=== PATIENT | female | born 1940 | race Caucasian/White ===

== ENCOUNTER 2020-10-07 14:45 | Outpatient (NON) | payer MEDICARE, SELFPAY ==
[2020-10-07 15:15] LABS: Add Urine Microscopic? NO; Appearance Urine Clear (Clear); Bilirubin Urine Negative (Negative); Blood Urine Negative (Negative); Color Urine Yellow (Yellow); Glucose Urine UA Negative (Negative); Ketones Urine Negative (Negative); Leukocyte Esterase Ur Negative LEU/UL (Negative); Nitrate Urine Negative (Negative); Protein Urine Negative (Negative); Urobilinogen Urine 0.2 mg/dL (0.2-1.0); pH Urine 5.5 (5.0-8.0)
== END 2020-10-07 14:46 ==
PROVIDERS: Visit Provider Nurse Practitioner Family
DX: G89.29 Other chronic pain (principal); M54.9 Dorsalgia, unspecified
CPT/HCPCS: 81003

== ENCOUNTER 2020-10-17 08:42 | Emergency (ER) | payer MEDICARE, SELFPAY ==
--- NOTE | ~2020-10-17 | XR_ITS ---
EXAMINATION: XR thoracic spine 2V DATE: 10/17/2020 09:37 INDICATION: Back pain TECHNIQUE: AP and lateral views of the thoracic spine were obtained. COMPARISON: 05/12/2018 FINDINGS: There is chronic exaggerated kyphosis of the thoracic spine. The bones are osteopenic which limits the sensitivity for fracture however none is seen. The vertebral body heights are maintained. There is moderate loss of intervertebral disc space height throughout the thoracic spine. Surgical c lips in the right upper quadrant are likely from prior cholecystectomy. Moderate spondylosis is noted in the upper lumbar spine. IMPRESSION: 1. Moderate thoracic spondylosis and exaggerated kyphosis without acute osseous abnormality identifie d. Reviewed, dictated and finalized at location A. CAL CERTIFICATION SPECIALIST IMPRESSION: 1. Moderate thoracic spondylosis and exaggerated kyphosis without acute osseous abnormality identified.
[2020-10-17 08:43] VITALS: BP 158/92; PULSE 87; RESP 20; O2SAT 97
--- NOTE | 2020-10-17 09:25 | PC.NURSE ---
PT TO XRAY VIA STRETCHER.
[2020-10-17] MEDS: fentaNYL CITRATE INJ (*CRX) 100 MCG/2 ML VIAL 50 MCG IV PUSH (09:40)
[2020-10-17 10:15] VITALS: BP 160/78; PULSE 68; RESP 14; O2SAT 96
--- NOTE | 2020-10-17 11:12 | PC.NURSE ---
Pt c/o pain, per [facility] EDP Dr Winston rosales to give [place] and Flexeril.
[2020-10-17] MEDS: HYDROcodone/acetaminophen (*CRX) 5-325 MG TABLET 1 TAB PO (11:26)
[2020-10-17] MEDS: CYCLOBENZAPRINE HCL 10 MG TABLET PO (11:26)
--- NOTE | 2020-10-17 11:51 | ED.BACK ---
HPI - Back Pain/Injury General Chief Complaint: Back Pain/Injury Stated Complaint: BACK PAIN Time Seen by Provider: 10/17/20 08:59 Source: patient and family Mode of arrival: ambulatory Limitations: no limitations History of Present Illness HPI Narrative: 80-year-old with a history of hypertension, hyperlipidemia, kyphosis here with complaints of upper left back pain for past few days. Patient states that she has a history of constipation while she was straining to have a bowel movement felt a pull in the upper back. Patient was seen in [place] [facility] was discharged home on muscle relaxers and pain medication however her pain is quite intense this morning. MD elicited complaint: back pain Pertinent past history: prior back pain Onset (ago): day(s) (3) Timing: constant Severity: moderate Similar Symptoms Previously: Yes Quality: aching Location: thoracic spine Radiation: none Exacerbating factors: none Relieving factors: none Related Data Home Medications Medication Instructions Recorded Confirmed mecobalamin (vitamin B12) 1,000 1,000 mcg SUBLINGUAL DAILY 10/28/19 07/30/20 mcg disintegrating tablet,sublingual Allergies Allergy/AdvReac Type Severity Reaction Status Date / Time FRANCO Inhibitors Allergy Unknown unknown Verified 10/17/20 08:49 Review of Systems Review of Systems: All systems reviewed & are unremarkable except as noted in HPI and below Constitutional: Constitutional: Reports no additional constitutional complaints Eyes: Eyes: Reports no additional eye complaints ENT: Reports system reviewed and no additional complaints, except as documented Cardiovascular: Cardiovascular: Reports no additional cardiovascular complaints Respiratory: Respiratory: Reports no additional respiratory complaints Gastrointestinal: Gastrointestinal: Reports no additional gastrointestinal complaints Musculoskeletal: Musculoskeletal: Reports as per HPI [facility] Past Medical History Medical History (Updated 10/17/20 @ 11:59 by Cesar Montero MD) Altered mental status Chronic low back pain Dementia Essential hypertension LEAH (generalized anxiety disorder) GERD without esophagitis Headache Hyperlipidemia Insomnia Obesity, Class I, BMI 30-34.9 Olecranon bursitis of right elbow Surgical History Surgical History History of cholecystectomy History of hysterectomy Family History Family History Father Family history of coronary artery disease Social History Social History Smoking status: Never smoker Smoking end date: 09/25/69 Alcohol intake: never Substance use: never Substance use type: does not use Additional living arrangements comments: [facility] Gender identity (if verbalized by the patient): Female Exam Narrative: Exam Narrative: GENERAL: Well-appearing, well-nourished, and in no acute distress. HEAD: Normocephalic, atraumatic. EYES: PERRLA and EOMI.. NECK: Supple. CHEST: Clear to auscultation. No respiratory distress. HEART: Regular rate and rhythm. No murmur heard. Normal peripheral pulses. Back Pain in the thoracicarea on the left side ABDOMEN: Soft, nontender, nondistended, normal active bowel sounds. EXTREMITIES: Normal range of motion. No edema. SKIN: Warm, dry, no rash. NEURO: No focal deficits. Alert and oriented x3. PSYCH: Normal mood and affect. Course Course Emergency Course: Patient pain is improved with IV pain medication however she periodically gets spasms in the upper back. I discussed x-ray findings with the patient and her daughter. Advised her to continue Zanaflex as prescribed along with [place] meanwhile we will give her a short course of steroids to help further inflammation. Patient does feel comfortable going home Vital Signs Vital signs: Vital Signs Pulse Rate 87 10/17/20 08:43
[2020-10-17 12:12] VITALS: BP 154/76; PULSE 72; RESP 15; O2SAT 97
== END 2020-10-17 12:14 | disposition home or self-care (01) ==
PROVIDERS: Emergency Provider Family Medicine; PCP Nurse Practitioner Family
DX: M54.6 Pain in thoracic spine (principal); I10 Essential (primary) hypertension; E78.5 Hyperlipidemia, unspecified; F03.90 Unspecified dementia, unspecified severity, without behavioral disturbance, psychotic disturbance, mood disturbance, and anxiety; K21.9 Gastro-esophageal reflux disease without esophagitis; E66.9 Obesity, unspecified; Z68.33 Body mass index [BMI] 33.0-33.9, adult; M47.814 Spondylosis without myelopathy or radiculopathy, thoracic region
CPT/HCPCS: 72070; 96374; 99284; A9270; J3010

== ENCOUNTER 2021-10-19 14:00 | Outpatient (NON) | payer MEDICARE, SELFPAY ==
[2021-10-23 14:44] LABS: Vitamin D 25 Hydroxy 66 ng/mL (30-100)
== END 2021-10-19 14:01 | disposition home or self-care (01) ==
LOC: CHSLAB 14:02
PROVIDERS: Visit Provider Nurse Practitioner Family
DX: E55.9 Vitamin D deficiency, unspecified (principal)
CPT/HCPCS: 36415; 82306

== ENCOUNTER 2022-03-04 08:53 | Outpatient (NON) | payer MEDICARE, SELFPAY ==
[2022-03-04 09:08] LABS: Basophils Absolute Auto 0.11 K/mm3 (0.00-0.10); Basophils Percent Auto 1.1 % (0.0-1.0); Eosinophils Absolute Auto 0.25 K/mm3 (0.02-0.50); Eosinophils Percent Auto 2.4 % (1.0-6.0); Hematocrit 41.1 % (35.0-42.0); Hemoglobin 13.3 g/dL (11.7-13.8); Immature Granulocyte Absolute 0.02 K/mm3 (0.00-0.00); Immature Granulocyte Percent A 0.2 % (0.0-0.0); Lymphocytes Absolute Auto 3.64 K/mm3 (1.10-4.50); Lymphocytes Percent Auto 34.8 % (18.0-42.0); Mean Corpuscular HGB Conc 32.4 g/dL (32.0-36.0); Mean Corpuscular Hemoglobin 31.1 pg (27.0-31.0); Mean Corpuscular Volume 96.3 fL (78.0-102.0); Mean Platelet Volume 10.3 fl (9.2-11.8); Monocytes Absolute Auto 0.63 K/mm3 (0.10-0.90); Neutrophils Absolute Auto 5.8 K/mm3 (1.7-7.2); Neutrophils Percent Auto 55.5 % (50.0-70.0); Platelet Count Result 399 K/mm3 (150-420); Red Blood Count 4.27 M/mm3 (4.20-5.40); Red Cell Distribution Width 13.2 % (11.6-14.4); White Blood Count 10.5 K/mm3 (4.8-10.8)
[2022-03-04 09:51] LABS: Alanine Aminotransferase 17 U/L (14-59); Albumin Level 3.6 g/dL (3.4-5.0); Alkaline Phosphatase 141 U/L (46-116); Anion Gap 8 mmol/L (8-16); Aspartate Amino Transferase 13 U/L (15-37); Bilirubin,Total 0.4 mg/dL (0.00-1.00); Blood Urea Nitrogen 20 mg/dL (7-18); Calcium 9.2 mg/dL (8.5-10.1); Carbon Dioxide 28 mmol/L (21-32); Chloride 104 mmol/L (98-108); Cholesterol 186 mg/dL (0-200); Estimated Glomerular Filt Rate 53; Glucose 100 mg/dL (70-99); HDL Direct 39 mg/dL (40-60); LDL Cholesterol Calculated 110 mg/dL (<130); Osmolality Calculated 292 mOsm/kg (285-295); Potassium 4.8 mmol/L (3.5-5.1); Sodium 140 mmol/L (136-145); Total Protein 7.6 g/dL (6.4-8.2); Triglycerides 185 mg/dL (0-150)
== END 2022-03-04 08:54 | disposition home or self-care (01) ==
LOC: CHSLAB 08:55
PROVIDERS: Visit Provider Nurse Practitioner Family
DX: E78.5 Hyperlipidemia, unspecified (principal); I10 Essential (primary) hypertension
CPT/HCPCS: 36415; 80053; 80061; 85025

== ENCOUNTER 2023-01-13 14:05 | Outpatient (CLI) | payer MEDICARE, SELFPAY ==
--- NOTE | ~2023-01-13 | XR_ITS ---
XR chest 2V 01/13/2023 14:26 Indication: Dyspnea Procedure: 2 view chest Comparison: Comparison to multiple prior studies sequentially, with oldest reviewed study dated 01/10. Findings: Heart size normal. No focal air space disease, pulmonary edema, pleural effusion or suspect ed pneumothorax. There is atherosclerosis of the aorta. The lungs are hyperinflated which is consiste nt with, but not diagnostic of chronic obstructive pulmonary disease. There is accentuated thoracic k yphosis. Impression: 1: No acute cardiopulmonary disease. Reviewed, dictated and finalized at location A. Impression: 1: No acute cardiopulmonary disease.
== END 2023-01-13 14:06 | disposition home or self-care (01) ==
LOC: CHSIMG 14:08
PROVIDERS: PCP Nurse Practitioner Family; Visit Provider Nurse Practitioner Family
DX: R09.89 Other specified symptoms and signs involving the circulatory and respiratory systems (principal); R06.09 Other forms of dyspnea
CPT/HCPCS: 71046

== ENCOUNTER 2023-02-23 07:59 | Outpatient (CLI) | payer MEDICARE, SELFPAY ==
[2023-02-23 08:14] LABS: Basophils Percent Auto 1.3 % (0.0-1.0); Eosinophils Absolute Auto 0.13 K/mm3 (0.02-0.50); Eosinophils Percent Auto 1.7 % (1.0-6.0); Hematocrit 39.6 % (35.0-42.0); Hemoglobin 12.7 g/dL (11.7-13.8); Immature Granulocyte Absolute 0.03 K/mm3 (0.00-0.00); Immature Granulocyte Percent A 0.4 % (0.0-0.0); Lymphocytes Percent Auto 29.2 % (18.0-42.0); Mean Corpuscular HGB Conc 32.1 g/dL (32.0-36.0); Mean Corpuscular Hemoglobin 30.5 pg (27.0-31.0); Mean Corpuscular Volume 95.2 fL (78.0-102.0); Mean Platelet Volume 9.6 fl (9.2-11.8); Monocytes Absolute Auto 0.46 K/mm3 (0.10-0.90); Monocytes Percent Auto 5.8 % (2.0-11.0); Neutrophils Absolute Auto 4.9 K/mm3 (1.7-7.2); Neutrophils Percent Auto 61.6 % (50.0-70.0); Platelet Count Result 358 K/mm3 (150-420); Red Blood Count 4.16 M/mm3 (4.20-5.40); Red Cell Distribution Width 13.5 % (11.6-14.4); White Blood Count 7.9 K/mm3 (4.8-10.8)
[2023-02-23 08:49] LABS: Alanine Aminotransferase 30 U/L (14-59); Albumin Level 3.6 g/dL (3.4-5.0); Alkaline Phosphatase 107 U/L (46-116); Anion Gap 9 mmol/L (8-16); Aspartate Amino Transferase 21 U/L (15-37); Bilirubin,Total 0.5 mg/dL (0.00-1.00); Blood Urea Nitrogen 20 mg/dL (7-18); Calcium 9.2 mg/dL (8.5-10.1); Carbon Dioxide 27 mmol/L (21-32); Chloride 104 mmol/L (98-108); Cholesterol 184 mg/dL (0-200); Estimated Glomerular Filt Rate 50; Glucose 108 mg/dL (70-99); HDL Direct 39 mg/dL (40-60); LDL Cholesterol Calculated 113 mg/dL (<130); Osmolality Calculated 293 mOsm/kg (285-295); Potassium 4.3 mmol/L (3.5-5.1); Sodium 140 mmol/L (136-145); Triglycerides 162 mg/dL (0-150)
== END 2023-02-23 08:00 | disposition home or self-care (01) ==
LOC: CHSLAB 08:01
PROVIDERS: PCP Nurse Practitioner Family; Visit Provider Nurse Practitioner Family
DX: E78.5 Hyperlipidemia, unspecified (principal); I10 Essential (primary) hypertension
CPT/HCPCS: 36415; 80053; 80061; 85025

== ENCOUNTER 2023-03-10 15:16 | Emergency (ER) | payer MEDICARE, SELFPAY ==
[2023-03-10] VITALS (20 sets, daily range): BP systolic 126–159; BP diastolic 64–101; PULSE 74–88; RESP 13–23; TEMP 37.1–37.2; O2SAT 92–97
--- NOTE | ~2023-03-10 | XR_ITS ---
EXAMINATION: XR chest 1V portable Exam Date/Time: 03/10/2023 17:02 CDT HISTORY: shortness of breath today Comparison: 01/13/2023. RESULT: Lines, tubes, and devices: None. Lungs and pleura: Senescent changes, otherwise clear. Cardiomediastinal silhouette: Stable. Other: No acute osseous or upper abdominal finding. IMPRESSION: No acute cardiopulmonary process. Reviewed, dictated and finalized at location K.
--- NOTE | 2023-03-10 16:36 | ED.SOB ---
HPI - SOB/Dyspnea General Chief Complaint: Shortness of Breath/Dyspnea Stated Complaint: sob Source: patient Mode of arrival: ambulatory Limitations: no limitations History of Present Illness HPI Narrative: 82-year-old female with a history of dementia, anxiety /depression, chronic neck/back pain, spondylosis, kyphosis,dyslipidemia, GERD, hypertension presents to the ER with -- had an episode of shortness of breath at rest. The shortness of breath resolved spontaneously. At this time the patient is asymptomatic with an oxygen saturation of 95% on room. -- Patient had a panic attack as she was unable to get a deep breath. No fever. No cough or sputum production. No chest pain Patient smoked for a few years and quit when she was 23. MD elicited complaint: shortness of breath Onset (ago): hour(s) ( started 2 hours ago and resolved spontaneously) Context: anxiety Severity: mild Exacerbating factors: nothing Relieving factors: nothing Associated symptoms: denies other symptoms Related Data Home oxygen amount: none Home Medications Medication Instructions Recorded Confirmed mecobalamin (vitamin B12) 1,000 1,000 mcg sublingual DAILY 10/28/19 03/10/23 mcg disintegrating tablet,sublingual polyethylene glycol 3350 17 17 g PO DAILY 09/22/22 03/10/23 gram/dose oral powder (Laxative PEG 3350) Allergies Allergy/AdvReac Type Severity Reaction Status Date / Time FRANCO Inhibitors Allergy Unknown unknown Verified 03/10/23 15:42 Review of Systems Review of Systems: All systems reviewed & are unremarkable except as noted in HPI and below Constitutional: Constitutional: Reports as per HPI and Reports no additional constitutional complaints Eyes: Eyes: Reports as per HPI and Reports no additional eye complaints ENT: Reports system reviewed and no additional complaints, except as documented and Reports as per HPI Cardiovascular: Cardiovascular: Reports as per HPI and Reports no additional cardiovascular complaints Respiratory: Respiratory: Reports as per HPI and Reports dyspnea Gastrointestinal: Gastrointestinal: Reports as per HPI and Reports no additional gastrointestinal complaints Genitourinary: Genitourinary: Reports no additional female genitourinary complaints and Reports as per HPI Musculoskeletal: Musculoskeletal: Reports no additional musculoskeletal complaints and Reports as per HPI Comments: bilateral leg swelling back is kyphotic Integumentary/Breasts: Skin/Breast: Reports system reviewed and no additional complaints, except as docu and Reports as per HPI Neurologic: Reports system reviewed and no additional complaints, except as documented and Reports as per HPI Psychiatric: Psychiatric: Reports no additional psychiatric complaints and Reports as per HPI Endocrine: Endocrine: Reports no additional endocrine complaints and Reports as per HPI Hematologic/Lymphatic: Hematologic/Lymphatic: Reports no additional hematologic/lymphatic complaints and Reports as per HPI Allergic/Immunologic: Allergic/Immunologic: Reports no additional allergic/immunologic complaints and Reports as per HPI [facility] Past Medical History Medical History (Updated 03/10/23 @ 18:52 by Davon Reyes MD) Altered mental status Chronic low back pain Dementia Essential hypertension LEAH (generalized anxiety disorder) GERD without esophagitis Headache Hyperlipidemia Insomnia Obesity, Class I, BMI 30-34.9 Olecranon bursitis of right elbow Surgical History Surgical History History of cholecystectomy History of hysterectomy Family History Family History Father Family history of coronary artery disease Social History Social History Smoking status: Never smoker Smoking end date: 09/25/69 Alcohol intake: never Substance use: never Subst
--- NOTE | 2023-03-10 16:48 | ECG_ITS ---
Measurements Intervals [place] Rate: 74 P: 60 NC: 186 QRS: -34 QRSD: 92 T: 45 QT: 396 QTc: 441 Interpretive Statements SINUS RHYTHM LEFT AXIS DEVIATION [QRS AXIS < -30] ABNORMAL ECG NO PREVIOUS ECG AVAILABLE FOR COMPARISON Electronically Signed On 03-11-2023 9:11:23 CDT by Trace Rogers M.D.
[2023-03-10 17:24] LABS: Basophils Percent Auto 1.1 % (0.0-1.0); Eosinophils Absolute Auto 0.13 K/mm3 (0.02-0.50); Eosinophils Percent Auto 1.4 % (1.0-6.0); Hemoglobin 12.5 g/dL (11.7-13.8); Immature Granulocyte Absolute 0.01 K/mm3 (0.00-0.00); Immature Granulocyte Percent A 0.1 % (0.0-0.0); Lymphocytes Absolute Auto 2.89 K/mm3 (1.10-4.50); Lymphocytes Percent Auto 32.1 % (18.0-42.0); Mean Corpuscular HGB Conc 32.1 g/dL (32.0-36.0); Mean Corpuscular Hemoglobin 30.7 pg (27.0-31.0); Mean Corpuscular Volume 95.8 fL (78.0-102.0); Mean Platelet Volume 9.5 fl (9.2-11.8); Monocytes Absolute Auto 0.59 K/mm3 (0.10-0.90); Monocytes Percent Auto 6.6 % (2.0-11.0); Neutrophils Absolute Auto 5.3 K/mm3 (1.7-7.2); Neutrophils Percent Auto 58.7 % (50.0-70.0); Platelet Count Result 338 K/mm3 (150-420); Red Blood Count 4.07 M/mm3 (4.20-5.40); Red Cell Distribution Width 13.6 % (11.6-14.4)
[2023-03-10 17:41] LABS: Troponin I 7.9 ng/L (0.00-60.4)
[2023-03-10 17:46] LABS: Alanine Aminotransferase 25 U/L (14-59); Albumin Level 3.4 g/dL (3.4-5.0); Alkaline Phosphatase 109 U/L (46-116); Anion Gap 7 mmol/L (8-16); Aspartate Amino Transferase 13 U/L (15-37); Bilirubin,Total 0.2 mg/dL (0.00-1.00); Blood Urea Nitrogen 21 mg/dL (7-18); Calcium 9.5 mg/dL (8.5-10.1); Carbon Dioxide 29 mmol/L (21-32); Chloride 104 mmol/L (98-108); Estimated Glomerular Filt Rate 40; Glucose 93 mg/dL (70-99); NT Pro B Type Natriuretic Pept 139 pg/mL (0-450); Osmolality Calculated 293 mOsm/kg (285-295); Potassium 4.6 mmol/L (3.5-5.1); Sodium 140 mmol/L (136-145); Total Protein 7.4 g/dL (6.4-8.2)
== END 2023-03-10 19:10 | disposition home or self-care (01) ==
PROVIDERS: Emergency Provider Internal Medicine Critical Care Medicine; PCP Nurse Practitioner Family
DX: N18.31 Chronic kidney disease, stage 3a (principal); F41.0 Panic disorder [episodic paroxysmal anxiety]; F03.90 Unspecified dementia, unspecified severity, without behavioral disturbance, psychotic disturbance, mood disturbance, and anxiety; E78.5 Hyperlipidemia, unspecified; I10 Essential (primary) hypertension
CPT/HCPCS: 36415; 71045; 80053; 83880; 84484; 85025; 93005; 99284

== ENCOUNTER 2023-09-23 09:00 | Emergency (ER) | payer OTHER, SELFPAY ==
[2023-09-23 09:00] VITALS: BP 151/92; PULSE 95; RESP 18; TEMP 36.7; O2SAT 93
--- NOTE | 2023-09-23 09:16 | ED.BACK ---
HPI - Back Pain/Injury General Chief Complaint: Back Pain/Injury Stated Complaint: back pain Time Seen by Provider: 09/23/23 09:10 Source: patient Mode of arrival: ambulatory Limitations: no limitations History of Present Illness HPI Narrative: Patient is an 83-year-old female with back pain after moving some furniture. She has chronic thoracic curvature leaning forward. She has seen a specialist and they said nothing they can do at this time. This is chronic. She got steroids in the past that has helped significantly. I also she uses [facility] as needed. She is living at a nursing facility MD elicited complaint: back pain Pertinent past history: prior back pain Onset (ago): day(s) (2) Timing: constant Severity: moderate Pain scale (0-10): 5 Quality: sharp and throbbing Location: thoracic spine Radiation: other ( Local paraspinal muscles of the midthoracic spine; this is similar to prior episodes) Exacerbating factors: movement Relieving factors: immobilization Context: while lifting and turning/twisting Associated symptoms: denies other symptoms Related Data Home Medications Medication Instructions Recorded Confirmed polyethylene glycol 3350 17 17 g PO DAILY 09/22/22 03/10/23 gram/dose oral powder (Laxative PEG 3350) Allergies Allergy/AdvReac Type Severity Reaction Status Date / Time FRANCO Inhibitors Allergy Unknown unknown Verified 07/13/23 07:49 Review of Systems Review of Systems: All systems reviewed & are unremarkable except as noted in HPI and below Constitutional: Constitutional: Reports no additional constitutional complaints Eyes: Eyes: Reports no additional eye complaints ENT: Reports system reviewed and no additional complaints, except as documented Cardiovascular: Cardiovascular: Reports no additional cardiovascular complaints Respiratory: Respiratory: Reports no additional respiratory complaints Gastrointestinal: Gastrointestinal: Reports no additional gastrointestinal complaints Genitourinary: Genitourinary: Reports no additional female genitourinary complaints Musculoskeletal: Musculoskeletal: Reports no additional musculoskeletal complaints Integumentary/Breasts: Skin/Breast: Reports system reviewed and no additional complaints, except as docu Neurologic: Reports system reviewed and no additional complaints, except as documented Psychiatric: Psychiatric: Reports no additional psychiatric complaints Endocrine: Endocrine: Reports no additional endocrine complaints Hematologic/Lymphatic: Hematologic/Lymphatic: Reports no additional hematologic/lymphatic complaints Allergic/Immunologic: Allergic/Immunologic: Reports no additional allergic/immunologic complaints [facility] Past Medical History Medical History (Updated 09/23/23 @ 09:40 by Bobo Crump MD) Altered mental status Chronic low back pain Dementia Essential hypertension LEAH (generalized anxiety disorder) GERD without esophagitis Headache Hyperlipidemia Insomnia Obesity, Class I, BMI 30-34.9 Olecranon bursitis of right elbow Surgical History Surgical History History of cholecystectomy History of hysterectomy Family History Family History Father Family history of coronary artery disease Social History Social History Smoking status: Never smoker Smoking end date: 09/25/69 Alcohol intake: never Substance use: never Substance use type: does not use Lack of Transportation: No Lack of Food: Never True Current Housing: Decline to Answer Concerned About Future Housing: Decline to Answer Difficulty Paying Gas/Electric Bills: Decline to Answer Difficulty Paying for Meds: Decline to Answer Currently Unemployed: Decline to Answer Education: Decline to Answer Difficulty w/ Childcare or Family Care: Decline to Answer Living a
[2023-09-23] MEDS: methylPREDNISolone SOD SUCC 125 MG VIAL IM (09:36)
[2023-09-23] MEDS: HYDROcodone/acetaminophen (*CRX) 5-325 MG TABLET 1 TAB PO (09:36)
[2023-09-23 10:25] VITALS: BP 145/80; PULSE 86; RESP 20; O2SAT 94
== END 2023-09-23 10:28 | disposition home or self-care (01) ==
PROVIDERS: Emergency Provider Emergency Medicine; PCP Nurse Practitioner Family
DX: M54.6 Pain in thoracic spine (principal); F03.90 Unspecified dementia, unspecified severity, without behavioral disturbance, psychotic disturbance, mood disturbance, and anxiety; I10 Essential (primary) hypertension; E78.5 Hyperlipidemia, unspecified
CPT/HCPCS: 96372; 99283; A9270; J2930

== ENCOUNTER 2023-09-26 06:23 | Emergency (ER) | payer OTHER, SELFPAY ==
--- NOTE | 2023-09-26 06:40 | ED.SKABFB ---
HPI - Skin/Abscess/Foreign Bdy General Chief complaint: Skin/Abscess/Foreign Body Stated complaint: lower back pain for 2 weeks Time Seen by Provider: 09/26/23 06:38 Source: patient Mode of arrival: ambulatory Limitations: no limitations Related Data Home Medications Medication Instructions Recorded Confirmed polyethylene glycol 3350 17 17 g PO DAILY 09/22/22 03/10/23 gram/dose oral powder (Laxative PEG 3350) Allergies Allergy/AdvReac Type Severity Reaction Status Date / Time FRANCO Inhibitors Allergy Unknown unknown Verified 07/13/23 07:49 Review of Systems Review of Systems: All systems reviewed & are unremarkable except as noted in HPI and below Constitutional: Constitutional: Reports no additional constitutional complaints Eyes: Eyes: Reports no additional eye complaints ENT: Reports system reviewed and no additional complaints, except as documented Cardiovascular: Cardiovascular: Reports no additional cardiovascular complaints Respiratory: Respiratory: Reports no additional respiratory complaints Gastrointestinal: Gastrointestinal: Reports no additional gastrointestinal complaints Genitourinary: Genitourinary: Reports no additional female genitourinary complaints Musculoskeletal: Musculoskeletal: Reports no additional musculoskeletal complaints Integumentary/Breasts: Skin/Breast: Reports system reviewed and no additional complaints, except as docu Neurologic: Reports system reviewed and no additional complaints, except as documented Psychiatric: Psychiatric: Reports no additional psychiatric complaints Endocrine: Endocrine: Reports no additional endocrine complaints Hematologic/Lymphatic: Hematologic/Lymphatic: Reports no additional hematologic/lymphatic complaints Allergic/Immunologic: Allergic/Immunologic: Reports no additional allergic/immunologic complaints [facility] Past Medical History Medical History (Updated 09/26/23 @ 07:00 by Bobo Crump MD) Altered mental status Chronic low back pain Dementia Essential hypertension LEAH (generalized anxiety disorder) GERD without esophagitis Headache Hyperlipidemia Insomnia Obesity, Class I, BMI 30-34.9 Olecranon bursitis of right elbow Surgical History Surgical History History of cholecystectomy History of hysterectomy Family History Family History Father Family history of coronary artery disease Social History Social History Smoking status: Never smoker Smoking end date: 09/25/69 Alcohol intake: never Substance use: never Substance use type: does not use Lack of Transportation: No Lack of Food: Never True Current Housing: Decline to Answer Concerned About Future Housing: Decline to Answer Difficulty Paying Gas/Electric Bills: Decline to Answer Difficulty Paying for Meds: Decline to Answer Currently Unemployed: Decline to Answer Education: Decline to Answer Difficulty w/ Childcare or Family Care: Decline to Answer Living arrangements: assisted living Additional living arrangements comments: [facility] Occupation/Education: retired Gender identity (if verbalized by the patient): Female Exam Const: General: healthy appearing Nutritional Appearance: well nourished Orientation/consciousness: patient oriented x3 HENMT: Head: normal to inspection Ears: external ears normal Face/Nose/Sinus: Normal external nose present Eyes: Conjunctivae: conjunctivae normal Pupils: Equal, round and reactive pupils present EOM: EOMs intact bilaterally Neck: Neck: normal visual inspection Chest: Chest palpation & inspection: normal inspection of the chest Resp: Effort & Inspection: normal respiratory effort and not labored Auscultation: clear to auscultation bilaterally and no crackles Cardio: Rate: regular rate Rhythm: regular rhythm
[2023-09-26] MEDS: HYDROcodone/acetaminophen (*CRX) 5-325 MG TABLET 1 TAB PO (06:59)
[2023-09-26] MEDS: valACYclovir HCL 500 MG TABLET 1000 MG PO (06:59)
[2023-09-26 07:03] VITALS: BP 153/76; PULSE 88; RESP 20; TEMP 36.9; O2SAT 98
[2023-09-26 08:00] VITALS: BP 138/71; PULSE 83; RESP 17; O2SAT 95
[2023-09-26] MEDS: KETOROLAC (*BKC) 60 MG/2 ML VIAL IM (08:05)
--- NOTE | 2023-09-26 08:17 | PC.NURSE ---
Rn called to give report to the [facility], they state they cannot take the patient back yet until they have isolation orders
[2023-09-26 08:30] VITALS: BP 135/72; PULSE 84; RESP 17; O2SAT 95
[2023-09-26 09:00] VITALS: BP 137/80; PULSE 83; RESP 16; O2SAT 98
[2023-09-26] MEDS: LIDOCAINE 5% PATCH 1 PATCH TRANSDERM (09:10)
--- NOTE | 2023-09-26 09:38 | PC.NURSE ---
The [facility] called back they can accept patient back. RN will discharge patient.
[2023-09-26 09:41] VITALS: BP 140/75; PULSE 99; RESP 17; TEMP 36.8; O2SAT 98
== END 2023-09-26 09:41 | disposition home or self-care (01) ==
PROVIDERS: Emergency Provider Emergency Medicine; PCP Nurse Practitioner Family
DX: B02.9 Zoster without complications (principal); F03.90 Unspecified dementia, unspecified severity, without behavioral disturbance, psychotic disturbance, mood disturbance, and anxiety; I10 Essential (primary) hypertension; E78.5 Hyperlipidemia, unspecified
CPT/HCPCS: 96372; 99283; A9270; J1885

== ENCOUNTER 2023-10-05 14:57 | Emergency (ER) | payer OTHER, SELFPAY ==
--- NOTE | 2023-10-05 15:00 | ED.ANXIETY ---
HPI - Anxiety General Stated Complaint: shortness o f breath Time Seen by Provider: 10/05/23 14:58 Source: patient and EMS Mode of arrival: EMS Limitations: no limitations History of Present Illness HPI narrative: This 83-year-old female with a recent diagnosis of shingles that is from [place] and was called and EMS responded with some what appeared to be shortness of breath and anxiety, the patient after assessment by EMS stated that she felt 100% better and did states that she was anxious after the of a friend approximately 4 to 5 days ago. Currently there is no shortness of breath no fever chills her vitals are stable she is satting at 96% on room air with no chest pain no abdominal pain no dysuria no flank pain no nausea vomiting. complaint: anxiety Onset (ago): hour(s) Severity: mild Quality: improving Place: home History of similar episodes: Yes Provoking factors: emotional stress Exacerbating factors: nothing Related Data Home Medications Medication Instructions Recorded Confirmed polyethylene glycol 3350 17 17 g PO DAILY 09/22/22 03/10/23 gram/dose oral powder (Laxative PEG 3350) Allergies Allergy/AdvReac Type Severity Reaction Status Date / Time FRANCO Inhibitors Allergy Unknown unknown Verified 07/13/23 07:49 Review of Systems Review of Systems: All systems reviewed & are unremarkable except as noted in HPI and below PMFSH Past Medical History Medical History (Updated 10/05/23 @ 15:08 by Christian Fletcher MD) Altered mental status Chronic low back pain Dementia Essential hypertension LEAH (generalized anxiety disorder) GERD without esophagitis Headache Hyperlipidemia Insomnia Obesity, Class I, BMI 30-34.9 Olecranon bursitis of right elbow Surgical History Surgical History History of cholecystectomy History of hysterectomy Family History Family History Father Family history of coronary artery disease Social History Social History Smoking status: Never smoker Smoking end date: 09/25/69 Alcohol intake: never Substance use: never Substance use type: does not use Lack of Transportation: No Lack of Food: Never True Current Housing: Decline to Answer Concerned About Future Housing: Decline to Answer Difficulty Paying Gas/Electric Bills: Decline to Answer Difficulty Paying for Meds: Decline to Answer Currently Unemployed: Decline to Answer Education: Decline to Answer Difficulty w/ Childcare or Family Care: Decline to Answer Living arrangements: assisted living Additional living arrangements comments: [facility] Occupation/Education: retired Gender identity (if verbalized by the patient): Female Exam Const: General: healthy appearing and no acute distress Nutritional Appearance: well nourished Orientation/consciousness: patient oriented x3 Limitations: no limitations HENMT: Head: normal to inspection Chest: Chest palpation & inspection: normal inspection of the chest Resp: Effort & Inspection: normal respiratory effort Auscultation: clear to auscultation bilaterally Cardio: Rate: regular rate Rhythm: regular rhythm GI: GI Palp: Yes Soft to palpation Auscultation: normal bowel sounds Back/Spine/Pelvis: Back: no CVA tenderness Skin: General skin exam: normal color Rashes: no rashes Neuro: General: patient oriented x3 and moves all extremities Cranial nerves: Yes Nystagmus not present Speech: normal speech Extrem: General: normal to inspection Psych: Mental Status: mental status grossly normal Affect: Anxious affect present Course Course Emergency Course: Patient with a history of anxiety with a recent increased anxiety and EMS was called currently states that her symptoms have resolved does feel still bit anxious and O2 sats and vital signs are
[2023-10-05 15:03] VITALS: BP 110/66; PULSE 88; RESP 12; TEMP 37.1; O2SAT 93
[2023-10-05 15:04] VITALS: RESP 20; O2SAT 93
[2023-10-05] MEDS: ALPRAZolam (*CRX) 0.5 MG TABLET PO (15:10)
[2023-10-05 15:48] VITALS: BP 118/80; PULSE 70; RESP 20; TEMP 36.7; O2SAT 93
== END 2023-10-05 15:52 ==
PROVIDERS: Emergency Provider Emergency Medicine; PCP Nurse Practitioner Family
DX: F41.9 Anxiety disorder, unspecified (principal); F03.90 Unspecified dementia, unspecified severity, without behavioral disturbance, psychotic disturbance, mood disturbance, and anxiety; E78.5 Hyperlipidemia, unspecified; I10 Essential (primary) hypertension
CPT/HCPCS: 99283; A9270

== ENCOUNTER 2024-02-22 10:54 | Outpatient (NON) | payer OTHER, SELFPAY ==
[2024-02-22 11:12] LABS: Basophils Absolute Auto 0.08 K/mm3 (0.00-0.10); Basophils Percent Auto 0.8 % (0.0-1.0); Eosinophils Absolute Auto 0.13 K/mm3 (0.02-0.50); Eosinophils Percent Auto 1.3 % (1.0-6.0); Hematocrit 43.5 % (35.0-42.0); Hemoglobin 13.9 g/dL (11.7-13.8); Immature Granulocyte Absolute 0.02 K/mm3 (0.00-0.00); Immature Granulocyte Percent A 0.2 % (0.0-0.0); Lymphocytes Absolute Auto 2.13 K/mm3 (1.10-4.50); Lymphocytes Percent Auto 21.4 % (18.0-42.0); Mean Platelet Volume 10.8 fl (9.2-11.8); Monocytes Absolute Auto 0.67 K/mm3 (0.10-0.90); Monocytes Percent Auto 6.7 % (2.0-11.0); Neutrophils Absolute Auto 6.93 K/mm3 (1.70-7.20); Neutrophils Percent Auto 69.6 % (50.0-70.0); Platelet Count Result 328 K/mm3 (150-420); Red Blood Count 4.63 M/mm3 (4.20-5.40); Red Cell Distribution Width 13.1 % (11.6-14.4)
[2024-02-22 11:35] LABS: Alanine Aminotransferase 17 U/L (14-59); Albumin Level 3.3 g/dL (3.4-5.0); Alkaline Phosphatase 104 U/L (46-116); Anion Gap 7 mmol/L (4-12); Aspartate Amino Transferase 20 U/L (15-37); Bilirubin,Total 0.5 mg/dL (0.00-1.00); Blood Urea Nitrogen 20 mg/dL (7-18); Calcium 9.4 mg/dL (8.5-10.1); Carbon Dioxide 30 mmol/L (21-32); Chloride 104 mmol/L (98-108); Estimated Glomerular Filt Rate 49; Glucose 120 mg/dL (70-99); Osmolality Calculated 295 mOsm/kg (285-295); Potassium 4.9 mmol/L (3.5-5.1); Sodium 141 mmol/L (136-145); Total Protein 7.1 g/dL (6.4-8.2)
[2024-02-22 11:55] LABS: NT Pro B Type Natriuretic Pept 300 pg/mL (0-450)
[2024-02-22 16:17] LABS: Hemoglobin A1C 5.7 % (<5.7)
[2024-02-24 03:04] LABS: Vitamin D 25 Hydroxy 140 ng/mL (30-100)
== END 2024-02-22 10:55 | disposition home or self-care (01) ==
LOC: CHSLAB 10:55
PROVIDERS: Visit Provider Nurse Practitioner Family
DX: R73.9 Hyperglycemia, unspecified (principal); E55.9 Vitamin D deficiency, unspecified; R60.9 Edema, unspecified; R06.09 Other forms of dyspnea
CPT/HCPCS: 80053; 82306; 83036; 83880; 85025

== ENCOUNTER 2024-11-11 13:30 | Outpatient (CLI) | payer OTHER, SELFPAY ==
--- NOTE | ~2024-11-11 | XR_ITS ---
EXAMINATION: XR chest 2V DATE: 11/11/2024 14:19 INDICATION: Cough, shortness of breath and weakness TECHNIQUE: frontal and lateral views of the chest were obtained. COMPARISON: Chest radiograph dated 03/10/23 FINDINGS: Portion of the left apex are obscured by the patient's chin. The lungs are clear with no focal airspa ce opacities, pulmonary edema, pleural effusion or pneumothorax. The cardiomediastinal silhouette is normal. Thoracic kyphosis with moderate spondylosis. IMPRESSION: 1. No acute cardiopulmonary disease. Reviewed, dictated and finalized at location A. NESS DATABASE ANALYST
--- OUTSIDE RECORDS SUMMARY | 2024-11-11 16:02 | XMS_ITS | Clinical Summary ---
Author Organization [facility] Address [address] [place] [id number] Care Team Providers Care Acute Dialysis Nurse Name Role Phone Unavailable Primary Care Provider Unavailabl e Social History Tobacco Use Types Packs/Day Years Used Date Smoking Tobacco: Never Assessed Comments Unknown Sex and Gender Information Value Date Recorded Sex Assigned at Not on file Legal Sex Female 1:42 AM CDT Gender Identity Not on file Sexual Orientation Not on file Plan of Treatment Health Maintenance Due Date Last Done Comments DTaP, Tdap and Td Vaccines ( 1 - Tdap) 1959 Zoster Vaccines (1 of 2) 1990 Annual Medicare Wellness Visit 2005 Dexa Scan (General) 2005 Pneumococcal Vaccine: 65+ Ye ars (1 of 1 - PCV) 2005 RSV Immunization or 60+ Years (1 - 1-dose 75+ series) 2015 COVID-19 Vaccine ( - 2023-2 5 season) 2024 Influenza Adult (#1) 2024 Meningococcal B Vaccine Aged Out No l onger eligible based on patient's age to complete this topic Meningococcal Vaccine Aged Out No donna jayde eligible based on patient's age to complete this topic RSV Immunizations Under 20 Months Aged Out No longer eligible based on patient's age to complete this topic Insurance MEDICARE
== END 2024-11-11 13:31 | disposition home or self-care (01) ==
LOC: CHSIMG 13:32
PROVIDERS: PCP Nurse Practitioner Family; Visit Provider Family Medicine
DX: R09.89 Other specified symptoms and signs involving the circulatory and respiratory systems (principal)
CPT/HCPCS: 71046

== ENCOUNTER 2024-11-12 08:48 | Inpatient (IN) | payer OTHER, SELFPAY ==
[2024-11-12] VITALS (23 sets, daily range): BP systolic 78–117; BP diastolic 46–65; PULSE 107–127; RESP 17–24; TEMP 36.9–37.6; O2SAT 4–97; BMI 29.9
--- NOTE | ~2024-11-12 | CT_ITS ---
EXAMINATION: CT cervical spine wo con DATE: 11/12/2024 10:12 INDICATION: Neck injury. Fall. TECHNIQUE: Computed tomography (CT) of the cervical spine was performed without intravenous contrast. Automated exposure control and iterative reconstruction technique were employed. The dose-length pro duct was 225.35 mGy-cm. COMPARISON: None FINDINGS: Alignment is normal. Vertebral body heights are normal. There is mildly decreased disc heig ht at C3-C4, C5-C6, and C6-C7. The following disc levels are specifically discussed: C2-C3: There is no uncovertebral joint osteoarthritis. There is severe bilateral facet joint osteoart hritis. There is mild left neural foraminal stenosis. There is no central canal stenosis. C3-C4: There is severe right and moderate left uncovertebral joint osteoarthritis. There is moderate right and severe left facet joint osteoarthritis. There is mild bilateral neural foraminal stenosis. There is mild central canal stenosis. C4-C5: There is severe right and moderate left uncovertebral joint osteoarthritis. There is severe bi lateral facet joint osteoarthritis. There is mild bilateral neural foraminal stenosis. There is mild central canal stenosis. C5-C6: There is moderate right and mild left uncovertebral joint osteoarthritis. There is severe righ t and moderate left facet joint osteoarthritis. There is mild right neural foraminal stenosis. There is mild central canal stenosis. C6-C7: There is no uncovertebral joint osteoarthritis. There is mild right and moderate left facet elisabeth int osteoarthritis. There is no neural foraminal stenosis. There is no central canal stenosis. C7-T1: There is no uncovertebral joint osteoarthritis. There is mild right and severe left facet join t osteoarthritis. There is mild left neural foraminal stenosis. There is no central canal stenosis. IMPRESSION: 1. No fracture. 2. Mild cervical spondylosis. Reviewed, dictated and finalized at location A. APEUTIC RECREATION ASSISTANT
--- NOTE | ~2024-11-12 | XR_ITS ---
EXAMINATION: XR chest 1V portable DATE: 11/12/2024 09:04 INDICATION: Cough. TECHNIQUE: A single frontal view of the chest was obtained. COMPARISON: Chest 2 views 11/11/2024, chest CT 02/04/2018 FINDINGS: The patient is rotated to her left. There are patchy airspace opacities in the all left manolo g zones. No pleural effusion or pneumothorax. The heart size is normal. IMPRESSION: 1. Airspace opacities in left lung, consistent with atelectasis versus pneumonia. Reviewed, dictated and finalized at location A. T RELATIONS OFFICER IMPRESSION: 1. Airspace opacities in left lung, consistent with atelectasis versus pneumoni a.
--- NOTE | ~2024-11-12 | CT_ITS ---
EXAMINATION: CT brain wo con DATE: 11/12/2024 10:11 INDICATION: Head injury. TECHNIQUE: Computed tomography (CT) of the head was performed without intravenous contrast. The mA wa s adjusted according to patient size. Iterative reconstruction technique was employed. The dose-lengt h product was 605.33 mGy-cm. 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 There are scattered areas of low attenuati on in the cerebral white matter, which is within normal limits for the patient's age. There is no int racranial hemorrhage, acute infarction, or abnormal intracranial mass lesion. The ventricles are norm al in size. There is mild mucosal thickening in the paranasal sinuses. There are likely changes of oc ular lens replacement surgeries. The mastoid air cells are normal. IMPRESSION: 1. 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 Reviewed, dictated and finalized at location A. SHELLER
--- NOTE | ~2024-11-12 | XR_ITS ---
XR chest 1V portable 11/13/2024 09:37 Indication: Chest pain and shortness of breath Procedure: AP portable chest Comparison: Comparison to multiple prior studies sequentially, with oldest reviewed study dated 01/13. Findings: Borderline heart size. Bibasilar atelectasis. No focal pneumonia, pleural effusion or pneum othorax. No edema. Impression: 1: Bibasilar atelectasis. Reviewed, dictated and finalized at location B. SCHOOL SOCIAL STUDIES TEACHER Impression: 1: Bibasilar atelectasis.
--- NOTE | ~2024-11-12 | XR_ITS ---
EXAMINATION: XR hip LT 2V w AP pelvis DATE: 11/12/2024 10:12 INDICATION: Left hip pain. Injury. TECHNIQUE: An anteroposterior view of the pelvis and 2 views of left hip were obtained. COMPARISON: None. FINDINGS: There is lumbar dextrocurvature and severe spondylosis. No fracture. There is moderate oste oarthritis of the hips. IMPRESSION: 1. Moderate osteoarthritis of the hips. Reviewed, dictated and finalized at location A. INIST GENERAL
--- NOTE | ~2024-11-12 | CT_ITS ---
Clinical Indication: Shortness of breath CT Scan of the Chest with Contrast: Technique: Contiguous sections were acquired throughout the chest after intravenous administration of 100 cc of Omnipaque 350. Dose reduction technique was used on this scan by utilizing automated expos ure control and iterative reconstruction technique. The dose-length product (DLP) was 744.99 mGy-cm. Findings: There is no evidence of any significant mediastinal, hilar or axillary lymphadenopathy. There is no f illing defect in the pulmonary arterial tree to suggest pulmonary embolus. There is no evidence of ao rtic dissection or aneurysm. There is no evidence of pleural or pericardial effusion. Patchy left basilar airspace disease could reflect atelectasis/scarring versus pneumonia. There is mi nimal right basilar atelectasis. There are a few scattered areas of probable focal tree-in-bud opacit ies in the lungs, which could reflect focal areas of small airways infection. There is an 8 mm nodula r opacity in the superior segment right lower lobe, morphology most suggestive of focal scarring or p ostinflammatory change. Images through the upper abdomen reveal no abnormalities. Impression: No evidence of pulmonary embolus, aortic dissection, or aortic aneurysm. Patchy left basilar airspace consolidation could reflect atelectasis/scarring versus pneumonia. Scattered areas of minimal tree-in-bud opacities in the lungs suggests focal areas of small airways i nfection. 8 mm superior segment right lower lobe pulmonary nodule, most suggestive of focal scarring. Reviewed, dictated and finalized at [facility]. OLOGY TECHNICIAN Impression: No evidence of pulmonary embolus, aortic dissection, or aortic aneurysm. Patchy left basilar airspace consolidation could reflect atelectasis/scarring v ersus pneumonia. Scattered areas of minimal tree-in-bud opacities in the lungs suggests focal ar eas of small airways infection. 8 mm superior segment right lower lobe pulmonary nodule, most suggestive of foc al scarring.
--- NOTE | 2024-11-12 08:52 | ED_ITS ---
HPI - General Adult General Chief complaint: Shortness of Breath/Dyspnea Stated complaint: fall Time Seen by Provider: 11/12/24 08:52 Source: patient, family and EMS Mode of arrival: EMS History of Present Illness HPI narrative: 48 years old white female came from assisting living by ambulance complaining of been feeling weak lately, fell in the bathroom today, does not know what causing that fall, report hitting the back of the head on the toilet, complaining of left hip soreness. Denies loss of consciousness, not on anti- platelet or anticoagulant medications. The patient is DNR History of obesity, hypertension, hyperlipidemia, headache, insomnia, GERD, generalized anxiety disorder, chronic lower back pain, dementia. Related Data Home Medications ?Medication ?Instructions ?Recorded ?Confirmed ?Last Taken ?Type polyethylene glycol 3350 17 17 g PO DAILY 09/22/22 11/11/24 Unknown History gram/dose oral powder (Laxative PEG 3350) Allergies Allergy/AdvReac Type Severity Reaction Status Date / Time FRANCO Inhibitors Allergy Unknown unknown Verified 11/12/24 09:09 Review of Systems 2 Review of Systems: All systems reviewed & are unremarkable except as noted in HPI and below PMFSH Past Medical History Medical History (Updated 11/12/24 @ 09:58 by Tahir Hodgson MD) Obesity, Class I, BMI 30-34.9 Olecranon bursitis of right elbow Essential hypertension Insomnia Hyperlipidemia Headache GERD without esophagitis LEAH (generalized anxiety disorder) Dementia Chronic low back pain Altered mental status Surgical History Surgical History History of hysterectomy History of cholecystectomy Family History Family History Father Family history of coronary artery disease Social History Social History Smoking status: Never smoker Smoking end date: 09/25/69 Alcohol intake: never Substance use: never Substance use type: does not use Lack of Transportation: No Lack of Food: Never True Current Housing: Decline to Answer Concerned About Future Housing: Decline to Answer Difficulty Paying Gas/Electric Bills: Decline to Answer Difficulty Paying for Meds: Decline to Answer Currently Unemployed: Decline to Answer Education: Decline to Answer Difficulty w/ Childcare or Family Care: Decline to Answer Living arrangements: assisted living Additional living arrangements comments: [facility] Occupation/Education: retired Gender identity (if verbalized by the patient): Female Exam 2 Narrative: General appearance: Well-developed, well-nourished Skin: Normal color Head: Normocephalic, nontraumatic Eyes: Clear conjunctiva ENT: Oropharynx normal, ears normal, nose normal Neck: Supple, nontender Chest and respiratory: Airway patent, Slight labored breathing, scattered rhonchi and coarse wheezing bilaterally, diminution of air entry bilaterally Heart: tachycardia Abdomen: Soft, nontender, no organomegaly, quiet bowel sounds Vascular: Normal peripheral pulses, normal capillary refill. 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, no gross motor deficit Course Vital Signs Vital signs: Vital Signs Pulse Rate 127 H 11/12/24 08:48 Respiratory Rate 22 H 11/12/24 08:48 Pulse Oximetry 86 L 11/12/24 08:48 Oxygen Delivery Room Air 11/12/24 08:48 Oxygen Flow Rate 2 11/12/24 08:48 Temperature 37.6 C H 11/12/24 08:57 Pulse Rate 113 H 11/12/24 10:32 Respiratory Rate 22 H 11/12/24 10:32 Blood Pressure 117/65 11/12/24 08:57 Pulse Oximetry 96 11/12/24 10:32 Oxygen Delivery Non-Rebreather Mask 11/12/24 08:57 Oxygen Flow Rate 2 11/12/24 10:32 Medical Decision Making [facility] Narrative Medical decision making narrative: patient came to the ED because of a general weakness and ground level falls. Vital sign showing heart rate of 127, regular, respiration 22, temperature 37.6?, saturation on room air 86%. Blood pressure 117/65 Physical examination showing a patient in no pain, slight labored breathing, scattered rhonchi and wheezing bilaterally. Patient placed on oxygen 2 L by nasal cannula Differential diagnosis include: Respiratory viral infection, pneumonia, bronchitis, congestive heart failure, sepsis, electrolyte imbalance, dehydration, urinary tract infection Blood workup today includes CBC, CMP, PT PTT, lactic acid, blood culture, troponin, BNP showed WBC 15.3 lactic acid 3.6 Respiratory panel Positive for influenza A Chest x-ray showed pneumonia versus atelectasis. I believe patient does have pneumonia, Levaquin IV started Urinalysis difficult to obtain. Patient declined straight cath. Patient started on Levaquin any way which high likely cover possible UTI CT head and cervical spine without contrast showed no acute abnormalities X-ray of the left hip and pelvis showed no acute abnormalities Admit to hospitalist Patient is DNR Diagnosis: Acute respiratory failure with hypoxia, pneumonia, influenza a, RAQUEL Differential Diagnosis Differential Diagnosis: as above Vital Signs Vital Signs: Vital Signs Pulse Rate 127 H 11/12/24 08:48 Respiratory Rate 22 H 11/12/24 08:48 Pulse Oximetry 86 L 11/12/24 08:48 Oxygen Delivery Room Air 11/12/24 08:48 Oxygen Flow Rate 2 11/12/24 08:48 Temperature 37.6 C H 11/12/24 08:57 Pulse Rate 113 H 11/12/24 10:32 Respiratory Rate 22 H 11/12/24 10:32 Blood Pressure 117/65 11/12/24 08:57 Pulse Oximetry 96 11/12/24 10:32 Oxygen Delivery Non-Rebreather Mask 11/12/24 08:57 Oxygen Flow Rate 2 11/12/24 10:32 Lab Data 11/12/24 09:22 11/12/24 09:22 Labs: Lab Results 11/12/24 Range/Units 09:22 WBC 15.3 H (4.8-10.8) K/mm3 RBC 4.44 (4.20-5.40) M/mm3 Hgb 13.1 (11.7-13.8) g/dL Hct 41.9 (35.0-42.0) % MCV 94.4 (78.0-102.0) fL MCH 29.5 (27.0-31.0) pg MCHC 31.3 L (32-36) g/dL RDW 14.1 (11.6-14.4) % Plt Count 268 (150-420) K/mm3 MPV 9.9 (9.2-11.8) fl Immature Gran % (Auto) 0.7 H (0.0-0.0) % Neut % (Auto) 81.5 H (50.0-70.0) % Lymph % (Auto) 10.3 L (18.0-42.0) % [place] % (Auto) 7.1 (2.0-11.0) % Eos % (Auto) 0.1 L (1.0-6.0) % Baso % (Auto) 0.3 (0.0-1.0) % Lymph # (Auto) 1.58 (1.10-4.50) K/mm3 [place] # (Auto) 1.08 H (0.10-0.90) K/mm3 Eos # (Auto) 0.02 (0.02-0.50) K/mm3 Baso # (Auto) 0.05 (0.00-0.10) K/mm3 Abs Immat Gran (auto) 0.10 H (0.00-0.00) K/mm3 Absolute Neuts (auto) 12.46 H (1.70-7.20) K/mm3 Absolute Nucleated RBC 0.00 (0.00-0.00) K/mm3 Nucleated RBC % 0.0 (0-0.0) % PT 10.9 (9.50-12.1) Seconds INR 1.0 APTT 33.0 H (23.9-30.70) Sec Sodium 141 (136-145) mmol/L Potassium 3.4 L (3.5-5.1) mmol/L Chloride 102 (98-108) mmol/L Carbon Dioxide 23 (21-32) mmol/L Anion Gap 16 H (4-12) mmol/L BUN 30 H (7-18) mg/dL Creatinine 1.50 H (0.55-1.02) mg/dL Estim Creat Clear Calc Not Reportable Estimated GFR 33 L (59 - ) Glucose 156 H (70-99) mg/dL Calculated Osmolality 301 H (285-295) mOsm/kg Lactic Acid 3.6 H (0.4-2.0) mmol/L Calcium 8.8 (8.5-10.1) mg/dL Total Bilirubin 1.2 H (0.00-1.00) mg/dL AST 75 H (15-37) U/L ALT 25 (14-59) U/L Alkaline Phosphatase 115 (46-116) U/L C-Reactive Protein > 25.0 H (0.0-0.9) mg/dL NT-Pro-B Natriuret Pep < 5 (0-450) pg/mL Total Protein 7.9 (6.4-8.2) g/dL Albumin 3.0 L (3.4-5.0) g/dL Urine Color Pending Urine Appearance Pending Urine pH Pending Ur Specific [place] Pending Urine Protein Pending Urine Glucose (UA) Pending Urine Ketones Pending Ur Blood (Man) Pending Urine Nitrate Pending Urine Bilirubin Pending Urine Urobilinogen Pending Leukocyte Esterase Rfl Pending Influenza A (RT-PCR) Positive A (Negative) Influenza B (RT-PCR) Negative (Negative) RSV (RT-PCR) Negative (Negative) SARS-CoV-2 RNA (RT-PCR) Negative (Negative) ECG Data EKG #1: Attestation: I personally reviewed and interpreted this ECG as follows: ECG completion date: 11/12/24 Interpretation: sinus tachycardia at 121 beats per minute, moderate ST depression, abnormal EKG mild left axis deviation Critical Care Time Critical Care Time Critical Care Time: No Discharge Plan Discharge Clinical Impression: Pneumonia Patient Disposition: Still a Patient Condition: Stable Patient Language: Welsh Prescriptions: No Action polyethylene glycol 3350 [Laxative PEG 3350] 17 gram/dose powder 17 g PO DAILY hydrocodone-acetaminophen 5-325 mg tablet 1 tablet PO Q6H PRN (Reason: pain) Qty: 60 0RF Rx Instructions: please take only as needed. this medicine causes drowsiness/sedation. mecobalamin (vitamin B12) 1,000 mcg tablet,disintegrating See Rx Instructions .ROUTE .COMPLEX Qty: 100 0RF Dose Instruction: PLACE 1 TABLET UNDER TONGUE AND ALLOW TO DISSOLVE FOR 30 SECONDS BEFORE SWALLOWING Rx Instructions: PLACE 1 TABLET UNDER TONGUE AND ALLOW TO DISSOLVE FOR 30 SECONDS BEFORE SWALLOWING acetaminophen 500 mg tablet See Rx Instructions .ROUTE .COMPLEX Qty: 100 5RF Dose Instruction: TAKE 1 TABLET BY MOUTH EVERY 8 HOURS Rx Instructions: TAKE 1 TABLET BY MOUTH EVERY 8 HOURS atorvastatin 40 mg tablet See Rx Instructions .ROUTE .COMPLEX Qty: 30 5RF Dose Instruction: TAKE 1 TABLET AT BEDTIME. Rx Instructions: TAKE 1 TABLET AT BEDTIME. ergocalciferol (vitamin D2) 1,250 mcg (50,000 unit) capsule See Rx Instructions .ROUTE .COMPLEX Qty: 4 5RF Dose Instruction: TAKE 1 CAPSULE WEEKLY ON MONDAY Rx Instructions: TAKE 1 CAPSULE WEEKLY ON MONDAY gabapentin 400 mg capsule See Rx Instructions .ROUTE .COMPLEX Qty: 90 5RF Dose Instruction: TAKE ONE CAPSULE BY MOUTH THREE TIMES A DAY Rx Instructions: TAKE ONE CAPSULE BY MOUTH THREE TIMES A DAY losartan 100 mg tablet See Rx Instructions .ROUTE .COMPLEX Qty: 30 5RF Dose Instruction: TAKE 1 TABLET BY MOUTH DAILY. Rx Instructions: TAKE 1 TABLET BY MOUTH DAILY. mirtazapine 15 mg tablet See Rx Instructions .ROUTE .COMPLEX Qty: 30 5RF Dose Instruction: TAKE ONE TABLET BY MOUTH DAILY Rx Instructions: TAKE ONE TABLET BY MOUTH DAILY spironolactone 50 mg tablet See Rx Instructions .ROUTE .COMPLEX Qty: 30 5RF Dose Instruction: TAKE 1 TABLET BY MOUTH DAILY. Rx Instructions: TAKE 1 TABLET BY MOUTH DAILY.
--- OUTSIDE RECORDS SUMMARY | 2024-11-12 08:52 | XMS_ITS | Clinical Summary ---
Author Organization [facility] Address [address] [place] [id number] Care Team Providers Care Master Ocean [employer] Name Role Phone Unavailable Primary Care Provider [...]
--- NOTE | 2024-11-12 08:53 | ECG_ITS ---
Test Date: 2024-11-12 09:07:06 Measurements Intervals [place] Rate: 121 P: 74 AR: 156 QRS: -45 QRSD: 88 T: 62 QT: 430 QTc: 611 Interpretive Statements SINUS TACHYCARDIA LEFT ANTERIOR FASCICULAR BLOCK BORDERLINE ST-T WAVE ABNORMALITY- INF/HIGH LAT LEADS BASELINE ARTIFACT- I, II, III, AVR, AVL, AVF, V1-V2 ABNORMAL ECG No previous ECG available for comparison Electronically Signed On 11-12-2024 09:57:18 [facility] by Javier Jones D.O.
[2024-11-12 09:29] LABS: Basophils Absolute Auto 0.05 K/mm3 (0.00-0.10); Basophils Percent Auto 0.3 % (0.0-1.0); Eosinophils Absolute Auto 0.02 K/mm3 (0.02-0.50); Eosinophils Percent Auto 0.1 % (1.0-6.0); Hematocrit 41.9 % (35.0-42.0); Hemoglobin 13.1 g/dL (11.7-13.8); Immature Granulocyte Percent A 0.7 % (0.0-0.0); Lymphocytes Absolute Auto 1.58 K/mm3 (1.10-4.50); Lymphocytes Percent Auto 10.3 % (18.0-42.0); Mean Corpuscular HGB Conc 31.3 g/dL (32-36); Mean Corpuscular Hemoglobin 29.5 pg (27.0-31.0); Mean Corpuscular Volume 94.4 fL (78.0-102.0); Mean Platelet Volume 9.9 fl (9.2-11.8); Monocytes Absolute Auto 1.08 K/mm3 (0.10-0.90); Monocytes Percent Auto 7.1 % (2.0-11.0); Neutrophils Absolute Auto 12.46 K/mm3 (1.70-7.20); Neutrophils Percent Auto 81.5 % (50.0-70.0); Platelet Count Result 268 K/mm3 (150-420); Red Blood Count 4.44 M/mm3 (4.20-5.40); Red Cell Distribution Width 14.1 % (11.6-14.4); White Blood Count 15.3 K/mm3 (4.8-10.8)
--- NOTE | 2024-11-12 09:30 | PC.NURSE ---
PT IS SITTING UP ON STRETCHER AT THIS TIME BREATHING EASIER,FINGERNAIL BEDS AND LIPS ARE NO LONGER CYANOTIC, PRODUCTIVE COUGH IS STILL NOTED. PT IS TALKING WITH FAMILY AT THIS TIME. WILL CONTINUE TO MONITOR.
--- OUTSIDE RECORDS SUMMARY | 2024-11-12 09:35 | XMS_ITS | Clinical Summary ---
Author Organization [facility] Address [address] [place] [id number] Care Team Providers Care Electrical Manufacturing Technician Name Role Phone Unavailable Primary Care Provider [...]
[2024-11-12 09:43] LABS: Prothrombin Time 10.9 Seconds (9.50-12.1)
[2024-11-12 09:52] LABS: Lactic Acid Reflex 3.6 mmol/L (0.4-2.0)
[2024-11-12 09:58] LABS: Alanine Aminotransferase 25 U/L (14-59); Alkaline Phosphatase 115 U/L (46-116); Anion Gap 16 mmol/L (4-12); Aspartate Amino Transferase 75 U/L (15-37); Bilirubin,Total 1.2 mg/dL (0.00-1.00); Blood Urea Nitrogen 30 mg/dL (7-18); Calcium 8.8 mg/dL (8.5-10.1); Carbon Dioxide 23 mmol/L (21-32); Chloride 102 mmol/L (98-108); Estimated Glomerular Filt Rate 33; Glucose 156 mg/dL (70-99); Osmolality Calculated 301 mOsm/kg (285-295); Potassium 3.4 mmol/L (3.5-5.1); Sodium 141 mmol/L (136-145); Total Protein 7.9 g/dL (6.4-8.2)
[2024-11-12 10:09] LABS: Influenza A QL RT-PCR Positive (Negative); Influenza B QL RT-PCR Negative (Negative); RSV RNA, RT-PCR Negative (Negative); SARS-CoV-2 RNA PCR Negative (Negative)
[2024-11-12 10:15] LABS: CRP > 25.0 mg/dL (0.0-0.9)
[2024-11-12] MEDS: IPRATROPIUM 0.5 MG/ALBUTEROL SULFATE 2.5 MG AMPUL.NEB 3 ML INHALATION ×3 (10:20→17:00)
--- NOTE | 2024-11-12 10:30 | PC.NURSE ---
NO CHANGE IN PT STATUS, AWAITING RESULTS. PT APPEARS TO BE BREATHING EASIER. WILL CONTINUE TO MONITOR. FAMILY AT BEDSIDE.
[2024-11-12 10:32] LABS: NT Pro B Type Natriuretic Pept < 5 pg/mL (0-450)
[2024-11-12] MEDS: levoFLOXacin 750 MG/D5W 150 ML 750 MG/150 ML BAG 100 MG IVPB (10:38)
--- NOTE | 2024-11-12 11:20 | PC.NURSE ---
PT IS TO BE ADMITTED TO [facility] ROOM 226, PT AND FAMILY ARE UPDATED ON STATUS, BELONGINGS LIST COMPLETED. IV MEDICATION INFUSING ORDERED WITHOUT DIFFICULTY. NAD NOTED AT PRESENT.
[2024-11-12] MEDS: OSELTAMIVIR PHOSPHATE 75 MG CAPSULE PO ×2 (11:24→21:02)
--- NOTE | 2024-11-12 12:00 | ADMGEN ---
This patient, Nydia Walker, was admitted to 2nd Floor Room 226-2. Patient/family oriented to hospital policies and general routines including ID bracelet, bed and alarms, visiting hours, pain management, procedures, bathroom and other care routines, personal items, smoking policy, room service/diet, and visiting hours. Information on how to activate the Rapid Response Team has been discussed. Patient/Family are encouraged to report perceived risks to care and to ask questions if they do not understand what they are told or what they should do.
--- NOTE | 2024-11-12 12:14 | PC.NURSE ---
Spoke with Jackie at [facility] ([phone]) confirmed medications. Unable to tell me last dose she was took.
[2024-11-12 12:27] LABS: Reflex Lactic Acid Yes or No Add Lactic
[2024-11-12] MEDS: SODIUM CHLORIDE 0.9% IV 1,000 ML 100 ML IV CONT (12:45)
--- NOTE | 2024-11-12 13:12 | PC.NURSE ---
Spoke with [facility]NER informing patient has Influenza A and on Steroids. [facility]NER states No Steroids Confirm to discontinue steroids. [facility]NER states yes .
[2024-11-12 13:18] LABS: Lactic Acid 5.5 mmol/L (0.4-2.0)
--- NOTE | 2024-11-12 13:36 | PC.NURSE ---
New order for Sodium chloride 9% 150ml/hr r/t Hypotension.
[2024-11-12] MEDS: VANCOMYCIN 2,000 MG/NS 500 ML 2,000 MG/500 ML BAG 250 MG IVPB (14:13)
[2024-11-12] MEDS: CEFEPIME 1 GM/NS 50 ML 1 GM/50 ML BAG IVPB (15:24)
--- NOTE | 2024-11-12 16:03 | P.HP_ITS ---
H&P: HPI History of Present Illness Date/Time: 11/12/24 16:03 Chief Complaint: Fall Narrative: Patient is an 84-year-old female who presented to the emergency department with complaints of fall at assisted living facility. Patient states for the last few days she has felt weak and unsteady on her feet. Prior to arrival patient was in the bathroom and fell she did report hitting her head but no loss of consciousness did have right hip pain but denies any anticoagulation or anti- platelet use. Patient's CT head with no acute issues x-ray with no acute fractures. After further evaluation emergency department CXR showed infiltrates suggestive of pneumonia patient was also found to be influenza positive. Patient with elevated wbc's, elevated lactic at 3.6, hypotension, tachycardia, tachypnea, hypoxic at 86% on room air. Patient was then admitted to the medical unit for further evaluation and treatment of acute respiratory failure with hypoxia secondary to pneumonia and influenza to was found to also be septic continued with IV resuscitation. patient at time evaluation appeared in no acute distress denied shortness of breath, chest pain, nausea, vomiting but did report loss of appetite denied any fevers or chills. Patient's family does report she has some memory issues has not officially been diagnosed with dementia but does have intermittent confusion at times. Review of Systems Review of Systems: All systems reviewed & are unremarkable except as noted in HPI and below PMFSH Past Medical History Medical History (Updated 11/12/24 @ 16:40 by Tarah Scales APRN) Obesity, Class I, BMI 30-34.9 Olecranon bursitis of right elbow Essential hypertension Insomnia Hyperlipidemia Headache GERD without esophagitis LEAH (generalized anxiety disorder) Dementia Chronic low back pain Altered mental status Surgical History Surgical History History of hysterectomy History of cholecystectomy Family History Family History Father Family history of coronary artery disease Social History Social History Smoking status: Never smoker Smoking end date: 09/25/69 Alcohol intake: never Substance use: never Substance use type: does not use Do You Feel Safe in your Home?: Yes Lack of Transportation: No Lack of Food: Never True Current Housing: I Have Housing Concerned About Future Housing: No Difficulty Paying Gas/Electric Bills: No Difficulty Paying for Meds: No Currently Unemployed: No Education: High School Diploma/GED Difficulty w/ Childcare or Family Care: No Living arrangements: assisted living Additional living arrangements comments: [facility] Occupation/Education: retired Gender identity (if verbalized by the patient): Female Spiritual care concerns: No Meds Home Medications and Allergies Home Medications ?Medication ?Instructions ?Recorded ?Confirmed ?Type mecobalamin (vitamin B12) 1,000 See Rx Instructions .Route 01/25/24 11/12/24 Rx mcg disintegrating .COMPLEX #100 tabs tablet,sublingual hydrocodone 5 mg-acetaminophen 325 1 tablet PO Q6H PRN pain #60 tabs 02/15/24 11/12/24 Rx mg tablet acetaminophen 500 mg tablet See Rx Instructions .Route 10/30/24 11/12/24 Rx .COMPLEX #100 tabs atorvastatin 40 mg tablet See Rx Instructions .Route 10/30/24 11/12/24 Rx .COMPLEX #30 tabs ergocalciferol (vitamin D2) 1,250 See Rx Instructions .Route 10/30/24 11/12/24 Rx mcg (50,000 unit) capsule .COMPLEX #4 caps gabapentin 400 mg capsule See Rx Instructions .Route 10/30/24 11/12/24 Rx .COMPLEX #90 caps losartan 100 mg tablet See Rx Instructions .Route 10/30/24 11/12/24 Rx .COMPLEX #30 tabs mirtazapine 15 mg tablet See Rx Instructions .Route 10/30/24 11/12/24 Rx .COMPLEX #30 tabs spironolactone 50 mg tablet See Rx Instructions .Route 10/30/24 11/12/24 Rx .COMPLEX #30 tabs buspirone 10 mg tablet 10 mg PO TID PRN prn 11/12/24 11/12/24 History Allergies Allergy/AdvReac Type Severity Reaction Status Date / Time FRANCO Inhibitors Allergy Unknown unknown Verified 11/12/24 09:09 Vital Signs Vital Signs - 24 hr 11/12/24 08:48 11/12/24 08:48 11/12/24 08:48 Temperature Pulse Rate 127 H Respiratory Rate 22 H Blood Pressure Pulse Oximetry 86 L 93 Oxygen Delivery Room Air Nasal Cannula Oxygen Flow Rate 2 11/12/24 08:57 11/12/24 09:01 11/12/24 09:04 Temperature 99.7 F H Pulse Rate 121 H Respiratory Rate 24 H Blood Pressure 117/65 111/63 Pulse Oximetry 97 91 Oxygen Delivery Non-Rebreather Mask Oxygen Flow Rate 8 11/12/24 09:15 11/12/24 09:30 11/12/24 09:31 Temperature Pulse Rate 113 H 112 H Respiratory Rate 23 H 18 Blood Pressure 104/60 Pulse Oximetry 86 L 91 90 Oxygen Delivery Room Air Nasal Cannula Oxygen Flow Rate 2 11/12/24 09:46 11/12/24 10:21 11/12/24 10:30 Temperature Pulse Rate 116 H 113 H 112 H Respiratory Rate 22 H 22 H 18 Blood Pressure 97/46 L 98/56 L Pulse Oximetry 85 L 92 97 Oxygen Delivery Oxygen Flow Rate 2 11/12/24 10:32 11/12/24 11:26 11/12/24 11:31 Temperature Pulse Rate 113 H 119 H 115 H Respiratory Rate 22 H 23 H 20 Blood Pressure 93/52 L 90/52 L Pulse Oximetry 96 91 87 L Oxygen Delivery Oxygen Flow Rate 2 11/12/24 11:35 11/12/24 12:12 11/12/24 12:30 Temperature 98.4 F 98.9 F Pulse Rate 114 H 118 H 112 H Respiratory Rate 20 17 Blood Pressure 90/52 L 78/49 L Pulse Oximetry 92 93 93 Oxygen Delivery Nasal Cannula Nasal Cannula Nasal Cannula Oxygen Flow Rate 2 2 2 11/12/24 13:20 11/12/24 13:27 11/12/24 13:36 Temperature Pulse Rate 117 H 110 H 118 H Respiratory Rate 20 20 Blood Pressure 78/49 L Pulse Oximetry 91 4 L Oxygen Delivery Oxygen Flow Rate 2 2 Exam Narrative: * GENERAL: Alert and oriented x 3. Pleasant elderly female looks stated age. No acute distress. * EYES: EOMI. No scleral icterus. PERRLA. * HEENT: dry mucous membranes. * LUNGS: Diminished to auscultation bilaterally. Tachypnea No accessory muscle use. On 2L NC * CARDIOVASCULAR: Sinus tachycardia. No JVD. S1-S2 * ABDOMEN: Soft, non tenderness and non-distended. No palpable masses. * EXTREMITIES: No edema. Non-tender * SKIN: No rashes or lesions. Skin warm, dry. * NEUROLOGIC: No focal neurological deficits. CN II-XII grossly intact does have short term memory issues and intermittent confusion * PSYCHIATRIC: Appropriate mood and affect. H&P: Results Labs Labs: Short CBC 11/12/24 Range/Units 09:22 WBC 15.3 H (4.8-10.8) K/mm3 Hgb 13.1 (11.7-13.8) g/dL Hct 41.9 (35.0-42.0) % Plt Count 268 (150-420) K/mm3 BMP 11/12/24 09:22 Sodium 141 Potassium 3.4 L Chloride 102 Carbon Dioxide 23 BUN 30 H Creatinine 1.50 H Glucose 156 H Calcium 8.8 Liver Function 11/12/24 Range/Units 09:22 Total Bilirubin 1.2 H (0.00-1.00) mg/dL AST 75 H (15-37) U/L ALT 25 (14-59) U/L Alkaline Phosphatase 115 (46-116) U/L Albumin 3.0 L (3.4-5.0) g/dL Imaging CT scan - head: Radiologist's impression: EXAMINATION: CT brain wo con DATE: 11/12/2024 10:11 INDICATION: Head injury. TECHNIQUE: Computed tomography (CT) of the head was performed without intravenous contrast. The mA was adjusted according to patient size. Iterative reconstruction technique was employed. The dose-length product was 605.33 mGy- cm. 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 There are scattered areas of low attenuation in the cerebral white matter, which is within normal limits for the patient's age. There is no intracranial hemorrhage, acute infarction, or abnormal intracranial mass lesion. The ventricles are normal in size. There is mild mucosal thickening in the paranasal sinuses. There are likely changes of ocular lens replacement surgeries. The mastoid air cells are normal. IMPRESSION: 1. 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 Chest x-ray: Radiologist's impression: EXAMINATION: XR chest 1V portable DATE: 11/12/2024 09:04 INDICATION: Cough. TECHNIQUE: A single frontal view of the chest was obtained. COMPARISON: Chest 2 views 11/11/2024, chest CT 02/04/2018 FINDINGS: The patient is rotated to her left. There are patchy airspace opacities in the all left lung zones. No pleural effusion or pneumothorax. The heart size is normal. IMPRESSION: 1. Airspace opacities in left lung, consistent with atelectasis versus pneumonia. Assessment and Plan Assessment and plan (1) Sepsis: Code(s): A41.9 - Sepsis, unspecified organism Status: Acute Assessment and Plan: Patient with sepsis secondary to pneumonia: Tachycardia, tachypnea, hypotension, leukocytosis, lactic acidosis * IV fluid resuscitation. 30mg/kg (150/HR) * Cefepime/vanc IV covering for HAP patient from shelter * Monitor lactic acid levels q6hr. 3.7>5.5 (recent fall could be contributing to elevated lactic) * Repeat CBC, CMP. * Two sets of blood cultures pending * urine cultures. Pending- * C-reactive proteins >25 * neuro status checks * Chest x-ray suggestive of PNA. * Monitor albumin, monitoring of mental status. * Steroid held due to influenza diagnosis. (2) Pneumonia: Code(s): J18.9 - Pneumonia, unspecified organism Status: Acute Assessment and Plan: * Bronchodilators. * Chest x-ray reviewed * incentive spirometry while awake. * sputum culture ordered * influenza positive * Cefepime cover for HAP received Levofloxacin in the ED * Vanc ordered can d/C if MRSA negative * supplemental oxygen therapy to maintain oxygen 92% * Mucolytics * antipyretics (3) Acute respiratory failure with hypoxia: Code(s): J96.01 - Acute respiratory failure with hypoxia Status: Acute Assessment and Plan: Secondary to pneumonia and influenza * SEE ABOVE # 2 * Wean oxygen as tolerated * was 86% POA on 2L NC supplemental oxygen (4) RAQUEL (acute kidney injury): Code(s): N17.9 - Acute kidney failure, unspecified Status: Acute Assessment and Plan: * Cr 1.5 POA * IV fluids likely secondary to dehydration patient with poor oral intake prior to admission * Avoid nephrotoxic drugs. * Monitor antihypertensive drug therapy. * Avoid NSAIDs. * Routine CMP monitoring GFR. * Monitor electrolytes especially potassium. * Pharmacy does medications. (5) Influenza: Code(s): J11.1 - Influenza due to unidentified influenza virus with other respiratory manifestations Status: Acute Assessment and Plan: * Tamiflu x 5 days * Duonebs * antipyretics * antiemetics * isolation (6) Fall: Code(s): W19.XXXA - Unspecified fall, initial encounter Status: Acute Assessment and Plan: * CT cervical and hip xray no acute fractures or findings * CT head no acute findings * PT/OT * Likely secondary to hypotension/dehydration (7) Essential hypertension: Code(s): I10 - Essential (primary) hypertension Status: Acute Assessment and Plan: Patient hypotensive on admission * holding home BP medications can resume with BP tolerates (8) Hyperlipidemia: Code(s): E78.5 - Hyperlipidemia, unspecified Status: Acute Assessment and Plan: * Resume Atorvastatin (9) LEAH (generalized anxiety disorder): Code(s): F41.1 - Generalized anxiety disorder Status: Acute Assessment and Plan: * Resumed Buspar PRN * Can resume Remeron when BP stable Plan Code status: DNR per patient DVT prophylaxis: Lovenox Stress ulcer prophylaxis: Pepcid PT/OT notes: PT/OT when stable for evalution Disposition: patient continues admission for acute respiratory failure secondary to sepsis, pneumonia, influenza continue with IV fluid resuscitation and supplemental oxygen will continue wound care call antibiotic therapy and deescalate when appropriate. PT/ OT evaluation once medically stable. Quality VTE Prophylaxis VTE prophylaxis: pharmacologic ordered -Patient's previous records reviewed on admission -ER notes reviewed in detail on admission -discussed all findings and current treatment plan with patient/Family/POA -Consultations reviewed for recommendations -Patient's disposition for safe discharge discussed with welfare case worker Dictation performed by [employer] direct speech recognition software, therefore pulverizer variants and typographical errors may occur. Hospitalist MIPS Advance Care Plan I have confirmed that the patient's Advanced Care Plan is present, code status is documented, or surrogate decision maker is listed in patient medical record.: Yes Medication Reconciliation I have utilized all available resources to obtain, update and review the patients current medications (includes all prescriptions, OTC, herbals, cannabis, and nutritional supplements).: Yes The patient is not eligible for med reconciliation; the patient is in a emergent medical situation where delaying treatment would jeopardize the patients health.: No
[2024-11-12 16:54] LABS: Magnesium 1.7 mg/dL (1.8-2.4)
[2024-11-12 17:24] LABS: MRSA (PCR) NOT DETECTED (NOT DETECTE)
[2024-11-12] MEDS: POTASSIUM CHLORIDE 20 MEQ PACKET (FOR LIQUID) 40 MEQ PO (17:26)
[2024-11-12 17:32] LABS: Add Urine Microscopic? YES; Appearance Urine Cloudy (Clear); Bilirubin Urine Negative (Negative); Blood Urine Trace-intact (Negative); Color Urine Yellow (Yellow); Glucose Urine UA Negative (Negative); Ketones Urine 1+ (Negative); Leukocyte Esterase Ur Negative LEU/UL (Negative); Nitrate Urine Negative (Negative); Protein Urine 2+ (Negative); Specific Grav Ur >= 1.030 (1.010-1.020); pH Urine 5.5 (5.0-8.0)
[2024-11-12 17:34] LABS: RBC Urine 0-2 /hpf (0-2)
[2024-11-12 17:35] LABS: Bacteria Urine 2+ /hpf; Squamous Epithelial Cell Urine Few /hpf (Few); WBC Urine None seen /hpf (0-3)
[2024-11-12 18:31] LABS: Lactic Acid Reflex 2.7 mmol/L (0.4-2.0)
[2024-11-12] MEDS: guaiFENesin 12 HR 600 MG TABCR 1200 MG PO (21:02)
[2024-11-12] MEDS: SODIUM CHLORIDE 0.9% IV 1,000 ML 150 ML IV CONT (21:02)
[2024-11-12] MEDS: FAMOTIDINE 20 MG TABLET PO (21:02)
[2024-11-13] VITALS (20 sets, daily range): BP systolic 76–116; BP diastolic 47–77; PULSE 86–155; RESP 16–20; TEMP 36.1–36.7; O2SAT 92–98
[2024-11-13] MEDS: IPRATROPIUM 0.5 MG/ALBUTEROL SULFATE 2.5 MG AMPUL.NEB 3 ML INHALATION ×3 (00:28→12:56)
[2024-11-13] MEDS: CEFEPIME 1 GM/NS 50 ML 1 GM/50 ML BAG IVPB (01:35)
[2024-11-13] MEDS: SODIUM CHLORIDE 0.9% IV 1,000 ML 150 ML IV CONT (04:24)
[2024-11-13 05:27] LABS: Basophils Absolute Auto 0.03 K/mm3 (0.00-0.10); Basophils Percent Auto 0.2 % (0.0-1.0); Eosinophils Absolute Auto 0.03 K/mm3 (0.02-0.50); Eosinophils Percent Auto 0.2 % (1.0-6.0); Hematocrit 35.9 % (35.0-42.0); Hemoglobin 11.1 g/dL (11.7-13.8); Immature Granulocyte Absolute 0.17 K/mm3 (0.00-0.00); Immature Granulocyte Percent A 0.9 % (0.0-0.0); Lymphocytes Absolute Auto 0.91 K/mm3 (1.10-4.50); Lymphocytes Percent Auto 4.8 % (18.0-42.0); Mean Corpuscular HGB Conc 30.9 g/dL (32-36); Mean Corpuscular Hemoglobin 29.2 pg (27.0-31.0); Mean Corpuscular Volume 94.5 fL (78.0-102.0); Monocytes Absolute Auto 0.87 K/mm3 (0.10-0.90); Monocytes Percent Auto 4.6 % (2.0-11.0); Neutrophils Absolute Auto 16.85 K/mm3 (1.70-7.20); Neutrophils Percent Auto 89.3 % (50.0-70.0); Platelet Count Result 244 K/mm3 (150-420); Red Cell Distribution Width 14.6 % (11.6-14.4); White Blood Count 18.9 K/mm3 (4.8-10.8)
[2024-11-13 05:46] LABS: Alanine Aminotransferase 29 U/L (14-59); Albumin Level 2.2 g/dL (3.4-5.0); Alkaline Phosphatase 90 U/L (46-116); Anion Gap 14 mmol/L (4-12); Aspartate Amino Transferase 73 U/L (15-37); Bilirubin,Total 0.4 mg/dL (0.00-1.00); Blood Urea Nitrogen 35 mg/dL (7-18); Calcium 8.2 mg/dL (8.5-10.1); Carbon Dioxide 19 mmol/L (21-32); Chloride 108 mmol/L (98-108); Estimated CRCL calculation 28 ml/min; Estimated Glomerular Filt Rate 35; Glucose 153 mg/dL (70-99); Osmolality Calculated 303 mOsm/kg (285-295); Potassium 4.1 mmol/L (3.5-5.1); Sodium 141 mmol/L (136-145); Total Protein 6.6 g/dL (6.4-8.2)
--- NOTE | 2024-11-13 09:05 | ECG_ITS ---
Test Date: 2024-11-13 09:28:19 Measurements Intervals [place] Rate: 179 P: 0 NV: 0 QRS: 12 QRSD: 93 T: -16 QT: 248 QTc: 428 Interpretive Statements ATRIAL FIBRILLATION WITH RAPID VENTRICULAR RESPONSE DELAYED PRECORDIAL R/S TRANSITION POSSIBLE INFERIOR MYOCARDIAL INFARCTION , PROBABLY OLD BASELINE ARTIFACT- I, II, III, AVR ABNORMAL ECG Compared to ECG 11/12/2024 09:07:06 Sinus tachycardia no longer present Electronically Signed On 11-13-2024 09:45:31 PROGRAMMING INTERN by Javier Jones D.O.
--- NOTE | 2024-11-13 09:06 | PC.NURSE ---
0900 called to patients room for CP, across mid chest and upper back. Patient pale, does not complain of dizziness or nausea. VS 92/75,HR 115-130, 95 % with NC. Alerted CHEMICAL HANDLER. Recheck at 09, Pt talking and no SOB. VS 116/72, HR 89, 96% on NC. Alerted CHEMICAL HANDLER.
--- NOTE | 2024-11-13 09:13 | PC.NURSE ---
0905 CP subsiding, color more pink and joking with family.
--- NOTE | 2024-11-13 09:14 | P.PNIM_ITS ---
Progress Note: A&P Assessment and Plan (1) Sepsis: Code(s): A41.9 - Sepsis, unspecified organism Status: Acute Assessment and Plan: Patient with sepsis secondary to pneumonia: Tachycardia, tachypnea, hypotension, leukocytosis, lactic acidosis * IV fluid resuscitation. 30mg/kg (150/HR) * Cefepime/vanc IV covering for HAP patient from assisted * Monitor lactic acid levels q6hr. 3.7>5.5 (recent fall could be contributing to elevated lactic) * Repeat CBC, CMP. * Two sets of blood cultures pending * urine cultures. Pending- * C-reactive proteins >25 * neuro status checks * Chest x-ray suggestive of PNA. * Monitor albumin, monitoring of mental status. * Steroid held due to influenza diagnosis. (2) Pneumonia: Code(s): J18.9 - Pneumonia, unspecified organism Status: Acute Assessment and Plan: * Bronchodilators. * Chest x-ray reviewed * incentive spirometry while awake. * sputum culture ordered * influenza positive * Cefepime cover for HAP received Levofloxacin in the ED * Vanc ordered can d/C if MRSA negative * supplemental oxygen therapy to maintain oxygen 92% * Mucolytics * antipyretics (3) Acute respiratory failure with hypoxia: Code(s): J96.01 - Acute respiratory failure with hypoxia Status: Acute Assessment and Plan: Secondary to pneumonia and influenza * SEE ABOVE # 2 * Wean oxygen as tolerated * was 86% POA on 2L NC supplemental oxygen (4) Influenza: Code(s): J11.1 - Influenza due to unidentified influenza virus with other respiratory manifestations Status: Acute Assessment and Plan: * Tamiflu x 5 days * Duonebs * antipyretics * antiemetics * isolation (5) Chest pain: Code(s): R07.9 - Chest pain, unspecified Status: Acute Assessment and Plan: 11/13 * patient reporting chest pain this morning * obtained troponin series * obtain chest x-ray, EKG, echocardiogram * will also check D-dimer however low suspicion for PE * check magnesium (6) RAQUEL (acute kidney injury): Code(s): N17.9 - Acute kidney failure, unspecified Status: Acute Assessment and Plan: * Cr 1.5 POA * IV fluids likely secondary to dehydration patient with poor oral intake prior to admission * Avoid nephrotoxic drugs. * Monitor antihypertensive drug therapy. * Avoid NSAIDs. * Routine CMP monitoring GFR. * Monitor electrolytes especially potassium. * Pharmacy does medications. (7) Fall: Code(s): W19.XXXA - Unspecified fall, initial encounter Status: Acute Assessment and Plan: * CT cervical and hip xray no acute fractures or findings * CT head no acute findings * PT/OT * Likely secondary to hypotension/dehydration (8) Essential hypertension: Code(s): I10 - Essential (primary) hypertension Status: Acute Assessment and Plan: Patient hypotensive on admission * holding home BP medications can resume with BP tolerates (9) Hyperlipidemia: Code(s): E78.5 - Hyperlipidemia, unspecified Status: Acute Assessment and Plan: * Resume Atorvastatin (10) LEAH (generalized anxiety disorder): Code(s): F41.1 - Generalized anxiety disorder Status: Acute Assessment and Plan: * Resumed Buspar PRN * Can resume Remeron when BP stable Subjective Date/time seen: 11/13/24 09:14 Review of Systems Review of Systems: All systems reviewed & are unremarkable except as noted in HPI and below Exam Narrative: General: In no acute distress, well nourished Head: atraumatic, no encephalopathy Eyes: EOMI, PERRLA, sclera clear ENT: moist mucous membranes, nasal passages clear Neck: supple, no JVD, no adenopathy, trachea midline Cardiac: Normal S1 and S2. No murmur, gallops or friction rubs, peripheral pulses intact. Respiratory: Lungs clear to auscultation, no adventitious lung sounds Gastrointestinal: soft, non-distended, non-tender, normoactive bowel sounds. : voiding without difficulty. Extremities: moves all extremities well, no edema, good ROM, strength 5/5 Skin: clean, dry, intact. No wounds or lesions. Neuro: Alert and oriented x4, cranial nerves intact, no neuro deficits. Psych: normal mood, normal affect, interactive Objective Data Vital Signs Vital Signs: Vital Signs - 24 hr 11/12/24 09:15 11/12/24 09:30 11/12/24 09:31 Temperature Pulse Rate 113 H 112 H Respiratory Rate 23 H 18 Blood Pressure 104/60 Pulse Oximetry 86 L 91 90 Oxygen Delivery Room Air Nasal Cannula Oxygen Flow Rate 2 11/12/24 09:46 11/12/24 10:21 11/12/24 10:30 Temperature Pulse Rate 116 H 113 H 112 H Respiratory Rate 22 H 22 H 18 Blood Pressure 97/46 L 98/56 L Pulse Oximetry 85 L 92 97 Oxygen Delivery Oxygen Flow Rate 2 11/12/24 10:32 11/12/24 11:26 11/12/24 11:31 Temperature Pulse Rate 113 H 119 H 115 H Respiratory Rate 22 H 23 H 20 Blood Pressure 93/52 L 90/52 L Pulse Oximetry 96 91 87 L Oxygen Delivery Oxygen Flow Rate 2 11/12/24 11:35 11/12/24 12:00 11/12/24 12:12 Temperature 98.4 F Pulse Rate 114 H 118 H Respiratory Rate 20 Blood Pressure 90/52 L Pulse Oximetry 92 91 93 Oxygen Delivery Nasal Cannula Nasal Cannula Oxygen Flow Rate 2 2 11/12/24 12:30 11/12/24 13:20 11/12/24 13:27 Temperature 98.9 F Pulse Rate 112 H 117 H 110 H Respiratory Rate 17 20 Blood Pressure 78/49 L 78/49 L Pulse Oximetry 93 91 Oxygen Delivery Nasal Cannula Oxygen Flow Rate 2 2 11/12/24 13:36 11/12/24 16:00 11/12/24 17:00 Temperature 99 F Pulse Rate 118 H 107 H 112 H Respiratory Rate 20 18 20 Blood Pressure 93/52 L Pulse Oximetry 4 L 94 93 Oxygen Delivery Nasal Cannula Oxygen Flow Rate 2 2 11/12/24 17:07 11/13/24 00:00 11/13/24 00:25 Temperature 98.0 F Pulse Rate 110 H 102 H 100 Respiratory Rate 20 20 18 Blood Pressure 107/58 L Pulse Oximetry 97 92 92 Oxygen Delivery Nasal Cannula Oxygen Flow Rate 2 11/13/24 00:40 11/13/24 05:40 11/13/24 05:54 Temperature Pulse Rate 105 H 105 H 100 Respiratory Rate 18 20 20 Blood Pressure Pulse Oximetry 93 93 95 Oxygen Delivery Oxygen Flow Rate 2 2 2 11/13/24 08:00 Temperature 97.7 F Pulse Rate 102 H Respiratory Rate 16 Blood Pressure 97/55 L Pulse Oximetry 94 Oxygen Delivery Room Air Oxygen Flow Rate Intake/Output Intake/Output: Intake & Output 11/10/24 11/11/24 11/12/24 11/13/24 23:59 23:59 23:59 23:59 Intake Total 1308.3 1100 Output Total 30 100 Balance 1278.3 1000 Meds/Results Medications: Active Medications Generic Name Dose Route Start Last Admin Trade Name Freq PRN Reason Stop Dose Admin Acetaminophen 650 mg 11/12/24 11:23 Acetaminophen 325 Mg Tablet PO Q4H PRN Mild Pain (1-3) or Fever Hydrocodone Bitart/Acetaminophen 1 tab 11/12/24 16:10 Hydrocodone/Acetaminophen (*Crx) 5-325 Mg Tablet PO Q6H PRN pain 4-6 Albuterol/Ipratropium 3 ml 11/12/24 18:30 11/13/24 05:38 Ipratropium 0.5 Mg/Albuterol Sulfate 2.5 Mg Ampul.Neb 3 Ml INHALATION 3 ml Q6HRT ELLEN Administration Atorvastatin Calcium 40 mg 11/13/24 09:00 Atorvastatin 40 Mg Tablet PO HS ELLEN Azithromycin 500 mg 11/14/24 09:00 Azithromycin 250 Mg Tablet PO DAILY ELLEN Buspirone HCl 10 mg 11/12/24 16:10 Buspirone Hcl 10 Mg Tablet PO TID PRN prn Enoxaparin Sodium 40 mg 11/13/24 09:00 Enoxaparin 40 Mg/0.4 Ml Syringe SUB-Q DAILY ELLEN Famotidine 20 mg 11/12/24 21:00 11/12/24 21:02 Famotidine 20 Mg Tablet PO 20 mg Q12HR ELLEN Administration Guaifenesin 1,200 mg 11/12/24 21:00 11/12/24 21:02 Guaifenesin 12 Hr 600 Mg Tabcr PO 1,200 mg Q12HR ELLEN Administration Cefepime HCl 1 gm in 50 mls @ 100 mls/hr 11/12/24 14:00 11/13/24 02:05 Maxipime 1 Gm/Ns 50 Ml IVPB Infused Q12H ELLEN Infusion Sodium Chloride 1,000 mls @ 150 mls/hr 11/12/24 13:35 11/13/24 07:37 Normal Saline Iv IV CONT Not Given .Q6H40M ELLEN Ondansetron HCl 4 mg 11/12/24 12:12 Ondansetron Inj 4 Mg/2 Ml Vial IV PUSH Q6H PRN Nausea And Vomiting Oseltamivir Phosphate 75 mg 11/12/24 21:00 11/12/24 21:02 Oseltamivir Phosphate 75 Mg Capsule PO 11/17/24 20:59 75 mg Q12HR ELLEN Administration Perflutren Lipid Microsphere 0 ml 11/13/24 09:05 Perflutren Lipid Microspheres 1.5 Ml Vial Diluted To 10 Ml Total Volume IV PUSH 11/16/24 09:05 ONCE PRN adequate visualization Protocol Radiology Results: ITS Impressions Chest X-Ray 11/12/24 09:09 IMPRESSION: 1. Airspace opacities in left lung, consistent with atelectasis versus pneumonia. Head CT 11/12/24 10:15 IMPRESSION: 1. 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 Cervical Spine CT 11/12/24 10:16 IMPRESSION: 1. No fracture. 2. Mild cervical spondylosis. Hip/Pelvis X-Ray 11/12/24 10:20 IMPRESSION: 1. Moderate osteoarthritis of the hips. Labs Labs: Laboratory Results - last 24 hr 11/12/24 11/12/24 11/12/24 09:20 09:22 12:47 WBC 15.3 H RBC 4.44 Hgb 13.1 Hct 41.9 MCV 94.4 MCH 29.5 MCHC 31.3 L RDW 14.1 Plt Count 268 MPV 9.9 Immature Gran % (Auto) 0.7 H Neut % (Auto) 81.5 H Lymph % (Auto) 10.3 L [place] % (Auto) 7.1 Eos % (Auto) 0.1 L Baso % (Auto) 0.3 Lymph # (Auto) 1.58 [place] # (Auto) 1.08 H Eos # (Auto) 0.02 Baso # (Auto) 0.05 Abs Immat Gran (auto) 0.10 H Absolute Neuts (auto) 12.46 H Absolute Nucleated RBC 0.00 Nucleated RBC % 0.0 PT 10.9 INR 1.0 APTT 33.0 H Sodium 141 Potassium 3.4 L Chloride 102 Carbon Dioxide 23 Anion Gap 16 H BUN 30 H Creatinine 1.50 H Estim Creat Clear Calc Not Reportable Estimated GFR 33 L Glucose 156 H Calculated Osmolality 301 H Lactic Acid 3.6 H 5.5 H Calcium 8.8 Magnesium 1.7 L Total Bilirubin 1.2 H AST 75 H ALT 25 Alkaline Phosphatase 115 C-Reactive Protein > 25.0 H NT-Pro-B Natriuret Pep < 5 Total Protein 7.9 Albumin 3.0 L Urine Color Urine Appearance Urine pH Ur Specific [place] Urine Protein Urine Glucose (UA) Urine Ketones Ur Blood (Man) Urine Nitrate Urine Bilirubin Urine Urobilinogen Leukocyte Esterase Rfl Urine RBC Urine WBC Ur Squamous Epith Cells Urine Bacteria Granular Casts Nasal MRSA (PCR) Influenza A (RT-PCR) Positive A Influenza B (RT-PCR) Negative RSV (RT-PCR) Negative SARS-CoV-2 RNA (RT-PCR) Negative 11/12/24 11/12/24 11/12/24 15:27 17:20 18:02 WBC RBC Hgb Hct MCV MCH MCHC RDW Plt Count MPV Immature Gran % (Auto) Neut % (Auto) Lymph % (Auto) [place] % (Auto) Eos % (Auto) Baso % (Auto) Lymph # (Auto) [place] # (Auto) Eos # (Auto) Baso # (Auto) Abs Immat Gran (auto) Absolute Neuts (auto) Absolute Nucleated RBC Nucleated RBC % PT INR APTT Sodium Potassium Chloride Carbon Dioxide Anion Gap BUN Creatinine Estim Creat Clear Calc Estimated GFR Glucose Calculated Osmolality Lactic Acid 2.7 H Calcium Magnesium Total Bilirubin AST ALT Alkaline Phosphatase C-Reactive Protein NT-Pro-B Natriuret Pep Total Protein Albumin Urine Color Yellow Urine Appearance Cloudy A Urine pH 5.5 Ur Specific [place] >= 1.030 H Urine Protein 2+ H Urine Glucose (UA) Negative Urine Ketones 1+ H Ur Blood (Man) Trace-intact H Urine Nitrate Negative Urine Bilirubin Negative Urine Urobilinogen 1.0 Leukocyte Esterase Rfl Negative Urine RBC 0-2 Urine WBC None seen Ur Squamous Epith Cells Few Urine Bacteria 2+ H Granular Casts 1-2 H Nasal MRSA (PCR) Not detected Influenza A (RT-PCR) Influenza B (RT-PCR) RSV (RT-PCR) SARS-CoV-2 RNA (RT-PCR) 11/13/24 04:59 WBC 18.9 H RBC 3.80 L Hgb 11.1 L Hct 35.9 MCV 94.5 MCH 29.2 MCHC 30.9 L RDW 14.6 H Plt Count 244 MPV 10.0 Immature Gran % (Auto) 0.9 H Neut % (Auto) 89.3 H Lymph % (Auto) 4.8 L [place] % (Auto) 4.6 Eos % (Auto) 0.2 L Baso % (Auto) 0.2 Lymph # (Auto) 0.91 L [place] # (Auto) 0.87 Eos # (Auto) 0.03 Baso # (Auto) 0.03 Abs Immat Gran (auto) 0.17 H Absolute Neuts (auto) 16.85 H Absolute Nucleated RBC 0.00 Nucleated RBC % 0.0 PT INR APTT Sodium 141 Potassium 4.1 Chloride 108 Carbon Dioxide 19 L Anion Gap 14 H BUN 35 H Creatinine 1.44 H Estim Creat Clear Calc 28 Estimated GFR 35 L Glucose 153 H Calculated Osmolality 303 H Lactic Acid Calcium 8.2 L Magnesium Total Bilirubin 0.4 AST 73 H ALT 29 Alkaline Phosphatase 90 C-Reactive Protein NT-Pro-B Natriuret Pep Total Protein 6.6 Albumin 2.2 L Urine Color Urine Appearance Urine pH Ur Specific [place] Urine Protein Urine Glucose (UA) Urine Ketones Ur Blood (Man) Urine Nitrate Urine Bilirubin Urine Urobilinogen Leukocyte Esterase Rfl Urine RBC Urine WBC Ur Squamous Epith Cells Urine Bacteria Granular Casts Nasal MRSA (PCR) Influenza A (RT-PCR) Influenza B (RT-PCR) RSV (RT-PCR) SARS-CoV-2 RNA (RT-PCR) Quality VTE Prophylaxis VTE prophylaxis: pharmacologic ordered
[2024-11-13 10:01] LABS: Magnesium 1.9 mg/dL (1.8-2.4)
[2024-11-13 10:12] LABS: D Dimer 1.21 mg/L (0.19-0.50)
[2024-11-13] MEDS: AMIODARONE 150 MG/D5W 100 ML 150 MG/100 ML BAG 600 MG IV CONT ×2 (10:15→10:26)
--- NOTE | 2024-11-13 10:32 | PC.NURSE ---
RENARD Boyer notified of decreasing blood pressure during amiodarone loading dose. No new orders, continue to monitor blood pressure.
--- NOTE | 2024-11-13 10:32 | PC.NURSE ---
Notified Rosalind GLYNN of decreasing blood pressure with loading dose of amiodarone. No orders, continue to monitor.
[2024-11-13] MEDS: AMIODARONE 360 MG/D5W 200 ML 360 MG/200 ML BAG 33.33 MG IV CONT (10:37)
[2024-11-13 10:38] LABS: Lactic Acid Reflex 2.1 mmol/L (0.4-2.0)
[2024-11-13 10:44] LABS: Troponin I 345.1 ng/L (0.00-60.4)
--- NOTE | 2024-11-13 11:10 | PC.NURSE ---
Blood pressure continues to be low. RENARD Boyer notified. Will be placing order for 500 ml fluid bolus.
--- NOTE | 2024-11-13 11:15 | ECG_ITS ---
Test Date: 2024-11-13 11:30:47 Measurements Intervals [place] Rate: 100 P: 65 CO: 151 QRS: -7 QRSD: 92 T: 33 QT: 361 QTc: 467 Interpretive Statements SINUS TACHYCARDIA WITH OCCASIONAL SUPRAVENTRICULAR PREMATURE COMPLEXES CONSIDER RIGHT VENTRICULAR CONDUCTION DELAY BORDERLINE ECG Compared to ECG 11/13/2024 09:28:19 Atrial fibrillation no longer present Electronically Signed On 11-13-2024 11:27:23 MOLDING SANDER by Javier Jones D.O.
[2024-11-13] MEDS: HYDROcodone/acetaminophen (*CRX) 5-325 MG TABLET 1 TAB PO (11:53)
[2024-11-13] MEDS: SODIUM CHLORIDE 0.9% IV 500 ML IV CONT (11:53)
--- NOTE | 2024-11-13 12:07 | PM.TDS ---
Transfer Discharge Sum: Prov Provider Date of admission: 11/12/24 11:23 Primary care physician: Noah Perry DO Admitting clinician: Carlito Craft MD Attending physician on discharge: Star Craft Discharging clinician: Rosalind Allen Anticipated date of transfer: 11/13/24 Receiving physician/facility: Dr. Lopez [facility] DS: Admitting Diagnosis Discharge Date 11/13/24 Admitting Diagnosis sepsis pneumonia acute respiratory failure with hypoxia acute kidney injury influenza a fall hypertension hyperlipidemia generalized anxiety disorder DS: Discharge Diagnosis Discharge Diagnosis (1) Sepsis: Code(s): A41.9 - Sepsis, unspecified organism Status: Acute (2) Pneumonia: Code(s): J18.9 - Pneumonia, unspecified organism Status: Acute (3) Acute respiratory failure with hypoxia: Code(s): J96.01 - Acute respiratory failure with hypoxia Status: Acute (4) Influenza: Code(s): J11.1 - Influenza due to unidentified influenza virus with other respiratory manifestations Status: Acute (5) Chest pain: Code(s): R07.9 - Chest pain, unspecified Status: Acute (6) RAQUEL (acute kidney injury): Code(s): N17.9 - Acute kidney failure, unspecified Status: Acute (7) Fall: Code(s): W19.XXXA - Unspecified fall, initial encounter Status: Acute (8) Essential hypertension: Code(s): I10 - Essential (primary) hypertension Status: Acute (9) Hyperlipidemia: Code(s): E78.5 - Hyperlipidemia, unspecified Status: Acute (10) LEAH (generalized anxiety disorder): Code(s): F41.1 - Generalized anxiety disorder Status: Acute (11) Atrial fibrillation with RVR: Code(s): I48.91 - Unspecified atrial fibrillation Status: Acute (12) Elevated troponin: Code(s): R79.89 - Other specified abnormal findings of blood chemistry Status: Acute (13) Elevated d-dimer: Code(s): R79.89 - Other specified abnormal findings of blood chemistry Status: Acute Transfer Discharge Sum: Med Medications Active and Home Medications: Home Medications mecobalamin (vitamin B12) 1,000 mcg disintegrating tablet,sublingual See Rx Instructions .Route .COMPLEX #100 tabs 01/25/24 [Rx Confirmed 11/12/24] hydrocodone 5 mg-acetaminophen 325 mg tablet 1 tablet PO Q6H PRN pain #60 tabs 02/15/24 [Rx Confirmed 11/12/24] acetaminophen 500 mg tablet See Rx Instructions .Route .COMPLEX #100 tabs 10/30/24 [Rx Confirmed 11/12/24] atorvastatin 40 mg tablet See Rx Instructions .Route .COMPLEX #30 tabs 10/30/24 [Rx Confirmed 11/12/24] ergocalciferol (vitamin D2) 1,250 mcg (50,000 unit) capsule See Rx Instructions .Route .COMPLEX #4 caps 10/30/24 [Rx Confirmed 11/12/24] gabapentin 400 mg capsule See Rx Instructions .Route .COMPLEX #90 caps 10/30/24 [Rx Confirmed 11/12/24] losartan 100 mg tablet See Rx Instructions .Route .COMPLEX #30 tabs 10/30/24 [Rx Confirmed 11/12/24] mirtazapine 15 mg tablet See Rx Instructions .Route .COMPLEX #30 tabs 10/30/24 [Rx Confirmed 11/12/24] spironolactone 50 mg tablet See Rx Instructions .Route .COMPLEX #30 tabs 10/30/24 [Rx Confirmed 11/12/24] buspirone 10 mg tablet 10 mg PO TID PRN prn 11/12/24 [History Confirmed 11/12/24] Active Medications Acetaminophen (Acetaminophen 325 Mg Tablet) 650 mg PO Q4H PRN PRN Reason: Mild Pain (1-3) or Fever Hydrocodone Bitart/Acetaminophen (Hydrocodone/Acetaminophen (*Crx) 5-325 Mg Tablet) 1 tab PO Q6H PRN PRN Reason: pain 4-6 Last Admin: 11/13/24 11:53 Dose: 1 tab Albuterol/Ipratropium (Ipratropium 0.5 Mg/Albuterol Sulfate 2.5 Mg Ampul.Neb 3 Ml) 3 ml INHALATION Q6HRT ELLEN Last Admin: 11/13/24 05:38 Dose: 3 ml Atorvastatin Calcium (Atorvastatin 40 Mg Tablet) 40 mg PO HS ELLEN Buspirone HCl (Buspirone Hcl 10 Mg Tablet) 10 mg PO TID PRN PRN Reason: prn Doxycycline Hyclate (Doxycycline Hyclate 100 Mg Tablet) 100 mg PO Q12HR ELLEN Enoxaparin Sodium (Enoxaparin 40 Mg/0.4 Ml Syringe) 40 mg SUB-Q DAILY [facility] Famotidine (Famotidine 20 Mg Tablet) 20 mg PO Q12HR [facility] Last Admin: 11/12/24 21:02 Dose: 20 mg Guaifenesin (Guaifenesin 12 Hr 600 Mg Tabcr) 1,200 mg PO Q12HR [facility] Last Admin: 11/12/24 21:02 Dose: 1,200 mg Cefepime HCl (Maxipime 1 Gm/Ns 50 Ml) 1 gm in 50 mls @ 100 mls/hr IVPB Q12H [facility] Last Infusion: 11/13/24 02:05 Dose: Infused Amiodarone HCl/Dextrose (Nexterone 360 Mg/D5w 200 Ml) 360 mg in 200 mls @ 33.333 mls/hr IV CONT .Q6H ONE Stop: 11/13/24 15:30 Last Admin: 11/13/24 10:37 Dose: 1 mg/min, 33.33 mls/hr Ondansetron HCl (Ondansetron Inj 4 Mg/2 Ml Vial) 4 mg IV PUSH Q6H PRN PRN Reason: Nausea And Vomiting Oseltamivir Phosphate (Oseltamivir Phosphate 75 Mg Capsule) 75 mg PO Q12HR [facility] Stop: 11/17/24 20:59 Last Admin: 11/12/24 21:02 Dose: 75 mg Perflutren Lipid Microsphere (Perflutren Lipid Microspheres 1.5 Ml Vial Diluted To 10 Ml Total Volume) 0 ml IV PUSH ONCE PRN; Protocol PRN Reason: adequate visualization Stop: 11/16/24 09:05 Transfer Discharge Sum: Hosp Hospital Course Hospital course: Nydia Walker is a 84 year old female with a significant past medical history of hypertension, hyperlipidemia, GERD, generalized anxiety disorder, dementia, chronic lower back pain who initially presented to [facility] on 11/12/2024 for evaluation after sustaining a ground level fall At her assisted living facility. Patient states that she has felt weak for the last few days and unsteady on her feet. When she fell she did report hitting her head but no loss of consciousness and reported right hip pain initially. Workup in the hospital included a chest x-ray which Showed bibasilar atelectasis. Hip and pelvis x-ray was negative for any acute fracture, showed moderate osteoarthritis of bilateral hips. Cervical spine CT was negative for fracture, showed mild cervical spondylosis. 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 Last echo was reviewed from 02/02/2018 which showed normal LV systolic function with an estimated EF of 60-65%, normal right ventricular function , no significant valve lesions at that time. Initial labs revealed a white blood cell count of 15.3, INR 1.0, potassium 3.4, anion gap 16, creatinine 1.50, EGFR 35, lactic acid 3.6> 5.5> 2.7> 2.1, magnesium 1.7, total bili 1.2, AST 75, C reactive protein greater Than 25. UA was obtained and showed cloudy urine appearance, greater than 1.030 urine specific gravity, 2+ urine protein, 1+ urine ketone, trace blood, 2+ urine bacteria, 1-2 granular casts. MRSA was negative. Respiratory panel was positive for influenza A. On initial assessment in the ED patient was meeting sepsis criteria with elevated heart rate of 127, tachypnea with a respiratory rate of 22, hypoxia with an SpO2 of 86% on room air, chest x-ray showing pneumonia, lactic acid elevated, acute kidney injury. blood and sputum cultures were obtained and pending. She was given Levaquin, IV fluids, vancomycin, potassium while in the ED. Today patient was reporting chest pain and increased shortness a breath. An EKG was obtained which shown AFib with RVR with a rate of [address] elevation in the inferior leads. initial troponin was elevated at 345.1. D-dimer was elevated at 1.21. Patient was started on a heparin infusion and also was given an amiodarone bolus with infusion. Antibiotic was changed to cefepime, doxycycline, and tamiflu. At 10:38 a.m. patient converted back to sinus rhythm / sinus tach with a rate of 102. Blood pressure was still running 85/55 with a map of 65. We went ahead and gave her a 500 mL fluid bolus and her blood pressure improved during the infusion. Her blood pressure currently is 100/62 with a map of 74 and heart rate is 103 on the amiodarone and heparin infusion. Repeat EKG showed sinus tach with a rate of 100, QTC 467. She was sent for a chest CTA which showed patchy left basilar airspace consolidation which could represent atelectasis versus scarring versus pneumonia, scattered area of minimal tree-in-bud opacities in the lungs, suggesting focal area of small airway infection, 8 mm superior segment right lower lobe pulmonary nodule suggestive of focal scarring, no evidence of PE, aortic dissection, or aortic aneurysm. Labs today shown white blood cell count of 18.9, hemoglobin 11.1, bicarb 19, anion gap 14, creatinine 1.44, EGFR 35, AST 73. Considering her chest pain, new onset AFib RVR, elevated troponin / possible NSTEMI we will need to transfer to tertiary hospital with Cardiology Services. Call was placed to [facility] and patient was accepted by Dr. Lopez. She will transfer over to [facility] into ICU bed 1 as a step-down patient. She will need cardiology consult in could benefit from a more recent echo. Her 2nd troponin is pending at this time. condition: serious final diagnosis: hospital-acquired pneumonia, acute hypoxic respiratory failure, sepsis, influenza a, NSTEMI, AFib with RVR- new onset, acute kidney injury, fall Time Spent with Patient Time attestation: Total time spent providing and/or coordinating transfer services: Total time spent: Greater than 30 minutes ( Due to a high probability of clinically significant, life threatening deterioration, the patient required my highest level of preparedness to intervene emergently and I personally spent this critical care time directly and personally managing the patient. I have personally spent 120 minutes time. ) Exam Narrative: General: In no acute distress, well nourished Head: atraumatic, no encephalopathy Eyes: PERRLA, sclera clear ENT: moist mucous membranes, nasal passages clear Neck: supple, no JVD, no adenopathy, trachea midline Cardiac: Normal S1 and S2. Irregular, A fib with RVR rate 179. No murmur, gallops or friction rubs, peripheral pulses intact. hypotensive Respiratory: Rhonchi noted bilaterally with tight raspy cough, no adventitious lung sounds, currently on 2 L nasal cannula, tachypnea and shortness a breath at rest Gastrointestinal: soft, non-distended, non-tender, normoactive bowel sounds. : voiding without difficulty. Extremities: moves all extremities well, no edema Skin: clean, dry, intact. No wounds or lesions. Neuro: Alert and oriented x3, cranial nerves intact, no neuro deficits. Psych: normal mood, normal affect, interactive DS: Data Data Completed and Pending Completed studies during hospitalization: chest x-ray x3 hip/pelvis x-ray cervical spine CT head CT Pending studies at discharge: sputum and blood cultures pending Labs on day of discharge: Labs from last 24 hours 11/13/24 11/13/24 11/12/24 09:18 04:59 18:02 WBC 18.9 H RBC 3.80 L Hgb 11.1 L Hct 35.9 MCV 94.5 MCH 29.2 MCHC 30.9 L RDW 14.6 H Plt Count 244 MPV 10.0 Immature Gran % (Auto) 0.9 H Neut % (Auto) 89.3 H Lymph % (Auto) 4.8 L [place] % (Auto) 4.6 Eos % (Auto) 0.2 L Baso % (Auto) 0.2 Lymph # (Auto) 0.91 L [place] # (Auto) 0.87 Eos # (Auto) 0.03 Baso # (Auto) 0.03 Abs Immat Gran (auto) 0.17 H Absolute Neuts (auto) 16.85 H Absolute Nucleated RBC 0.00 Nucleated RBC % 0.0 D-Dimer 1.21 H* Sodium 141 Potassium 4.1 Chloride 108 Carbon Dioxide 19 L Anion Gap 14 H BUN 35 H Creatinine 1.44 H Estim Creat Clear Calc 28 Estimated GFR 35 L Glucose 153 H Calculated Osmolality 303 H Lactic Acid 2.1 H 2.7 H Calcium 8.2 L Magnesium 1.9 Total Bilirubin 0.4 AST 73 H ALT 29 Alkaline Phosphatase 90 Troponin I 345.1 H* Total Protein 6.6 Albumin 2.2 L Urine Color Urine Appearance Urine pH Ur Specific [place] Urine Protein Urine Glucose (UA) Urine Ketones Ur Blood (Man) Urine Nitrate Urine Bilirubin Urine Urobilinogen Leukocyte Esterase Rfl Urine RBC Urine WBC Ur Squamous Epith Cells Urine Bacteria Granular Casts Nasal MRSA (PCR) 11/12/24 11/12/24 11/12/24 17:20 15:27 12:47 WBC RBC Hgb Hct MCV MCH MCHC RDW Plt Count MPV Immature Gran % (Auto) Neut % (Auto) Lymph % (Auto) [place] % (Auto) Eos % (Auto) Baso % (Auto) Lymph # (Auto) [place] # (Auto) Eos # (Auto) Baso # (Auto) Abs Immat Gran (auto) Absolute Neuts (auto) Absolute Nucleated RBC Nucleated RBC % D-Dimer Sodium Potassium Chloride Carbon Dioxide Anion Gap BUN Creatinine Estim Creat Clear Calc Estimated GFR Glucose Calculated Osmolality Lactic Acid 5.5 H Calcium Magnesium Total Bilirubin AST ALT Alkaline Phosphatase Troponin I Total Protein Albumin Urine Color Yellow Urine Appearance Cloudy A Urine pH 5.5 Ur Specific [place] >= 1.030 H Urine Protein 2+ H Urine Glucose (UA) Negative Urine Ketones 1+ H Ur Blood (Man) Trace-intact H Urine Nitrate Negative Urine Bilirubin Negative Urine Urobilinogen 1.0 Leukocyte Esterase Rfl Negative Urine RBC 0-2 Urine WBC None seen Ur Squamous Epith Cells Few Urine Bacteria 2+ H Granular Casts 1-2 H Nasal MRSA (PCR) Not detected 11/12/24 09:20 WBC RBC Hgb Hct MCV MCH MCHC RDW Plt Count MPV Immature Gran % (Auto) Neut % (Auto) Lymph % (Auto) [place] % (Auto) Eos % (Auto) Baso % (Auto) Lymph # (Auto) [place] # (Auto) Eos # (Auto) Baso # (Auto) Abs Immat Gran (auto) Absolute Neuts (auto) Absolute Nucleated RBC Nucleated RBC % D-Dimer Sodium Potassium Chloride Carbon Dioxide Anion Gap BUN Creatinine Estim Creat Clear Calc Estimated GFR Glucose Calculated Osmolality Lactic Acid Calcium Magnesium 1.7 L Total Bilirubin AST ALT Alkaline Phosphatase Troponin I Total Protein Albumin Urine Color Urine Appearance Urine pH Ur Specific [place] Urine Protein Urine Glucose (UA) Urine Ketones Ur Blood (Man) Urine Nitrate Urine Bilirubin Urine Urobilinogen Leukocyte Esterase Rfl Urine RBC Urine WBC Ur Squamous Epith Cells Urine Bacteria Granular Casts Nasal MRSA (PCR) Procedures/Treatments: none
[2024-11-13] MEDS: ENOXAPARIN 40 MG/0.4 ML SYRINGE SUB-Q (12:45)
[2024-11-13] MEDS: DOXYCYCLINE HYCLATE 100 MG TABLET PO (12:45)
[2024-11-13] MEDS: guaiFENesin 12 HR 600 MG TABCR 1200 MG PO (12:45)
[2024-11-13] MEDS: OSELTAMIVIR PHOSPHATE 75 MG CAPSULE PO (12:46)
[2024-11-13] MEDS: FAMOTIDINE 20 MG TABLET PO (12:46)
[2024-11-13 13:08] LABS: Troponin I 317.9 ng/L (0.00-60.4)
[2024-11-13 13:20] LABS: Reflex Lactic Acid Yes or No Add Lactic
[2024-11-13 13:22] LABS: INR 0.9; Partial Thromboplastin Time 35.4 Sec (23.9-30.70)
[2024-11-13] MEDS: SODIUM BICARBONATE TAB 650 MG TABLET PO (13:30)
--- NOTE | 2024-11-13 13:30 | PC.NURSE ---
Report called to VALERIE Valencia at [facility] ICU.
--- NOTE | 2024-11-13 13:45 | PC.NURSE ---
Report given to SAAS. All questions answered. Pt transferred to [facility] by ambulance staff.
--- NOTE | 2024-11-13 13:54 | PC.NURSE ---
[facility] notified via telephone of pt leaving hospital.
== END 2024-11-13 14:05 | disposition short-term general hospital (02) | DRG 871 ==
LOC: CHSED 11:25 → CHS2ND 11:32
PROVIDERS: Nurse Practitioner Family; Admitting Provider Internal Medicine; Emergency Provider Emergency Medicine; PCP Family Medicine; Visit Provider Nurse Practitioner Acute Care
DX: J10.00 Influenza due to other identified influenza virus with unspecified type of pneumonia (principal); I10 Essential (primary) hypertension; E78.5 Hyperlipidemia, unspecified; K21.9 Gastro-esophageal reflux disease without esophagitis; F41.1 Generalized anxiety disorder; M54.50 Low back pain, unspecified; G89.29 Other chronic pain; F03.90 Unspecified dementia, unspecified severity, without behavioral disturbance, psychotic disturbance, mood disturbance, and anxiety; Z20.822 Contact with and (suspected) exposure to COVID-19; A41.9 Sepsis, unspecified organism; I21.4 Non-ST elevation (NSTEMI) myocardial infarction; J10.08 Influenza due to other identified influenza virus with other specified pneumonia; J96.01 Acute respiratory failure with hypoxia; J18.9 Pneumonia, unspecified organism; N17.9 Acute kidney failure, unspecified; I48.91 Unspecified atrial fibrillation; Y95 Nosocomial condition; W19.XXXA Unspecified fall, initial encounter
CPT/HCPCS: 36415; 70450; 71045; 71275; 72125; 73502; 80053; 81001; 83605; 83735; 83880; 84484; 85025; 85380; 85610; 85730; 86140; 87040; 87070; 87205; 87637; 87641; 93005; 94640; 94667; 96365; 96366; 99285; A9270; J0282; J0692; J1650; J1956; J3370; J7030; J7040; Q9967

== ENCOUNTER 2024-11-13 14:40 | Inpatient (IN) | payer OTHER, SELFPAY ==
[2024-11-13] VITALS (7 sets, daily range): BP systolic 96–119; BP diastolic 55–59; PULSE 84–95; RESP 17–24; TEMP 37.1; O2SAT 95–98; BMI 31.7
--- NOTE | 2024-11-13 | ECHO_ITS ---
Patient Info Name: Nydia Walker Age: 84 years : 1940 Gender: Female Ht: 65 in Wt: 187 lbs BSA: 2.00 m2 HR: 88 bpm BP: 100 / 62 mmHg Technical Quality: Poor Exam Date: 11/13/2024 3:58 PM Exam Location: Echo Lab Patient Status: Inpatient Admit Date: 11/13/2024 Staff Ordering Physician: Rosalind Allen APRN Shared Services Manager: Geneva Orona RDCS Attending Provider: Rosalind Allen APRN Referring Physician: Tiffany BRUCE; Exam Type: CA echo dop color flow w con Study Info Indications - NSTEMI Complete two-dimensional, color flow and Doppler transthoracic echocardiogram is performed with contrast to opacify the left ventricle and to improve the deliniation of the left ventricle endocardial borders. Contrast/Agitated Saline Contrast/Ag. Saline: Definity Amount: 2.00 ml Existing IV Access: Yes Reason for Poor Study: poor echocardiographic windows Summary 1. Normal biventricular size and systolic function. 2. No significant valvular disease. Left Ventricle The left ventricle is normal in size and systolic function. There is moderate concentric left ventricular hypertrophy. The left ventricular ejection fraction is visually estimated to be 50-55%. Right Ventricle The right ventricle is normal in size and systolic function. Left Atria The left atrium is normal size. Right Atria The right atrium is normal size. Atrial Septum The atrial septum visually appears intact. Aortic Valve The aortic valve is trileaflet and opens well. There is no aortic regurgitation. Pulmonic Valve The pulmonic valve is not well visualized. There is trace pulmonic valve regurgitation. Mitral Valve The mitral valve is grossly normal. There is no mitral regurgitation. Tricuspid Valve The tricuspid valve is grossly normal. There is trace tricuspid regurgitation. Pericardium/Pleural Pericardium is normal in appearance with no evidence for significant pericardial effusion. Inferior Vena Cava Normal inferior vena cava with >50% collapse upon inspiration consistent with normal right atrial pressure, 3 mmHg. Aorta The ascending aorta is not well visualized. Left Ventricular Outflow Tract Name Value Normal LVOT 2D LVOT Diameter 1.82 cm LVOT Doppler LVOT Peak Velocity 86.74 cm/s LVOT Peak Gradient 2 mmHg LVOT Mean Gradient 2 mmHg LVOT VTI 20.21 cm LVOT VTI/AV VTI Ratio 0.91 LVOT Stroke Volume 52.38 ml LVOT CO 9.56 l/min LVOT CI 4.78 L/min/m2 Pulmonic Valve Name Value Normal RVOT Doppler RVOT Peak Gradient 2 mmHg PV Doppler PV Peak Velocity 101.76 cm/s PV Peak Gradient 4 mmHg PV Regurgitation Doppler SC Peak End Diastolic Velocity 106.41 cm/s Mitral Valve Name Value Normal MV Doppler MV Decel [place] 404.45 cm/s2 MV PHT 0 s MV Area (PHT) 5.30 cm2 4.00-5.00 MV Diastolic Function MV E Peak Velocity 57.90 cm/s MV A Peak Velocity 67.81 cm/s MV E/A 0.85 MV Decel Time 0 s MV Annular TDI MV Septal e' Velocity 5.75 cm/s >=8.00 MV E/e' (Septal) 10.07 <=8.00 MV Lateral e' Velocity 9.51 cm/s >=10.00 MV E/e' (Lateral) 6.09 <=8.00 MV e' Average 7.63 MV E/e' (Average) 8.08 Tricuspid Valve Name Value Normal TV Regurgitation Doppler TR Peak Velocity 270.16 cm/s TR Peak Gradient 29 mmHg Estimated PAP/RSVP RA Pressure 3 mmHg <=5 PA Systolic Pressure 32 mmHg <36 RV Systolic Pressure 32 mmHg <36 TV Annular TDI TV Lateral Ashlee s' Velocity 12.46 cm/s 9.50-18.70 Aorta Name Value Normal Ascending Aorta Ao Root Diameter (MM) 3.87 cm Ao Root Diam Index (MM) 1.93 cm/m2 Ao Sinotub Junction Diameter 2.33 cm 2.30-2.90 Aortic Valve Name Value Normal AV Doppler AV Peak Velocity 105.32 cm/s AV Peak Gradient 3 mmHg AV Mean Gradient 2 mmHg AV VTI 22.28 cm AV Area (Cont Eq VTI) 2.35 cm2 >=3.00 AV Area (Cont Eq Bert) 2.14 cm2 AV V1/V2 Ratio 0.82 AV Regurgitation 2D LVOT Area 2.59 cm2 Ventricles Name Value Normal LV Dimensions 2D/MM IVS Diastolic Thickness (2D) 1.37 cm 0.60-1.00 LVID Diastole (2D) 4.07 cm 3.80-5.20 LVIW Diastolic Thickness (2D) 1.57 cm 0.60-0.90 LVID Systole (2D) 3.13 cm 2.20-3.50 LVOT Diameter 1.82 cm LV Mass (2D Cubed) 230.86 g 67.00-162.00 LV Mass Index (2D Cubed) 0.01 g/cm2 0.00-0.01 Relative Wall Thickness (2D) 0.77 LV Fractional Shortening/Ejection Fraction 2D/MM LV Fractional Shortening (2D) 29 % 27-45 LV EF (2D Teicholz) 56 % 54-74 LV Diastolic Volume (4C MOD) 34.84 ml LV EF (4C MOD) 36 % LV Diastolic Volume (2C MOD) 36.30 ml LV EF (2C MOD) 22 % LV Diastolic Volume (BP MOD) 36.92 ml 46.00-106.00 LV Diastolic Volume Index (BP MOD) 0.02 l/m2 0.03-0.06 LV Systolic Volume (BP MOD) 25.86 ml 14.00-42.00 LV Systolic Volume Index (BP MOD) 0.01 l/m2 0.01-0.02 LV EF (BP MOD) 30 % 54-74 LV Diastolic Length (4C) 6.91 cm LV Systolic Length (4C) 5.88 cm LV Stroke Volume (4C MOD) 12.49 ml Atria Name Value Normal LA Dimensions LA Dimension (MM) 3.56 cm 2.70-3.80 LA Volume (4C A-L) 53.63 ml LA Volume (BP A-L) 65.28 ml RA Dimensions RA Area (4C) 19.10 cm2 <=18.00 Report Signatures
--- NOTE | ~2024-11-13 | XR_ITS ---
Portable chest x-ray Comparison: 11/14/2024 Clinical History: Shortness of breath Findings: There is central congestive change with left basilar airspace consolidation. Cardiomedias tinal silhouette is stable. Bones and soft tissues are unremarkable. Impression: Left lower lobe atelectasis/edema versus pneumonia. Correlate clinically. Central pulmonary venous congestive change. Reviewed, dictated and finalized at [facility]. LE MANAGER Impression: Left lower lobe atelectasis/edema versus pneumonia. Correlate clinically. Central pulmonary venous congestive change.
--- NOTE | ~2024-11-13 | XR_ITS ---
EXAMINATION: XR chest 1V portable DATE: 11/14/2024 12:28 INDICATION: Hypoxia. Influenza. TECHNIQUE: frontal view of the chest was obtained. COMPARISON: Chest radiograph and CT date FINDINGS: Pulmonary vascular congestion with increased interstitial pattern in the lungs consistent with new mi ld pulmonary edema. Persistent more patchy airspace opacity left lower lung zone which could represen t atelectasis or pneumonia. No pleural effusion or pneumothorax.. Heart size is normal. IMPRESSION: 1. Pulmonary vascular congestion with subtle increased interstitial pattern consistent with possible minimal pulmonary edema. 2. Patchy airspace opacity left lower lung zone which could represent atelectasis or pneumonia. Reviewed, dictated and finalized at location A. RVISOR FUNCTIONAL TESTING IMPRESSION: 1. Pulmonary vascular congestion with subtle increased interstitial pattern con sistent with possible minimal pulmonary edema. 2. Patchy airspace opacity left lower lung zone which could represent atelectas is or pneumonia.
--- NOTE | ~2024-11-13 | CT_ITS ---
EXAMINATION: CT brain wo con DATE: 11/15/2024 11:34 INDICATION: Lethargy. Altered mental status. TECHNIQUE: Computed tomography (CT) of the head was performed without intravenous contrast. Sagittal and coronal reconstructions were performed. The mA was adjusted according to patient size. Iterative reconstruction technique was employed. The dose-length product was 1362.00 mGy-cm. COMPARISON: head CT dated 11/12/2024 FINDINGS: Small amount of motion artifact which only minimally limits evaluation. No acute intracranial hemorrh age, acute infarction or abnormal extra axial fluid collection. A couple small old infarcts at the [facility] cerebellar hemisphere. There is mild scattered white matter hypoattenuation consistent with chron ic small vessel ischemic disease. Symmetric prominence of the sulci consistent with mild age-appropri ate diffuse cerebral volume loss. No mass/mass effect. Changes of bilateral intraocular lens replacem ent. The orbits and mastoid air cells are normal. Mild mucosal thickening the ethmoid sinuses and sma ll amount of fluid layering dependently in the bilateral sphenoid sinuses. IMPRESSION: 1. 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 No acute intracranial pro cess. Reviewed, dictated and finalized at location A. COLLECTOR IMPRESSION: 1. 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 No acute intracranial process.
--- OUTSIDE RECORDS SUMMARY | 2024-11-13 14:55 | XMS_ITS | Clinical Summary ---
Author Organization [facility] Address [address] [place] [id number] Care Team Providers Care Sales And Marketing Engineer Name Role Phone Unavailable Primary Care Provider [...]
--- NOTE | 2024-11-13 15:09 | ECG_ITS ---
Test Date: 2024-11-13 15:13:48 Measurements Intervals [place] Rate: 87 P: 27 AL: 155 QRS: -8 QRSD: 90 T: 30 QT: 388 QTc: 467 Interpretive Statements SINUS RHYTHM NORMAL ECG Compared to ECG 11/13/2024 11:30:47 HEART RATE HAS DECREASED Electronically Signed On 11-13-2024 18:55:32 IT PROJECT LEAD by Javier Jones D.O.
--- NOTE | 2024-11-13 15:11 | PM.IMHP ---
H&P: HPI History of Present Illness Date/Time: 11/13/24 15:11 Chief Complaint: Influenza A Hospital acquired pneumonia Sepsis New onset A fib RVR NSTEMI Narrative: This is a 84 year old female with a significant past medical history of hypertension, hyperlipidemia, GERD, generalized anxiety disorder, dementia, chronic lower back pain who initially presented to [facility] on 11/12/2024 for evaluation after sustaining a ground level fall at her assisted living facility. Patient states that she has felt weak for the last few days and unsteady on her feet. When she fell she did report hitting her head but no loss of consciousness and reported right hip pain initially. Workup in the hospital at [place] included a chest x-ray which Showed bibasilar atelectasis. Hip and pelvis x-ray was negative for any acute fracture, showed moderate osteoarthritis of bilateral hips. Cervical spine CT was negative for fracture, showed mild cervical spondylosis. 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 Last echo was reviewed from 02/02/2018 which showed normal LV systolic function with an estimated EF of 60-65%, normal right ventricular function , no significant valve lesions at that time. Initial labs revealed a white blood cell count of 15.3, INR 1.0, potassium 3.4, anion gap 16, creatinine 1.50, EGFR 35, lactic acid 3.6> 5.5> 2.7> 2.1, magnesium 1.7, total bili 1.2, AST 75, C reactive protein greater than 25. UA was obtained and showed cloudy urine appearance, greater than 1.030 urine specific gravity, 2+ urine protein, 1+ urine ketone, trace blood, 2+ urine bacteria, 1-2 granular casts. MRSA was negative. Respiratory panel was positive for influenza A. On initial assessment in the ED patient was meeting sepsis criteria with elevated heart rate of 127, tachypnea with a respiratory rate of 22, hypoxia with an SpO2 of 86% on room air, chest x-ray showing pneumonia, lactic acid elevated, acute kidney injury. Blood and sputum cultures were obtained and pending. She was given Levaquin, IV fluids, vancomycin, potassium while in the ED. Today patient was reported chest pain and increased shortness a breath while inpatient at [facility]. An EKG was obtained which shown AFib with RVR with a rate of [address] elevation in the inferior leads. Initial troponin was elevated at 345.1, second troponin decreased to317.9. D-dimer was also noted to be elevated at 1.21. Patient was started on a heparin infusion and also was given an amiodarone bolus with infusion. Antibiotics were changed to cefepime, doxycycline, and tamiflu. At 10:38 a.m. patient converted back to sinus rhythm / sinus tach with a rate of 102. Blood pressure was still running 85/55 with a map of 65. Patient was given 500 mL fluid bolus and her blood pressure improved during the infusion. Repeat EKG showed sinus tach with a rate of 100, QTC 467. She was sent for a chest CTA which showed patchy left basilar airspace consolidation which could represent atelectasis versus scarring versus pneumonia, scattered area of minimal tree-in-bud opacities in the lungs, suggesting focal area of small airway infection, 8 mm superior segment right lower lobe pulmonary nodule suggestive of focal scarring, no evidence of PE, aortic dissection, or aortic aneurysm. Labs today shown white blood cell count of 18.9, hemoglobin 11.1, bicarb 19, anion gap 14, creatinine 1.44, EGFR 35, AST 73. Patient is being admitted in this setting for Cardiology consult and STAT echo. Review of Systems Review of Systems: All systems reviewed & are unremarkable except as noted in HPI and below PMFSH Past Medical History Medical History Obesity, Class I, BMI 30-34.9 Olecranon bursitis of right elbow Essential hypertension Insomnia Hyperlipidemia Headache GERD without esophagitis LEAH (generalized anxiety disorder) Dementia Chronic low back pain Altered mental status Surgical History Surgical History History of hysterectomy History of cholecystectomy Family History Family History Father Family history of coronary artery disease Social History Social History Smoking status: Never smoker Smoking end date: 09/25/69 Alcohol intake: never Substance use: never Substance use type: does not use Do You Feel Safe in your Home?: Yes Lack of Transportation: No Lack of Food: Never True Current Housing: I Have Housing Concerned About Future Housing: No Difficulty Paying Gas/Electric Bills: No Difficulty Paying for Meds: No Currently Unemployed: No Education: High School Diploma/GED Difficulty w/ Childcare or Family Care: No Living arrangements: assisted living Additional living arrangements comments: [facility] Occupation/Education: retired Gender identity (if verbalized by the patient): Female Spiritual care concerns: No Meds Home Medications and Allergies Home Medications ?Medication ?Instructions ?Recorded ?Confirmed ?Type mecobalamin (vitamin B12) 1,000 See Rx Instructions .Route 01/25/24 11/13/24 Rx mcg disintegrating .COMPLEX #100 tabs tablet,sublingual hydrocodone 5 mg-acetaminophen 325 1 tablet PO Q6H PRN pain #60 tabs 02/15/24 11/13/24 Rx mg tablet acetaminophen 500 mg tablet See Rx Instructions .Route 10/30/24 11/13/24 Rx .COMPLEX #100 tabs atorvastatin 40 mg tablet See Rx Instructions .Route 10/30/24 11/13/24 Rx .COMPLEX #30 tabs ergocalciferol (vitamin D2) 1,250 See Rx Instructions .Route 10/30/24 11/13/24 Rx mcg (50,000 unit) capsule .COMPLEX #4 caps gabapentin 400 mg capsule See Rx Instructions .Route 10/30/24 11/13/24 Rx .COMPLEX #90 caps losartan 100 mg tablet See Rx Instructions .Route 10/30/24 11/13/24 Rx .COMPLEX #30 tabs mirtazapine 15 mg tablet See Rx Instructions .Route 10/30/24 11/13/24 Rx .COMPLEX #30 tabs spironolactone 50 mg tablet See Rx Instructions .Route 10/30/24 11/13/24 Rx .COMPLEX #30 tabs buspirone 10 mg tablet 10 mg PO TID PRN prn 11/12/24 11/13/24 History cefepime 1 gram solution for 1 g IV Q12H #1 ea 11/13/24 11/13/24 Rx injection doxycycline hyclate 100 mg tablet 100 mg PO Q12HR #1 tablet 11/13/24 11/13/24 Rx oseltamivir 75 mg capsule (Tamiflu) 75 mg PO Q12HR #8 caps 11/13/24 11/13/24 Rx Allergies Allergy/AdvReac Type Severity Reaction Status Date / Time FRANCO Inhibitors Allergy Unknown unknown Verified 11/13/24 16:18 Exam Narrative: General: In no acute distress, well nourished Head: atraumatic, no encephalopathy Eyes: PERRLA, sclera clear ENT: moist mucous membranes, nasal passages clear Neck: supple, no JVD, no adenopathy, trachea midline Cardiac: Normal S1 and S2. Sinus tachycardia, No murmur, gallops or friction rubs, peripheral pulses intact. hypotensive Respiratory: Rhonchi noted bilaterally with tight raspy cough, no adventitious lung sounds, currently on 2 L nasal cannula, tachypnea and shortness a breath at rest Gastrointestinal: soft, non-distended, non-tender, normoactive bowel sounds. : voiding without difficulty. Extremities: moves all extremities well, no edema Skin: clean, dry, intact. No wounds or lesions. Neuro: Alert and oriented x3, cranial nerves intact, no neuro deficits. Psych: normal mood, normal affect, interactive H&P: Results Imaging CTA chest: Radiologist's impression: CT Scan of the Chest with Contrast: Technique: Contiguous sections were acquired throughout the chest after intravenous administration of 100 cc of Omnipaque 350. Dose reduction technique was used on this scan by utilizing automated exposure control and iterative reconstruction technique. The dose-length product (DLP) was 744.99 mGy-cm. Findings: There is no evidence of any significant mediastinal, hilar or axillary lymphadenopathy. There is no filling defect in the pulmonary arterial tree to suggest pulmonary embolus. There is no evidence of aortic dissection or aneurysm. There is no evidence of pleural or pericardial effusion. Patchy left basilar airspace disease could reflect atelectasis/scarring versus pneumonia. There is minimal right basilar atelectasis. There are a few scattered areas of probable focal tree-in-bud opacities in the lungs, which could reflect focal areas of small airways infection. There is an 8 mm nodular opacity in the superior segment right lower lobe, morphology most suggestive of focal scarring or postinflammatory change. Images through the upper abdomen reveal no abnormalities. Impression: No evidence of pulmonary embolus, aortic dissection, or aortic aneurysm. Patchy left basilar airspace consolidation could reflect atelectasis/scarring versus pneumonia. Scattered areas of minimal tree-in-bud opacities in the lungs suggests focal areas of small airways infection. 8 mm superior segment right lower lobe pulmonary nodule, most suggestive of focal scarring. Reviewed, dictated and finalized at location M. METER REPAIR SUPERVISOR Chest x-ray: Radiologist's impression: XR chest 1V portable 11/13/2024 09:37 Indication: Chest pain and shortness of breath Procedure: AP portable chest Comparison: Comparison to multiple prior studies sequentially, with oldest reviewed study dated 01/13/2023. Findings: Borderline heart size. Bibasilar atelectasis. No focal pneumonia, pleural effusion or pneumothorax. No edema. Impression: 1: Bibasilar atelectasis. Reviewed, dictated and finalized at location B. METER REPAIR SUPERVISOR CT scan - head: Radiologist's impression: EXAMINATION: CT brain wo con DATE: 11/12/2024 10:11 INDICATION: Head injury. TECHNIQUE: Computed tomography (CT) of the head was performed without intravenous contrast. The mA was adjusted according to patient size. Iterative reconstruction technique was employed. The dose-length product was 605.33 mGy-cm. 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 There are scattered areas of low attenuation in the cerebral white matter, which is within normal limits for the patient's age. There is no intracranial hemorrhage, acute infarction, or abnormal intracranial mass lesion. The ventricles are normal in size. There is mild mucosal thickening in the paranasal sinuses. There are likely changes of ocular lens replacement surgeries. The mastoid air cells are normal. IMPRESSION: 1. 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 Reviewed, dictated and finalized at location A. METER REPAIR SUPERVISOR cervical spine CT: Radiologist's impression: EXAMINATION: CT cervical spine wo con DATE: 11/12/2024 10:12 INDICATION: Neck injury. Fall. TECHNIQUE: Computed tomography (CT) of the cervical spine was performed without intravenous contrast. Automated exposure control and iterative reconstruction technique were employed. The dose-length product was 225.35 mGy-cm. COMPARISON: None FINDINGS: Alignment is normal. Vertebral body heights are normal. There is mildly decreased disc height at C3-C4, C5-C6, and C6-C7. The following disc levels are specifically discussed: C2-C3: There is no uncovertebral joint osteoarthritis. There is severe bilateral facet joint osteoarthritis. There is mild left neural foraminal stenosis. There is no central canal stenosis. C3-C4: There is severe right and moderate left uncovertebral joint osteoarthritis. There is moderate right and severe left facet joint osteoarthritis. There is mild bilateral neural foraminal stenosis. There is mild central canal stenosis. C4-C5: There is severe right and moderate left uncovertebral joint osteoarthritis. There is severe bilateral facet joint osteoarthritis. There is mild bilateral neural foraminal stenosis. There is mild central canal stenosis. C5-C6: There is moderate right and mild left uncovertebral joint osteoarthritis. There is severe right and moderate left facet joint osteoarthritis. There is mild right neural foraminal stenosis. There is mild central canal stenosis. C6-C7: There is no uncovertebral joint osteoarthritis. There is mild right and moderate left facet joint osteoarthritis. There is no neural foraminal stenosis. There is no central canal stenosis. C7-T1: There is no uncovertebral joint osteoarthritis. There is mild right and severe left facet joint osteoarthritis. There is mild left neural foraminal stenosis. There is no central canal stenosis. IMPRESSION: 1. No fracture. 2. Mild cervical spondylosis. Reviewed, dictated and finalized at location A. METER REPAIR SUPERVISOR hip and pelvis x-ray: Radiologist's impression: EXAMINATION: XR hip LT 2V w AP pelvis DATE: 11/12/2024 10:12 INDICATION: Left hip pain. Injury. TECHNIQUE: An anteroposterior view of the pelvis and 2 views of left hip were obtained. COMPARISON: None. FINDINGS: There is lumbar dextrocurvature and severe spondylosis. No fracture. There is moderate osteoarthritis of the hips. IMPRESSION: 1. Moderate osteoarthritis of the hips. Reviewed, dictated and finalized at location A. METER REPAIR SUPERVISOR Assessment and Plan Assessment and plan (1) Sepsis: Code(s): A41.9 - Sepsis, unspecified organism Status: Acute Assessment and Plan: Patient initially met sepsis criteria at [facility] with elevated heart rate of 117, hypotension, acute respiratory failure, pneumonia, elevated lactic acid, elevated white blood cell count, NSTEMI, AFib RVR Patient was given IV fluids while in the ED and overnight White blood cell count today was 18.9> 21.2 Blood and sputum cultures were obtained and pending Currently on cefepime, doxycycline, Tamiflu--renally dosed (2) Acute respiratory failure with hypoxia: Code(s): J96.01 - Acute respiratory failure with hypoxia Status: Acute Assessment and Plan: Likely secondary to hospital-acquired pneumonia versus influenza a verses new onset AFib RVR versus NSTEMI Currently on 2 L nasal cannula Continue to wean for sat greater than 92% Chest x-ray shown bibasilar atelectasis Chest CTA was negative for PE, aortic dissection, aortic aneurysm, showed patchy left basilar airspace consolidation representing pneumonia, scattered areas of him minimal tree-in-bud opacities in the lungs suggesting focal areas of small airway infection, 8 mm superior segment right lower lobe pulmonary nodule suggestive of focal scarring. Continue DuoNeb q.6 hour Respiratory panel was positive for influenza A-continue Tamiflu Currently being treated for HAP Currently on cefepime and doxycycline however white blood cell count increased to 21.2--if not trending down by the morning we will switch cefepime to meropenem for broader coverage Continue pep therapy and incentive spirometry Continue Mucinex (3) Pneumonia: Code(s): J18.9 - Pneumonia, unspecified organism Status: Acute Assessment and Plan: See above (4) Influenza: Code(s): J11.1 - Influenza due to unidentified influenza virus with other respiratory manifestations Status: Acute Assessment and Plan: Respiratory panel positive for influenza A See above (5) NSTEMI (non-ST elevated myocardial infarction): Code(s): I21.4 - Non-ST elevation (NSTEMI) myocardial infarction Status: Acute Assessment and Plan: Patient reporting chest pain and shortness of breath today Troponin initially 345.1> 317.9> 0.186 Patient was started on heparin infusion with bolus for acute coronary syndrome Cardiology consulted Echocardiogram ordered, results pending Continue cardiac monitoring Continue IMU status (6) Atrial fibrillation with RVR: Code(s): I48.91 - Unspecified atrial fibrillation Status: Acute Assessment and Plan: Initial EKG at [facility] shown AFib with RVR with a rate of 179 She was given a bolus of amiodarone and started on an amiodarone infusion. She was able to convert back to normal sinus rhythm at 10:38 a.m. this morning. Cardiology consulted for new onset Continue amiodarone infusion for now Continuous cardiac monitoring Continue IMU status (7) Elevated d-dimer: Code(s): R79.89 - Other specified abnormal findings of blood chemistry Status: Acute Assessment and Plan: D-dimer elevated at 1.21 CTA of the chest was negative for PE (8) RAQUEL (acute kidney injury): Code(s): N17.9 - Acute kidney failure, unspecified Status: Acute Assessment and Plan: Creatinine 1.44, EGFR 35 Baseline creatinine appears to be 1.05-1.07, EGFR appears to be 49-50 Continue to trend Will hold losartan and Lasix (9) Essential hypertension: Code(s): I10 - Essential (primary) hypertension Status: Acute Assessment and Plan: Blood pressures have been labile due to AFib RVR versus sepsis versus NSTEMI Losartan and Lasix on hold due to RAQUEL and labile blood pressures (10) Hyperlipidemia: Code(s): E78.5 - Hyperlipidemia, unspecified Status: Acute Assessment and Plan: Continue atorvastatin (11) GERD without esophagitis: Code(s): K21.9 - Gastro-esophageal reflux disease without esophagitis Status: Acute Assessment and Plan: Will start Protonix 40 mg daily Quality VTE Prophylaxis VTE prophylaxis: pharmacologic ordered Due to a high probability of clinically significant, life threatening deterioration, the patient required my highest level of preparedness to intervene emergently and I personally spent this critical care time directly and personally managing the patient. I have personally spent 95 minutes of critical care time, exclusive of time spent on evaluation and management of this critically ill patient's condition of NSTEMI, new onset A fib RVR, Sepsis, Pneumonia, Influenza A. Hospitalist MIPS Advance Care Plan I have confirmed that the patient's Advanced Care Plan is present, code status is documented, or surrogate decision maker is listed in patient medical record.: Yes Medication Reconciliation I have utilized all available resources to obtain, update and review the patients current medications (includes all prescriptions, OTC, herbals, cannabis, and nutritional supplements).: Yes
[2024-11-13] MEDS: AMIODARONE 360 MG/D5W 200 ML 360 MG/200 ML BAG 16.67 MG IV CONT (15:54)
[2024-11-13 16:03] LABS: Hematocrit 37.5 % (37.0-47.0); Hemoglobin 11.6 g/dL (12.0-15.0); Mean Corpuscular HGB Conc 30.9 g/dl (32-36); Mean Corpuscular Hemoglobin 29.9 pg (26-34); Mean Corpuscular Volume 96.6 fl (80-100); Mean Platelet Volume 10.4 fl (7.4-10.4); Platelet Count Result 277 k/mm3 (150-375); Red Blood Count 3.88 M/mm3 (4.2-5.4); White Blood Count 21.2 K/mm3 (4.5-10.0)
[2024-11-13 16:09] LABS: Prothrombin Time 13.5 Seconds (11.1-14.7)
[2024-11-13 16:10] LABS: Partial Thromboplastin Time 37.1 Seconds (22.3-36.8)
--- NOTE | 2024-11-13 16:15 | ADMGEN ---
This patient, Nydia Walker, was admitted to Intensive Care Unit-1. Patient/family oriented to hospital policies and general routines including ID bracelet, bed and alarms, visiting hours, pain management, procedures, bathroom and other care routines, personal items, smoking policy, room service/diet, and visiting hours. Information on how to activate the Rapid Response Team has been discussed. Patient/Family are encouraged to report perceived risks to care and to ask questions if they do not understand what they are told or what they should do.
[2024-11-13 16:32] LABS: Band Neutrophils Percent 8 % (0-6); Lymphocytes Absolute Manual 0.63 K/mm3 (1.1-4.5); Monocytes Absolute Manual 0.42 K/mm3 (0.1-0.90); Monocytes Percent Manual 2 % (3-9); Neutrophils Absolute Manual 20.14 K/mm3 (1.7-7.2); Neutrophils Percent Manual 87 % (46-73); Total Cells Counted 100; Troponin I 0.186 ng/mL (0.000-0.034)
[2024-11-13 16:33] LABS: Anisocytosis 1+; Platelet Clumps Present; Platelet Estimate Adequate (Adequate)
[2024-11-13 16:34] LABS: Hypochromasia 1+; Schistocytes None Seen
[2024-11-13] MEDS: HEPARIN SOD/D5W 100 UNITS/ML 25,000 UNITS/250 ML BAG 8 UNITS IV CONT (16:42)
[2024-11-13] MEDS: HEPARIN SODIUM 5,000 UNITS/ML VIAL 4000 UNITS IV PUSH (16:42)
[2024-11-13] MEDS: CEFEPIME 1 GM/NS 50 ML 1 GM/50 ML BAG IVPB ×2 (16:43→23:50)
[2024-11-13] MEDS: PERFLUTREN LIPID MICROSPHERES 1.5 ML VIAL DILUTED TO 10 ML TOTAL VOLUME IV PUSH (16:55)
--- NOTE | 2024-11-13 17:15 | IVDEFINITY ---
Prior to administration of IV Definity the patient was educated on the risks and benefits of the imaging enhancing agent including potential adverse side effects. The patient verbalized understanding. Allergies were verified. No exclusion criteria were identified and at least one of the following inclusion criteria were met: 1) physician request, 2) patient technically difficult to image (per the [place] [employer]chocardi[employer] guidelines of two or more segments not discernable within the apical view), or 3) questionable left ventricular function. ?
[2024-11-13] MEDS: [UNRECOGNIZED DRUG - REMARK] 1 EACH XX (18:11)
[2024-11-13] MEDS: GABAPENTIN 400 MG CAPSULE PO (20:12)
[2024-11-13] MEDS: DOXYCYCLINE HYCLATE 100 MG TABLET PO (20:12)
[2024-11-13] MEDS: MIRTAZAPINE 15 MG TABLET PO (20:13)
[2024-11-13] MEDS: ACETAMINOPHEN 325 MG TABLET 650 MG PO (20:13)
[2024-11-14] VITALS (21 sets, daily range): BP systolic 99–133; BP diastolic 59–103; PULSE 87–125; RESP 18–26; TEMP 36.7–37.8; O2SAT 90–100
[2024-11-14 00:23] LABS: Partial Thromboplastin Time > 200.0 Seconds (22.3-36.8)
[2024-11-14] MEDS: LEVALBUTEROL NEB 1.25 MG/3 ML INHALATION ×2 (02:43→14:03)
[2024-11-14] MEDS: AMIODARONE 360 MG/D5W 200 ML 360 MG/200 ML BAG 16.67 MG IV CONT (03:00)
[2024-11-14] MEDS: guaiFENesin/DEXTROMETHORPHAN 10 ML UDC PO ×2 (03:02→09:49)
[2024-11-14 04:46] LABS: Hematocrit 39.6 % (37.0-47.0); Hemoglobin 12.4 g/dL (12.0-15.0); Mean Corpuscular HGB Conc 31.3 g/dl (32-36); Mean Corpuscular Hemoglobin 29.7 pg (26-34); Mean Platelet Volume 10.1 fl (7.4-10.4); Platelet Count Result 278 k/mm3 (150-375); Red Blood Count 4.17 M/mm3 (4.2-5.4); Red Cell Distribution Width 15.4 % (11.5-14.5); White Blood Count 21.6 K/mm3 (4.5-10.0)
[2024-11-14 04:55] LABS: Sodium 140 mmol/L (137-145)
[2024-11-14 04:57] LABS: Lactic Acid Reflex 1.9 mmol/L (0.7-2.0)
[2024-11-14 04:59] LABS: Alanine Aminotransferase 31 U/L (6-35); Albumin Level 3.2 g/dL (3.5-5.1); Alkaline Phosphatase 87 U/L (38-126); Anion Gap 10 mmol/L (4-12); Aspartate Amino Transferase 91 U/L (14-36); Bilirubin,Total 0.5 mg/dL (0.2-1.3); Blood Urea Nitrogen 34 mg/dL (7-17); Calcium 9.1 mg/dL (8.4-10.2); Carbon Dioxide 22 mmol/L (22-30); Chloride 108 mmol/L (98-107); Estimated CRCL calculation 45 ml/min; Estimated Glomerular Filt Rate 60; Glucose 129 mg/dL (65-110); Potassium 4.4 mmol/L (3.4-5.0)
[2024-11-14 05:06] LABS: Band Neutrophils Percent 8 % (0-6); Lymphocytes Absolute Manual 1.72 K/mm3 (1.1-4.5); Monocytes Absolute Manual 0.64 K/mm3 (0.1-0.90); Monocytes Percent Manual 3 % (3-9); Neutrophils Absolute Manual 19.22 K/mm3 (1.7-7.2); Neutrophils Percent Manual 81 % (46-73); Platelet Estimate Adequate (Adequate); Total Cells Counted 100
[2024-11-14 05:07] LABS: Anisocytosis 1+; Schistocytes None Seen
[2024-11-14] MEDS: GABAPENTIN 400 MG CAPSULE PO ×3 (05:47→21:26)
[2024-11-14 08:53] LABS: Partial Thromboplastin Time 53.4 Seconds (22.3-36.8)
[2024-11-14] MEDS: HEPARIN SODIUM 5,000 UNITS/ML VIAL 4000 UNITS IV PUSH (09:46)
[2024-11-14] MEDS: PANTOPRAZOLE 40 MG TABLET PO (09:46)
[2024-11-14] MEDS: CEFEPIME 2 GM/NS 50 ML 2 GM/50 ML BAG IVPB ×2 (09:46→21:28)
[2024-11-14] MEDS: DOXYCYCLINE HYCLATE 100 MG TABLET PO ×2 (09:46→21:26)
[2024-11-14] MEDS: BENZONATATE 100 MG CAPSULE 200 MG PO (09:48)
--- NOTE | 2024-11-14 09:55 | P.CONCA_ITS ---
Assessment and Plan Assessment and plan (1) Atrial fibrillation with RVR: Code(s): I48.91 - Unspecified atrial fibrillation Status: Acute Assessment and Plan: Atrial fibrillation with rapid ventricular response in the setting of acute illness with influenza and pneumonia infection. She has returned to sinus rhythm on amiodarone drip * Discontinue amiodarone * Start low dose metoprolol succinate 25mg daily * She has a CHADS2 Vasc score of at least 3, anticoagulation is indicated. Discussed with patient and daughter at bedside and they agree with starting anticoagulation. * Start Eliquis 5mg b.i.d. and stop heparin drip * Stop ASA * Echo ordered and pending (2) NSTEMI (non-ST elevated myocardial infarction): Code(s): I21.4 - Non-ST elevation (NSTEMI) myocardial infarction Status: Acute Assessment and Plan: Troponin at [facility] 345.1, 317.9 (high sensitivity), 0.186 here. I do not think this represents ACS as she has no complaints of chest pain. ACS is not consistent with her clinical picture of fall, influenza and pneumonia. Rather, her troponin is likely elevated secondary to sepsis, hypotension, and hypoxia at presentation. Will check another troponin now to ensure it is downtrending. Echo ordered and pending. Cannot rule out underlying CAD, however do not anticipate any further workup in this regard unless she has significant LV dysfunction or RWMA. (3) Essential hypertension: Code(s): I10 - Essential (primary) hypertension Status: Acute Assessment and Plan: At goal. (4) Hyperlipidemia: Code(s): E78.5 - Hyperlipidemia, unspecified Status: Acute Assessment and Plan: Continue statin (5) Pneumonia: Code(s): J18.9 - Pneumonia, unspecified organism Status: Acute Assessment and Plan: On abx per hospitalist (6) Influenza: Code(s): J11.1 - Influenza due to unidentified influenza virus with other respiratory manifestations Status: Acute Assessment and Plan: Supportive care, supplemental O2, oseltamivir. Management per hospitalist. History of Present Illness History of Present Illness Consult date/time: 11/14/24 09:55 Requesting physician: Rosalind Allen APRN Consult reason: atrial fibrillation and Other (NSTEMI) Reason For Visit: New onset AFib RVR Narrative: Nydia Walker is an 84 year old female with hypertension, hyperlipidemia, dementia. This is a patient who was transferred from [facility] after presenting following a ground level fall. She reports that she did not lose consciousness but has been feeling weak and unsteady. She has been found to be positive for influenza and also has pneumonia. During her initial evaluation troponin levels were sampled and were found to be elevated,prompting the transfer from [place] here for possible NSTEMI. She was also found to be in atrial fibrillation with rapid ventricular response. Patient reports feeling palpitations and shortness of breath but denies any chest pain. She has converted to sinus rhythm at this point and continues to deny any chest discomfort. Review of Systems 2 Review of Systems: All systems reviewed & are unremarkable except as noted in HPI and below PMFSH Past Medical History Medical History Obesity, Class I, BMI 30-34.9 Olecranon bursitis of right elbow Essential hypertension Insomnia Hyperlipidemia Headache GERD without esophagitis LEAH (generalized anxiety disorder) Dementia Chronic low back pain Altered mental status Surgical History Surgical History History of hysterectomy History of cholecystectomy Family History Family History Father Family history of coronary artery disease Social History Social History Smoking status: Never smoker Smoking end date: 09/25/69 Alcohol intake: never Substance use: never Substance use type: does not use Do You Feel Safe in your Home?: Yes Lack of Transportation: No Lack of Food: Never True Current Housing: I Have Housing Concerned About Future Housing: No Difficulty Paying Gas/Electric Bills: No Difficulty Paying for Meds: No Currently Unemployed: No Education: High School Diploma/GED Difficulty w/ Childcare or Family Care: No Living arrangements: assisted living Additional living arrangements comments: [facility] Occupation/Education: retired Gender identity (if verbalized by the patient): Female Spiritual care concerns: No Meds Home Medications and Allergies Home Medications ?Medication ?Instructions ?Recorded ?Confirmed ?Type mecobalamin (vitamin B12) 1,000 See Rx Instructions .Route 01/25/24 11/13/24 Rx mcg disintegrating .COMPLEX #100 tabs tablet,sublingual hydrocodone 5 mg-acetaminophen 325 1 tablet PO Q6H PRN pain #60 tabs 02/15/24 11/13/24 Rx mg tablet acetaminophen 500 mg tablet See Rx Instructions .Route 10/30/24 11/13/24 Rx .COMPLEX #100 tabs atorvastatin 40 mg tablet See Rx Instructions .Route 10/30/24 11/13/24 Rx .COMPLEX #30 tabs ergocalciferol (vitamin D2) 1,250 See Rx Instructions .Route 10/30/24 11/13/24 Rx mcg (50,000 unit) capsule .COMPLEX #4 caps gabapentin 400 mg capsule See Rx Instructions .Route 10/30/24 11/13/24 Rx .COMPLEX #90 caps losartan 100 mg tablet See Rx Instructions .Route 10/30/24 11/13/24 Rx .COMPLEX #30 tabs mirtazapine 15 mg tablet See Rx Instructions .Route 10/30/24 11/13/24 Rx .COMPLEX #30 tabs spironolactone 50 mg tablet See Rx Instructions .Route 10/30/24 11/13/24 Rx .COMPLEX #30 tabs buspirone 10 mg tablet 10 mg PO TID PRN prn 11/12/24 11/13/24 History cefepime 1 gram solution for 1 g IV Q12H #1 ea 11/13/24 11/13/24 Rx injection doxycycline hyclate 100 mg tablet 100 mg PO Q12HR #1 tablet 11/13/24 11/13/24 Rx oseltamivir 75 mg capsule (Tamiflu) 75 mg PO Q12HR #8 caps 11/13/24 11/13/24 Rx Allergies Allergy/AdvReac Type Severity Reaction Status Date / Time FRANCO Inhibitors Allergy Unknown unknown Verified 11/13/24 16:18 Vital Signs Vital Signs - 24 hr 11/13/24 15:44 11/13/24 15:54 11/13/24 16:00 Temperature 37.1 C Pulse Rate 87 86 84 Respiratory Rate 17 Blood Pressure 96/59 L 101/56 L 97/55 L Pulse Oximetry 98 Oxygen Delivery Oxygen Flow Rate Fraction of Inspired Oxygen 11/13/24 16:00 11/13/24 16:00 11/13/24 18:00 Temperature Pulse Rate 84 89 Respiratory Rate Blood Pressure Pulse Oximetry 98 Oxygen Delivery Nasal Cannula Oxygen Flow Rate 2 Fraction of Inspired Oxygen 11/13/24 20:00 11/13/24 20:00 11/13/24 20:00 Temperature Pulse Rate 93 95 Respiratory Rate Blood Pressure 119/57 L Pulse Oximetry 95 Oxygen Delivery Nasal Cannula Oxygen Flow Rate 2 Fraction of Inspired Oxygen 11/13/24 20:40 11/13/24 22:00 11/14/24 00:00 Temperature 37.1 C Pulse Rate 95 95 Respiratory Rate 24 H Blood Pressure 119/57 L 119/57 L Pulse Oximetry 95 95 Oxygen Delivery Nasal Cannula Oxygen Flow Rate 2 Fraction of Inspired Oxygen 11/14/24 00:00 11/14/24 00:00 11/14/24 00:00 Temperature 37.0 C Pulse Rate 89 89 87 Respiratory Rate 20 Blood Pressure 133/75 133/75 Pulse Oximetry 95 Oxygen Delivery Oxygen Flow Rate Fraction of Inspired Oxygen 11/14/24 02:00 11/14/24 02:00 11/14/24 02:43 Temperature 37.1 C Pulse Rate 91 91 100 Respiratory Rate 20 Blood Pressure 127/103 H 127/103 H Pulse Oximetry 96 95 Oxygen Delivery Nasal Cannula Oxygen Flow Rate 3 Fraction of Inspired Oxygen 32 11/14/24 02:43 11/14/24 02:57 11/14/24 03:00 Temperature Pulse Rate 100 88 98 Respiratory Rate 20 20 Blood Pressure 127/103 H Pulse Oximetry Oxygen Delivery Oxygen Flow Rate Fraction of Inspired Oxygen 11/14/24 03:00 11/14/24 04:00 11/14/24 04:00 Temperature 37.1 C Pulse Rate 98 90 Respiratory Rate 20 Blood Pressure 127/103 H 127/73 Pulse Oximetry 96 99 Oxygen Delivery Nasal Cannula Oxygen Flow Rate 3 Fraction of Inspired Oxygen 11/14/24 04:00 11/14/24 04:00 11/14/24 05:46 Temperature Pulse Rate 93 93 87 Respiratory Rate 19 Blood Pressure 127/73 127/73 Pulse Oximetry 99 Oxygen Delivery Oxygen Flow Rate Fraction of Inspired Oxygen 11/14/24 06:00 11/14/24 06:00 11/14/24 08:00 Temperature 37.0 C 36.7 C Pulse Rate 87 87 97 Respiratory Rate 22 H 22 H Blood Pressure 128/95 H 128/95 H 121/59 L Pulse Oximetry 100 95 Oxygen Delivery Oxygen Flow Rate Fraction of Inspired Oxygen Exam 2 Const: General: comfortable, no acute distress, alert and awake O rientation/consciousness: patient oriented x3 HENMT: Head: normal to inspection Eyes: General: appearance normal, both eyes and all related structures P upils: Equal, round and reactive pupils present Neck: Neck: normal visual inspection, supple and no JVD Carotids: normal carotid upstroke Resp: Effort & Inspection: normal respiratory effort Auscultation: not clear to auscultation bilaterally and rales Cardio: Rate: regular rate Rhythm: regular rhythm Heart sounds: S1 normal heart sound present, S2 normal heart sound present and no murmurs GI: Auscultation: normal bowel sounds Skin: General skin exam: normal color Neuro: General: patient oriented x3 Cranial nerves: Yes Equal, round and reactive pupils present Extrem: General: normal to inspection Other: no edema Psych: Appearance: grossly normal Mental Status: mental status grossly normal Results Labs and Meds 11/14/24 04:39 11/14/24 04:39 Lab results: Cardiac Enzymes 11/13/24 11/14/24 Range/Units 15:50 04:39 AST 91 H (14-36) U/L Troponin I 0.186 H* (0.000-0.034) ng/mL Coagulation 11/13/24 11/13/24 11/14/24 Range/Units 15:50 23:31 08:20 PT 13.5 (11.1-14.7) Seconds APTT 37.1 H > 200.0 H* 53.4 H (22.3-36.8) Seconds CBC 11/13/24 11/14/24 Range/Units 15:50 04:39 WBC 21.2 H 21.6 H (4.5-10.0) K/mm3 RBC 3.88 L 4.17 L (4.2-5.4) M/mm3 Hgb 11.6 L 12.4 (12.0-15.0) g/dL Hct 37.5 39.6 (37.0-47.0) % Plt Count 277 278 (150-375) k/mm3 Lymph # (Auto) Not Reportable Not Reportable [place] # (Auto) Not Reportable Not Reportable Eos # (Auto) Not Reportable Not Reportable Baso # (Auto) Not Reportable Not Reportable Comprehensive Metabolic Panel 02/20/25 Range/Units 04:39 Sodium 140 (137-145) mmol/L Potassium 4.4 (3.4-5.0) mmol/L Chloride 108 H (98-107) mmol/L Carbon Dioxide 22 (22-30) mmol/L BUN 34 H (7-17) mg/dL Creatinine 0.89 (0.7-1.0) mg/dL Glucose 129 H (65-110) mg/dL Calcium 9.1 (8.4-10.2) mg/dL AST 91 H (14-36) U/L ALT 31 (6-35) U/L Alkaline Phosphatase 87 (38-126) U/L Total Protein 7.0 (6.3-8.2) g/dL Albumin 3.2 L (3.5-5.1) g/dL Intake and Output 11/13/24 11/14/24 11/14/24 23:59 07:59 15:59 Intake Total 418.0 468.9 Output Total 500 Balance 418.0 -31.1 Intake: IV 178.0 218.9 Amiodarone 360 mg/D5w 200 ml 101.6 133.3 360 mg In 200 ml @ 0.5 MG/MIN 16.667 mls/hr IV CONT .Q12H ELLEN Rx#:[id number] Heparin Sod/D5w 100 Units/ml 25 26.4 35.6 ,000 units In 250 ml @ 600 UNITS/HR 6 mls/hr IV CONT .Q24H ELLEN Rx#:[id number] Cefepime 1 gm/Ns 50 ml 1 gm In 50 50 50 ml @ 100 mls/hr IVPB Q12HR ELLEN Rx#:[id number] Oral 240 250 Output: Urine 500 Other: # Unmeasured Voids 1 # Incontinent Voids 1 Patient Weight 11/14/24 23:59 Weight 86.4 kg
--- NOTE | 2024-11-14 12:11 | P.PNIM_ITS ---
Progress Note: A&P Assessment and Plan (1) Sepsis: Code(s): A41.9 - Sepsis, unspecified organism Status: Acute Assessment and Plan: * Patient initially met sepsis criteria at [facility] with mann vated heart rate of 117, hypotension, acute respiratory failure, pneumonia, elevated lactic acid, elevated white blood cell count, NSTEMI, AFib RVR * Patient was given IV fluids while in the ED and overnight * Blood and sputum cultures were obtained and pending * Currently on cefepime, doxycycline, Tamiflu--renally dosed * Isolation (2) Acute respiratory failure with hypoxia: Code(s): J96.01 - Acute respiratory failure with hypoxia Status: Acute Assessment and Plan: Likely secondary to hospital-acquired pneumonia versus influenza a verses new onset AFib RVR versus NSTEMI, ? CHF * Currently on 2 L nasal cannula * Continue to wean for sat greater than 92% * Chest CTA was negative for PE, aortic dissection, aortic aneurysm, showed patchy left basilar airspace consolidation representing pneumonia, scattered areas of him minimal tree-in-bud opacities in the lungs suggesting focal areas of small airway infection, 8 mm superior segment right lower lobe pulmonary nodule suggestive of focal scarring. * Continue bronchodilator * Respiratory panel was positive for influenza A-continue Tamiflu * Currently being treated for HAP * Currently on cefepime and doxycycline however white blood cell count increased to 21.2--if not trending down by the morning we will switch cefepime to meropenem for broader coverage * Continue pep therapy and incentive spirometry * Continue Mucinex * Check BNP and chest x-ray * Lasix IV (3) Pneumonia: Code(s): J18.9 - Pneumonia, unspecified organism Status: Acute Assessment and Plan: * See above (4) Influenza: Code(s): J11.1 - Influenza due to unidentified influenza virus with other respiratory manifestations Status: Acute Assessment and Plan: * Respiratory panel positive for influenza A * See above (5) NSTEMI (non-ST elevated myocardial infarction): Code(s): I21.4 - Non-ST elevation (NSTEMI) myocardial infarction Status: Acute Assessment and Plan: Patient reporting chest pain and shortness of breath on presentation although chest pain appears pleuritic but she did had elevation of troponin * Troponin initially 345.1> 317.9> 0.186 * Patient was started on heparin infusion with bolus for acute coronary syndrome * Cardiology consulted * Echocardiogram ordered, results pending * Continue cardiac telemetry monitoring * Continue IMU status * Add aspirin continue statin (6) Atrial fibrillation with RVR: Code(s): I48.91 - Unspecified atrial fibrillation Status: Acute Assessment and Plan: * Initial EKG at [facility] shown AFib with RVR with a rate of 179. Patient's daughter no mentions the patient had an episode of AFib 7 years ago which resolved. She is currently not on any anticoagulation * She was given a bolus of amiodarone and started on an amiodarone infusion. She was able to convert back to normal sinus rhythm at 10:38 a.m. this morning. * Cardiology consulted * Continue amiodarone infusion for now * Continuous cardiac monitoring * Continue IMU status (7) Elevated d-dimer: Code(s): R79.89 - Other specified abnormal findings of blood chemistry Status: Acute Assessment and Plan: * D-dimer elevated at 1.21 * CTA of the chest was negative for PE (8) RAQUEL (acute kidney injury): Code(s): N17.9 - Acute kidney failure, unspecified Status: Acute Assessment and Plan: * Creatinine 1.44, EGFR 35 * Baseline creatinine appears to be 1.05-1.07, EGFR appears to be 49-50 * Creatinine improved. Continue to trend * Off losartan and Lasix (9) Essential hypertension: Code(s): I10 - Essential (primary) hypertension Status: Acute Assessment and Plan: * Blood pressures have been labile due to AFib RVR versus sepsis versus NSTEMI * Losartan and Lasix on hold due to RAQUEL and labile blood pressures (10) Hyperlipidemia: Code(s): E78.5 - Hyperlipidemia, unspecified Status: Acute Assessment and Plan: * Continue atorvastatin (11) GERD without esophagitis: Code(s): K21.9 - Gastro-esophageal reflux disease without esophagitis Status: Acute Assessment and Plan: * Continue Protonix 40 mg daily Plan DVT prophylaxis -heparin infusion Stress ulcer prophylaxis -PPI Nutrition -diet ordered Code Status -patient wishes to be DNR DNI which I confirmed with both patient and her [id number] at bedside. I answered all their questions. Subjective Date/time seen: 11/14/24 Patient states he feels better as compared to yesterday. She continues to have cough and is trying to cough up sputum. She complains of pain in the chest a deep breathing and coughing. Denies feeling short of breath at this time. She is eating her lunch. Review of system was positive for lower extremity swelling which is intermittent as per patient. All other systems were reviewed and were negative She is currently on amiodarone infusion and heparin infusion. She is in sinus rhythm. She is on 2 L nasal cannula Review of Systems Review of Systems: All systems reviewed & are unremarkable except as noted in HPI and below Exam Narrative: General: Alert awake in no acute distress Head: atraumatic, no encephalopathy Eyes: PERRLA, sclera clear ENT: moist mucous membranes, nasal passages clear Neck: supple, no JVD, no adenopathy, trachea midline Cardiac: Normal S1 and S2. Sinus tachycardia, No murmur, gallops or friction rubs, peripheral pulses intact. hypotensive Respiratory: currently on 2 L nasal cannula, mild tachypnea and shortness a breath with lip pursing, coarse breathing with occasional wheezing and bibasilar crackles Gastrointestinal: soft, non-distended, non-tender, normoactive bowel sounds. : voiding without difficulty. Extremities: moves all extremities well, bilateral mild pitting edema Skin: clean, dry, intact. No wounds or lesions. Neuro: Alert and oriented x3, cranial nerves intact, no neuro deficits. Psych: normal mood, normal affect, interactive Objective Data Vital Signs Vital Signs: Vital Signs - 24 hr 11/13/24 15:44 11/13/24 15:54 11/13/24 16:00 Temperature 37.1 C Pulse Rate 87 86 84 Respiratory Rate 17 Blood Pressure 96/59 L 101/56 L 97/55 L Pulse Oximetry 98 Oxygen Delivery Oxygen Flow Rate Fraction of Inspired Oxygen 11/13/24 16:00 11/13/24 16:00 11/13/24 18:00 Temperature Pulse Rate 84 89 Respiratory Rate Blood Pressure Pulse Oximetry 98 Oxygen Delivery Nasal Cannula Oxygen Flow Rate 2 Fraction of Inspired Oxygen 11/13/24 20:00 11/13/24 20:00 11/13/24 20:00 Temperature Pulse Rate 93 95 Respiratory Rate Blood Pressure 119/57 L Pulse Oximetry 95 Oxygen Delivery Nasal Cannula Oxygen Flow Rate 2 Fraction of Inspired Oxygen 11/13/24 20:40 11/13/24 22:00 11/14/24 00:00 Temperature 37.1 C Pulse Rate 95 95 Respiratory Rate 24 H Blood Pressure 119/57 L 119/57 L Pulse Oximetry 95 95 Oxygen Delivery Nasal Cannula Oxygen Flow Rate 2 Fraction of Inspired Oxygen 11/14/24 00:00 11/14/24 00:00 11/14/24 00:00 Temperature 37.0 C Pulse Rate 89 89 87 Respiratory Rate 20 Blood Pressure 133/75 133/75 Pulse Oximetry 95 Oxygen Delivery Oxygen Flow Rate Fraction of Inspired Oxygen 11/14/24 02:00 11/14/24 02:00 11/14/24 02:43 Temperature 37.1 C Pulse Rate 91 91 100 Respiratory Rate 20 Blood Pressure 127/103 H 127/103 H Pulse Oximetry 96 95 Oxygen Delivery Nasal Cannula Oxygen Flow Rate 3 Fraction of Inspired Oxygen 32 11/14/24 02:43 11/14/24 02:57 11/14/24 03:00 Temperature Pulse Rate 100 88 98 Respiratory Rate 20 20 Blood Pressure 127/103 H Pulse Oximetry Oxygen Delivery Oxygen Flow Rate Fraction of Inspired Oxygen 11/14/24 03:00 11/14/24 04:00 11/14/24 04:00 Temperature 37.1 C Pulse Rate 98 90 Respiratory Rate 20 Blood Pressure 127/103 H 127/73 Pulse Oximetry 96 99 Oxygen Delivery Nasal Cannula Oxygen Flow Rate 3 Fraction of Inspired Oxygen 11/14/24 04:00 11/14/24 04:00 11/14/24 05:46 Temperature Pulse Rate 93 93 87 Respiratory Rate 19 Blood Pressure 127/73 127/73 Pulse Oximetry 99 Oxygen Delivery Oxygen Flow Rate Fraction of Inspired Oxygen 11/14/24 06:00 11/14/24 06:00 11/14/24 08:00 Temperature 37.0 C 36.7 C Pulse Rate 87 87 97 Respiratory Rate 22 H 22 H Blood Pressure 128/95 H 128/95 H 121/59 L Pulse Oximetry 100 95 Oxygen Delivery Oxygen Flow Rate Fraction of Inspired Oxygen 11/14/24 08:00 11/14/24 08:00 11/14/24 08:00 Temperature Pulse Rate 97 93 Respiratory Rate Blood Pressure 121/59 L Pulse Oximetry 95 Oxygen Delivery Nasal Cannula Oxygen Flow Rate 3 Fraction of Inspired Oxygen 11/14/24 10:00 11/14/24 10:00 11/14/24 10:00 Temperature Pulse Rate 94 94 94 Respiratory Rate Blood Pressure 113/89 113/89 Pulse Oximetry Oxygen Delivery Oxygen Flow Rate Fraction of Inspired Oxygen Intake/Output Intake/Output: Intake & Output 11/11/24 11/12/24 11/13/24 11/14/24 23:59 23:59 23:59 23:59 Intake Total 418.0 585.5 Output Total 500 Balance 418.0 85.5 Meds/Results Medications: Active Medications Generic Name Dose Route Start Last Admin Trade Name Freq PRN Reason Stop Dose Admin Acetaminophen 650 mg 11/13/24 15:00 11/13/24 20:13 Acetaminophen 325 Mg Tablet PO 650 mg Q4H PRN Administration Mild Pain (1-3) or Fever Atorvastatin Calcium 40 mg 11/14/24 21:00 Atorvastatin 40 Mg Tablet PO HS ELLEN Benzonatate 200 mg 11/14/24 02:18 11/14/24 09:48 Benzonatate 100 Mg Capsule PO 200 mg TID PRN Administration cough Buspirone HCl 10 mg 11/13/24 19:17 Buspirone Hcl 10 Mg Tablet PO TID PRN prn Doxycycline Hyclate 100 mg 11/13/24 21:00 11/14/24 09:46 Doxycycline Hyclate 100 Mg Tablet PO 100 mg Q12HR ELLEN Administration Gabapentin 400 mg 11/13/24 22:00 11/14/24 05:47 Gabapentin 400 Mg Capsule PO 400 mg Q8HR ELLEN Administration Guaifenesin/Dextromethorphan 10 ml 11/14/24 02:17 11/14/24 09:49 Guaifenesin/Dextromethorphan 10 Ml Udc PO 10 ml Q4H PRN Administration Cough Heparin Sodium (Porcine) 4,000 units 11/13/24 15:04 11/14/24 09:46 Heparin Sodium 5,000 Units/Ml Vial IV PUSH 4,000 units PRN PRN Administration aPTT less than 55 seconds Heparin Sodium (Porcine) 2,500 units 11/13/24 15:04 Heparin Sodium 5,000 Units/Ml Vial IV PUSH PRN PRN aPTT 55 - 70 seconds Amiodarone HCl/Dextrose 360 mg in 200 mls @ 16.667 mls/hr 11/13/24 16:00 11/14/24 10:00 Nexterone 360 Mg/D5w 200 Ml IV CONT 0.5 mg/min .Q12H ELLEN 16.67 mls/hr Infusion 0.5 MG/MIN Heparin Sodium/Dextrose 25,000 units in 250 mls @ 9 mls/hr 11/13/24 15:05 11/14/24 09:50 Heparin Sodium/D5w 100 Units/Ml IV CONT 900 units/hr .Q24H ELLEN 9 mls/hr Titration Protocol 900 UNITS/HR Cefepime HCl 2 gm in 50 mls @ 100 mls/hr 11/14/24 10:00 11/14/24 09:46 Maxipime 2 Gm/Ns 50 Ml IVPB 100 mls/hr Q12HR ELLEN Administration Levalbuterol HCl 1.25 mg 11/14/24 02:15 11/14/24 02:43 Levalbuterol Neb 1.25 Mg/3 Ml INHALATION 1.25 mg Q6HRT PRN Administration Shortness Of Breath Or Wheezing Mirtazapine 15 mg 11/13/24 21:00 11/13/24 20:13 Mirtazapine 15 Mg Tablet PO 15 mg HS ELLEN Administration Ondansetron HCl 4 mg 11/13/24 15:00 Ondansetron Inj 4 Mg/2 Ml Vial IV PUSH Q6H PRN Nausea And Vomiting Oseltamivir Phosphate 30 mg 11/14/24 13:00 Oseltamivir Phosphate 30 Mg Capsule PO 11/16/24 13:01 Q24H [facility] Pantoprazole Sodium 40 mg 11/14/24 09:00 11/14/24 09:46 Pantoprazole 40 Mg Tablet PO 40 mg QAM ELLEN Administration Labs Labs: Laboratory Results - last 24 hr 11/13/24 11/13/24 11/14/24 15:50 23:31 04:39 WBC 21.2 H 21.6 H RBC 3.88 L 4.17 L Hgb 11.6 L 12.4 Hct 37.5 39.6 MCV 96.6 95.0 MCH 29.9 29.7 MCHC 30.9 L 31.3 L RDW 15.0 H 15.4 H Plt Count 277 278 MPV 10.4 10.1 Immature Gran % (Auto) Not Reportable Not Reportable Neut % (Auto) Not Reportable Not Reportable Lymph % (Auto) Not Reportable Not Reportable [place] % (Auto) Not Reportable Not Reportable Eos % (Auto) Not Reportable Not Reportable Baso % (Auto) Not Reportable Not Reportable Lymph # (Auto) Not Reportable Not Reportable [place] # (Auto) Not Reportable Not Reportable Eos # (Auto) Not Reportable Not Reportable Baso # (Auto) Not Reportable Not Reportable Abs Immat Gran (auto) Not Reportable Not Reportable Absolute Neuts (auto) Not Reportable Not Reportable Absolute Nucleated RBC Not Reportable Not Reportable Total Counted 100 100 Neutrophils % (Manual) 87 H 81 H Band Neutrophils % 8 H 8 H Lymphocytes % (Manual) 3.0 L 8.0 L Monocytes % (Manual) 2 L 3 Nucleated RBC % Not Reportable Not Reportable Abs Neuts (Manual) 20.14 H 19.22 H Abs Lymphs (Manual) 0.63 L 1.72 Abs Monocytes (Manual) 0.42 0.64 Platelet Estimate Adequate Adequate Clumped Platelets Present Hypochromasia 1+ Anisocytosis 1+ 1+ Schistocytes None seen None seen PT 13.5 INR 1.0 APTT 37.1 H > 200.0 H* Sodium 140 Potassium 4.4 Chloride 108 H Carbon Dioxide 22 Anion Gap 10 BUN 34 H Creatinine 0.89 Estim Creat Clear Calc 45 Estimated GFR 60 Glucose 129 H Lactic Acid 1.9 Calcium 9.1 Total Bilirubin 0.5 AST 91 H ALT 31 Alkaline Phosphatase 87 Troponin I 0.186 H* Total Protein 7.0 Albumin 3.2 L 11/14/24 08:20 WBC RBC Hgb Hct MCV MCH MCHC RDW Plt Count MPV Immature Gran % (Auto) Neut % (Auto) Lymph % (Auto) [place] % (Auto) Eos % (Auto) Baso % (Auto) Lymph # (Auto) [place] # (Auto) Eos # (Auto) Baso # (Auto) Abs Immat Gran (auto) Absolute Neuts (auto) Absolute Nucleated RBC Total Counted Neutrophils % (Manual) Band Neutrophils % Lymphocytes % (Manual) Monocytes % (Manual) Nucleated RBC % Abs Neuts (Manual) Abs Lymphs (Manual) Abs Monocytes (Manual) Platelet Estimate Clumped Platelets Hypochromasia Anisocytosis Schistocytes PT INR APTT 53.4 H Sodium Potassium Chloride Carbon Dioxide Anion Gap BUN Creatinine Estim Creat Clear Calc Estimated GFR Glucose Lactic Acid Calcium Total Bilirubin AST ALT Alkaline Phosphatase Troponin I Total Protein Albumin Quality VTE Prophylaxis VTE prophylaxis: pharmacologic ordered
[2024-11-14 12:55] LABS: NT Pro B Type Natriuretic Pept 2990 pg/mL (19.9-100)
[2024-11-14 13:25] LABS: Procalcitonin 0.4 ng/mL
[2024-11-14] MEDS: FUROSEMIDE INJ 40 MG/4 ML VIAL IV PUSH (14:07)
[2024-11-14] MEDS: OSELTAMIVIR PHOSPHATE 30 MG CAPSULE PO (14:07)
[2024-11-14 17:48] LABS: Partial Thromboplastin Time 108.1 Seconds (22.3-36.8)
[2024-11-14] MEDS: MIRTAZAPINE 15 MG TABLET PO (21:26)
[2024-11-14] MEDS: APIXABAN 5 MG TABLET PO (21:26)
[2024-11-14] MEDS: ATORVASTATIN 40 MG TABLET PO (21:26)
--- NOTE | 2024-11-14 23:39 | PC.NURSE ---
This patient, Nydia Walker, was transferred to [facility] on 11/14/24 at 2319. Personal belongings sent with patient. Report given to VALERIE Barcenas. Appropriate documentation sent with patient.
[2024-11-15] VITALS (22 sets, daily range): BP systolic 101–141; BP diastolic 47–83; PULSE 69–185; RESP 18–170; TEMP 36.4–37; O2SAT 90–100
[2024-11-15] MEDS: AMIODARONE 150 MG/D5W 100 ML 150 MG/100 ML BAG 600 MG (03:30)
[2024-11-15] MEDS: METOPROLOL TARTRATE INJ 5 MG/5 ML VIAL ×2 (04:03→04:30)
--- NOTE | 2024-11-15 04:37 | PM.EVENT ---
Event Note Event Note Event Note: Around 314 patient had sudden escalation of heart rate into 180s-210s range. Her rhythm has been atrial fibrillation and RN stated patient had previously been on amiodarone drip that was stopped at noon on 11/14/24. This episode happened during computer downtime so limited information present on which to base treatment decisions. It was presumed that the amiodarone drip finished 24 hour infusion. Printed MAR available did not have oral amiodarone ordered. Cardiology/Hospitalist notes not available. Patient reported mild worsening of shortness of breath and generally not feeling the best but denied chest pain, nausea, dizziness at rest, fever/chills or any other significant symptom changes. She had been asleep at time of heart rate escalation. Prior to this she had been in afib with heart rate 100s-120s. Because she previously improved with amiodarone, we gave 150 mg IVPB over 10 minutes. Blood pressure stable before and after infusion. Following this bolus infusion, HR briefly dipped into 140-150 range but soon was back to 160s-180s. Reviewed MAR again and saw patient was on metoprolol XR 25 mg daily. Ordered 5 mg IV push Lopressor. Heart rate again responded by lowering to 140s-150s, briefly dropping to 120s-130s. Patient received a second dose of IV Lopressor with heart rate improvement to 93 and conversion to sinus rhythm per IMU RN.
[2024-11-15 05:44] LABS: Basophils Absolute Auto 0.1 K/mm3 (0.0-0.1); Basophils Percent Auto 0.6 % (0.2-1.2); Hematocrit 37.9 % (37.0-47.0); Immature Granulocyte Absolute 0.36 K/mm3 (0.00-0.031); Lymphocytes Absolute Auto 1.78 K/mm3 (0.9-3.2); Lymphocytes Percent Auto 10.1 % (18.3-44.2); Mean Corpuscular HGB Conc 31.7 g/dl (32-36); Mean Corpuscular Hemoglobin 29.9 pg (26-34); Mean Corpuscular Volume 94.5 fl (80-100); Mean Platelet Volume 10.4 fl (7.4-10.4); Monocytes Absolute Auto 1.2 K/mm3 (0.1-0.6); Monocytes Percent Auto 6.6 % (2.6-8.5); Neutrophils Absolute Auto 14.3 K/mm3 (1.3-6.7); Neutrophils Percent Auto 80.7 % (45.5-73.1); Platelet Count Result 269 k/mm3 (150-375); Red Blood Count 4.01 M/mm3 (4.2-5.4); Red Cell Distribution Width 15.4 % (11.5-14.5); White Blood Count 17.7 K/mm3 (4.5-10.0)
[2024-11-15] MEDS: GABAPENTIN 400 MG CAPSULE PO ×3 (05:47→21:03)
[2024-11-15 05:53] LABS: Magnesium 1.8 mg/dL (1.6-2.3)
[2024-11-15 05:55] LABS: Alanine Aminotransferase 34 U/L (6-35); Albumin Level 3.1 g/dL (3.5-5.1); Alkaline Phosphatase 91 U/L (38-126); Anion Gap 9 mmol/L (4-12); Aspartate Amino Transferase 62 U/L (14-36); Bilirubin,Total 0.7 mg/dL (0.2-1.3); Blood Urea Nitrogen 26 mg/dL (7-17); Calcium 8.9 mg/dL (8.4-10.2); Carbon Dioxide 25 mmol/L (22-30); Chloride 105 mmol/L (98-107); Estimated CRCL calculation 50 ml/min; Estimated Glomerular Filt Rate > 60; Glucose 112 mg/dL (65-110); Potassium 3.7 mmol/L (3.4-5.0); Sodium 139 mmol/L (137-145)
--- NOTE | 2024-11-15 07:23 | ECG_ITS ---
Test Date: 2024-11-15 10:23:49 Measurements Intervals [place] Rate: 157 P: 0 UT: 0 QRS: -14 QRSD: 84 T: 13 QT: 262 QTc: 425 Interpretive Statements ATRIAL FLUTTER/TACHYCARDIA WITH RAPID VENTRICULAR RESPONSE BASELINE ARTIFACT- V6 ABNORMAL ECG Compared to ECG 11/13/2024 15:13:48 SINUS RHYTHM NO LONGER PRESENT Electronically Signed On 11-15-2024 11:18:29 [employer] by Javier Jones D.O.
--- NOTE | 2024-11-15 07:39 | P.PNIM_ITS ---
Progress Note: A&P Assessment and Plan (1) Sepsis: Code(s): A41.9 - Sepsis, unspecified organism Status: Acute Assessment and Plan: * Patient initially met sepsis criteria at [facility] with mann vated heart rate of 117, hypotension, acute respiratory failure, pneumonia, elevated lactic acid, elevated white blood cell count, NSTEMI, AFib RVR * Patient was given IV fluids while in the ED and overnight * Blood and sputum cultures were obtained and pending * Currently on cefepime, doxycycline, Tamiflu--renally dosed * Isolation (2) Acute respiratory failure with hypoxia: Code(s): J96.01 - Acute respiratory failure with hypoxia Status: Acute Assessment and Plan: Likely secondary to hospital-acquired pneumonia versus influenza a verses new onset AFib RVR versus NSTEMI, ? CHF * Currently on 2 L nasal cannula * Continue to wean for sat greater than 92% * Chest CTA was negative for PE, aortic dissection, aortic aneurysm, showed patchy left basilar airspace consolidation representing pneumonia, scattered areas of him minimal tree-in-bud opacities in the lungs suggesting focal areas of small airway infection, 8 mm superior segment right lower lobe pulmonary nodule suggestive of focal scarring. * Continue bronchodilator * Respiratory panel was positive for influenza A-continue Tamiflu * Currently being treated for HAP * Currently on cefepime and doxycycline however white blood cell count increased to 21.2--if not trending down by the morning we will switch cefepime to meropenem for broader coverage * Continue pep therapy and incentive spirometry * Continue Mucinex * Check BNP and chest x-ray * Lasix IV (3) Pneumonia: Code(s): J18.9 - Pneumonia, unspecified organism Status: Acute Assessment and Plan: * See above (4) Influenza: Code(s): J11.1 - Influenza due to unidentified influenza virus with other respiratory manifestations Status: Acute Assessment and Plan: * Respiratory panel positive for influenza A * See above (5) NSTEMI (non-ST elevated myocardial infarction): Code(s): I21.4 - Non-ST elevation (NSTEMI) myocardial infarction Status: Acute Assessment and Plan: Patient reporting chest pain and shortness of breath on presentation although chest pain appears pleuritic but she did had elevation of troponin * Troponin initially 345.1> 317.9> 0.186 * Patient was started on heparin infusion with bolus for acute coronary syndrome * Cardiology consulted * Echocardiogram ordered, results pending * Continue cardiac telemetry monitoring * Continue IMU status * Add aspirin continue statin (6) Atrial fibrillation with RVR: Code(s): I48.91 - Unspecified atrial fibrillation Status: Acute Assessment and Plan: * Initial EKG at [facility] shown AFib with RVR with a rate of 179. Patient's daughter no mentions the patient had an episode of AFib 7 years ago which resolved. She is currently not on any anticoagulation * She was given a bolus of amiodarone and started on an amiodarone infusion. She was able to convert back to normal sinus rhythm at 10:38 a.m. this morning. * Cardiology consulted * Continue amiodarone infusion for now * Continuous cardiac monitoring * Continue IMU status (7) Elevated d-dimer: Code(s): R79.89 - Other specified abnormal findings of blood chemistry Status: Acute Assessment and Plan: * D-dimer elevated at 1.21 * CTA of the chest was negative for PE (8) RAQUEL (acute kidney injury): Code(s): N17.9 - Acute kidney failure, unspecified Status: Acute Assessment and Plan: * Creatinine 1.44, EGFR 35 * Baseline creatinine appears to be 1.05-1.07, EGFR appears to be 49-50 * Creatinine improved. Continue to trend * Off losartan and Lasix (9) Essential hypertension: Code(s): I10 - Essential (primary) hypertension Status: Acute Assessment and Plan: * Blood pressures have been labile due to AFib RVR versus sepsis versus NSTEMI * Losartan and Lasix on hold due to RAQUEL and labile blood pressures (10) Hyperlipidemia: Code(s): E78.5 - Hyperlipidemia, unspecified Status: Acute Assessment and Plan: * Continue atorvastatin (11) GERD without esophagitis: Code(s): K21.9 - Gastro-esophageal reflux disease without esophagitis Status: Acute Assessment and Plan: * Continue Protonix 40 mg daily Plan DVT prophylaxis -heparin infusion Stress ulcer prophylaxis -PPI Nutrition -diet ordered Code Status -patient wishes to be DNR DNI which I confirmed with both patient and her [id number] at bedside. I answered all their questions. Subjective Date/time seen: 11/15/24 07:39 Interval history: Patient initially had a fall. Patient has been transferred from [facility] for elevated troponin, influenza a and PNA. Patient initially was treated with amiodarone drip and was discontinued yesterday. Currently patient is on metoprolol succinate 25 mg p.o. q.d.. Patient still has episodes of AFib with RVR.Nursing reports mentation has significantly declined from admission. Patient was sleeping while evaluation but was awake when I tried o wake her up. She said all I was doing sleeping the whole day. No evident neurologic deficit. CT head is normal. Ordered MRI brain. Review of Systems Review of Systems: All systems reviewed & are unremarkable except as noted in HPI and below Exam Narrative: General: Alert awake in no acute distress Head: atraumatic, no encephalopathy Eyes: PERRLA, sclera clear ENT: moist mucous membranes, nasal passages clear Neck: supple, no JVD, no adenopathy, trachea midline Cardiac: Normal S1 and S2. Sinus tachycardia, No murmur, gallops or friction rubs, peripheral pulses intact. hypotensive Respiratory: currently on 2 L nasal cannula, mild tachypnea and shortness a breath with lip pursing, coarse breathing with occasional wheezing and bibasilar crackles Gastrointestinal: soft, non-distended, non-tender, normoactive bowel sounds. : voiding without difficulty. Extremities: moves all extremities well, bilateral mild pitting edema Skin: clean, dry, intact. No wounds or lesions. Neuro: Alert and oriented x3, cranial nerves intact, no neuro deficits. Psych: normal mood, normal affect, interactive Objective Data Vital Signs Vital Signs: Vital Signs - 24 hr 11/14/24 08:00 11/14/24 08:00 11/14/24 08:00 Temperature 98.0 F Pulse Rate 97 97 Respiratory Rate 22 H Blood Pressure 121/59 L 121/59 L Pulse Oximetry 95 95 Oxygen Delivery Nasal Cannula Oxygen Flow Rate 3 11/14/24 08:00 11/14/24 10:00 11/14/24 10:00 Temperature Pulse Rate 93 94 94 Respiratory Rate Blood Pressure 113/89 113/89 Pulse Oximetry Oxygen Delivery Oxygen Flow Rate 11/14/24 10:00 11/14/24 12:00 11/14/24 12:00 Temperature Pulse Rate 94 99 Respiratory Rate Blood Pressure Pulse Oximetry 95 Oxygen Delivery Nasal Cannula Oxygen Flow Rate 2 11/14/24 12:00 11/14/24 14:00 11/14/24 14:00 Temperature 98.9 F Pulse Rate 93 97 111 H Respiratory Rate 23 H Blood Pressure 128/75 128/66 Pulse Oximetry 96 Oxygen Delivery Oxygen Flow Rate 11/14/24 14:04 11/14/24 14:21 11/14/24 16:00 Temperature Pulse Rate 118 H 106 H Respiratory Rate 20 23 H Blood Pressure Pulse Oximetry 94 Oxygen Delivery Nasal Cannula Oxygen Flow Rate 1 11/14/24 16:00 11/14/24 16:00 11/14/24 18:00 Temperature 98.3 F Pulse Rate 103 H 123 H 107 H Respiratory Rate 24 H Blood Pressure 99/84 L Pulse Oximetry 98 Oxygen Delivery Oxygen Flow Rate 11/14/24 19:04 11/14/24 20:00 11/14/24 20:24 Temperature 98.3 F 100.1 F H Pulse Rate 116 H 125 H 123 H Respiratory Rate 18 26 H Blood Pressure 129/70 123/76 Pulse Oximetry 90 94 Oxygen Delivery Oxygen Flow Rate 11/14/24 21:00 11/14/24 22:00 11/15/24 00:00 Temperature 97.8 F Pulse Rate 123 H 121 H 107 H Respiratory Rate 26 H 18 Blood Pressure 119/47 L Pulse Oximetry 94 91 Oxygen Delivery Nasal Cannula Oxygen Flow Rate 1 11/15/24 00:00 11/15/24 00:00 11/15/24 02:00 Temperature Pulse Rate 109 H 119 H Respiratory Rate Blood Pressure Pulse Oximetry 91 Oxygen Delivery Nasal Cannula Oxygen Flow Rate 2 11/15/24 03:30 11/15/24 04:00 11/15/24 04:00 Temperature 98.6 F Pulse Rate 180 H 93 Respiratory Rate 170 H Blood Pressure 109/60 101/72 Pulse Oximetry 92 92 Oxygen Delivery Nasal Cannula Oxygen Flow Rate 2 11/15/24 04:00 11/15/24 04:03 11/15/24 04:30 Temperature Pulse Rate 178 H 170 H 158 H Respiratory Rate Blood Pressure Pulse Oximetry Oxygen Delivery Oxygen Flow Rate Intake/Output Intake/Output: Intake & Output 11/12/24 11/13/24 11/14/24 11/15/24 23:59 23:59 23:59 23:59 Intake Total 418.0 1127.9 Output Total 1500 250 Balance 418.0 -372.1 -250 Meds/Results Medications: Active Medications Generic Name Dose Route Start Last Admin Trade Name Freq PRN Reason Stop Dose Admin Acetaminophen 650 mg 11/13/24 15:00 11/13/24 20:13 Acetaminophen 325 Mg Tablet PO 650 mg Q4H PRN Administration Mild Pain (1-3) or Fever Apixaban 5 mg 11/14/24 21:00 11/14/24 21:26 Apixaban 5 Mg Tablet PO 5 mg Q12HR ELLEN Administration Atorvastatin Calcium 40 mg 11/14/24 21:00 11/14/24 21:26 Atorvastatin 40 Mg Tablet PO 40 mg HS ELLEN Administration Benzonatate 200 mg 11/14/24 02:18 11/14/24 09:48 Benzonatate 100 Mg Capsule PO 200 mg TID PRN Administration cough Buspirone HCl 10 mg 11/13/24 19:17 Buspirone Hcl 10 Mg Tablet PO TID PRN prn Doxycycline Hyclate 100 mg 11/13/24 21:00 11/14/24 21:26 Doxycycline Hyclate 100 Mg Tablet PO 100 mg Q12HR ELLEN Administration Gabapentin 400 mg 11/13/24 22:00 11/15/24 05:47 Gabapentin 400 Mg Capsule PO 400 mg Q8HR ELLEN Administration Guaifenesin/Dextromethorphan 10 ml 11/14/24 02:17 11/14/24 09:49 Guaifenesin/Dextromethorphan 10 Ml Udc PO 10 ml Q4H PRN Administration Cough Heparin Sodium (Porcine) 4,000 units 11/13/24 15:04 11/14/24 09:46 Heparin Sodium 5,000 Units/Ml Vial IV PUSH 4,000 units PRN PRN Administration aPTT less than 55 seconds Heparin Sodium (Porcine) 2,500 units 11/13/24 15:04 Heparin Sodium 5,000 Units/Ml Vial IV PUSH PRN PRN aPTT 55 - 70 seconds Cefepime HCl 2 gm in 50 mls @ 100 mls/hr 11/14/24 10:00 11/14/24 22:00 Maxipime 2 Gm/Ns 50 Ml IVPB Infused Q12HR ELLEN Infusion Levalbuterol HCl 1.25 mg 11/14/24 02:15 11/14/24 14:03 Levalbuterol Neb 1.25 Mg/3 Ml INHALATION 1.25 mg Q6HRT PRN Administration Shortness Of Breath Or Wheezing Metoprolol Succinate 25 mg 11/15/24 09:00 Metoprolol Succinate Ext Rel 25 Mg Tabcr PO QAM ELLEN Mirtazapine 15 mg 11/13/24 21:00 11/14/24 21:26 Mirtazapine 15 Mg Tablet PO 15 mg HS ELLEN Administration Ondansetron HCl 4 mg 11/13/24 15:00 Ondansetron Inj 4 Mg/2 Ml Vial IV PUSH Q6H PRN Nausea And Vomiting Oseltamivir Phosphate 30 mg 11/14/24 13:00 11/14/24 14:07 Oseltamivir Phosphate 30 Mg Capsule PO 11/16/24 13:01 30 mg Q24H ELLEN Administration Pantoprazole Sodium 40 mg 11/14/24 09:00 11/14/24 09:46 Pantoprazole 40 Mg Tablet PO 40 mg QAM ELLEN Administration Radiology Results: ITS Impressions Chest X-Ray 11/14/24 12:51 IMPRESSION: 1. Pulmonary vascular congestion with subtle increased interstitial pattern consistent with possible minimal pulmonary edema. 2. Patchy airspace opacity left lower lung zone which could represent atelectasis or pneumonia. Labs Labs: Laboratory Results - last 24 hr 11/14/24 11/14/24 11/14/24 08:20 12:21 17:30 WBC RBC Hgb Hct MCV MCH MCHC RDW Plt Count MPV Immature Gran % (Auto) Neut % (Auto) Lymph % (Auto) [place] % (Auto) Eos % (Auto) Baso % (Auto) Lymph # (Auto) [place] # (Auto) Eos # (Auto) Baso # (Auto) Abs Immat Gran (auto) Absolute Neuts (auto) Absolute Nucleated RBC Nucleated RBC % APTT 53.4 H 108.1 H Sodium Potassium Chloride Carbon Dioxide Anion Gap BUN Creatinine Estim Creat Clear Calc Estimated GFR Glucose Calcium Magnesium Total Bilirubin AST ALT Alkaline Phosphatase Troponin I 0.100 H* NT-Pro-B Natriuret Pep 2990 H Total Protein Albumin Procalcitonin 0.4 11/15/24 05:18 WBC 17.7 H RBC 4.01 L Hgb 12.0 Hct 37.9 MCV 94.5 MCH 29.9 MCHC 31.7 L RDW 15.4 H Plt Count 269 MPV 10.4 Immature Gran % (Auto) 2.0 H Neut % (Auto) 80.7 H Lymph % (Auto) 10.1 L [place] % (Auto) 6.6 Eos % (Auto) 0.0 Baso % (Auto) 0.6 Lymph # (Auto) 1.78 [place] # (Auto) 1.2 H Eos # (Auto) 0.0 Baso # (Auto) 0.1 Abs Immat Gran (auto) 0.36 H Absolute Neuts (auto) 14.3 H Absolute Nucleated RBC 0.000 Nucleated RBC % 0.0 APTT Sodium 139 Potassium 3.7 Chloride 105 Carbon Dioxide 25 Anion Gap 9 BUN 26 H Creatinine 0.79 Estim Creat Clear Calc 50 Estimated GFR > 60 Glucose 112 H Calcium 8.9 Magnesium 1.8 Total Bilirubin 0.7 AST 62 H ALT 34 Alkaline Phosphatase 91 Troponin I NT-Pro-B Natriuret Pep Total Protein 7.0 Albumin 3.1 L Procalcitonin Quality VTE Prophylaxis VTE prophylaxis: pharmacologic ordered Hospitalist MIPS Advance Care Plan I have confirmed that the patient's Advanced Care Plan is present, code status is documented, or surrogate decision maker is listed in patient medical record.: Yes Medication Reconciliation I have utilized all available resources to obtain, update and review the patients current medications (includes all prescriptions, OTC, herbals, cannabis, and nutritional supplements).: Yes
[2024-11-15] MEDS: LEVALBUTEROL NEB 1.25 MG/3 ML INHALATION (08:00)
--- NOTE | 2024-11-15 08:45 | PM.PNCARD ---
Progress Note: A&P Assessment and Plan (1) Atrial fibrillation with RVR: Code(s): I48.91 - Unspecified atrial fibrillation Status: Acute Assessment and Plan: Atrial fibrillation with rapid ventricular response in the setting of acute illness with influenza and pneumonia infection. She did return to sinus rhythm but had more AF RVR overnight and is currently back in AF RVR rate in the 160's. Restart amiodarone drip, will give bolus first Continue metoprolol succinate 25mg daily She has a CHADS2 Vasc score of at least 3, anticoagulation is indicated. Discussed with patient and daughter at bedside and they agree with starting anticoagulation. Continue Eliquis 5mg b.i.d. Echo shows normal LV function with no significant valvular pathology. (2) NSTEMI (non-ST elevated myocardial infarction): Code(s): I21.4 - Non-ST elevation (NSTEMI) myocardial infarction Status: Acute Assessment and Plan: Troponin at [facility] 345.1, 317.9 (high sensitivity), 0.186 here. I do not think this represents ACS as she has no complaints of chest pain. ACS is not consistent with her clinical picture of fall, influenza and pneumonia. Rather, her troponin is likely elevated secondary to sepsis, hypotension, and hypoxia at presentation. Repeat troponin yesterday downtrended to 1.0. Echo showed normal LV function. Cannot rule out underlying CAD, however do not anticipate any further workup in this regard unless there is a change in her clinical situation to suggest ACS. (3) Essential hypertension: Code(s): I10 - Essential (primary) hypertension Status: Acute Assessment and Plan: At goal. (4) Hyperlipidemia: Code(s): E78.5 - Hyperlipidemia, unspecified Status: Acute Assessment and Plan: Continue statin (5) Pneumonia: Code(s): J18.9 - Pneumonia, unspecified organism Status: Acute Assessment and Plan: On abx per hospitalist (6) Influenza: Code(s): J11.1 - Influenza due to unidentified influenza virus with other respiratory manifestations Status: Acute Assessment and Plan: Supportive care, supplemental O2, oseltamivir. Management per hospitalist. Subjective Date/time seen: 11/15/24 08:45 Interval history: Cardiology follow up visit She went back into atrial fibrillation with RVR overnight, went back into sinus and currently is back in rapid atrial fibrillation. She feels worse today - states her shortness of breath is about the same but overall feels more fatigued. Denies chest pain. Review of Systems Review of Systems: All systems reviewed & are unremarkable except as noted in HPI and below Exam Const: General: comfortable, no acute distress, alert and awake Orientation/consciousness: patient oriented x3 HENMT: Head: normal to inspection Eyes: General: appearance normal, both eyes and all related structures Pupils: Equal, round and reactive pupils present Neck: Neck: normal visual inspection, supple and no JVD Carotids: normal carotid upstroke Resp: Effort & Inspection: normal respiratory effort Auscultation: not clear to auscultation bilaterally, rales, rhonchi and wheezes Cardio: Rate: tachycardic Rhythm: abnormal rhythm regularly irregular Heart sounds: S1 normal heart sound present, S2 normal heart sound present and no murmurs GI: Auscultation: normal bowel sounds Skin: General skin exam: normal color Neuro: General: patient oriented x3 Cranial nerves: Yes Equal, round and reactive pupils present Extrem: General: normal to inspection Other: no edema Psych: Appearance: grossly normal Mental Status: mental status grossly normal Objective Data Vital Signs Vital Signs: Vital Signs - 24 hr 11/14/24 10:00 11/14/24 10:00 11/14/24 10:00 Temperature Pulse Rate 94 94 94 Respiratory Rate Blood Pressure 113/89 113/89 Pulse Oximetry Oxygen Delivery Oxygen Flow Rate 11/14/24 12:00 11/14/24 12:00 11/14/24 12:00 Temperature 37.2 C Pulse Rate 99 93 Respiratory Rate 23 H Blood Pressure 128/75 Pulse Oximetry 95 96 Oxygen Delivery Nasal Cannula Oxygen Flow Rate 2 11/14/24 14:00 11/14/24 14:00 11/14/24 14:04 Temperature Pulse Rate 97 111 H 118 H Respiratory Rate 20 Blood Pressure 128/66 Pulse Oximetry Oxygen Delivery Oxygen Flow Rate 11/14/24 14:21 11/14/24 16:00 11/14/24 16:00 Temperature Pulse Rate 106 H 103 H Respiratory Rate 23 H Blood Pressure Pulse Oximetry 94 Oxygen Delivery Nasal Cannula Oxygen Flow Rate 1 11/14/24 16:00 11/14/24 18:00 11/14/24 19:04 Temperature 36.8 C 36.8 C Pulse Rate 123 H 107 H 116 H Respiratory Rate 24 H 18 Blood Pressure 99/84 L 129/70 Pulse Oximetry 98 90 Oxygen Delivery Oxygen Flow Rate 11/14/24 20:00 11/14/24 20:24 11/14/24 21:00 Temperature 37.8 C H Pulse Rate 125 H 123 H 123 H Respiratory Rate 26 H 26 H Blood Pressure 123/76 Pulse Oximetry 94 94 Oxygen Delivery Nasal Cannula Oxygen Flow Rate 1 11/14/24 22:00 11/15/24 00:00 11/15/24 00:00 Temperature 36.6 C Pulse Rate 121 H 107 H Respiratory Rate 18 Blood Pressure 119/47 L Pulse Oximetry 91 91 Oxygen Delivery Nasal Cannula Oxygen Flow Rate 2 11/15/24 00:00 11/15/24 02:00 11/15/24 03:30 Temperature Pulse Rate 109 H 119 H 180 H Respiratory Rate Blood Pressure 109/60 Pulse Oximetry Oxygen Delivery Oxygen Flow Rate 11/15/24 04:00 11/15/24 04:00 11/15/24 04:00 Temperature 37.0 C Pulse Rate 93 178 H Respiratory Rate 170 H Blood Pressure 101/72 Pulse Oximetry 92 92 Oxygen Delivery Nasal Cannula Oxygen Flow Rate 2 11/15/24 04:03 11/15/24 04:30 11/15/24 08:00 Temperature 36.6 C Pulse Rate 170 H 158 H 69 Respiratory Rate 22 H Blood Pressure 141/65 H Pulse Oximetry 99 Oxygen Delivery Oxygen Flow Rate 11/15/24 08:01 11/15/24 08:01 Temperature Pulse Rate 79 Respiratory Rate 24 H Blood Pressure Pulse Oximetry 100 Oxygen Delivery Nasal Cannula Oxygen Flow Rate 2 Intake/Output Intake/Output: Intake & Output 11/12/24 11/13/24 11/14/24 11/15/24 23:59 23:59 23:59 23:59 Intake Total 418.0 1127.9 Output Total 1500 250 Balance 418.0 -372.1 -250 Meds/Results Medications: Active Medications Generic Name Dose Route Start Last Admin Trade Name Freq PRN Reason Stop Dose Admin Acetaminophen 650 mg 11/13/24 15:00 11/13/24 20:13 Acetaminophen 325 Mg Tablet PO 650 mg Q4H PRN Administration Mild Pain (1-3) or Fever Apixaban 5 mg 11/14/24 21:00 11/14/24 21:26 Apixaban 5 Mg Tablet PO 5 mg Q12HR ELLEN Administration Atorvastatin Calcium 40 mg 11/14/24 21:00 11/14/24 21:26 Atorvastatin 40 Mg Tablet PO 40 mg HS ELLEN Administration Benzonatate 200 mg 11/14/24 02:18 11/14/24 09:48 Benzonatate 100 Mg Capsule PO 200 mg TID PRN Administration cough Buspirone HCl 10 mg 11/13/24 19:17 Buspirone Hcl 10 Mg Tablet PO TID PRN prn Doxycycline Hyclate 100 mg 11/13/24 21:00 11/14/24 21:26 Doxycycline Hyclate 100 Mg Tablet PO 100 mg Q12HR ELLEN Administration Gabapentin 400 mg 11/13/24 22:00 11/15/24 05:47 Gabapentin 400 Mg Capsule PO 400 mg Q8HR ELLEN Administration Guaifenesin/Dextromethorphan 10 ml 11/14/24 02:17 11/14/24 09:49 Guaifenesin/Dextromethorphan 10 Ml Udc PO 10 ml Q4H PRN Administration Cough Cefepime HCl 2 gm in 50 mls @ 100 mls/hr 11/14/24 10:00 11/14/24 22:00 Maxipime 2 Gm/Ns 50 Ml IVPB Infused Q12HR ELLEN Infusion Magnesium Sulfate 2 gm in 50 mls @ 25 mls/hr 11/15/24 07:52 Magnesium Sulf 2 Gm/Water 50ml IVPB 11/15/24 09:51 ONCE ONE Levalbuterol HCl 1.25 mg 11/14/24 02:15 11/15/24 08:00 Levalbuterol Neb 1.25 Mg/3 Ml INHALATION 1.25 mg Q6HRT PRN Administration Shortness Of Breath Or Wheezing Metoprolol Succinate 25 mg 11/15/24 09:00 Metoprolol Succinate Ext Rel 25 Mg Tabcr PO QAM ELLEN Mirtazapine 15 mg 11/13/24 21:00 11/14/24 21:26 Mirtazapine 15 Mg Tablet PO 15 mg HS ELLEN Administration Ondansetron HCl 4 mg 11/13/24 15:00 Ondansetron Inj 4 Mg/2 Ml Vial IV PUSH Q6H PRN Nausea And Vomiting Oseltamivir Phosphate 30 mg 11/14/24 13:00 11/14/24 14:07 Oseltamivir Phosphate 30 Mg Capsule PO 11/16/24 13:01 30 mg Q24H ELLEN Administration Pantoprazole Sodium 40 mg 11/14/24 09:00 11/14/24 09:46 Pantoprazole 40 Mg Tablet PO 40 mg QAM ELLEN Administration Radiology Results: ITS Impressions Chest X-Ray 11/14/24 12:51 IMPRESSION: 1. Pulmonary vascular congestion with subtle increased interstitial pattern consistent with possible minimal pulmonary edema. 2. Patchy airspace opacity left lower lung zone which could represent atelectasis or pneumonia. Labs Labs: Laboratory Results - last 24 hr 11/14/24 11/14/24 11/14/24 08:20 12:21 17:30 WBC RBC Hgb Hct MCV MCH MCHC RDW Plt Count MPV Immature Gran % (Auto) Neut % (Auto) Lymph % (Auto) [place] % (Auto) Eos % (Auto) Baso % (Auto) Lymph # (Auto) [place] # (Auto) Eos # (Auto) Baso # (Auto) Abs Immat Gran (auto) Absolute Neuts (auto) Absolute Nucleated RBC Nucleated RBC % APTT 53.4 H 108.1 H Sodium Potassium Chloride Carbon Dioxide Anion Gap BUN Creatinine Estim Creat Clear Calc Estimated GFR Glucose Calcium Magnesium Total Bilirubin AST ALT Alkaline Phosphatase Troponin I 0.100 H* NT-Pro-B Natriuret Pep 2990 H Total Protein Albumin Procalcitonin 0.4 11/15/24 05:18 WBC 17.7 H RBC 4.01 L Hgb 12.0 Hct 37.9 MCV 94.5 MCH 29.9 MCHC 31.7 L RDW 15.4 H Plt Count 269 MPV 10.4 Immature Gran % (Auto) 2.0 H Neut % (Auto) 80.7 H Lymph % (Auto) 10.1 L [place] % (Auto) 6.6 Eos % (Auto) 0.0 Baso % (Auto) 0.6 Lymph # (Auto) 1.78 [place] # (Auto) 1.2 H Eos # (Auto) 0.0 Baso # (Auto) 0.1 Abs Immat Gran (auto) 0.36 H Absolute Neuts (auto) 14.3 H Absolute Nucleated RBC 0.000 Nucleated RBC % 0.0 APTT Sodium 139 Potassium 3.7 Chloride 105 Carbon Dioxide 25 Anion Gap 9 BUN 26 H Creatinine 0.79 Estim Creat Clear Calc 50 Estimated GFR > 60 Glucose 112 H Calcium 8.9 Magnesium 1.8 Total Bilirubin 0.7 AST 62 H ALT 34 Alkaline Phosphatase 91 Troponin I NT-Pro-B Natriuret Pep Total Protein 7.0 Albumin 3.1 L Procalcitonin Quality VTE Prophylaxis VTE prophylaxis: pharmacologic ordered
[2024-11-15] MEDS: AMIODARONE 150 MG/D5W 100 ML 150 MG/100 ML BAG 600 MG IV CONT ×2 (09:07→17:45)
[2024-11-15] MEDS: AMIODARONE 360 MG/D5W 200 ML 360 MG/200 ML BAG 33.33 MG IV CONT ×2 (09:15→18:03)
[2024-11-15] MEDS: PANTOPRAZOLE 40 MG TABLET PO (09:32)
[2024-11-15] MEDS: DOXYCYCLINE HYCLATE 100 MG TABLET PO ×2 (09:32→21:03)
[2024-11-15] MEDS: CEFEPIME 2 GM/NS 50 ML 2 GM/50 ML BAG IVPB ×2 (09:32→21:03)
[2024-11-15] MEDS: METOPROLOL SUCCINATE EXT REL 25 MG TABCR PO (09:32)
[2024-11-15] MEDS: APIXABAN 5 MG TABLET PO ×2 (09:32→21:03)
[2024-11-15] MEDS: MAGNESIUM SULF 2 GM/WATER 50ML 2 GM/50 ML BAG IVPB (09:32)
[2024-11-15] MEDS: POTASSIUM CHLORIDE 20 MEQ PACKET (FOR LIQUID) 40 MEQ PO (09:33)
[2024-11-15] MEDS: FUROSEMIDE INJ 40 MG/4 ML VIAL IV PUSH (10:47)
[2024-11-15 12:29] LABS: Toxigenic C. Diff NEGATIVE (NEGATIVE)
--- NOTE | 2024-11-15 14:25 | ECG_ITS ---
Test Date: 2024-11-15 16:12:13 Measurements Intervals [place] Rate: 81 P: -15 MS: 150 QRS: -17 QRSD: 89 T: 31 QT: 384 QTc: 448 Interpretive Statements SINUS RHYTHM CONSIDER RIGHT VENTRICULAR CONDUCTION DELAY DELAYED PRECORDIAL R/S TRANSITION MINIMAL Q WAVES- HIGH LATERAL LEADS BORDERLINE T WAVE ABNORMALITY- ANTERIOR LEADS BORDERLINE ECG Compared to ECG 11/15/2024 10:23:49 Atrial flutter no longer present Electronically Signed On 11-15-2024 16:43:22 GLASS SC[employer]ION by Javier Jones D.O.
[2024-11-15] MEDS: OSELTAMIVIR PHOSPHATE 30 MG CAPSULE PO (14:34)
[2024-11-15] MEDS: AMIODARONE 360 MG/D5W 200 ML 360 MG/200 ML BAG 16.67 MG IV CONT (15:18)
--- NOTE | 2024-11-15 17:19 | PC.NURSE ---
Patient in Afib with HR of 171 at approximally 1620. Cardiology exchange called. Call returned by Dr. Junior with new orders to stop the current amiodorone infusion and to give a bolus of amiodorone then continue amiodorone infusion of 1mg/min until further notice. New order also given for PRN Lopressor 2.5mg q4h for HR over 135 after infusion is started.
[2024-11-15] MEDS: MIRTAZAPINE 15 MG TABLET PO (21:03)
[2024-11-15] MEDS: ATORVASTATIN 40 MG TABLET PO (21:03)
[2024-11-16] VITALS (24 sets, daily range): BP systolic 105–134; BP diastolic 47–97; PULSE 66–150; RESP 14–22; TEMP 36.4–37.7; O2SAT 90–99
[2024-11-16] MEDS: AMIODARONE 360 MG/D5W 200 ML 360 MG/200 ML BAG 33.33 MG IV CONT ×4 (00:48→18:51)
--- NOTE | 2024-11-16 04:23 | ECG_ITS ---
Test Date: 2024-11-16 05:23:18 Measurements Intervals [place] Rate: 78 P: -1 TX: 165 QRS: -6 QRSD: 97 T: 32 QT: 400 QTc: 458 Interpretive Statements SINUS RHYTHM BASELINE ARTIFACT- I, II, III, AVR, AVL, AVF NORMAL ECG Compared to ECG 11/15/2024 16:12:13 No significant changes Electronically Signed On 11-16-2024 06:42:47 [employer]IMARY EDUCATION PROFESSOR by Javier Jones D.O.
[2024-11-16] MEDS: METOPROLOL TARTRATE INJ 5 MG/5 ML VIAL 2.5 MG IV PUSH (05:08)
[2024-11-16 05:38] LABS: Basophils Absolute Auto 0.1 K/mm3 (0.0-0.1); Basophils Percent Auto 0.5 % (0.2-1.2); Hematocrit 37.4 % (37.0-47.0); Hemoglobin 12.1 g/dL (12.0-15.0); Immature Granulocyte Absolute 0.63 K/mm3 (0.00-0.031); Immature Granulocyte Percent A 4.9 % (0-0.5); Lymphocytes Absolute Auto 1.74 K/mm3 (0.9-3.2); Lymphocytes Percent Auto 13.6 % (18.3-44.2); Mean Corpuscular HGB Conc 32.4 g/dl (32-36); Mean Corpuscular Hemoglobin 29.6 pg (26-34); Mean Corpuscular Volume 91.4 fl (80-100); Mean Platelet Volume 10.2 fl (7.4-10.4); Monocytes Percent Auto 7.9 % (2.6-8.5); Neutrophils Absolute Auto 9.4 K/mm3 (1.3-6.7); Neutrophils Percent Auto 73.1 % (45.5-73.1); Platelet Count Result 254 k/mm3 (150-375); Red Blood Count 4.09 M/mm3 (4.2-5.4); Red Cell Distribution Width 15.6 % (11.5-14.5); White Blood Count 12.8 K/mm3 (4.5-10.0)
[2024-11-16 05:57] LABS: Alanine Aminotransferase 30 U/L (6-35); Albumin Level 2.9 g/dL (3.5-5.1); Alkaline Phosphatase 88 U/L (38-126); Anion Gap 6 mmol/L (4-12); Aspartate Amino Transferase 41 U/L (14-36); Bilirubin,Total 0.5 mg/dL (0.2-1.3); Blood Urea Nitrogen 28 mg/dL (7-17); Calcium 8.6 mg/dL (8.4-10.2); Carbon Dioxide 28 mmol/L (22-30); Chloride 102 mmol/L (98-107); Estimated CRCL calculation 53 ml/min; Estimated Glomerular Filt Rate > 60; Glucose 128 mg/dL (65-110); Magnesium 2.1 mg/dL (1.6-2.3); Potassium 3.5 mmol/L (3.4-5.0); Sodium 136 mmol/L (137-145)
--- NOTE | 2024-11-16 08:34 | P.PNIM_ITS ---
Progress Note: A&P Assessment and Plan (1) Sepsis: Code(s): A41.9 - Sepsis, unspecified organism Status: Acute Assessment and Plan: * Patient initially met sepsis criteria at [facility] with mann vated heart rate of 117, hypotension, acute respiratory failure, pneumonia, elevated lactic acid, elevated white blood cell count, NSTEMI, AFib RVR * Patient was given IV fluids while in the ED and overnight * Blood and sputum cultures were obtained and pending * Currently on cefepime, doxycycline, Tamiflu--renally dosed * Isolation (2) Acute respiratory failure with hypoxia: Code(s): J96.01 - Acute respiratory failure with hypoxia Status: Acute Assessment and Plan: Likely secondary to hospital-acquired pneumonia versus influenza a verses new onset AFib RVR versus NSTEMI, ? CHF * Currently on 2 L nasal cannula * Continue to wean for sat greater than 92% * Chest CTA was negative for PE, aortic dissection, aortic aneurysm, showed patchy left basilar airspace consolidation representing pneumonia, scattered areas of him minimal tree-in-bud opacities in the lungs suggesting focal areas of small airway infection, 8 mm superior segment right lower lobe pulmonary nodule suggestive of focal scarring. * Continue bronchodilator * Respiratory panel was positive for influenza A-continue Tamiflu * Currently being treated for HAP * Currently on cefepime and doxycycline however white blood cell count increased to 21.2--if not trending down by the morning we will switch cefepime to meropenem for broader coverage * Continue pep therapy and incentive spirometry * Continue Mucinex * Check BNP and chest x-ray * Lasix IV (3) Pneumonia: Code(s): J18.9 - Pneumonia, unspecified organism Status: Acute Assessment and Plan: * See above (4) Influenza: Code(s): J11.1 - Influenza due to unidentified influenza virus with other respiratory manifestations Status: Acute Assessment and Plan: * Respiratory panel positive for influenza A * See above (5) NSTEMI (non-ST elevated myocardial infarction): Code(s): I21.4 - Non-ST elevation (NSTEMI) myocardial infarction Status: Acute Assessment and Plan: Patient reporting chest pain and shortness of breath on presentation although chest pain appears pleuritic but she did had elevation of troponin * Troponin initially 345.1> 317.9> 0.186 * Patient was started on heparin infusion with bolus for acute coronary syndrome * Cardiology consulted * Echocardiogram ordered, results pending * Continue cardiac telemetry monitoring * Continue IMU status * Add aspirin continue statin (6) Atrial fibrillation with RVR: Code(s): I48.91 - Unspecified atrial fibrillation Status: Acute Assessment and Plan: * Initial EKG at [facility] shown AFib with RVR with a rate of 179. Patient's daughter no mentions the patient had an episode of AFib 7 years ago which resolved. She is currently not on any anticoagulation * She was given a bolus of amiodarone and started on an amiodarone infusion. She was able to convert back to normal sinus rhythm at 10:38 a.m. this morning. * Cardiology consulted * Continue amiodarone infusion for now * Continuous cardiac monitoring * Continue IMU status (7) Elevated d-dimer: Code(s): R79.89 - Other specified abnormal findings of blood chemistry Status: Acute Assessment and Plan: * D-dimer elevated at 1.21 * CTA of the chest was negative for PE (8) RAQUEL (acute kidney injury): Code(s): N17.9 - Acute kidney failure, unspecified Status: Acute Assessment and Plan: * Creatinine 1.44, EGFR 35 * Baseline creatinine appears to be 1.05-1.07, EGFR appears to be 49-50 * Creatinine improved. Continue to trend * Off losartan and Lasix (9) Essential hypertension: Code(s): I10 - Essential (primary) hypertension Status: Acute Assessment and Plan: * Blood pressures have been labile due to AFib RVR versus sepsis versus NSTEMI * Losartan and Lasix on hold due to RAQUEL and labile blood pressures (10) Hyperlipidemia: Code(s): E78.5 - Hyperlipidemia, unspecified Status: Acute Assessment and Plan: * Continue atorvastatin (11) GERD without esophagitis: Code(s): K21.9 - Gastro-esophageal reflux disease without esophagitis Status: Acute Assessment and Plan: * Continue Protonix 40 mg daily Plan DVT prophylaxis -heparin infusion Stress ulcer prophylaxis -PPI Nutrition -diet ordered Code Status -patient wishes to be DNR DNI which I confirmed with both patient and her [id number] at bedside. I answered all their questions. Subjective Date/time seen: 11/16/24 08:34 Interval history: Interval history: Patient is being treated for AFib with RVR, NSTEMI, and pneumonia. Patient is currently on doxycycline, cefepime and Tamiflu. In regards to AFib patient is currently on amiodarone drip, metoprolol succinate 25 mg p.o. q.d. and Eliquis 5 mg p.o. b.i.d.. Of note yesterday patient was feeling weak and a head CT was performed which did not show any abnormalities. MRI brain ordered and pending. 11/16: Still on amiodarone drip. Patient is feeling better today. Discussed with her daughter who was present in the room. As per her patient lives in assisted living for past 7 years. Patient uses walker but no supplement oxygen. Current admission due to fall. Review of Systems Review of Systems: All systems reviewed & are unremarkable except as noted in HPI and below Exam Narrative: General: Alert awake in no acute distress Head: atraumatic, no encephalopathy Eyes: PERRLA, sclera clear ENT: moist mucous membranes, nasal passages clear Neck: supple, no JVD, no adenopathy, trachea midline Cardiac: Normal S1 and S2. Sinus tachycardia, No murmur, gallops or friction rubs, peripheral pulses intact. hypotensive Respiratory: currently on 2 L nasal cannula, mild tachypnea and shortness a breath with lip pursing, coarse breathing with occasional wheezing and bibasilar crackles Gastrointestinal: soft, non-distended, non-tender, normoactive bowel sounds. : voiding without difficulty. Extremities: moves all extremities well, bilateral mild pitting edema Skin: clean, dry, intact. No wounds or lesions. Neuro: Alert and oriented x3, cranial nerves intact, no neuro deficits. Psych: normal mood, normal affect, interactive Objective Data Vital Signs Vital Signs: Vital Signs - 24 hr 11/15/24 09:07 11/15/24 09:15 11/15/24 10:00 Temperature Pulse Rate 174 H 185 H 162 H Respiratory Rate 26 H Blood Pressure 112/63 112/63 119/75 Pulse Oximetry 94 Oxygen Delivery Oxygen Flow Rate 11/15/24 10:00 11/15/24 10:00 11/15/24 12:00 Temperature 97.5 F L Pulse Rate 162 H 155 H 93 Respiratory Rate 22 H Blood Pressure 119/75 126/78 Pulse Oximetry 96 Oxygen Delivery Oxygen Flow Rate 11/15/24 12:00 11/15/24 12:00 11/15/24 12:00 Temperature Pulse Rate 93 89 Respiratory Rate Blood Pressure 126/78 Pulse Oximetry 95 Oxygen Delivery Nasal Cannula Oxygen Flow Rate 2 11/15/24 14:00 11/15/24 14:00 11/15/24 14:00 Temperature Pulse Rate 86 86 84 Respiratory Rate 24 H Blood Pressure 113/54 L 113/54 L Pulse Oximetry 99 Oxygen Delivery Oxygen Flow Rate 11/15/24 15:18 11/15/24 15:50 11/15/24 16:00 Temperature 97.9 F Pulse Rate 85 91 91 Respiratory Rate 18 Blood Pressure 113/54 L 109/49 L 109/49 L Pulse Oximetry 95 Oxygen Delivery Oxygen Flow Rate 11/15/24 16:00 11/15/24 16:00 11/15/24 17:45 Temperature Pulse Rate 97 89 Respiratory Rate Blood Pressure 125/63 Pulse Oximetry 90 Oxygen Delivery Nasal Cannula Oxygen Flow Rate 2 11/15/24 18:00 11/15/24 18:03 11/15/24 20:00 Temperature Pulse Rate 89 91 83 Respiratory Rate Blood Pressure Pulse Oximetry Oxygen Delivery Oxygen Flow Rate 11/15/24 20:00 11/15/24 20:00 11/15/24 20:00 Temperature 98.1 F Pulse Rate 69 83 Respiratory Rate 19 Blood Pressure 117/58 L 117/58 L Pulse Oximetry 94 94 Oxygen Delivery Nasal Cannula Oxygen Flow Rate 2 11/15/24 21:40 11/15/24 22:00 11/15/24 22:00 Temperature Pulse Rate 85 86 83 Respiratory Rate Blood Pressure 111/83 111/83 111/83 Pulse Oximetry 94 Oxygen Delivery Oxygen Flow Rate 11/15/24 22:00 11/16/24 00:00 11/16/24 00:00 Temperature 98.4 F Pulse Rate 86 84 Respiratory Rate 22 H Blood Pressure 127/58 L Pulse Oximetry 95 95 Oxygen Delivery Nasal Cannula Oxygen Flow Rate 2 11/16/24 00:00 11/16/24 00:00 11/16/24 00:48 Temperature Pulse Rate 84 82 82 Respiratory Rate Blood Pressure 127/58 L 127/58 L Pulse Oximetry Oxygen Delivery Oxygen Flow Rate 11/16/24 02:00 11/16/24 02:00 11/16/24 02:00 Temperature Pulse Rate 85 81 85 Respiratory Rate Blood Pressure 110/80 110/80 Pulse Oximetry Oxygen Delivery Oxygen Flow Rate 11/16/24 04:00 11/16/24 04:00 11/16/24 04:00 Temperature 98.0 F Pulse Rate 150 H 132 H Respiratory Rate 18 Blood Pressure 129/97 H Pulse Oximetry 96 96 Oxygen Delivery Nasal Cannula Oxygen Flow Rate 2 11/16/24 04:00 11/16/24 05:08 11/16/24 06:00 Temperature Pulse Rate 150 H 84 74 Respiratory Rate Blood Pressure 129/97 H Pulse Oximetry Oxygen Delivery Oxygen Flow Rate 11/16/24 06:00 11/16/24 06:00 11/16/24 06:50 Temperature Pulse Rate 75 75 78 Respiratory Rate Blood Pressure 112/80 112/80 112/80 Pulse Oximetry Oxygen Delivery Oxygen Flow Rate Intake/Output Intake/Output: Intake & Output 11/13/24 11/14/24 11/15/24 11/16/24 23:59 23:59 23:59 23:59 Intake Total 418.0 1127.9 723.9 390.1 Output Total 1500 1100 500 Balance 418.0 -372.1 -376.1 -109.9 Meds/Results Medications: Active Medications Generic Name Dose Route Start Last Admin Trade Name Freq PRN Reason Stop Dose Admin Acetaminophen 650 mg 11/13/24 15:00 11/13/24 20:13 Acetaminophen 325 Mg Tablet PO 650 mg Q4H PRN Administration Mild Pain (1-3) or Fever Apixaban 5 mg 11/14/24 21:00 11/15/24 21:03 Apixaban 5 Mg Tablet PO 5 mg Q12HR ELELN Administration Atorvastatin Calcium 40 mg 11/14/24 21:00 11/15/24 21:03 Atorvastatin 40 Mg Tablet PO 40 mg HS ELLEN Administration Benzonatate 200 mg 11/14/24 02:18 11/14/24 09:48 Benzonatate 100 Mg Capsule PO 200 mg TID PRN Administration cough Buspirone HCl 10 mg 11/13/24 19:17 Buspirone Hcl 10 Mg Tablet PO TID PRN prn Doxycycline Hyclate 100 mg 11/13/24 21:00 11/15/24 21:03 Doxycycline Hyclate 100 Mg Tablet PO 100 mg Q12HR ELLEN Administration Gabapentin 400 mg 11/13/24 22:00 11/16/24 05:56 Gabapentin 400 Mg Capsule PO Not Given Q8HR ELLEN Guaifenesin/Dextromethorphan 10 ml 11/14/24 02:17 11/14/24 09:49 Guaifenesin/Dextromethorphan 10 Ml Udc PO 10 ml Q4H PRN Administration Cough Cefepime HCl 2 gm in 50 mls @ 100 mls/hr 11/14/24 10:00 11/15/24 21:44 Maxipime 2 Gm/Ns 50 Ml IVPB Infused Q12HR ELLEN Infusion Amiodarone HCl/Dextrose 360 mg in 200 mls @ 33.333 mls/hr 11/16/24 06:47 11/16/24 06:50 Nexterone 360 Mg/D5w 200 Ml IV CONT 11/16/24 12:46 1 mg/min .Q6H ONE 33.33 mls/hr Administration 1 MG/MIN Levalbuterol HCl 1.25 mg 11/14/24 02:15 11/15/24 08:00 Levalbuterol Neb 1.25 Mg/3 Ml INHALATION 1.25 mg Q6HRT PRN Administration Shortness Of Breath Or Wheezing Metoprolol Succinate 25 mg 11/15/24 09:00 11/15/24 09:32 Metoprolol Succinate Ext Rel 25 Mg Tabcr PO 25 mg QAM ELLEN Administration Metoprolol Tartrate 5 mg 11/16/24 04:54 Metoprolol Tartrate Inj 5 Mg/5 Ml Vial IV PUSH Q4H PRN HR greater than 140 sustained. Mirtazapine 15 mg 11/13/24 21:00 11/15/24 21:03 Mirtazapine 15 Mg Tablet PO 15 mg HS ELLEN Administration Ondansetron HCl 4 mg 11/13/24 15:00 Ondansetron Inj 4 Mg/2 Ml Vial IV PUSH Q6H PRN Nausea And Vomiting Oseltamivir Phosphate 30 mg 11/14/24 13:00 11/15/24 14:34 Oseltamivir Phosphate 30 Mg Capsule PO 11/16/24 13:01 30 mg Q24H ELLEN Administration Pantoprazole Sodium 40 mg 11/14/24 09:00 11/15/24 09:32 Pantoprazole 40 Mg Tablet PO 40 mg QAM ELLEN Administration Radiology Results: ITS Impressions Chest X-Ray 11/15/24 09:56 Impression: Left lower lobe atelectasis/edema versus pneumonia. Correlate clinically. Central pulmonary venous congestive change. Head CT 11/15/24 11:38 IMPRESSION: 1. 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 No acute intracranial process. Labs Labs: Laboratory Results - last 24 hr 11/15/24 11/16/24 11:01 05:29 WBC 12.8 H RBC 4.09 L Hgb 12.1 Hct 37.4 MCV 91.4 MCH 29.6 MCHC 32.4 RDW 15.6 H Plt Count 254 MPV 10.2 Immature Gran % (Auto) 4.9 H Neut % (Auto) 73.1 Lymph % (Auto) 13.6 L [place] % (Auto) 7.9 Eos % (Auto) 0.0 Baso % (Auto) 0.5 Lymph # (Auto) 1.74 [place] # (Auto) 1.0 H Eos # (Auto) 0.0 Baso # (Auto) 0.1 Abs Immat Gran (auto) 0.63 H Absolute Neuts (auto) 9.4 H Absolute Nucleated RBC 0.000 Nucleated RBC % 0.0 Sodium 136 L Potassium 3.5 Chloride 102 Carbon Dioxide 28 Anion Gap 6 BUN 28 H Creatinine 0.73 Estim Creat Clear Calc 53 Estimated GFR > 60 Glucose 128 H Calcium 8.6 Magnesium 2.1 Total Bilirubin 0.5 AST 41 H ALT 30 Alkaline Phosphatase 88 Total Protein 6.0 L Albumin 2.9 L C. difficile (PCR) Negative Quality VTE Prophylaxis VTE prophylaxis: pharmacologic ordered Hospitalist MIPS Advance Care Plan I have confirmed that the patient's Advanced Care Plan is present, code status is documented, or surrogate decision maker is listed in patient medical record.: Yes Medication Reconciliation I have utilized all available resources to obtain, update and review the patients current medications (includes all prescriptions, OTC, herbals, cannabis, and nutritional supplements).: Yes
[2024-11-16] MEDS: DOXYCYCLINE HYCLATE 100 MG TABLET PO ×2 (09:19→21:08)
[2024-11-16] MEDS: CEFEPIME 2 GM/NS 50 ML 2 GM/50 ML BAG IVPB ×2 (09:19→21:07)
[2024-11-16] MEDS: PANTOPRAZOLE 40 MG TABLET PO (09:19)
[2024-11-16] MEDS: APIXABAN 5 MG TABLET PO ×2 (09:19→21:08)
[2024-11-16] MEDS: LEVALBUTEROL NEB 1.25 MG/3 ML INHALATION (10:12)
--- NOTE | 2024-11-16 10:30 | P.PNCA_ITS ---
Progress Note: A&P Assessment and Plan (1) Atrial fibrillation with RVR: Code(s): I48.91 - Unspecified atrial fibrillation Status: Acute Assessment and Plan: Atrial fibrillation with rapid ventricular response in the setting of acute illness with influenza and pneumonia infection. Patient has been in and out of AFib with RVR. * Continue IV amiodarone for now along with metoprolol * Anticoagulation with apixaban. * Echo shows relatively preserved ejection fraction. * Continue to monitor on telemetry (2) NSTEMI (non-ST elevated myocardial infarction): Code(s): I21.4 - Non-ST elevation (NSTEMI) myocardial infarction Status: Acute Assessment and Plan: Likely type 2 CO in the setting of arrhythmia, infection. Echo showed normal LV function. Cannot rule out underlying CAD given risk factors, however do not anticipate any further workup in this regard unless there is a change in her clinical situation to suggest ACS. (3) Essential hypertension: Code(s): I10 - Essential (primary) hypertension Status: Acute Assessment and Plan: At goal. (4) Hyperlipidemia: Code(s): E78.5 - Hyperlipidemia, unspecified Status: Acute Assessment and Plan: Continue statin (5) Pneumonia: Code(s): J18.9 - Pneumonia, unspecified organism Status: Acute Assessment and Plan: Management as per primary team (6) Influenza: Code(s): J11.1 - Influenza due to unidentified influenza virus with other respiratory manifestations Status: Acute Assessment and Plan: Supportive care, supplemental O2, oseltamivir. Management per hospitalist. Subjective Date/time seen: 11/16/24 10:30 Interval history: 11/16/2024-patient denies chest pain or shortness of breath. On telemetry, patient has been in an out of atrial fibrillation with RVR. At the time of evaluation today, she was in sinus rhythm. However, overnight, she had episodes of AFib with RVR. Patient has been on IV amiodarone. Exam Narrative: PHYSICAL EXAMINATION: GENERAL: Elderly female, no acute distress MENTAL STATUS: affect appropriate to mood EYES: Extraocular movements intact, no pallor EARS: External ears appear normal, hearing grossly normal NOSE: Normal and patent, no discharge MOUTH: Mucous membranes moist, tongue normal NECK: Supple, no JVD CHEST: Coarse breath sounds HEART: Normal rate, regular rhythm at the time of examination ABDOMEN: Soft, nontender NEUROLOGICAL: Alert, oriented, normal speech, no gross motor deficits MUSCULOSKELETAL: Degenerative changes EXTREMITIES: No amputation SKIN: no rash on the exposed area, no cyanosis PSYCHIATRIC: No agitation Objective Data Vital Signs Vital Signs: Vital Signs - 24 hr 11/15/24 12:00 11/15/24 12:00 11/15/24 12:00 Temperature 36.4 C L Pulse Rate 93 93 89 Respiratory Rate 22 H Blood Pressure 126/78 126/78 Pulse Oximetry 96 Oxygen Delivery Oxygen Flow Rate 11/15/24 12:00 11/15/24 14:00 11/15/24 14:00 Temperature Pulse Rate 86 86 Respiratory Rate 24 H Blood Pressure 113/54 L 113/54 L Pulse Oximetry 95 99 Oxygen Delivery Nasal Cannula Oxygen Flow Rate 2 11/15/24 14:00 11/15/24 15:18 11/15/24 15:50 Temperature 36.6 C Pulse Rate 84 85 91 Respiratory Rate 18 Blood Pressure 113/54 L 109/49 L Pulse Oximetry 95 Oxygen Delivery Oxygen Flow Rate 11/15/24 16:00 11/15/24 16:00 11/15/24 16:00 Temperature Pulse Rate 91 97 Respiratory Rate Blood Pressure 109/49 L Pulse Oximetry 90 Oxygen Delivery Nasal Cannula Oxygen Flow Rate 2 11/15/24 17:45 11/15/24 18:00 11/15/24 18:03 Temperature Pulse Rate 89 89 91 Respiratory Rate Blood Pressure 125/63 Pulse Oximetry Oxygen Delivery Oxygen Flow Rate 11/15/24 20:00 11/15/24 20:00 11/15/24 20:00 Temperature 36.7 C Pulse Rate 83 69 Respiratory Rate 19 Blood Pressure 117/58 L Pulse Oximetry 94 94 Oxygen Delivery Nasal Cannula Oxygen Flow Rate 2 11/15/24 20:00 11/15/24 21:40 11/15/24 22:00 Temperature Pulse Rate 83 85 86 Respiratory Rate Blood Pressure 117/58 L 111/83 111/83 Pulse Oximetry 94 Oxygen Delivery Oxygen Flow Rate 11/15/24 22:00 11/15/24 22:00 11/16/24 00:00 Temperature 36.9 C Pulse Rate 83 86 84 Respiratory Rate 22 H Blood Pressure 111/83 127/58 L Pulse Oximetry 95 Oxygen Delivery Oxygen Flow Rate 11/16/24 00:00 11/16/24 00:00 11/16/24 00:00 Temperature Pulse Rate 84 82 Respiratory Rate Blood Pressure 127/58 L Pulse Oximetry 95 Oxygen Delivery Nasal Cannula Oxygen Flow Rate 2 11/16/24 00:48 11/16/24 02:00 11/16/24 02:00 Temperature Pulse Rate 82 85 81 Respiratory Rate Blood Pressure 127/58 L 110/80 Pulse Oximetry Oxygen Delivery Oxygen Flow Rate 11/16/24 02:00 11/16/24 04:00 11/16/24 04:00 Temperature 36.7 C Pulse Rate 85 150 H Respiratory Rate 18 Blood Pressure 110/80 129/97 H Pulse Oximetry 96 96 Oxygen Delivery Nasal Cannula Oxygen Flow Rate 2 11/16/24 04:00 11/16/24 04:00 11/16/24 05:08 Temperature Pulse Rate 132 H 150 H 84 Respiratory Rate Blood Pressure 129/97 H Pulse Oximetry Oxygen Delivery Oxygen Flow Rate 11/16/24 06:00 11/16/24 06:00 11/16/24 06:00 Temperature Pulse Rate 74 75 75 Respiratory Rate Blood Pressure 112/80 112/80 Pulse Oximetry Oxygen Delivery Oxygen Flow Rate 11/16/24 06:50 11/16/24 08:00 11/16/24 08:00 Temperature 36.6 C Pulse Rate 78 90 Respiratory Rate 20 Blood Pressure 112/80 117/60 Pulse Oximetry 90 96 Oxygen Delivery Nasal Cannula Oxygen Flow Rate 2 11/16/24 08:00 11/16/24 10:14 11/16/24 10:15 Temperature Pulse Rate 85 84 Respiratory Rate 20 Blood Pressure Pulse Oximetry 98 Oxygen Delivery Nasal Cannula Oxygen Flow Rate 2 Intake/Output Intake/Output: Intake & Output 11/13/24 11/14/24 11/15/24 11/16/24 23:59 23:59 23:59 23:59 Intake Total 418.0 1127.9 723.9 630.1 Output Total 1500 1100 500 Balance 418.0 -372.1 -376.1 130.1 Meds/Results Medications: Active Medications Generic Name Dose Route Start Last Admin Trade Name Freq PRN Reason Stop Dose Admin Acetaminophen 650 mg 11/13/24 15:00 11/13/24 20:13 Acetaminophen 325 Mg Tablet PO 650 mg Q4H PRN Administration Mild Pain (1-3) or Fever Apixaban 5 mg 11/14/24 21:00 11/16/24 09:19 Apixaban 5 Mg Tablet PO 5 mg Q12HR ELLEN Administration Atorvastatin Calcium 40 mg 11/14/24 21:00 11/15/24 21:03 Atorvastatin 40 Mg Tablet PO 40 mg HS ELLEN Administration Benzonatate 200 mg 11/14/24 02:18 11/14/24 09:48 Benzonatate 100 Mg Capsule PO 200 mg TID PRN Administration cough Buspirone HCl 10 mg 11/13/24 19:17 Buspirone Hcl 10 Mg Tablet PO TID PRN prn Doxycycline Hyclate 100 mg 11/13/24 21:00 11/16/24 09:19 Doxycycline Hyclate 100 Mg Tablet PO 100 mg Q12HR ELLEN Administration Gabapentin 400 mg 11/13/24 22:00 11/16/24 05:56 Gabapentin 400 Mg Capsule PO Not Given Q8HR ELLEN Guaifenesin/Dextromethorphan 10 ml 11/14/24 02:17 11/14/24 09:49 Guaifenesin/Dextromethorphan 10 Ml Udc PO 10 ml Q4H PRN Administration Cough Cefepime HCl 2 gm in 50 mls @ 100 mls/hr 11/14/24 10:00 11/16/24 09:19 Maxipime 2 Gm/Ns 50 Ml IVPB 100 mls/hr Q12HR ELLEN Administration Amiodarone HCl/Dextrose 360 mg in 200 mls @ 33.333 mls/hr 11/16/24 06:47 11/16/24 06:50 Nexterone 360 Mg/D5w 200 Ml IV CONT 11/16/24 12:46 1 mg/min .Q6H ONE 33.33 mls/hr Administration 1 MG/MIN Levalbuterol HCl 1.25 mg 11/14/24 02:15 11/16/24 10:12 Levalbuterol Neb 1.25 Mg/3 Ml INHALATION 1.25 mg Q6HRT PRN Administration Shortness Of Breath Or Wheezing Metoprolol Succinate 25 mg 11/15/24 09:00 11/15/24 09:32 Metoprolol Succinate Ext Rel 25 Mg Tabcr PO 25 mg QAM ELLEN Administration Metoprolol Tartrate 5 mg 11/16/24 04:54 Metoprolol Tartrate Inj 5 Mg/5 Ml Vial IV PUSH Q4H PRN HR greater than 140 sustained. Mirtazapine 15 mg 11/13/24 21:00 11/15/24 21:03 Mirtazapine 15 Mg Tablet PO 15 mg HS ELLEN Administration Ondansetron HCl 4 mg 11/13/24 15:00 Ondansetron Inj 4 Mg/2 Ml Vial IV PUSH Q6H PRN Nausea And Vomiting Oseltamivir Phosphate 30 mg 11/14/24 13:00 11/15/24 14:34 Oseltamivir Phosphate 30 Mg Capsule PO 11/16/24 13:01 30 mg Q24H ELLEN Administration Pantoprazole Sodium 40 mg 11/14/24 09:00 11/16/24 09:19 Pantoprazole 40 Mg Tablet PO 40 mg QAM ELLEN Administration Radiology Results: ITS Impressions Chest X-Ray 11/15/24 09:56 Impression: Left lower lobe atelectasis/edema versus pneumonia. Correlate clinically. Central pulmonary venous congestive change. Head CT 11/15/24 11:38 IMPRESSION: 1. 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 No acute intracranial process. Labs Labs: Laboratory Results - last 24 hr 11/15/24 11/16/24 11:01 05:29 WBC 12.8 H RBC 4.09 L Hgb 12.1 Hct 37.4 MCV 91.4 MCH 29.6 MCHC 32.4 RDW 15.6 H Plt Count 254 MPV 10.2 Immature Gran % (Auto) 4.9 H Neut % (Auto) 73.1 Lymph % (Auto) 13.6 L [place] % (Auto) 7.9 Eos % (Auto) 0.0 Baso % (Auto) 0.5 Lymph # (Auto) 1.74 [place] # (Auto) 1.0 H Eos # (Auto) 0.0 Baso # (Auto) 0.1 Abs Immat Gran (auto) 0.63 H Absolute Neuts (auto) 9.4 H Absolute Nucleated RBC 0.000 Nucleated RBC % 0.0 Sodium 136 L Potassium 3.5 Chloride 102 Carbon Dioxide 28 Anion Gap 6 BUN 28 H Creatinine 0.73 Estim Creat Clear Calc 53 Estimated GFR > 60 Glucose 128 H Calcium 8.6 Magnesium 2.1 Total Bilirubin 0.5 AST 41 H ALT 30 Alkaline Phosphatase 88 Total Protein 6.0 L Albumin 2.9 L C. difficile (PCR) Negative
--- NOTE | 2024-11-16 10:50 | PCOTNOTE ---
Patient refused occupational therapy evaluation this date due to increased fatigue and not a morning person will attempt again when patient agreeable.
[2024-11-16] MEDS: OSELTAMIVIR PHOSPHATE 30 MG CAPSULE PO (12:54)
[2024-11-16] MEDS: METOPROLOL TARTRATE 25 MG TABLET PO ×2 (13:19→21:08)
[2024-11-16] MEDS: GABAPENTIN 400 MG CAPSULE PO ×2 (13:19→21:08)
[2024-11-16] MEDS: ATORVASTATIN 40 MG TABLET PO (21:08)
[2024-11-16] MEDS: MIRTAZAPINE 15 MG TABLET PO (21:08)
[2024-11-17] VITALS (19 sets, daily range): BP systolic 104–141; BP diastolic 49–66; PULSE 62–78; RESP 14–22; TEMP 36.4–37.5; O2SAT 93–98
[2024-11-17] MEDS: AMIODARONE 360 MG/D5W 200 ML 360 MG/200 ML BAG 33.33 MG IV CONT ×2 (01:00→06:00)
[2024-11-17 05:10] LABS: Basophils Absolute Auto 0.1 K/mm3 (0.0-0.1); Basophils Percent Auto 0.6 % (0.2-1.2); Eosinophils Percent Auto 0.2 % (0-4.4); Hematocrit 37.1 % (37.0-47.0); Hemoglobin 11.9 g/dL (12.0-15.0); Immature Granulocyte Absolute 0.68 K/mm3 (0.00-0.031); Immature Granulocyte Percent A 5.6 % (0-0.5); Lymphocytes Absolute Auto 2.16 K/mm3 (0.9-3.2); Lymphocytes Percent Auto 17.8 % (18.3-44.2); Mean Corpuscular HGB Conc 32.1 g/dl (32-36); Mean Corpuscular Hemoglobin 29.4 pg (26-34); Mean Corpuscular Volume 91.6 fl (80-100); Mean Platelet Volume 10.2 fl (7.4-10.4); Monocytes Percent Auto 8.1 % (2.6-8.5); Neutrophils Absolute Auto 8.2 K/mm3 (1.3-6.7); Neutrophils Percent Auto 67.7 % (45.5-73.1); Platelet Count Result 267 k/mm3 (150-375); Red Blood Count 4.05 M/mm3 (4.2-5.4); Red Cell Distribution Width 15.7 % (11.5-14.5); White Blood Count 12.2 K/mm3 (4.5-10.0)
[2024-11-17 05:33] LABS: Alanine Aminotransferase 31 U/L (6-35); Albumin Level 2.7 g/dL (3.5-5.1); Alkaline Phosphatase 82 U/L (38-126); Anion Gap 7 mmol/L (4-12); Aspartate Amino Transferase 37 U/L (14-36); Bilirubin,Total 0.5 mg/dL (0.2-1.3); Blood Urea Nitrogen 26 mg/dL (7-17); Calcium 8.6 mg/dL (8.4-10.2); Carbon Dioxide 31 mmol/L (22-30); Chloride 100 mmol/L (98-107); Estimated CRCL calculation 50 ml/min; Estimated Glomerular Filt Rate > 60; Glucose 119 mg/dL (65-110); Magnesium 2.1 mg/dL (1.6-2.3); Potassium 3.4 mmol/L (3.4-5.0); Sodium 138 mmol/L (137-145)
[2024-11-17] MEDS: GABAPENTIN 400 MG CAPSULE PO ×3 (06:07→20:21)
[2024-11-17] MEDS: APIXABAN 5 MG TABLET PO ×2 (09:18→20:19)
[2024-11-17] MEDS: PANTOPRAZOLE 40 MG TABLET PO (09:18)
[2024-11-17] MEDS: METOPROLOL TARTRATE 25 MG TABLET PO ×2 (09:18→20:19)
[2024-11-17] MEDS: CEFEPIME 2 GM/NS 50 ML 2 GM/50 ML BAG IVPB ×2 (09:18→20:20)
[2024-11-17] MEDS: DOXYCYCLINE HYCLATE 100 MG TABLET PO ×2 (09:18→20:19)
[2024-11-17] MEDS: ACETAMINOPHEN 325 MG TABLET 650 MG PO (09:18)
--- NOTE | 2024-11-17 09:32 | P.PNCA_ITS ---
Progress Note: A&P Assessment and Plan (1) Atrial fibrillation with RVR: Code(s): I48.91 - Unspecified atrial fibrillation Status: Acute Assessment and Plan: Atrial fibrillation with rapid ventricular response in the setting of acute illness with influenza and pneumonia infection. Patient has been in and out of AFib with RVR, but has remained in sinus rhythm since yesterday. * Decrease IV amiodarone dose to 0.5 milligrams/minute. Continue metoprolol tartrate 25 mg p.o. b.i.d., titrate dose as necessary. * Anticoagulation with apixaban. * Echo shows relatively preserved ejection fraction. * Continue to monitor on telemetry (2) NSTEMI (non-ST elevated myocardial infarction): Code(s): I21.4 - Non-ST elevation (NSTEMI) myocardial infarction Status: Acute Assessment and Plan: Likely type 2 IN in the setting of arrhythmia, infection. Echo showed normal LV function. Cannot rule out underlying CAD given risk factors, however do not anticipate any further workup in this regard unless there is a change in her clinical situation to suggest ACS. (3) Essential hypertension: Code(s): I10 - Essential (primary) hypertension Status: Acute Assessment and Plan: At goal. (4) Hyperlipidemia: Code(s): E78.5 - Hyperlipidemia, unspecified Status: Acute Assessment and Plan: Continue statin (5) Pneumonia: Code(s): J18.9 - Pneumonia, unspecified organism Status: Acute Assessment and Plan: Management as per primary team (6) Influenza: Code(s): J11.1 - Influenza due to unidentified influenza virus with other respiratory manifestations Status: Acute Assessment and Plan: Supportive care, supplemental O2, oseltamivir. Management per hospitalist. Subjective Date/time seen: 11/17/24 09:32 Interval history: 11/16/2024-patient denies chest pain or shortness of breath. On telemetry, patient has been in an out of atrial fibrillation with RVR. At the time of evaluation today, she was in sinus rhythm. However, overnight, she had episodes of AFib with RVR. Patient has been on IV amiodarone. 11/17/2024-no chest pain or shortness of breath at rest. Patient remains in sinus rhythm on telemetry. She has been on IV amiodarone. Exam Narrative: PHYSICAL EXAMINATION: GENERAL: Elderly female, no acute distress MENTAL STATUS: affect appropriate to mood EYES: Extraocular movements intact, no pallor EARS: External ears appear normal, hearing grossly normal NOSE: Normal and patent, no discharge MOUTH: Mucous membranes moist, tongue normal NECK: Supple, no JVD CHEST: Coarse breath sounds HEART: Normal rate, regular rhythm at the time of examination today ABDOMEN: Soft, nontender NEUROLOGICAL: Alert, oriented, normal speech, no gross motor deficits MUSCULOSKELETAL: Degenerative changes EXTREMITIES: No amputation SKIN: no rash on the exposed area, no cyanosis PSYCHIATRIC: No agitation Const: General: comfortable, no acute distress, alert and awake Orientation/consciousness: patient oriented x3 HENMT: Head: normal to inspection Eyes: General: appearance normal, both eyes and all related structures Pupils: Equal, round and reactive pupils present Neck: Neck: normal visual inspection, supple and no JVD Carotids: normal carotid upstroke Resp: Effort & Inspection: normal respiratory effort Auscultation: not clear to auscultation bilaterally, rales, rhonchi and wheezes Cardio: Rate: regular rate and tachycardic Rhythm: regular rhythm and abnormal rhythm regularly irregular Heart sounds: S1 normal heart sound present, S2 normal heart sound present and no murmurs GI: Auscultation: normal bowel sounds Skin: General skin exam: normal color Neuro: General: patient oriented x3 Cranial nerves: Yes Equal, round and reactive pupils present Extrem: General: normal to inspection Other: no edema Psych: Appearance: grossly normal Mental Status: mental status grossly normal Objective Data Vital Signs Vital Signs: Vital Signs - 24 hr 11/16/24 10:00 11/16/24 10:00 11/16/24 10:00 Temperature 37.7 C H Pulse Rate 90 90 87 Respiratory Rate 16 Blood Pressure 134/55 L 134/55 L Pulse Oximetry 94 Oxygen Delivery Oxygen Flow Rate 11/16/24 10:14 11/16/24 10:15 11/16/24 12:00 Temperature Pulse Rate 84 87 Respiratory Rate 20 Blood Pressure 117/60 Pulse Oximetry 98 Oxygen Delivery Nasal Cannula Oxygen Flow Rate 2 11/16/24 12:00 11/16/24 12:00 11/16/24 12:00 Temperature 37.4 C Pulse Rate 87 90 Respiratory Rate 18 Blood Pressure 117/60 Pulse Oximetry 94 96 Oxygen Delivery Nasal Cannula Oxygen Flow Rate 2 11/16/24 12:58 11/16/24 13:18 11/16/24 13:19 Temperature Pulse Rate 86 86 Respiratory Rate Blood Pressure Pulse Oximetry Oxygen Delivery Nasal Cannula Oxygen Flow Rate 2 11/16/24 14:00 11/16/24 14:00 11/16/24 14:00 Temperature 37.4 C Pulse Rate 74 88 74 Respiratory Rate 20 Blood Pressure 125/59 L 125/59 L Pulse Oximetry 97 Oxygen Delivery Oxygen Flow Rate 11/16/24 15:43 11/16/24 16:00 11/16/24 16:00 Temperature 37.2 C Pulse Rate 91 66 Respiratory Rate 14 Blood Pressure 105/62 Pulse Oximetry 99 96 Oxygen Delivery Nasal Cannula Oxygen Flow Rate 2 11/16/24 16:00 11/16/24 17:57 11/16/24 18:00 Temperature Pulse Rate 91 75 75 Respiratory Rate 16 Blood Pressure 105/62 128/59 L 128/59 L Pulse Oximetry 96 Oxygen Delivery Oxygen Flow Rate 11/16/24 18:00 11/16/24 18:51 11/16/24 20:00 Temperature 37.1 C Pulse Rate 78 76 77 Respiratory Rate 16 Blood Pressure 121/47 L Pulse Oximetry 98 Oxygen Delivery Oxygen Flow Rate 11/16/24 20:00 11/16/24 20:00 11/16/24 20:00 Temperature Pulse Rate 79 77 Respiratory Rate Blood Pressure 121/47 L Pulse Oximetry 97 Oxygen Delivery Nasal Cannula Oxygen Flow Rate 2 11/16/24 21:08 11/16/24 22:00 11/16/24 22:00 Temperature 37.4 C Pulse Rate 81 75 73 Respiratory Rate 20 Blood Pressure 116/55 L Pulse Oximetry 97 Oxygen Delivery Oxygen Flow Rate 11/16/24 22:00 11/16/24 23:37 11/17/24 00:00 Temperature 36.4 C L Pulse Rate 75 74 Respiratory Rate 20 Blood Pressure 116/55 L 127/60 Pulse Oximetry 98 98 Oxygen Delivery Nasal Cannula Oxygen Flow Rate 2 11/17/24 00:00 11/17/24 00:00 11/17/24 01:00 Temperature Pulse Rate 70 74 77 Respiratory Rate Blood Pressure 127/60 127/60 Pulse Oximetry Oxygen Delivery Oxygen Flow Rate 11/17/24 01:47 11/17/24 02:00 11/17/24 02:00 Temperature 37.5 C Pulse Rate 76 77 76 Respiratory Rate 16 Blood Pressure 130/60 130/60 Pulse Oximetry 97 Oxygen Delivery Oxygen Flow Rate 11/17/24 03:59 11/17/24 04:00 11/17/24 04:00 Temperature 36.9 C Pulse Rate 72 77 Respiratory Rate 20 Blood Pressure 121/53 L 121/53 L Pulse Oximetry 97 97 Oxygen Delivery Nasal Cannula Oxygen Flow Rate 2 11/17/24 04:00 11/17/24 06:00 11/17/24 06:00 Temperature Pulse Rate 69 64 69 Respiratory Rate Blood Pressure 124/53 L 124/56 L Pulse Oximetry 97 Oxygen Delivery Oxygen Flow Rate 11/17/24 06:00 11/17/24 08:00 Temperature 36.9 C Pulse Rate 64 72 Respiratory Rate 20 Blood Pressure 134/63 Pulse Oximetry 95 Oxygen Delivery Oxygen Flow Rate Intake/Output Intake/Output: Intake & Output 11/14/24 11/15/24 11/16/24 11/17/24 23:59 23:59 23:59 23:59 Intake Total 1127.9 723.9 1463.4 33.3 Output Total 1500 1100 950 175 Balance -372.1 -376.1 513.4 -141.7 Meds/Results Medications: Active Medications Generic Name Dose Route Start Last Admin Trade Name Freq PRN Reason Stop Dose Admin Acetaminophen 650 mg 11/13/24 15:00 11/17/24 09:18 Acetaminophen 325 Mg Tablet PO 650 mg Q4H PRN Administration Mild Pain (1-3) or Fever Apixaban 5 mg 11/14/24 21:00 11/17/24 09:18 Apixaban 5 Mg Tablet PO 5 mg Q12HR ELLEN Administration Atorvastatin Calcium 40 mg 11/14/24 21:00 11/16/24 21:08 Atorvastatin 40 Mg Tablet PO 40 mg HS ELLEN Administration Benzonatate 200 mg 11/14/24 02:18 11/14/24 09:48 Benzonatate 100 Mg Capsule PO 200 mg TID PRN Administration cough Buspirone HCl 10 mg 11/13/24 19:17 Buspirone Hcl 10 Mg Tablet PO TID PRN prn Doxycycline Hyclate 100 mg 11/13/24 21:00 11/17/24 09:18 Doxycycline Hyclate 100 Mg Tablet PO 100 mg Q12HR ELLEN Administration Gabapentin 400 mg 11/13/24 22:00 11/17/24 06:07 Gabapentin 400 Mg Capsule PO 400 mg Q8HR ELLEN Administration Guaifenesin/Dextromethorphan 10 ml 11/14/24 02:17 11/14/24 09:49 Guaifenesin/Dextromethorphan 10 Ml Udc PO 10 ml Q4H PRN Administration Cough Cefepime HCl 2 gm in 50 mls @ 100 mls/hr 11/14/24 10:00 11/17/24 09:18 Maxipime 2 Gm/Ns 50 Ml IVPB 100 mls/hr Q12HR ELLEN Administration Amiodarone HCl/Dextrose 360 mg in 200 mls @ 16.667 mls/hr 11/17/24 06:00 11/17/24 06:00 Nexterone 360 Mg/D5w 200 Ml IV CONT 11/17/24 17:59 1 mg/min .Q12H ONE 33.33 mls/hr Administration 0.5 MG/MIN Levalbuterol HCl 1.25 mg 11/14/24 02:15 11/16/24 10:12 Levalbuterol Neb 1.25 Mg/3 Ml INHALATION 1.25 mg Q6HRT PRN Administration Shortness Of Breath Or Wheezing Metoprolol Tartrate 5 mg 11/16/24 04:54 Metoprolol Tartrate Inj 5 Mg/5 Ml Vial IV PUSH Q4H PRN HR greater than 140 sustained. Metoprolol Tartrate 25 mg 11/16/24 13:00 11/17/24 09:18 Metoprolol Tartrate 25 Mg Tablet PO 25 mg Q12HR ELLEN Administration Mirtazapine 15 mg 11/13/24 21:00 11/16/24 21:08 Mirtazapine 15 Mg Tablet PO 15 mg HS ELLEN Administration Ondansetron HCl 4 mg 11/13/24 15:00 Ondansetron Inj 4 Mg/2 Ml Vial IV PUSH Q6H PRN Nausea And Vomiting Pantoprazole Sodium 40 mg 11/14/24 09:00 11/17/24 09:18 Pantoprazole 40 Mg Tablet PO 40 mg QAM ELLEN Administration Radiology Results: ITS Impressions Chest X-Ray 11/15/24 09:56 Impression: Left lower lobe atelectasis/edema versus pneumonia. Correlate clinically. Central pulmonary venous congestive change. Head CT 11/15/24 11:38 IMPRESSION: 1. 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 No acute intracranial process. Labs Labs: Laboratory Results - last 24 hr 11/17/24 04:53 WBC 12.2 H RBC 4.05 L Hgb 11.9 L Hct 37.1 MCV 91.6 MCH 29.4 MCHC 32.1 RDW 15.7 H Plt Count 267 MPV 10.2 Immature Gran % (Auto) 5.6 H Neut % (Auto) 67.7 Lymph % (Auto) 17.8 L [place] % (Auto) 8.1 Eos % (Auto) 0.2 Baso % (Auto) 0.6 Lymph # (Auto) 2.16 [place] # (Auto) 1.0 H Eos # (Auto) 0.0 Baso # (Auto) 0.1 Abs Immat Gran (auto) 0.68 H Absolute Neuts (auto) 8.2 H Absolute Nucleated RBC 0.000 Nucleated RBC % 0.0 Sodium 138 Potassium 3.4 Chloride 100 Carbon Dioxide 31 H Anion Gap 7 BUN 26 H Creatinine 0.76 Estim Creat Clear Calc 50 Estimated GFR > 60 Glucose 119 H Calcium 8.6 Magnesium 2.1 Total Bilirubin 0.5 AST 37 H ALT 31 Alkaline Phosphatase 82 Total Protein 6.0 L Albumin 2.7 L
--- NOTE | 2024-11-17 11:48 | P.PNIM_ITS ---
Progress Note: A&P Assessment and Plan (1) Sepsis: Code(s): A41.9 - Sepsis, unspecified organism Status: Acute Assessment and Plan: * Patient initially met sepsis criteria at [facility] with mann vated heart rate of 117, hypotension, acute respiratory failure, pneumonia, elevated lactic acid, elevated white blood cell count, NSTEMI, AFib RVR * Patient was given IV fluids while in the ED and overnight * Blood and sputum cultures were obtained and pending * Currently on cefepime, doxycycline, Tamiflu--renally dosed * Isolation (2) Acute respiratory failure with hypoxia: Code(s): J96.01 - Acute respiratory failure with hypoxia Status: Acute Assessment and Plan: Likely secondary to hospital-acquired pneumonia versus influenza a verses new onset AFib RVR versus NSTEMI, ? CHF * Currently on 2 L nasal cannula * Continue to wean for sat greater than 92% * Chest CTA was negative for PE, aortic dissection, aortic aneurysm, showed patchy left basilar airspace consolidation representing pneumonia, scattered areas of him minimal tree-in-bud opacities in the lungs suggesting focal areas of small airway infection, 8 mm superior segment right lower lobe pulmonary nodule suggestive of focal scarring. * Continue bronchodilator * Respiratory panel was positive for influenza A-continue Tamiflu * Currently being treated for HAP * Currently on cefepime and doxycycline however white blood cell count increased to 21.2--if not trending down by the morning we will switch cefepime to meropenem for broader coverage * Continue pep therapy and incentive spirometry * Continue Mucinex * Check BNP and chest x-ray * Lasix IV (3) Pneumonia: Code(s): J18.9 - Pneumonia, unspecified organism Status: Acute Assessment and Plan: * See above (4) Influenza: Code(s): J11.1 - Influenza due to unidentified influenza virus with other respiratory manifestations Status: Acute Assessment and Plan: * Respiratory panel positive for influenza A * See above (5) NSTEMI (non-ST elevated myocardial infarction): Code(s): I21.4 - Non-ST elevation (NSTEMI) myocardial infarction Status: Acute Assessment and Plan: Patient reporting chest pain and shortness of breath on presentation although chest pain appears pleuritic but she did had elevation of troponin * Troponin initially 345.1> 317.9> 0.186 * Patient was started on heparin infusion with bolus for acute coronary syndrome * Cardiology consulted * Echocardiogram ordered, results pending * Continue cardiac telemetry monitoring * Continue IMU status * Add aspirin continue statin (6) Atrial fibrillation with RVR: Code(s): I48.91 - Unspecified atrial fibrillation Status: Acute Assessment and Plan: * Initial EKG at [facility] shown AFib with RVR with a rate of 179. Patient's daughter no mentions the patient had an episode of AFib 7 years ago which resolved. She is currently not on any anticoagulation * She was given a bolus of amiodarone and started on an amiodarone infusion. She was able to convert back to normal sinus rhythm at 10:38 a.m. this morning. * Cardiology consulted * Continue amiodarone infusion for now * Continuous cardiac monitoring * Continue IMU status (7) Elevated d-dimer: Code(s): R79.89 - Other specified abnormal findings of blood chemistry Status: Acute Assessment and Plan: * D-dimer elevated at 1.21 * CTA of the chest was negative for PE (8) RAQUEL (acute kidney injury): Code(s): N17.9 - Acute kidney failure, unspecified Status: Acute Assessment and Plan: * Creatinine 1.44, EGFR 35 * Baseline creatinine appears to be 1.05-1.07, EGFR appears to be 49-50 * Creatinine improved. Continue to trend * Off losartan and Lasix (9) Essential hypertension: Code(s): I10 - Essential (primary) hypertension Status: Acute Assessment and Plan: * Blood pressures have been labile due to AFib RVR versus sepsis versus NSTEMI * Losartan and Lasix on hold due to RAQUEL and labile blood pressures (10) Hyperlipidemia: Code(s): E78.5 - Hyperlipidemia, unspecified Status: Acute Assessment and Plan: * Continue atorvastatin (11) GERD without esophagitis: Code(s): K21.9 - Gastro-esophageal reflux disease without esophagitis Status: Acute Assessment and Plan: * Continue Protonix 40 mg daily Plan DVT prophylaxis -heparin infusion Stress ulcer prophylaxis -PPI Nutrition -diet ordered Code Status -patient wishes to be DNR DNI which I confirmed with both patient and her [id number] at bedside. I answered all their questions. Subjective Date/time seen: 11/17/24 11:48 Interval history: Cont Amiodarone drip as per cardiology. Pending MRI. Review of Systems Review of Systems: All systems reviewed & are unremarkable except as noted in HPI and below Exam Narrative: General: Alert awake in no acute distress Head: atraumatic, no encephalopathy Eyes: PERRLA, sclera clear ENT: moist mucous membranes, nasal passages clear Neck: supple, no JVD, no adenopathy, trachea midline Cardiac: Normal S1 and S2. Sinus tachycardia, No murmur, gallops or friction rubs, peripheral pulses intact. hypotensive Respiratory: currently on 2 L nasal cannula, mild tachypnea and shortness a breath with lip pursing, coarse breathing with occasional wheezing and bibasilar crackles Gastrointestinal: soft, non-distended, non-tender, normoactive bowel sounds. : voiding without difficulty. Extremities: moves all extremities well, bilateral mild pitting edema Skin: clean, dry, intact. No wounds or lesions. Neuro: Alert and oriented x3, cranial nerves intact, no neuro deficits. Psych: normal mood, normal affect, interactive Objective Data Vital Signs Vital Signs: Vital Signs - 24 hr 11/16/24 12:00 11/16/24 12:00 11/16/24 12:00 Temperature 99.3 F Pulse Rate 87 87 90 Respiratory Rate 18 Blood Pressure 117/60 117/60 Pulse Oximetry 94 Oxygen Delivery Oxygen Flow Rate 11/16/24 12:00 11/16/24 12:58 11/16/24 13:18 Temperature Pulse Rate 86 Respiratory Rate Blood Pressure Pulse Oximetry 96 Oxygen Delivery Nasal Cannula Nasal Cannula Oxygen Flow Rate 2 2 11/16/24 13:19 11/16/24 14:00 11/16/24 14:00 Temperature 99.4 F Pulse Rate 86 74 88 Respiratory Rate 20 Blood Pressure 125/59 L Pulse Oximetry 97 Oxygen Delivery Oxygen Flow Rate 11/16/24 14:00 11/16/24 15:43 11/16/24 16:00 Temperature 98.9 F Pulse Rate 74 91 66 Respiratory Rate 14 Blood Pressure 125/59 L 105/62 Pulse Oximetry 99 Oxygen Delivery Oxygen Flow Rate 11/16/24 16:00 11/16/24 16:00 11/16/24 17:57 Temperature Pulse Rate 91 75 Respiratory Rate 16 Blood Pressure 105/62 128/59 L Pulse Oximetry 96 96 Oxygen Delivery Nasal Cannula Oxygen Flow Rate 2 11/16/24 18:00 11/16/24 18:00 11/16/24 18:51 Temperature Pulse Rate 75 78 76 Respiratory Rate Blood Pressure 128/59 L Pulse Oximetry Oxygen Delivery Oxygen Flow Rate 11/16/24 20:00 11/16/24 20:00 11/16/24 20:00 Temperature 98.8 F Pulse Rate 77 79 Respiratory Rate 16 Blood Pressure 121/47 L Pulse Oximetry 98 97 Oxygen Delivery Nasal Cannula Oxygen Flow Rate 2 11/16/24 20:00 11/16/24 21:08 11/16/24 22:00 Temperature 99.4 F Pulse Rate 77 81 75 Respiratory Rate 20 Blood Pressure 121/47 L 116/55 L Pulse Oximetry 97 Oxygen Delivery Oxygen Flow Rate 11/16/24 22:00 11/16/24 22:00 11/16/24 23:37 Temperature 97.5 F L Pulse Rate 73 75 74 Respiratory Rate 20 Blood Pressure 116/55 L 127/60 Pulse Oximetry 98 Oxygen Delivery Oxygen Flow Rate 11/17/24 00:00 11/17/24 00:00 11/17/24 00:00 Temperature Pulse Rate 70 74 Respiratory Rate Blood Pressure 127/60 Pulse Oximetry 98 Oxygen Delivery Nasal Cannula Oxygen Flow Rate 2 11/17/24 01:00 11/17/24 01:47 11/17/24 02:00 Temperature 99.5 F Pulse Rate 77 76 77 Respiratory Rate 16 Blood Pressure 127/60 130/60 Pulse Oximetry 97 Oxygen Delivery Oxygen Flow Rate 11/17/24 02:00 11/17/24 03:59 11/17/24 04:00 Temperature 98.5 F Pulse Rate 76 72 Respiratory Rate 20 Blood Pressure 130/60 121/53 L Pulse Oximetry 97 97 Oxygen Delivery Nasal Cannula Oxygen Flow Rate 2 11/17/24 04:00 11/17/24 04:00 11/17/24 06:00 Temperature Pulse Rate 77 69 64 Respiratory Rate Blood Pressure 121/53 L 124/53 L Pulse Oximetry Oxygen Delivery Oxygen Flow Rate 11/17/24 06:00 11/17/24 06:00 11/17/24 08:00 Temperature 98.5 F Pulse Rate 69 64 72 Respiratory Rate 20 Blood Pressure 124/56 L 134/63 Pulse Oximetry 97 95 Oxygen Delivery Oxygen Flow Rate 11/17/24 08:00 11/17/24 08:00 11/17/24 09:18 Temperature Pulse Rate 70 Respiratory Rate Blood Pressure Pulse Oximetry 95 Oxygen Delivery Nasal Cannula Nasal Cannula Oxygen Flow Rate 2 3 11/17/24 10:00 11/17/24 10:00 Temperature Pulse Rate 73 74 Respiratory Rate 20 Blood Pressure 104/49 L Pulse Oximetry 93 Oxygen Delivery Oxygen Flow Rate Intake/Output Intake/Output: Intake & Output 11/14/24 11/15/24 11/16/24 11/17/24 23:59 23:59 23:59 23:59 Intake Total 1127.9 723.9 1463.4 33.3 Output Total 1500 1100 950 175 Balance -372.1 -376.1 513.4 -141.7 Meds/Results Medications: Active Medications Generic Name Dose Route Start Last Admin Trade Name Freq PRN Reason Stop Dose Admin Acetaminophen 650 mg 11/13/24 15:00 11/17/24 09:18 Acetaminophen 325 Mg Tablet PO 650 mg Q4H PRN Administration Mild Pain (1-3) or Fever Apixaban 5 mg 11/14/24 21:00 11/17/24 09:18 Apixaban 5 Mg Tablet PO 5 mg Q12HR ELLEN Administration Atorvastatin Calcium 40 mg 11/14/24 21:00 11/16/24 21:08 Atorvastatin 40 Mg Tablet PO 40 mg HS ELLEN Administration Benzonatate 200 mg 11/14/24 02:18 11/14/24 09:48 Benzonatate 100 Mg Capsule PO 200 mg TID PRN Administration cough Buspirone HCl 10 mg 11/13/24 19:17 Buspirone Hcl 10 Mg Tablet PO TID PRN prn Doxycycline Hyclate 100 mg 11/13/24 21:00 11/17/24 09:18 Doxycycline Hyclate 100 Mg Tablet PO 100 mg Q12HR ELLEN Administration Gabapentin 400 mg 11/13/24 22:00 11/17/24 06:07 Gabapentin 400 Mg Capsule PO 400 mg Q8HR ELLEN Administration Guaifenesin/Dextromethorphan 10 ml 11/14/24 02:17 11/14/24 09:49 Guaifenesin/Dextromethorphan 10 Ml Udc PO 10 ml Q4H PRN Administration Cough Cefepime HCl 2 gm in 50 mls @ 100 mls/hr 11/14/24 10:00 11/17/24 09:18 Maxipime 2 Gm/Ns 50 Ml IVPB 100 mls/hr Q12HR ELLEN Administration Amiodarone HCl/Dextrose 360 mg in 200 mls @ 16.667 mls/hr 11/17/24 06:00 11/17/24 06:00 Nexterone 360 Mg/D5w 200 Ml IV CONT 11/17/24 17:59 1 mg/min .Q12H ONE 33.33 mls/hr Administration 0.5 MG/MIN Levalbuterol HCl 1.25 mg 11/14/24 02:15 11/16/24 10:12 Levalbuterol Neb 1.25 Mg/3 Ml INHALATION 1.25 mg Q6HRT PRN Administration Shortness Of Breath Or Wheezing Metoprolol Tartrate 5 mg 11/16/24 04:54 Metoprolol Tartrate Inj 5 Mg/5 Ml Vial IV PUSH Q4H PRN HR greater than 140 sustained. Metoprolol Tartrate 25 mg 11/16/24 13:00 11/17/24 09:18 Metoprolol Tartrate 25 Mg Tablet PO 25 mg Q12HR ELLEN Administration Mirtazapine 15 mg 11/13/24 21:00 11/16/24 21:08 Mirtazapine 15 Mg Tablet PO 15 mg HS ELLEN Administration Ondansetron HCl 4 mg 11/13/24 15:00 Ondansetron Inj 4 Mg/2 Ml Vial IV PUSH Q6H PRN Nausea And Vomiting Pantoprazole Sodium 40 mg 11/14/24 09:00 11/17/24 09:18 Pantoprazole 40 Mg Tablet PO 40 mg QAM ELLEN Administration Radiology Results: ITS Impressions Chest X-Ray 11/15/24 09:56 Impression: Left lower lobe atelectasis/edema versus pneumonia. Correlate clinically. Central pulmonary venous congestive change. Head CT 11/15/24 11:38 IMPRESSION: 1. 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 No acute intracranial process. Labs Labs: Laboratory Results - last 24 hr 11/17/24 04:53 WBC 12.2 H RBC 4.05 L Hgb 11.9 L Hct 37.1 MCV 91.6 MCH 29.4 MCHC 32.1 RDW 15.7 H Plt Count 267 MPV 10.2 Immature Gran % (Auto) 5.6 H Neut % (Auto) 67.7 Lymph % (Auto) 17.8 L [place] % (Auto) 8.1 Eos % (Auto) 0.2 Baso % (Auto) 0.6 Lymph # (Auto) 2.16 [place] # (Auto) 1.0 H Eos # (Auto) 0.0 Baso # (Auto) 0.1 Abs Immat Gran (auto) 0.68 H Absolute Neuts (auto) 8.2 H Absolute Nucleated RBC 0.000 Nucleated RBC % 0.0 Sodium 138 Potassium 3.4 Chloride 100 Carbon Dioxide 31 H Anion Gap 7 BUN 26 H Creatinine 0.76 Estim Creat Clear Calc 50 Estimated GFR > 60 Glucose 119 H Calcium 8.6 Magnesium 2.1 Total Bilirubin 0.5 AST 37 H ALT 31 Alkaline Phosphatase 82 Total Protein 6.0 L Albumin 2.7 L Quality VTE Prophylaxis VTE prophylaxis: pharmacologic ordered Hospitalist [facility] Advance Care Plan I have confirmed that the patient's Advanced Care Plan is present, code status is documented, or surrogate decision maker is listed in patient medical record.: Yes Medication Reconciliation I have utilized all available resources to obtain, update and review the patients current medications (includes all prescriptions, OTC, herbals, cannabis, and nutritional supplements).: Yes
[2024-11-17] MEDS: AMIODARONE 360 MG/D5W 200 ML 360 MG/200 ML BAG 16.67 MG IV CONT (14:21)
[2024-11-17] MEDS: guaiFENesin/DEXTROMETHORPHAN 10 ML UDC PO (14:34)
[2024-11-17] MEDS: ATORVASTATIN 40 MG TABLET PO (20:19)
[2024-11-17] MEDS: MIRTAZAPINE 15 MG TABLET PO (20:19)
[2024-11-18] VITALS (24 sets, daily range): BP systolic 119–147; BP diastolic 56–76; PULSE 63–79; RESP 18–22; TEMP 36.6–36.9; O2SAT 92–97
[2024-11-18] MEDS: AMIODARONE 360 MG/D5W 200 ML 360 MG/200 ML BAG 16.67 MG IV CONT ×2 (02:31→14:42)
[2024-11-18 04:54] LABS: Basophils Absolute Auto 0.1 K/mm3 (0.0-0.1); Basophils Percent Auto 0.7 % (0.2-1.2); Eosinophils Absolute Auto 0.1 K/mm3 (0-0.3); Eosinophils Percent Auto 0.7 % (0-4.4); Hematocrit 35.6 % (37.0-47.0); Hemoglobin 11.2 g/dL (12.0-15.0); Immature Granulocyte Absolute 0.59 K/mm3 (0.00-0.031); Immature Granulocyte Percent A 4.3 % (0-0.5); Lymphocytes Absolute Auto 2.24 K/mm3 (0.9-3.2); Lymphocytes Percent Auto 16.4 % (18.3-44.2); Mean Corpuscular HGB Conc 31.5 g/dl (32-36); Mean Corpuscular Hemoglobin 28.8 pg (26-34); Mean Corpuscular Volume 91.5 fl (80-100); Mean Platelet Volume 10.3 fl (7.4-10.4); Monocytes Absolute Auto 1.2 K/mm3 (0.1-0.6); Monocytes Percent Auto 8.6 % (2.6-8.5); Neutrophils Absolute Auto 9.5 K/mm3 (1.3-6.7); Neutrophils Percent Auto 69.3 % (45.5-73.1); Platelet Count Result 286 k/mm3 (150-375); Red Blood Count 3.89 M/mm3 (4.2-5.4); Red Cell Distribution Width 15.7 % (11.5-14.5); White Blood Count 13.7 K/mm3 (4.5-10.0)
[2024-11-18 05:10] LABS: Alanine Aminotransferase 32 U/L (6-35); Albumin Level 2.7 g/dL (3.5-5.1); Alkaline Phosphatase 86 U/L (38-126); Anion Gap 4 mmol/L (4-12); Aspartate Amino Transferase 37 U/L (14-36); Bilirubin,Total 0.6 mg/dL (0.2-1.3); Blood Urea Nitrogen 24 mg/dL (7-17); Calcium 8.6 mg/dL (8.4-10.2); Carbon Dioxide 32 mmol/L (22-30); Chloride 101 mmol/L (98-107); Estimated CRCL calculation 54 ml/min; Estimated Glomerular Filt Rate > 60; Glucose 106 mg/dL (65-110); Magnesium 1.9 mg/dL (1.6-2.3); Potassium 3.4 mmol/L (3.4-5.0); Sodium 137 mmol/L (137-145)
[2024-11-18] MEDS: GABAPENTIN 400 MG CAPSULE PO ×3 (05:31→20:34)
[2024-11-18] MEDS: METOPROLOL TARTRATE 25 MG TABLET PO ×2 (09:33→20:34)
[2024-11-18] MEDS: DOXYCYCLINE HYCLATE 100 MG TABLET PO ×2 (09:33→20:34)
[2024-11-18] MEDS: guaiFENesin/DEXTROMETHORPHAN 10 ML UDC PO (09:34)
[2024-11-18] MEDS: PANTOPRAZOLE 40 MG TABLET PO (09:34)
[2024-11-18] MEDS: APIXABAN 5 MG TABLET PO ×2 (09:34→20:34)
[2024-11-18] MEDS: AMOXICILLIN/CLAVULANATE K 875-125 MG TAB 1 TABLET PO ×2 (09:35→20:34)
--- NOTE | 2024-11-18 10:21 | P.PNCA_ITS ---
Progress Note: A&P Assessment and Plan (1) Atrial fibrillation with RVR: Code(s): I48.91 - Unspecified atrial fibrillation Status: Acute Assessment and Plan: Atrial fibrillation with rapid ventricular response in the setting of acute illness with influenza and pneumonia infection. Patient has been in and out of AFib with RVR, but has remained in sinus rhythm since yesterday. * Shift to p.o. amiodarone this evening and stop amiodarone drip at that time * At time of discharge, amiodarone should be decreased to 200mg daily as maintenance dose * Continue metoprolol tartrate 25 mg p.o. b.i.d., titrate dose as necessary. * Anticoagulation with apixaban. * Echo shows relatively preserved ejection fraction. * Continue to monitor on telemetry (2) NSTEMI (non-ST elevated myocardial infarction): Code(s): I21.4 - Non-ST elevation (NSTEMI) myocardial infarction Status: Acute Assessment and Plan: Likely type 2 [place] in the setting of arrhythmia, infection. Echo showed normal LV function. Cannot rule out underlying CAD given risk factors, however do not anticipate any further workup in this regard unless there is a change in her clinical situation to suggest ACS. (3) Essential hypertension: Code(s): I10 - Essential (primary) hypertension Status: Acute Assessment and Plan: At goal. (4) Hyperlipidemia: Code(s): E78.5 - Hyperlipidemia, unspecified Status: Acute Assessment and Plan: Continue statin (5) Pneumonia: Code(s): J18.9 - Pneumonia, unspecified organism Status: Acute Assessment and Plan: Management as per primary team (6) Influenza: Code(s): J11.1 - Influenza due to unidentified influenza virus with other respiratory manifestations Status: Acute Assessment and Plan: Supportive care, supplemental O2, oseltamivir. Management per hospitalist. Plan Cardiology will follow along on an as needed basis. Please call with questions. Subjective Date/time seen: 11/18/24 10:21 Interval history: 11/16/2024-patient denies chest pain or shortness of breath. On telemetry, patient has been in an out of atrial fibrillation with RVR. At the time of evaluation today, she was in sinus rhythm. However, overnight, she had episodes of AFib with RVR. Patient has been on IV amiodarone. 11/17/2024-no chest pain or shortness of breath at rest. Patient remains in sinus rhythm on telemetry. She has been on IV amiodarone. 11/18/2024: Feels fatigued but otherwise has no complaints. No palpitations, shortness of breath, chest pain. Review of Systems Review of Systems: All systems reviewed & are unremarkable except as noted in HPI and below Exam Const: General: comfortable, no acute distress, alert and awake Orientation/consciousness: patient oriented x3 HENMT: Head: normal to inspection Eyes: General: appearance normal, both eyes and all related structures Pupils: Equal, round and reactive pupils present Neck: Neck: normal visual inspection, supple and no JVD Carotids: normal carotid upstroke Resp: Effort & Inspection: normal respiratory effort Auscultation: not clear to auscultation bilaterally, rales and rhonchi Cardio: Rate: regular rate Rhythm: regular rhythm Heart sounds: S1 normal heart sound present, S2 normal heart sound present and no murmurs GI: Auscultation: normal bowel sounds Skin: General skin exam: normal color Neuro: General: patient oriented x3 Cranial nerves: Yes Equal, round and reactive pupils present Extrem: General: normal to inspection Other: no edema Psych: Appearance: grossly normal Mental Status: mental status grossly normal Objective Data Vital Signs Vital Signs: Vital Signs - 24 hr 11/17/24 11:56 11/17/24 12:00 11/17/24 12:00 Temperature 36.4 C Pulse Rate 62 70 Respiratory Rate 14 Blood Pressure 114/52 L Pulse Oximetry 97 95 Oxygen Delivery Nasal Cannula Oxygen Flow Rate 2 11/17/24 12:00 11/17/24 14:00 11/17/24 14:00 Temperature Pulse Rate 62 65 66 Respiratory Rate Blood Pressure 114/52 L 129/59 L Pulse Oximetry 97 Oxygen Delivery Oxygen Flow Rate 11/17/24 14:21 11/17/24 16:00 11/17/24 16:00 Temperature 36.6 C Pulse Rate 65 68 Respiratory Rate 22 H Blood Pressure 129/59 L 126/62 Pulse Oximetry 95 95 Oxygen Delivery Nasal Cannula Oxygen Flow Rate 2 11/17/24 16:00 11/17/24 18:00 11/17/24 18:00 Temperature Pulse Rate 70 74 75 Respiratory Rate Blood Pressure 141/64 H Pulse Oximetry 95 Oxygen Delivery Oxygen Flow Rate 02/23/25 18:00 11/17/24 20:00 11/17/24 20:00 Temperature Pulse Rate 75 76 Respiratory Rate Blood Pressure 141/64 H Pulse Oximetry 95 Oxygen Delivery Nasal Cannula Oxygen Flow Rate 1 11/17/24 20:00 11/17/24 20:19 11/17/24 22:00 Temperature Pulse Rate 78 70 73 Respiratory Rate Blood Pressure Pulse Oximetry Oxygen Delivery Oxygen Flow Rate 11/17/24 22:31 11/18/24 00:00 11/18/24 00:00 Temperature 36.6 C Pulse Rate 73 75 Respiratory Rate 20 Blood Pressure 138/66 Pulse Oximetry 95 92 Oxygen Delivery Nasal Cannula Oxygen Flow Rate 1 11/18/24 00:00 11/18/24 00:12 11/18/24 01:57 Temperature 36.6 C 36.8 C Pulse Rate 76 75 78 Respiratory Rate 20 20 Blood Pressure 142/60 H 140/64 Pulse Oximetry 95 96 Oxygen Delivery Oxygen Flow Rate 11/18/24 02:00 11/18/24 02:22 11/18/24 02:31 Temperature Pulse Rate 78 68 68 Respiratory Rate Blood Pressure 140/64 Pulse Oximetry Oxygen Delivery Oxygen Flow Rate 11/18/24 03:57 11/18/24 04:00 11/18/24 04:00 Temperature Pulse Rate 69 68 Respiratory Rate Blood Pressure 147/67 H Pulse Oximetry 92 Oxygen Delivery Nasal Cannula Oxygen Flow Rate 1 11/18/24 04:24 11/18/24 05:59 11/18/24 06:00 Temperature 36.6 C 36.9 C Pulse Rate 68 72 72 Respiratory Rate 20 20 Blood Pressure 147/67 H 138/72 Pulse Oximetry 95 96 Oxygen Delivery Oxygen Flow Rate 11/18/24 08:00 11/18/24 09:33 Temperature 36.8 C Pulse Rate 75 79 Respiratory Rate 22 H Blood Pressure 140/58 L Pulse Oximetry 95 Oxygen Delivery Oxygen Flow Rate Intake/Output Intake/Output: Intake & Output 11/15/24 11/16/24 11/17/24 11/18/24 23:59 23:59 23:59 23:59 Intake Total 723.9 1463.4 1250.7 130.6 Output Total 1100 950 375 200 Balance -376.1 513.4 875.7 -69.4 Meds/Results Medications: Active Medications Generic Name Dose Route Start Last Admin Trade Name Freq PRN Reason Stop Dose Admin Acetaminophen 650 mg 11/13/24 15:00 11/17/24 09:18 Acetaminophen 325 Mg Tablet PO 650 mg Q4H PRN Administration Mild Pain (1-3) or Fever Amoxicillin/Clavulanate Potassium 1 tablet 11/18/24 09:25 11/18/24 09:35 Amoxicillin/Clavulanate K 875-125 Mg Tab PO 11/19/24 21:01 1 tablet Q12HR ELLEN Administration Apixaban 5 mg 11/14/24 21:00 11/18/24 09:34 Apixaban 5 Mg Tablet PO 5 mg Q12HR ELLEN Administration Atorvastatin Calcium 40 mg 11/14/24 21:00 11/17/24 20:19 Atorvastatin 40 Mg Tablet PO 40 mg HS ELLEN Administration Benzonatate 200 mg 11/14/24 02:18 11/14/24 09:48 Benzonatate 100 Mg Capsule PO 200 mg TID PRN Administration cough Buspirone HCl 10 mg 11/13/24 19:17 Buspirone Hcl 10 Mg Tablet PO TID PRN prn Doxycycline Hyclate 100 mg 11/13/24 21:00 11/18/24 09:33 Doxycycline Hyclate 100 Mg Tablet PO 11/19/24 23:59 100 mg Q12HR ELLEN Administration Gabapentin 400 mg 11/13/24 22:00 11/18/24 05:31 Gabapentin 400 Mg Capsule PO 400 mg Q8HR ELLEN Administration Guaifenesin/Dextromethorphan 10 ml 11/14/24 02:17 11/18/24 09:34 Guaifenesin/Dextromethorphan 10 Ml Udc PO 10 ml Q4H PRN Administration Cough Amiodarone HCl/Dextrose 360 mg in 200 mls @ 16.667 mls/hr 11/17/24 14:25 11/18/24 06:00 Nexterone 360 Mg/D5w 200 Ml IV CONT 0.5 mg/min .Q12H ELLEN 16.67 mls/hr Infusion 0.5 MG/MIN Levalbuterol HCl 1.25 mg 11/14/24 02:15 11/16/24 10:12 Levalbuterol Neb 1.25 Mg/3 Ml INHALATION 1.25 mg Q6HRT PRN Administration Shortness Of Breath Or Wheezing Metoprolol Tartrate 5 mg 11/16/24 04:54 Metoprolol Tartrate Inj 5 Mg/5 Ml Vial IV PUSH Q4H PRN HR greater than 140 sustained. Metoprolol Tartrate 25 mg 11/16/24 13:00 11/18/24 09:33 Metoprolol Tartrate 25 Mg Tablet PO 25 mg Q12HR ELLEN Administration Mirtazapine 15 mg 11/13/24 21:00 11/17/24 20:19 Mirtazapine 15 Mg Tablet PO 15 mg HS ELLEN Administration Ondansetron HCl 4 mg 11/13/24 15:00 Ondansetron Inj 4 Mg/2 Ml Vial IV PUSH Q6H PRN Nausea And Vomiting Pantoprazole Sodium 40 mg 11/14/24 09:00 11/18/24 09:34 Pantoprazole 40 Mg Tablet PO 40 mg QAM ELLEN Administration Radiology Results: ITS Impressions Chest X-Ray 11/15/24 09:56 Impression: Left lower lobe atelectasis/edema versus pneumonia. Correlate clinically. Central pulmonary venous congestive change. Head CT 11/15/24 11:38 IMPRESSION: 1. 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 No acute intracranial process. Labs Labs: Laboratory Results - last 24 hr 11/18/24 04:41 WBC 13.7 H RBC 3.89 L Hgb 11.2 L Hct 35.6 L MCV 91.5 MCH 28.8 MCHC 31.5 L RDW 15.7 H Plt Count 286 MPV 10.3 Immature Gran % (Auto) 4.3 H Neut % (Auto) 69.3 Lymph % (Auto) 16.4 L [place] % (Auto) 8.6 H Eos % (Auto) 0.7 Baso % (Auto) 0.7 Lymph # (Auto) 2.24 [place] # (Auto) 1.2 H Eos # (Auto) 0.1 Baso # (Auto) 0.1 Abs Immat Gran (auto) 0.59 H Absolute Neuts (auto) 9.5 H Absolute Nucleated RBC 0.000 Nucleated RBC % 0.0 Sodium 137 Potassium 3.4 Chloride 101 Carbon Dioxide 32 H Anion Gap 4 BUN 24 H Creatinine 0.69 L Estim Creat Clear Calc 54 Estimated GFR > 60 Glucose 106 Calcium 8.6 Magnesium 1.9 Total Bilirubin 0.6 AST 37 H ALT 32 Alkaline Phosphatase 86 Total Protein 6.0 L Albumin 2.7 L Quality VTE Prophylaxis VTE prophylaxis: pharmacologic ordered
[2024-11-18] MEDS: ACETAMINOPHEN 325 MG TABLET 650 MG PO (10:25)
--- NOTE | 2024-11-18 14:31 | P.PNIM_ITS ---
Progress Note: A&P Assessment and Plan (1) Sepsis: Code(s): A41.9 - Sepsis, unspecified organism Status: Acute Assessment and Plan: * Patient initially met sepsis criteria at [facility] with mann vated heart rate of 117, hypotension, acute respiratory failure, pneumonia, elevated lactic acid, elevated white blood cell count, NSTEMI, AFib RVR * Patient was given IV fluids while in the ED and overnight * Blood and sputum cultures were obtained and pending * Currently on cefepime, doxycycline, Tamiflu--renally dosed * Isolation (2) Acute respiratory failure with hypoxia: Code(s): J96.01 - Acute respiratory failure with hypoxia Status: Acute Assessment and Plan: Likely secondary to hospital-acquired pneumonia versus influenza a verses new onset AFib RVR versus NSTEMI, ? CHF * Currently on 2 L nasal cannula * Continue to wean for sat greater than 92% * Chest CTA was negative for PE, aortic dissection, aortic aneurysm, showed patchy left basilar airspace consolidation representing pneumonia, scattered areas of him minimal tree-in-bud opacities in the lungs suggesting focal areas of small airway infection, 8 mm superior segment right lower lobe pulmonary nodule suggestive of focal scarring. * Continue bronchodilator * Respiratory panel was positive for influenza A-continue Tamiflu * Currently being treated for HAP * Currently on cefepime and doxycycline however white blood cell count increased to 21.2--if not trending down by the morning we will switch cefepime to meropenem for broader coverage * Continue pep therapy and incentive spirometry * Continue Mucinex * Check BNP and chest x-ray * Lasix IV (3) Pneumonia: Code(s): J18.9 - Pneumonia, unspecified organism Status: Acute Assessment and Plan: * See above (4) Influenza: Code(s): J11.1 - Influenza due to unidentified influenza virus with other respiratory manifestations Status: Acute Assessment and Plan: * Respiratory panel positive for influenza A * See above (5) NSTEMI (non-ST elevated myocardial infarction): Code(s): I21.4 - Non-ST elevation (NSTEMI) myocardial infarction Status: Acute Assessment and Plan: Patient reporting chest pain and shortness of breath on presentation although chest pain appears pleuritic but she did had elevation of troponin * Troponin initially 345.1> 317.9> 0.186 * Patient was started on heparin infusion with bolus for acute coronary syndrome * Cardiology consulted * Echocardiogram ordered, results pending * Continue cardiac telemetry monitoring * Continue IMU status * Add aspirin continue statin (6) Atrial fibrillation with RVR: Code(s): I48.91 - Unspecified atrial fibrillation Status: Acute Assessment and Plan: * Initial EKG at [facility] shown AFib with RVR with a rate of 179. Patient's daughter no mentions the patient had an episode of AFib 7 years ago which resolved. She is currently not on any anticoagulation * She was given a bolus of amiodarone and started on an amiodarone infusion. She was able to convert back to normal sinus rhythm at 10:38 a.m. this morning. * Cardiology consulted * Continue amiodarone infusion for now * Continuous cardiac monitoring * Continue IMU status (7) Elevated d-dimer: Code(s): R79.89 - Other specified abnormal findings of blood chemistry Status: Acute Assessment and Plan: * D-dimer elevated at 1.21 * CTA of the chest was negative for PE (8) RAQUEL (acute kidney injury): Code(s): N17.9 - Acute kidney failure, unspecified Status: Acute Assessment and Plan: * Creatinine 1.44, EGFR 35 * Baseline creatinine appears to be 1.05-1.07, EGFR appears to be 49-50 * Creatinine improved. Continue to trend * Off losartan and Lasix (9) Essential hypertension: Code(s): I10 - Essential (primary) hypertension Status: Acute Assessment and Plan: * Blood pressures have been labile due to AFib RVR versus sepsis versus NSTEMI * Losartan and Lasix on hold due to RAQUEL and labile blood pressures (10) Hyperlipidemia: Code(s): E78.5 - Hyperlipidemia, unspecified Status: Acute Assessment and Plan: * Continue atorvastatin (11) GERD without esophagitis: Code(s): K21.9 - Gastro-esophageal reflux disease without esophagitis Status: Acute Assessment and Plan: * Continue Protonix 40 mg daily Plan DVT prophylaxis -heparin infusion Stress ulcer prophylaxis -PPI Nutrition -diet ordered Code Status -patient wishes to be DNR DNI which I confirmed with both patient and her [id number] at bedside. I answered all their questions. Subjective Date/time seen: 11/18/24 14:31 Interval history: No acute events. Still on Amiodarone drip. MRI pending. Review of Systems Review of Systems: All systems reviewed & are unremarkable except as noted in HPI and below Exam Narrative: General: Alert awake in no acute distress Head: atraumatic, no encephalopathy Eyes: PERRLA, sclera clear ENT: moist mucous membranes, nasal passages clear Neck: supple, no JVD, no adenopathy, trachea midline Cardiac: Normal S1 and S2. Sinus tachycardia, No murmur, gallops or friction rubs, peripheral pulses intact. hypotensive Respiratory: currently on 2 L nasal cannula, mild tachypnea and shortness a breath with lip pursing, coarse breathing with occasional wheezing and bibasilar crackles Gastrointestinal: soft, non-distended, non-tender, normoactive bowel sounds. : voiding without difficulty. Extremities: moves all extremities well, bilateral mild pitting edema Skin: clean, dry, intact. No wounds or lesions. Neuro: Alert and oriented x3, cranial nerves intact, no neuro deficits. Psych: normal mood, normal affect, interactive Objective Data Vital Signs Vital Signs: Vital Signs - 24 hr 11/17/24 16:00 11/17/24 16:00 11/17/24 16:00 Temperature 97.9 F Pulse Rate 68 70 Respiratory Rate 22 H Blood Pressure 126/62 Pulse Oximetry 95 95 Oxygen Delivery Nasal Cannula Oxygen Flow Rate 2 11/17/24 18:00 11/17/24 18:00 11/17/24 18:00 Temperature Pulse Rate 74 75 75 Respiratory Rate Blood Pressure 141/64 H 141/64 H Pulse Oximetry 95 Oxygen Delivery Oxygen Flow Rate 11/17/24 20:00 11/17/24 20:00 11/17/24 20:00 Temperature Pulse Rate 76 78 Respiratory Rate Blood Pressure Pulse Oximetry 95 Oxygen Delivery Nasal Cannula Oxygen Flow Rate 1 11/17/24 20:19 11/17/24 22:00 11/17/24 22:31 Temperature 98 F Pulse Rate 70 73 73 Respiratory Rate 20 Blood Pressure 138/66 Pulse Oximetry 95 Oxygen Delivery Oxygen Flow Rate 11/18/24 00:00 11/18/24 00:00 11/18/24 00:00 Temperature Pulse Rate 75 76 Respiratory Rate Blood Pressure Pulse Oximetry 92 Oxygen Delivery Nasal Cannula Oxygen Flow Rate 1 11/18/24 00:12 11/18/24 01:57 11/18/24 02:00 Temperature 98 F 98.3 F Pulse Rate 75 78 78 Respiratory Rate 20 20 Blood Pressure 142/60 H 140/64 140/64 Pulse Oximetry 95 96 Oxygen Delivery Oxygen Flow Rate 11/18/24 02:22 11/18/24 02:31 11/18/24 03:57 Temperature Pulse Rate 68 68 Respiratory Rate Blood Pressure Pulse Oximetry 92 Oxygen Delivery Nasal Cannula Oxygen Flow Rate 1 11/18/24 04:00 11/18/24 04:00 11/18/24 04:24 Temperature 98 F Pulse Rate 69 68 68 Respiratory Rate 20 Blood Pressure 147/67 H 147/67 H Pulse Oximetry 95 Oxygen Delivery Oxygen Flow Rate 11/18/24 05:59 11/18/24 06:00 11/18/24 08:00 Temperature 98.4 F 98.3 F Pulse Rate 72 72 75 Respiratory Rate 20 22 H Blood Pressure 138/72 140/58 L Pulse Oximetry 96 95 Oxygen Delivery Oxygen Flow Rate 11/18/24 08:00 11/18/24 09:33 11/18/24 10:00 Temperature Pulse Rate 75 79 76 Respiratory Rate Blood Pressure 140/58 L 119/76 Pulse Oximetry Oxygen Delivery Oxygen Flow Rate 11/18/24 10:00 11/18/24 12:00 11/18/24 12:00 Temperature 98.3 F Pulse Rate 76 68 68 Respiratory Rate 20 Blood Pressure 119/76 140/59 L 140/59 L Pulse Oximetry 95 Oxygen Delivery Oxygen Flow Rate Intake/Output Intake/Output: Intake & Output 11/15/24 11/16/24 11/17/24 11/18/24 23:59 23:59 23:59 23:59 Intake Total 723.9 1463.4 1250.7 305.5 Output Total 1100 950 375 200 Balance -376.1 513.4 875.7 105.5 Meds/Results Medications: Active Medications Generic Name Dose Route Start Last Admin Trade Name Freq PRN Reason Stop Dose Admin Acetaminophen 650 mg 11/13/24 15:00 11/18/24 10:25 Acetaminophen 325 Mg Tablet PO 650 mg Q4H PRN Administration Mild Pain (1-3) or Fever Amiodarone HCl 400 mg 11/18/24 17:00 Amiodarone Hcl 200 Mg Tablet PO BID ELLEN Amoxicillin/Clavulanate Potassium 1 tablet 11/18/24 09:25 11/18/24 09:35 Amoxicillin/Clavulanate K 875-125 Mg Tab PO 11/19/24 21:01 1 tablet Q12HR ELLEN Administration Apixaban 5 mg 11/14/24 21:00 11/18/24 09:34 Apixaban 5 Mg Tablet PO 5 mg Q12HR ELLEN Administration Atorvastatin Calcium 40 mg 11/14/24 21:00 11/17/24 20:19 Atorvastatin 40 Mg Tablet PO 40 mg HS ELLEN Administration Benzonatate 200 mg 11/14/24 02:18 11/14/24 09:48 Benzonatate 100 Mg Capsule PO 200 mg TID PRN Administration cough Buspirone HCl 10 mg 11/13/24 19:17 Buspirone Hcl 10 Mg Tablet PO TID PRN prn Doxycycline Hyclate 100 mg 11/13/24 21:00 11/18/24 09:33 Doxycycline Hyclate 100 Mg Tablet PO 11/19/24 23:59 100 mg Q12HR ELLEN Administration Gabapentin 400 mg 11/13/24 22:00 11/18/24 14:04 Gabapentin 400 Mg Capsule PO 400 mg Q8HR ELLEN Administration Guaifenesin/Dextromethorphan 10 ml 11/14/24 02:17 11/18/24 09:34 Guaifenesin/Dextromethorphan 10 Ml Udc PO 10 ml Q4H PRN Administration Cough Amiodarone HCl/Dextrose 360 mg in 200 mls @ 16.667 mls/hr 11/17/24 14:25 11/18/24 12:00 Nexterone 360 Mg/D5w 200 Ml IV CONT 11/18/24 17:00 0.5 mg/min .Q12H ELLEN 16.67 mls/hr Infusion 0.5 MG/MIN Levalbuterol HCl 1.25 mg 11/14/24 02:15 11/16/24 10:12 Levalbuterol Neb 1.25 Mg/3 Ml INHALATION 1.25 mg Q6HRT PRN Administration Shortness Of Breath Or Wheezing Metoprolol Tartrate 5 mg 11/16/24 04:54 Metoprolol Tartrate Inj 5 Mg/5 Ml Vial IV PUSH Q4H PRN HR greater than 140 sustained. Metoprolol Tartrate 25 mg 11/16/24 13:00 11/18/24 09:33 Metoprolol Tartrate 25 Mg Tablet PO 25 mg Q12HR ELLEN Administration Mirtazapine 15 mg 11/13/24 21:00 11/17/24 20:19 Mirtazapine 15 Mg Tablet PO 15 mg HS ELLEN Administration Ondansetron HCl 4 mg 11/13/24 15:00 Ondansetron Inj 4 Mg/2 Ml Vial IV PUSH Q6H PRN Nausea And Vomiting Pantoprazole Sodium 40 mg 11/14/24 09:00 11/18/24 09:34 Pantoprazole 40 Mg Tablet PO 40 mg QAM ELLEN Administration Radiology Results: ITS Impressions Chest X-Ray 11/15/24 09:56 Impression: Left lower lobe atelectasis/edema versus pneumonia. Correlate clinically. Central pulmonary venous congestive change. Head CT 11/15/24 11:38 IMPRESSION: 1. 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 No acute intracranial process. Labs Labs: Laboratory Results - last 24 hr 11/18/24 04:41 WBC 13.7 H RBC 3.89 L Hgb 11.2 L Hct 35.6 L MCV 91.5 MCH 28.8 MCHC 31.5 L RDW 15.7 H Plt Count 286 MPV 10.3 Immature Gran % (Auto) 4.3 H Neut % (Auto) 69.3 Lymph % (Auto) 16.4 L [place] % (Auto) 8.6 H Eos % (Auto) 0.7 Baso % (Auto) 0.7 Lymph # (Auto) 2.24 [place] # (Auto) 1.2 H Eos # (Auto) 0.1 Baso # (Auto) 0.1 Abs Immat Gran (auto) 0.59 H Absolute Neuts (auto) 9.5 H Absolute Nucleated RBC 0.000 Nucleated RBC % 0.0 Sodium 137 Potassium 3.4 Chloride 101 Carbon Dioxide 32 H Anion Gap 4 BUN 24 H Creatinine 0.69 L Estim Creat Clear Calc 54 Estimated GFR > 60 Glucose 106 Calcium 8.6 Magnesium 1.9 Total Bilirubin 0.6 AST 37 H ALT 32 Alkaline Phosphatase 86 Total Protein 6.0 L Albumin 2.7 L Quality VTE Prophylaxis VTE prophylaxis: pharmacologic ordered Hospitalist MIPS Advance Care Plan I have confirmed that the patient's Advanced Care Plan is present, code status is documented, or surrogate decision maker is listed in patient medical record.: Yes Medication Reconciliation I have utilized all available resources to obtain, update and review the patients current medications (includes all prescriptions, OTC, herbals, cannabis, and nutritional supplements).: Yes
[2024-11-18] MEDS: AMIODARONE HCL 200 MG TABLET 400 MG PO (17:05)
[2024-11-18] MEDS: ATORVASTATIN 40 MG TABLET PO (20:34)
[2024-11-18] MEDS: MIRTAZAPINE 15 MG TABLET PO (20:34)
[2024-11-19] VITALS (14 sets, daily range): BP systolic 126–155; BP diastolic 54–84; PULSE 76–87; RESP 18–22; TEMP 36.2–37.1; O2SAT 90–96
[2024-11-19 05:07] LABS: Basophils Absolute Auto 0.1 K/mm3 (0.0-0.1); Basophils Percent Auto 0.4 % (0.2-1.2); Eosinophils Absolute Auto 0.1 K/mm3 (0-0.3); Eosinophils Percent Auto 0.6 % (0-4.4); Hematocrit 36.8 % (37.0-47.0); Hemoglobin 12.1 g/dL (12.0-15.0); Immature Granulocyte Absolute 0.36 K/mm3 (0.00-0.031); Immature Granulocyte Percent A 2.3 % (0-0.5); Lymphocytes Absolute Auto 2.34 K/mm3 (0.9-3.2); Lymphocytes Percent Auto 14.8 % (18.3-44.2); Mean Corpuscular HGB Conc 32.9 g/dl (32-36); Mean Corpuscular Hemoglobin 29.7 pg (26-34); Mean Corpuscular Volume 90.2 fl (80-100); Mean Platelet Volume 10.1 fl (7.4-10.4); Monocytes Absolute Auto 0.9 K/mm3 (0.1-0.6); Monocytes Percent Auto 5.4 % (2.6-8.5); Neutrophils Absolute Auto 12.1 K/mm3 (1.3-6.7); Neutrophils Percent Auto 76.5 % (45.5-73.1); Platelet Count Result 320 k/mm3 (150-375); Red Blood Count 4.08 M/mm3 (4.2-5.4); Red Cell Distribution Width 15.4 % (11.5-14.5); White Blood Count 15.8 K/mm3 (4.5-10.0)
[2024-11-19 05:20] LABS: Alanine Aminotransferase 33 U/L (6-35); Albumin Level 2.9 g/dL (3.5-5.1); Alkaline Phosphatase 98 U/L (38-126); Anion Gap 6 mmol/L (4-12); Aspartate Amino Transferase 32 U/L (14-36); Blood Urea Nitrogen 22 mg/dL (7-17); Calcium 8.9 mg/dL (8.4-10.2); Carbon Dioxide 32 mmol/L (22-30); Chloride 101 mmol/L (98-107); Estimated CRCL calculation 53 ml/min; Estimated Glomerular Filt Rate > 60; Glucose 102 mg/dL (65-110); Magnesium 1.8 mg/dL (1.6-2.3); Potassium 3.2 mmol/L (3.4-5.0); Sodium 139 mmol/L (137-145)
[2024-11-19] MEDS: GABAPENTIN 400 MG CAPSULE PO ×3 (05:45→20:36)
--- NOTE | 2024-11-19 08:46 | P.PNIM_ITS ---
Progress Note: A&P Assessment and Plan (1) Sepsis: Code(s): A41.9 - Sepsis, unspecified organism Status: Acute Assessment and Plan: * Patient initially met sepsis criteria at [facility] with mann vated heart rate of 117, hypotension, acute respiratory failure, pneumonia, elevated lactic acid, elevated white blood cell count, NSTEMI, AFib RVR * Patient was given IV fluids while in the ED and overnight * Blood and sputum cultures were obtained and pending * DC cefepime * Started on amoxicillin/clavulanate, and continue doxycycline, Tamiflu--renally dosed * Isolation (2) Acute respiratory failure with hypoxia: Code(s): J96.01 - Acute respiratory failure with hypoxia Status: Acute Assessment and Plan: Likely secondary to hospital-acquired pneumonia versus influenza a verses new onset AFib RVR versus NSTEMI, ? CHF * Currently on 2 L nasal cannula * Continue to wean for sat greater than 92% * Chest CTA was negative for PE, aortic dissection, aortic aneurysm, showed patchy left basilar airspace consolidation representing pneumonia, scattered areas of him minimal tree-in-bud opacities in the lungs suggesting focal areas of small airway infection, 8 mm superior segment right lower lobe pulmonary nodule suggestive of focal scarring. * Continue bronchodilator * Respiratory panel was positive for influenza A-continue Tamiflu * Currently being treated for HAP * Currently on cefepime and doxycycline however white blood cell count increased to 21.2--if not trending down by the morning we will switch cefepime to meropenem for broader coverage * Continue pep therapy and incentive spirometry * Continue Mucinex * Check BNP and chest x-ray * Lasix IV (3) Pneumonia: Code(s): J18.9 - Pneumonia, unspecified organism Status: Acute Assessment and Plan: * See above (4) Influenza: Code(s): J11.1 - Influenza due to unidentified influenza virus with other respiratory manifestations Status: Acute Assessment and Plan: * Respiratory panel positive for influenza A * See above (5) NSTEMI (non-ST elevated myocardial infarction): Code(s): I21.4 - Non-ST elevation (NSTEMI) myocardial infarction Status: Acute Assessment and Plan: Patient reporting chest pain and shortness of breath on presentation although chest pain appears pleuritic but she did had elevation of troponin * Troponin initially 345.1> 317.9> 0.186 * Patient was started on heparin infusion with bolus for acute coronary syndrome * Cardiology consulted * Echocardiogram ordered, results pending * Continue cardiac telemetry monitoring * Continue IMU status * Add aspirin continue statin (6) Atrial fibrillation with RVR: Code(s): I48.91 - Unspecified atrial fibrillation Status: Acute Assessment and Plan: * Initial EKG at [facility] shown AFib with RVR with a rate of 179. Patient's daughter no mentions the patient had an episode of AFib 7 years ago which resolved. She is currently not on any anticoagulation * She was given a bolus of amiodarone and started on an amiodarone infusion. She was able to convert back to normal sinus rhythm at 10:38 a.m. this morning. * Cardiology consulted * Continue amiodarone infusion for now * Continuous cardiac monitoring * Continue IMU status (7) Elevated d-dimer: Code(s): R79.89 - Other specified abnormal findings of blood chemistry Status: Acute Assessment and Plan: * D-dimer elevated at 1.21 * CTA of the chest was negative for PE (8) RAQUEL (acute kidney injury): Code(s): N17.9 - Acute kidney failure, unspecified Status: Acute Assessment and Plan: * Creatinine 1.44, EGFR 35 * Baseline creatinine appears to be 1.05-1.07, EGFR appears to be 49-50 * Creatinine improved. Continue to trend * Off losartan and Lasix (9) Essential hypertension: Code(s): I10 - Essential (primary) hypertension Status: Acute Assessment and Plan: * Blood pressures have been labile due to AFib RVR versus sepsis versus NSTEMI * Losartan and Lasix on hold due to RAQUEL and labile blood pressures (10) Hyperlipidemia: Code(s): E78.5 - Hyperlipidemia, unspecified Status: Acute Assessment and Plan: * Continue atorvastatin (11) GERD without esophagitis: Code(s): K21.9 - Gastro-esophageal reflux disease without esophagitis Status: Acute Assessment and Plan: * Continue Protonix 40 mg daily Plan DVT prophylaxis -heparin infusion Stress ulcer prophylaxis -PPI Nutrition -diet ordered Code Status -patient wishes to be DNR DNI which I confirmed with both patient and her [id number] at bedside. I answered all their questions. Subjective Date/time seen: 02/25/25 08:46 Interval history: Patient is off amiodarone drip. Refused MRI today.Possible discharge tomorrow Review of Systems Review of Systems: All systems reviewed & are unremarkable except as noted in HPI and below Exam Narrative: General: Alert awake in no acute distress Head: atraumatic, no encephalopathy Eyes: PERRLA, sclera clear ENT: moist mucous membranes, nasal passages clear Neck: supple, no JVD, no adenopathy, trachea midline Cardiac: Normal S1 and S2. Sinus tachycardia, No murmur, gallops or friction rubs, peripheral pulses intact. hypotensive Respiratory: currently on 2 L nasal cannula, mild tachypnea and shortness a breath with lip pursing, coarse breathing with occasional wheezing and bibasilar crackles Gastrointestinal: soft, non-distended, non-tender, normoactive bowel sounds. : voiding without difficulty. Extremities: moves all extremities well, bilateral mild pitting edema Skin: clean, dry, intact. No wounds or lesions. Neuro: Alert and oriented x3, cranial nerves intact, no neuro deficits. Psych: normal mood, normal affect, interactive Objective Data Vital Signs Vital Signs: Vital Signs - 24 hr 11/18/24 09:33 11/18/24 10:00 11/18/24 10:00 Temperature Pulse Rate 79 76 76 Respiratory Rate Blood Pressure 119/76 119/76 Pulse Oximetry Oxygen Delivery Oxygen Flow Rate 11/18/24 10:00 11/18/24 12:00 11/18/24 12:00 Temperature 98.3 F Pulse Rate 76 68 68 Respiratory Rate 20 Blood Pressure 140/59 L 140/59 L Pulse Oximetry 95 Oxygen Delivery Oxygen Flow Rate 11/18/24 12:00 11/18/24 12:00 11/18/24 14:00 Temperature Pulse Rate 69 70 Respiratory Rate Blood Pressure 129/71 Pulse Oximetry 95 Oxygen Delivery Nasal Cannula Oxygen Flow Rate 1 11/18/24 14:00 11/18/24 14:00 11/18/24 14:32 Temperature Pulse Rate 72 72 Respiratory Rate Blood Pressure 129/71 129/71 Pulse Oximetry Oxygen Delivery Oxygen Flow Rate 11/18/24 14:42 11/18/24 16:00 11/18/24 16:00 Temperature 97.9 F Pulse Rate 72 69 Respiratory Rate 22 H Blood Pressure 129/71 130/56 L Pulse Oximetry 97 95 Oxygen Delivery Nasal Cannula Oxygen Flow Rate 1 11/18/24 16:00 11/18/24 16:00 11/18/24 17:05 Temperature Pulse Rate 69 63 71 Respiratory Rate Blood Pressure 130/56 L Pulse Oximetry Oxygen Delivery Oxygen Flow Rate 11/18/24 17:39 11/18/24 18:00 11/18/24 20:00 Temperature 98.5 F Pulse Rate 69 72 74 Respiratory Rate 18 Blood Pressure 146/64 H Pulse Oximetry 96 Oxygen Delivery Oxygen Flow Rate 11/18/24 20:00 11/18/24 20:00 11/18/24 20:34 Temperature Pulse Rate 69 75 Respiratory Rate Blood Pressure Pulse Oximetry 92 Oxygen Delivery Nasal Cannula Oxygen Flow Rate 1 11/19/24 00:00 11/19/24 00:00 11/19/24 00:00 Temperature 97.2 F L Pulse Rate 76 79 Respiratory Rate 18 Blood Pressure 126/84 Pulse Oximetry 94 92 Oxygen Delivery Nasal Cannula Oxygen Flow Rate 1 11/19/24 04:00 11/19/24 04:00 11/19/24 04:00 Temperature 98.1 F Pulse Rate 80 82 Respiratory Rate 18 Blood Pressure 132/54 L Pulse Oximetry 90 92 Oxygen Delivery Nasal Cannula Oxygen Flow Rate 1 11/19/24 08:00 Temperature 97.6 F Pulse Rate 80 Respiratory Rate 20 Blood Pressure 143/64 H Pulse Oximetry 92 Oxygen Delivery Oxygen Flow Rate Intake/Output Intake/Output: Intake & Output 11/16/24 11/17/24 11/18/24 11/19/24 23:59 23:59 23:59 23:59 Intake Total 1463.4 1250.7 966.8 Output Total 704 680 9854 300 Balance 513.4 875.7 -433.2 -300 Meds/Results Medications: Active Medications Generic Name Dose Route Start Last Admin Trade Name Freq PRN Reason Stop Dose Admin Acetaminophen 650 mg 11/13/24 15:00 11/18/24 10:25 Acetaminophen 325 Mg Tablet PO 650 mg Q4H PRN Administration Mild Pain (1-3) or Fever Amiodarone HCl 400 mg 11/18/24 17:00 11/18/24 17:05 Amiodarone Hcl 200 Mg Tablet PO 400 mg BID ELLEN Administration Amoxicillin/Clavulanate Potassium 1 tablet 11/18/24 09:25 11/18/24 20:34 Amoxicillin/Clavulanate K 875-125 Mg Tab PO 11/19/24 21:01 1 tablet Q12HR ELLEN Administration Apixaban 5 mg 11/14/24 21:00 11/18/24 20:34 Apixaban 5 Mg Tablet PO 5 mg Q12HR ELLEN Administration Atorvastatin Calcium 40 mg 11/14/24 21:00 11/18/24 20:34 Atorvastatin 40 Mg Tablet PO 40 mg HS ELLEN Administration Benzonatate 200 mg 11/14/24 02:18 11/14/24 09:48 Benzonatate 100 Mg Capsule PO 200 mg TID PRN Administration cough Buspirone HCl 10 mg 11/13/24 19:17 Buspirone Hcl 10 Mg Tablet PO TID PRN prn Doxycycline Hyclate 100 mg 11/13/24 21:00 11/18/24 20:34 Doxycycline Hyclate 100 Mg Tablet PO 11/19/24 23:59 100 mg Q12HR ELLEN Administration Gabapentin 400 mg 11/13/24 22:00 11/19/24 05:45 Gabapentin 400 Mg Capsule PO 400 mg Q8HR ELLEN Administration Guaifenesin/Dextromethorphan 10 ml 11/14/24 02:17 11/18/24 09:34 Guaifenesin/Dextromethorphan 10 Ml Udc PO 10 ml Q4H PRN Administration Cough Levalbuterol HCl 1.25 mg 11/14/24 02:15 11/16/24 10:12 Levalbuterol Neb 1.25 Mg/3 Ml INHALATION 1.25 mg Q6HRT PRN Administration Shortness Of Breath Or Wheezing Metoprolol Tartrate 5 mg 11/16/24 04:54 Metoprolol Tartrate Inj 5 Mg/5 Ml Vial IV PUSH Q4H PRN HR greater than 140 sustained. Metoprolol Tartrate 25 mg 11/16/24 13:00 11/18/24 20:34 Metoprolol Tartrate 25 Mg Tablet PO 25 mg Q12HR ELLEN Administration Mirtazapine 15 mg 11/13/24 21:00 11/18/24 20:34 Mirtazapine 15 Mg Tablet PO 15 mg HS ELLEN Administration Ondansetron HCl 4 mg 11/13/24 15:00 Ondansetron Inj 4 Mg/2 Ml Vial IV PUSH Q6H PRN Nausea And Vomiting Pantoprazole Sodium 40 mg 11/14/24 09:00 11/18/24 09:34 Pantoprazole 40 Mg Tablet PO 40 mg QAM ELLEN Administration Potassium Chloride 60 meq 11/19/24 08:36 Potassium Chloride 20 Meq Er Tablet PO 11/19/24 08:37 ONCE ONE Radiology Results: ITS Impressions Chest X-Ray 11/15/24 09:56 Impression: Left lower lobe atelectasis/edema versus pneumonia. Correlate clinically. Central pulmonary venous congestive change. Head CT 11/15/24 11:38 IMPRESSION: 1. 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 No acute intracranial process. Labs Labs: Laboratory Results - last 24 hr 11/19/24 04:34 WBC 15.8 H RBC 4.08 L Hgb 12.1 Hct 36.8 L MCV 90.2 MCH 29.7 MCHC 32.9 RDW 15.4 H Plt Count 320 MPV 10.1 Immature Gran % (Auto) 2.3 H Neut % (Auto) 76.5 H Lymph % (Auto) 14.8 L [place] % (Auto) 5.4 Eos % (Auto) 0.6 Baso % (Auto) 0.4 Lymph # (Auto) 2.34 [place] # (Auto) 0.9 H Eos # (Auto) 0.1 Baso # (Auto) 0.1 Abs Immat Gran (auto) 0.36 H Absolute Neuts (auto) 12.1 H Absolute Nucleated RBC 0.000 Nucleated RBC % 0.0 Sodium 139 Potassium 3.2 L Chloride 101 Carbon Dioxide 32 H Anion Gap 6 BUN 22 H Creatinine 0.72 Estim Creat Clear Calc 53 Estimated GFR > 60 Glucose 102 Calcium 8.9 Magnesium 1.8 Total Bilirubin 1.0 AST 32 ALT 33 Alkaline Phosphatase 98 Total Protein 7.0 Albumin 2.9 L Quality VTE Prophylaxis VTE prophylaxis: pharmacologic ordered Hospitalist MIPS Advance Care Plan I have confirmed that the patient's Advanced Care Plan is present, code status is documented, or surrogate decision maker is listed in patient medical record.: Yes Medication Reconciliation I have utilized all available resources to obtain, update and review the patients current medications (includes all prescriptions, OTC, herbals, cannabis, and nutritional supplements).: Yes
[2024-11-19] MEDS: AMIODARONE HCL 200 MG TABLET 400 MG PO ×2 (08:54→17:09)
[2024-11-19] MEDS: AMOXICILLIN/CLAVULANATE K 875-125 MG TAB 1 TABLET PO ×2 (08:55→20:35)
[2024-11-19] MEDS: PANTOPRAZOLE 40 MG TABLET PO (08:55)
[2024-11-19] MEDS: METOPROLOL TARTRATE 25 MG TABLET PO ×2 (08:55→20:36)
[2024-11-19] MEDS: POTASSIUM CHLORIDE 20 MEQ ER TABLET 60 MEQ PO (08:55)
[2024-11-19] MEDS: APIXABAN 5 MG TABLET PO ×2 (08:55→20:35)
[2024-11-19] MEDS: DOXYCYCLINE HYCLATE 100 MG TABLET PO ×2 (08:55→20:35)
--- NOTE | 2024-11-19 09:00 | PC.NURSE ---
RN in room doing morning assessment and administering morning medication, RN asked pt if she's having any pain. Pt states yes, my back hurts. RN obtains PRN Tylenol, upon administering Tylenol pt states what are all these pills for. RN re-educates pt on medication. I don't have any pain. I don't need those. RN waste Tylenol in sharps container.
--- NOTE | 2024-11-19 12:45 | PC.NURSE ---
This patient, Nydia Walker, was transferred to [[id number] ] on 11/19/24 at 1245. Personal belongings sent with patient. Report given to [VALERIE Gonzalez @ [phone] ]. Appropriate documentation sent with patient. Daughter, Juanita, at bedside and aware of transfer.
--- NOTE | 2024-11-19 13:07 | PC.NURSE ---
This patient, Nydia Walker, was received from IMU on 11/19/24 at 1300. Patient/family oriented to unit policies and routines
--- NOTE | 2024-11-19 14:00 | PCPTNOTE ---
Attempted to see patient for PT, however patient was working with OT.
--- NOTE | 2024-11-19 15:12 | PCPTNOTE ---
Patient refused treatment this session. Patient reported she has her programs on TV that she watches and did not want to do therapy at this time. Encouraged patient to participate with PT and educated patient on the importance of PT, patient continued to refuse.
[2024-11-19] MEDS: MIRTAZAPINE 15 MG TABLET PO (20:35)
[2024-11-19] MEDS: ATORVASTATIN 40 MG TABLET PO (20:35)
[2024-11-20] VITALS (7 sets, daily range): BP systolic 126–150; BP diastolic 59–69; PULSE 72–77; RESP 18–20; TEMP 36.1–36.4; O2SAT 92–96
--- NOTE | 2024-11-20 04:23 | PC.NURSE ---
Pt. felt like she needed to void. Pt. assisted to commode but was unable to void. Pt. has not voided since alexander was removed on 11/19/2024 at 1100. Bladder scan done showing 280 ml urine in bladder.
[2024-11-20] MEDS: GABAPENTIN 400 MG CAPSULE PO ×2 (05:31→14:50)
--- NOTE | 2024-11-20 06:11 | PC.NURSE ---
Bladder scan done showing 256 ml urine.
[2024-11-20 07:21] LABS: Basophils Percent Auto 0.3 % (0.2-1.2); Eosinophils Absolute Auto 0.1 K/mm3 (0-0.3); Eosinophils Percent Auto 0.8 % (0-4.4); Hematocrit 36.1 % (37.0-47.0); Hemoglobin 11.5 g/dL (12.0-15.0); Immature Granulocyte Absolute 0.17 K/mm3 (0.00-0.031); Immature Granulocyte Percent A 1.2 % (0-0.5); Lymphocytes Absolute Auto 1.91 K/mm3 (0.9-3.2); Lymphocytes Percent Auto 13.3 % (18.3-44.2); Mean Corpuscular HGB Conc 31.9 g/dl (32-36); Mean Corpuscular Hemoglobin 29.6 pg (26-34); Mean Corpuscular Volume 92.8 fl (80-100); Mean Platelet Volume 9.9 fl (7.4-10.4); Monocytes Absolute Auto 0.9 K/mm3 (0.1-0.6); Monocytes Percent Auto 5.9 % (2.6-8.5); Neutrophils Absolute Auto 11.3 K/mm3 (1.3-6.7); Neutrophils Percent Auto 78.5 % (45.5-73.1); Platelet Count Result 329 k/mm3 (150-375); Red Blood Count 3.89 M/mm3 (4.2-5.4); Red Cell Distribution Width 15.3 % (11.5-14.5); White Blood Count 14.4 K/mm3 (4.5-10.0)
[2024-11-20 07:44] LABS: Alanine Aminotransferase 28 U/L (6-35); Alkaline Phosphatase 96 U/L (38-126); Anion Gap 6 mmol/L (4-12); Aspartate Amino Transferase 29 U/L (14-36); Blood Urea Nitrogen 22 mg/dL (7-17); Calcium 9.1 mg/dL (8.4-10.2); Carbon Dioxide 33 mmol/L (22-30); Chloride 102 mmol/L (98-107); Estimated CRCL calculation 50 ml/min; Estimated Glomerular Filt Rate > 60; Glucose 109 mg/dL (65-110); Magnesium 1.9 mg/dL (1.6-2.3); Potassium 3.8 mmol/L (3.4-5.0); Sodium 141 mmol/L (137-145)
[2024-11-20] MEDS: APIXABAN 5 MG TABLET PO (09:07)
[2024-11-20] MEDS: METOPROLOL TARTRATE 25 MG TABLET PO (09:07)
[2024-11-20] MEDS: PANTOPRAZOLE 40 MG TABLET PO (09:07)
[2024-11-20] MEDS: AMIODARONE HCL 200 MG TABLET 400 MG PO (09:07)
--- NOTE | 2024-11-20 10:50 | PCNWS ---
Weekly nutritional screen. Spoke with nursing today, patient is tolerating current diet. No weight loss reported. No nutritional needs at this time.
--- NOTE | 2024-11-20 14:26 | P.DS_ITS ---
DS: Admitting Diagnosis Discharge Date 11/20/2024 Admitting Diagnosis Fall DS: Discharge Diagnosis Discharge Diagnosis (1) Sepsis: Code(s): A41.9 - Sepsis, unspecified organism Status: Acute Assessment and Plan: * Resolved * Patient initially met sepsis criteria at [facility] with elevated heart rate of 117, hypotension, acute respiratory failure, pneumonia, elevated lactic acid, elevated white blood cell count, NSTEMI, AFib RVR * Patient was given IV fluids while in the ED and overnight * Blood and sputum cultures were obtained and pending * DC cefepime * Continue amoxicillin/clavulanate, and continue doxycycline. * Completed Tamiflu--renally dosed (2) Acute respiratory failure with hypoxia: Code(s): J96.01 - Acute respiratory failure with hypoxia Status: Acute Assessment and Plan: Resolved Likely secondary to hospital-acquired pneumonia versus influenza a verses new onset AFib RVR versus NSTEMI, ? CHF * Currently on 2 L nasal cannula * Continue to wean for sat greater than 92% * Chest CTA was negative for PE, aortic dissection, aortic aneurysm, showed patchy left basilar airspace consolidation representing pneumonia, scattered areas of him minimal tree-in-bud opacities in the lungs suggesting focal areas of small airway infection, 8 mm superior segment right lower lobe pulmonary nodule suggestive of focal scarring. * Continue bronchodilator * Respiratory panel was positive for influenza A-continue Tamiflu * Currently being treated for HAP * Currently on cefepime and doxycycline however white blood cell count increased to 21.2--if not trending down by the morning we will switch cefepime to meropenem for broader coverage * Continue pep therapy and incentive spirometry * Continue Mucinex * Check BNP and chest x-ray * Lasix IV (3) Pneumonia: Code(s): J18.9 - Pneumonia, unspecified organism Status: Acute Assessment and Plan: * See above (4) Influenza: Code(s): J11.1 - Influenza due to unidentified influenza virus with other respiratory manifestations Status: Acute Assessment and Plan: * Respiratory panel positive for influenza A * See above (5) NSTEMI (non-ST elevated myocardial infarction): Code(s): I21.4 - Non-ST elevation (NSTEMI) myocardial infarction Status: Acute Assessment and Plan: No further management from cardiac standpoint Patient reporting chest pain and shortness of breath on presentation although chest pain appears pleuritic but she did had elevation of troponin * Troponin initially 345.1> 317.9> 0.186 * Patient was started on heparin infusion with bolus for acute coronary syndrome * Cardiology consulted * Echocardiogram ordered, results pending * Continue cardiac telemetry monitoring * Continue IMU status * Add aspirin continue statin (6) Atrial fibrillation with RVR: Code(s): I48.91 - Unspecified atrial fibrillation Status: Acute Assessment and Plan: * Initial EKG at [facility] shown AFib with RVR with a rate of 179. Patient's daughter no mentions the patient had an episode of AFib 7 years ago which resolved. She is currently not on any anticoagulation * She was given a bolus of amiodarone and started on an amiodarone infusion. She was able to convert back to normal sinus rhythm at 10:38 a.m. this morning. * Cardiology consulted * Continue amiodarone infusion for now * Continuous cardiac monitoring * The CT with the amiodarone 200 mg p.o. q.d. and metoprolol 25 mg p.o. b.i.d. (7) Elevated d-dimer: Code(s): R79.89 - Other specified abnormal findings of blood chemistry Status: Acute Assessment and Plan: * D-dimer elevated at 1.21 * CTA of the chest was negative for PE (8) RAQUEL (acute kidney injury): Code(s): N17.9 - Acute kidney failure, unspecified Status: Acute Assessment and Plan: * Creatinine 1.44, EGFR 35 * Baseline creatinine appears to be 1.05-1.07, EGFR appears to be 49-50 * Creatinine improved. Continue to trend * Off losartan and Lasix (9) Essential hypertension: Code(s): I10 - Essential (primary) hypertension Status: Acute Assessment and Plan: * Blood pressures have been labile due to AFib RVR versus sepsis versus NSTEMI * Losartan and Lasix on hold due to RAQUEL and labile blood pressures * Restarted losartan on discharge but advised to titrate/ADC according to PCP (10) Hyperlipidemia: Code(s): E78.5 - Hyperlipidemia, unspecified Status: Acute Assessment and Plan: * Continue atorvastatin (11) GERD without esophagitis: Code(s): K21.9 - Gastro-esophageal reflux disease without esophagitis Status: Acute Assessment and Plan: * Continue Protonix 40 mg daily DS: Summary Hospital Course Hospital Course: 84 year old female with a significant past medical history of hypertension, hyperlipidemia, GERD, generalized anxiety disorder, dementia, chronic lower back pain who initially presented to [facility] on 11/12/2024 for evaluation after sustaining a ground level fall at her assisted living facility. Patient states that she has felt weak for the last few days and unsteady on her feet. When she fell she did report hitting her head but no loss of consci ousness and reported right hip pain initially. Workup in the hospital at [place] included a chest x-ray which Showed bibasilar atelectasis. Hip and pelvis x-ray was negative for any acute fracture, showed moderate osteoarthritis of bilateral hips. Cervical spine CT was negative for fracture, showed mild cervical spondylosis. 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 Last echo was reviewed from 02/02/2018 which showed normal LV systolic function with an estimated EF of 60- 65%, normal right ventricular function , no significant valve lesions at that time. Initial labs revealed a white blood cell count of 15.3, INR 1.0, potassium 3.4, anion gap 16, creatinine 1.50, EGFR 35, lactic acid 3.6> 5.5> 2.7> 2.1, magnesium 1.7, total bili 1.2, AST 75, C reactive protein greater than 25. UA was obtained and showed cloudy urine appearance, greater than 1.030 urine specific gravity, 2+ urine protein, 1+ urine ketone, trace blood, 2+ urine bacteria, 1-2 granular casts. MRSA was negative. Respiratory panel was positive for influenza A. On initial assessment in the ED patient was meeting sepsis criteria with elevated heart rate of 127, tachypnea with a respiratory rate of 22, hypoxia with an SpO2 of 86% on room air, chest x-ray showing pneumonia, lactic acid elevated, acute kidney injury. Blood and sputum cultures were obtained and pending. She was given Levaquin, IV fluids, vancomycin, potassium while in the ED. Today patient was reported chest pain and increased shortness a breath while inpatient at [facility]. An EKG was obtained which shown AFib with RVR with a rate of [address] elevation in the inferior leads. Initial troponin was elevated at 345.1, second troponin decreased to317.9. D-dimer was also noted to be elevated at 1.21. Patient was started on a heparin infusion and also was given an amiodarone bolus with infusion. Antibiotics were changed to cefepime, doxycycline, and tamiflu. At 10:38 a.m. patient converted back to sinus rhythm / sinus tach with a rate of 102. Blood pressure was still running 85/55 with a map of 65. Patient was given 500 mL fluid bolus and her blood pressure improved during the infusion. Repeat EKG showed sinus tach with a rate of 100, QTC 467. She was sent for a chest CTA which showed patchy left basilar airspace consolidation which could represent atelectasis versus scarring versus pneumonia, scattered area of minimal tree-in-bud opacities in the lungs, suggesting focal area of small airway infection, 8 mm superior segment right lower lobe pulmonary nodule suggestive of focal scarring, no evidence of PE, aortic dissection, or aortic aneurysm. Labs today shown white blood cell count of 18.9, hemoglobin 11.1, bicarb 19, anion gap 14, creatinine 1.44, EGFR 35, AST 73. Patient is being admitted in this setting for Cardiology consult and STAT echo. I assumed care on 11/15: During hospitalization patient was treated for sepsis, acute respiratory failure with hypoxia, P pneumonia, recurrent AFib with the RVR, Non ST elevation CA, RAQUEL. As per Cardiology ACS is not consistent with her clinical picture of fall, influenza pneumonia. Patient was discharged with amiodarone 200 mg p.o. q.d. and metoprolol 25 mg p.o. b.i.d.. Patient is discharged with the following instructions: Please complete Amox/Clav and Doxycycline BID for 5 days. Take Amiodarone 200mg PO QD Continue metoprolol tartrate 25 mg p.o. b.i.d., titrate dose as necessary. Holding Spironolactone and discuss with your PCP if you want to continue. Restarted home med Losartan 100 mg PO QD since her kidney functions are normal and please titrate/dc according to PCP. Status at Discharge Cognitive/behavioral status at discharge: Stable Time Spent with Patient Time attestation: Total time spent providing and/or coordinating discharge services: 45 minute Exam Narrative: General: Alert awake in no acute distress Head: atraumatic, no encephalopathy Eyes: PERRLA, sclera clear ENT: moist mucous membranes, nasal passages clear Neck: supple, no JVD, no adenopathy, trachea midline Cardiac: Normal S1 and S2. Sinus tachycardia, No murmur, gallops or friction rubs, peripheral pulses intact. hypotensive Respiratory: currently on 2 L nasal cannula, mild tachypnea and shortness a breath with lip pursing, coarse breathing with occasional wheezing and bibasilar crackles Gastrointestinal: soft, non-distended, non-tender, normoactive bowel sounds. : voiding without difficulty. Extremities: moves all extremities well, bilateral mild pitting edema Skin: clean, dry, intact. No wounds or lesions. Neuro: Alert and oriented x3, cranial nerves intact, no neuro deficits. Psych: normal mood, normal affect, interactive DS: Data Data Completed and Pending Labs on day of discharge: Labs from last 24 hours 11/20/24 07:12 WBC 14.4 H RBC 3.89 L Hgb 11.5 L Hct 36.1 L MCV 92.8 MCH 29.6 MCHC 31.9 L RDW 15.3 H Plt Count 329 MPV 9.9 Immature Gran % (Auto) 1.2 H Neut % (Auto) 78.5 H Lymph % (Auto) 13.3 L Eaton % (Auto) 5.9 Eos % (Auto) 0.8 Baso % (Auto) 0.3 Lymph # (Auto) 1.91 Eaton # (Auto) 0.9 H Eos # (Auto) 0.1 Baso # (Auto) 0.0 Abs Immat Gran (auto) 0.17 H Absolute Neuts (auto) 11.3 H Absolute Nucleated RBC 0.000 Nucleated RBC % 0.0 Sodium 141 Potassium 3.8 Chloride 102 Carbon Dioxide 33 H Anion Gap 6 BUN 22 H Creatinine 0.76 Estim Creat Clear Calc 50 Estimated GFR > 60 Glucose 109 Calcium 9.1 Magnesium 1.9 Total Bilirubin 1.0 AST 29 ALT 28 Alkaline Phosphatase 96 Total Protein 7.0 Albumin 3.0 L Discharge Plan Discharge Attending physician on discharge: Mikel Pollock Consulting providers: Mary Mcdonald Discharging Clinician: Mikel Pollock Anticipated Discharge Date/Time: 11/20/24 14:11 Patient Disposition: Hospital Swing Bed Activity: as tolerated Diet: heart healthy Discharge Instructions: Please complete Amox/Clav and Doxycycline BID for 5 days. Take Amiodarone 200mg PO QD Continue metoprolol tartrate 25 mg p.o. b.i.d., titrate dose as necessary. Holding Spironolactone and discuss with your PCP if you want to continue. Restarted home med Losartan 100 mg PO QD since her kidney functions are normal and please titrate/dc according to PCP. Check blood pressure 1 to 2 times a day. Record and bring into your doctor for review. Call your doctor if your blood pressure is greater than 180/110 or less than 90/45. Walk with cane or other assist device. Take precautions to avoid falls. Rise slowly from a lying or sitting position. Pause before standing or walking. Contact your doctor or call 911 and come to the Emergency Room if you have any type of trauma, lightheadedness with standing or other worrisome symptoms. Avoid NSAIDs (ibuprofen, naproxen, Aleve). Tylenol is safe to take. Follow-up with your primary care provider in 1-2 weeks. Please call for appointment. Follow-up with Cardiology in 2-4 weeks. Please call for an appointment. Thank you for using [facility] for your health care needs. Patient Instructions: Antibiotic Form, Apixaban (By mouth), Heart Failure (DC) Patient Language: Azeri Stand Alone Forms: General Discharge Information Discharge Medications: New benzonatate 100 mg Capsule 200 mg PO TID PRN (Reason: cough) Qty: 30 0RF Eliquis 5 mg Tablet 5 mg PO Q12HR Qty: 30 0RF dextromethorphan-guaifenesin 10-100 mg/5 mL Syrup 10 ml PO Q4H PRN (Reason: Cough) Qty: 30 0RF metoprolol tartrate 25 mg Tablet 25 mg PO Q12HR Qty: 30 0RF amiodarone 200 mg tablet 200 mg PO DAILY Qty: 30 0RF amoxicillin-pot clavulanate 875-125 mg tablet 1 tablet PO Q12H Qty: 10 0RF doxycycline hyclate 100 mg tablet 100 mg PO BID Qty: 10 0RF Continued buspirone 10 mg tablet 10 mg PO TID PRN (Reason: prn) hydrocodone-acetaminophen 5-325 mg tablet 1 tablet PO Q6H PRN (Reason: pain) Qty: 60 0RF Rx Instructions: please take only as needed. this medicine causes drowsiness/sedation. mecobalamin (vitamin B12) 1,000 mcg tablet,disintegrating See Rx Instructions .ROUTE .COMPLEX Qty: 100 0RF Dose Instruction: PLACE 1 TABLET UNDER TONGUE AND ALLOW TO DISSOLVE FOR 30 SECONDS BEFORE SWALLOWING Rx Instructions: PLACE 1 TABLET UNDER TONGUE AND ALLOW TO DISSOLVE FOR 30 SECONDS BEFORE SWALLOWING acetaminophen 500 mg tablet See Rx Instructions .ROUTE .COMPLEX Qty: 100 5RF Dose Instruction: TAKE 1 TABLET BY MOUTH EVERY 8 HOURS Rx Instructions: TAKE 1 TABLET BY MOUTH EVERY 8 HOURS atorvastatin 40 mg tablet See Rx Instructions .ROUTE .COMPLEX Qty: 30 5RF Dose Instruction: TAKE 1 TABLET AT BEDTIME. Rx Instructions: TAKE 1 TABLET AT BEDTIME. ergocalciferol (vitamin D2) 1,250 mcg (50,000 unit) capsule See Rx Instructions .ROUTE .COMPLEX Qty: 4 5RF Dose Instruction: TAKE 1 CAPSULE WEEKLY ON MONDAY Rx Instructions: TAKE 1 CAPSULE WEEKLY ON MONDAY gabapentin 400 mg capsule See Rx Instructions .ROUTE .COMPLEX Qty: 90 5RF Dose Instruction: TAKE ONE CAPSULE BY MOUTH THREE TIMES A DAY Rx Instructions: TAKE ONE CAPSULE BY MOUTH THREE TIMES A DAY losartan 100 mg tablet See Rx Instructions .ROUTE .COMPLEX Qty: 30 5RF Dose Instruction: TAKE 1 TABLET BY MOUTH DAILY. Rx Instructions: TAKE 1 TABLET BY MOUTH DAILY. mirtazapine 15 mg tablet See Rx Instructions .ROUTE .COMPLEX Qty: 30 5RF Dose Instruction: TAKE ONE TABLET BY MOUTH DAILY Rx Instructions: TAKE ONE TABLET BY MOUTH DAILY Held spironolactone 50 mg tablet See Rx Instructions .ROUTE .COMPLEX Qty: 30 5RF Hold Instructions: Resume on 12/18/24. Please discuss with your PCP if you want to continue. Dose Instruction: TAKE 1 TABLET BY MOUTH DAILY. Rx Instructions: TAKE 1 TABLET BY MOUTH DAILY. Discontinued cefepime 1 gram Recon Soln 1 g IV Q12H Qty: 1 0RF oseltamivir [Tamiflu] 75 mg Capsule 75 mg PO Q12HR Qty: 8 0RF doxycycline hyclate 100 mg Tablet 100 mg PO Q12HR Qty: 1 0RF Date of admission: 11/13/24 14:40 Primary Care Provider: Noah Perry Admitting Provider: Abhilash Lopez Attending physician on admission: Rosalind Allen Condition: Stable
== END 2024-11-20 17:40 | disposition swing bed (61) | DRG 871 ==
LOC: ANHICU 20:06 → ANHIMU 11-15 13:43 → ANH3MEDSUR 11-20 13:50 → ANHICU 11-22 12:43 → ANHIMU 11-22 12:43
PROVIDERS: Internal Medicine; Nurse Practitioner; Nurse Practitioner Acute Care; Admitting Provider Hospitalist; PCP Family Medicine; Visit Provider General Practice
DX: A41.9 Sepsis, unspecified organism (principal); I21.A1 Myocardial infarction type 2; J18.9 Pneumonia, unspecified organism; J96.01 Acute respiratory failure with hypoxia; N17.9 Acute kidney failure, unspecified; J11.1 Influenza due to unidentified influenza virus with other respiratory manifestations; Y95 Nosocomial condition; I48.91 Unspecified atrial fibrillation; I10 Essential (primary) hypertension; E78.5 Hyperlipidemia, unspecified; E66.9 Obesity, unspecified; F03.90 Unspecified dementia, unspecified severity, without behavioral disturbance, psychotic disturbance, mood disturbance, and anxiety; G89.29 Other chronic pain; F41.1 Generalized anxiety disorder; K21.9 Gastro-esophageal reflux disease without esophagitis; M16.0 Bilateral primary osteoarthritis of hip; M47.812 Spondylosis without myelopathy or radiculopathy, cervical region; M54.9 Dorsalgia, unspecified; R91.1 Solitary pulmonary nodule; W18.30XA Fall on same level, unspecified, initial encounter; Z66 Do not resuscitate; Z86.73 Personal history of transient ischemic attack (TIA), and cerebral infarction without residual deficits; Z68.30 Body mass index [BMI] 30.0-30.9, adult; Z90.49 Acquired absence of other specified parts of digestive tract; Z20.822 Contact with and (suspected) exposure to COVID-19
CPT/HCPCS: 36415; 70450; 71045; 80053; 83605; 83735; 83880; 84145; 84484; 85025; 85610; 85730; 87493; 93005; 94640; 97110; 97161; 97165; 97530; 97535; A9270; C8929; J0282; J0692; J1644; J1940; J3475; Q9957

== ENCOUNTER 2024-11-20 17:11 | Inpatient (IN) | payer OTHER, SELFPAY ==
--- OUTSIDE RECORDS SUMMARY | 2024-11-20 18:37 | XMS_ITS | Clinical Summary ---
Author Organization [facility] Address [address] [place] [id number] Care Team Providers Care Endoscopy Nurse Name Role Phone Unavailable Primary Care [...]
[2024-11-20 19:30] VITALS: O2SAT 97
[2024-11-20 19:33] VITALS: PULSE 84; RESP 16; O2SAT 97
[2024-11-20 19:54] VITALS: BMI 29.5
[2024-11-20] MEDS: AMOXICILLIN/CLAVULANATE K 875-125 MG TAB 1 TABLET PO (20:55)
[2024-11-20] MEDS: DOXYCYCLINE HYCLATE 100 MG TABLET PO (20:55)
[2024-11-20] MEDS: METOPROLOL TARTRATE 25 MG TABLET PO (20:55)
[2024-11-20] MEDS: APIXABAN 2.5 MG TABLET 5 MG PO (20:55)
--- NOTE | 2024-11-20 22:16 | PC.NURSE ---
84 year old female admitted to Room 226 for rehab. Patient arrived by ambulance. Patient is alert and oriented with some confusion. Bruising observed to hands. Patient noted to have moist nonproductive cough. Lung sounds clear. O2 @1 LPM/NC. SPO2 at 97%. No signs of SOB. Bowel sounds X4 quads. No edema observed. Patient using call light frequently for multiple needs. Patient up to commode x2 but as soon as she sits on commode she will say she doesn't need to go and wants to go back to bed. Call light and belongings within reach. Patient instructed on hospital routine and use of call light.
[2024-11-20] MEDS: GABAPENTIN 100 MG CAPSULE 400 MG PO (23:44)
[2024-11-21] VITALS: BP 142/64; PULSE 74; RESP 20; TEMP 36.3; O2SAT 92
--- NOTE | 2024-11-21 00:05 | PC.NURSE ---
Pt sitting up in bed and resting quietly. SAO2 is 92% with oxygen on at 3 liters per nasal cannula and no signs of shortness of breath noted.
--- NOTE | 2024-11-21 02:05 | PC.NURSE ---
Pt resting quietly in bed and no signs of respiratory distress noted.
--- NOTE | 2024-11-21 04:25 | PC.NURSE ---
Pt asleep and no signs of respiratory distress noted.
[2024-11-21 05:30] VITALS: O2SAT 92
[2024-11-21 08:00] VITALS: BP 136/65; PULSE 80; RESP 20; TEMP 36.2; O2SAT 91
[2024-11-21 08:57] VITALS: PULSE 80
[2024-11-21] MEDS: DOXYCYCLINE HYCLATE 100 MG TABLET PO ×2 (08:57→17:17)
[2024-11-21] MEDS: GABAPENTIN 100 MG CAPSULE 400 MG PO ×3 (08:57→17:17)
[2024-11-21] MEDS: METOPROLOL TARTRATE 25 MG TABLET PO ×2 (08:57→21:59)
[2024-11-21] MEDS: LOSARTAN POTASSIUM 50 MG TABLET 100 MG PO (08:57)
[2024-11-21 08:58] VITALS: PULSE 80
[2024-11-21] MEDS: AMOXICILLIN/CLAVULANATE K 875-125 MG TAB 1 TABLET PO ×2 (08:58→21:59)
[2024-11-21] MEDS: ATORVASTATIN 40 MG TABLET PO (08:58)
[2024-11-21] MEDS: AMIODARONE HCL 200 MG TABLET PO (08:58)
[2024-11-21] MEDS: APIXABAN 2.5 MG TABLET 5 MG PO ×2 (08:58→21:59)
[2024-11-21] MEDS: ACETAMINOPHEN 325 MG TABLET 650 MG PO (10:13)
--- NOTE | 2024-11-21 11:18 | P.HP_ITS ---
H&P: HPI History of Present Illness Date/Time: 11/21/24 11:18 Chief Complaint: Generalized weakness/ physical deconditioned Narrative: Patient is an 84 female who was admitted to [facility] for strength training and rehabilitation for physical deconditioned after a extended hospitalization. patient was recently treated at [facility] after she was transferred there due to sepsis secondary to pneumonia, Afib RVR, and NSTEMI. patient was evaluated and treated for pneumonia, sepsis which resolved with antibiotic therapy IV fluid resuscitation. Consult was placed to Cardiology and patient was initially placed on amiodarone GTT and transitioned to oral amiodarone time of discharge she was rate controlled. 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 patient had responded well to treatment but did have increased generalized weakness and physical deconditioning while hospitalized at which time physical and occupational therapy recommended continued inpatient therapy and patient was transferred back to [facility] for further strengthening with continued physical and occupational therapy prior to patient returning back to assisted living. Review of Systems Review of Systems: All systems reviewed & are unremarkable except as noted in HPI and below PMFSH Past Medical History Medical History (Updated 11/21/24 @ 11:37 by Tarah Scales APRN) Obesity, Class I, BMI 30-34.9 Olecranon bursitis of right elbow Essential hypertension Insomnia Hyperlipidemia Headache GERD without esophagitis LEAH (generalized anxiety disorder) Dementia Chronic low back pain Altered mental status Surgical History Surgical History History of hysterectomy History of cholecystectomy Family History Family History Father Family history of coronary artery disease Social History Social History Smoking status: Former smoker Smoking end date: 09/25/69 Alcohol intake: never Substance use: never Substance use type: does not use Do You Feel Safe in your Home?: Yes Lack of Transportation: No Lack of Food: Never True Current Housing: I Have Housing Concerned About Future Housing: No Difficulty Paying Gas/Electric Bills: No Difficulty Paying for Meds: No Currently Unemployed: No Education: Grade School Difficulty w/ Childcare or Family Care: No Living arrangements: assisted living Additional living arrangements comments: [place] Occupation/Education: retired Gender identity (if verbalized by the patient): Female Spiritual care concerns: No Meds Home Medications and Allergies Home Medications ?Medication ?Instructions ?Recorded ?Confirmed ?Type mecobalamin (vitamin B12) 1,000 See Rx Instructions .Route 01/25/24 11/20/24 Rx mcg disintegrating .COMPLEX #100 tabs tablet,sublingual hydrocodone 5 mg-acetaminophen 325 1 tablet PO Q6H PRN pain #60 tabs 02/15/24 11/20/24 Rx mg tablet acetaminophen 500 mg tablet See Rx Instructions .Route 10/30/24 11/20/24 Rx .COMPLEX #100 tabs atorvastatin 40 mg tablet See Rx Instructions .Route 10/30/24 11/20/24 Rx .COMPLEX #30 tabs ergocalciferol (vitamin D2) 1,250 See Rx Instructions .Route 10/30/24 11/20/24 Rx mcg (50,000 unit) capsule .COMPLEX #4 caps gabapentin 400 mg capsule See Rx Instructions .Route 10/30/24 11/20/24 Rx .COMPLEX #90 caps losartan 100 mg tablet See Rx Instructions .Route 10/30/24 11/20/24 Rx .COMPLEX #30 tabs mirtazapine 15 mg tablet See Rx Instructions .Route 10/30/24 11/20/24 Rx .COMPLEX #30 tabs spironolactone 50 mg tablet See Rx Instructions .Route 10/30/24 11/20/24 Rx .COMPLEX #30 tabs buspirone 10 mg tablet 10 mg PO TID PRN prn 11/12/24 11/20/24 History amiodarone 200 mg tablet 200 mg PO DAILY #30 tabs 11/20/24 11/20/24 Rx amoxicillin 875 mg-potassium 1 tablet PO Q12H #10 tabs 11/20/24 11/20/24 Rx clavulanate 125 mg tablet apixaban 5 mg tablet (Eliquis) 5 mg PO Q12HR #30 tabs 11/20/24 11/20/24 Rx benzonatate 100 mg capsule 200 mg (2 x 100 mg) PO TID PRN 11/20/24 11/20/24 Rx cough #30 caps dextromethorphan-guaifenesin 10 10 ml PO Q4H PRN Cough #30 mL 11/20/24 11/20/24 Rx mg-100 mg/5 mL oral syrup doxycycline hyclate 100 mg tablet 100 mg PO BID #10 tabs 11/20/24 11/20/24 Rx metoprolol tartrate 25 mg tablet 25 mg PO Q12HR #30 tabs 11/20/24 11/20/24 Rx Allergies Allergy/AdvReac Type Severity Reaction Status Date / Time FRANCO Inhibitors Allergy Unknown unknown Verified 11/13/24 16:18 Vital Signs Vital Signs - 24 hr 11/20/24 19:30 11/20/24 19:33 11/21/24 00:00 Temperature 97.4 F L Pulse Rate 84 74 Respiratory Rate 16 20 Blood Pressure 142/64 H Pulse Oximetry 97 97 92 Oxygen Delivery Nasal Cannula Nasal Cannula Oxygen Flow Rate 1 1 3 11/21/24 08:00 11/21/24 08:57 11/21/24 08:58 Temperature 97.2 F L Pulse Rate 80 80 80 Respiratory Rate 20 Blood Pressure 136/65 Pulse Oximetry 91 Oxygen Delivery Nasal Cannula Oxygen Flow Rate 1 Exam Narrative: General: In no acute distress, well nourished Head: atraumatic, no encephalopathy Eyes: PERRLA, sclera clear ENT: moist mucous membranes, nasal passages clear Neck: supple, no JVD, no adenopathy, trachea midline Cardiac: Normal S1 and S2. Respiratory: bilateral lower lobes diminished otherwise clear lung flores, no use of accessory muscles Gastrointestinal: soft, non-distended, non-tender, normoactive bowel sounds. Extremities: moves all extremities well, BLE scant edema Skin: clean, dry, intact. No wounds or lesions. Neuro: Alert and oriented x3, cranial nerves intact, no neuro deficits. Psych: normal mood, normal affect, interactive intermittent forgetfulness patient has history of dementia H&P: Results Imaging CTA chest: Radiologist's impression: CT Scan of the Chest with Contrast: Technique: Contiguous sections were acquired throughout the chest after intravenous administration of 100 cc of Omnipaque 350. Dose reduction technique was used on this scan by utilizing automated exposure control and iterative reconstruction technique. The dose-length product (DLP) was 744.99 mGy-cm. Findings: There is no evidence of any significant mediastinal, hilar or axillary lymphadenopathy. There is no filling defect in the pulmonary arterial tree to suggest pulmonary embolus. There is no evidence of aortic dissection or a neurysm. There is no evidence of pleural or pericardial effusion. Patchy left basilar airspace disease could reflect atelectasis/scarring versus pneumonia. There is minimal right basilar atelectasis. There are a few scattered areas of probable focal tree-in-bud opacities in the lungs, which could reflect focal areas of small airways infection. There is an 8 mm nodular opacity in the superior segment right lower lobe, morphology most suggestive of focal scarring or postinflammatory change. Images through the upper abdomen reveal no abnormalities. Impression: No evidence of pulmonary embolus, aortic dissection, or aortic aneurysm. Patchy left basilar airspace consolidation could reflect atelectasis/scarring versus pneumonia. Scattered areas of minimal tree-in-bud opacities in the lungs suggests focal areas of small airways infection. 8 mm superior segment right lower lobe pulmonary nodule, most suggestive of focal scarring. Reviewed, dictated and finalized at location M. HOLOGICAL AIDE Chest x-ray: Radiologist's impression: XR chest 1V portable 11/13/2024 09:37 Indication: Chest pain and shortness of breath Procedure: AP portable chest Comparison: Comparison to multiple prior studies sequentially, with oldest reviewed study dated 01/13/2023. Findings: Borderline heart size. Bibasilar atelectasis. No focal pneumonia, pleural effusion or pneumothorax. No edema. Impression: 1: Bibasilar atelectasis. Reviewed, dictated and finalized at location B. HOLOGICAL AIDE CT scan - head: Radiologist's impression: EXAMINATION: CT brain wo con DATE: 11/12/2024 10:11 INDICATION: Head injury. TECHNIQUE: Computed tomography (CT) of the head was performed without intravenous contrast. The mA was adjusted according to patient size. Iterative reconstruction technique was employed. The dose-length product was 605.33 mGy- cm. 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 There are scattered areas of low attenuation in the cerebral white matter, which is within normal limits for the patient's age. There is no intracranial hemorrhage, acute infarction, or abnormal intracranial mass lesion. The ventricles are normal in size. There is mild mucosal thickening in the paranasal sinuses. There are likely changes of ocular lens replacement surgeries. The mastoid air cells are normal. IMPRESSION: 1. 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 Reviewed, dictated and finalized at location A. HOLOGICAL AIDE cervical spine CT: Radiologist's impression: EXAMINATION: CT cervical spine wo con DATE: 11/12/2024 10:12 INDICATION: Neck injury. Fall. TECHNIQUE: Computed tomography (CT) of the cervical spine was performed without intravenous contrast. Automated exposure control and iterative reconstruction technique were employed. The dose-length product was 225.35 mGy-cm. COMPARISON: None FINDINGS: Alignment is normal. Vertebral body heights are normal. There is mildly decreased disc height at C3-C4, C5-C6, and C6-C7. The following disc levels are specifically discussed: C2-C3: There is no uncovertebral joint osteoarthritis. There is severe bilateral facet joint osteoarthritis. There is mild left neural foraminal stenosis. There is no central canal stenosis. C3-C4: There is severe right and moderate left uncovertebral joint osteoarthritis. There is moderate right and severe left facet joint osteoarthritis. There is mild bilateral neural foraminal stenosis. There is mild central canal stenosis. C4-C5: There is severe right and moderate left uncovertebral joint osteoarthritis. There is severe bilateral facet joint osteoarthritis. There is mild bilateral neural foraminal stenosis. There is mild central canal stenosis. C5-C6: There is moderate right and mild left uncovertebral joint osteoarthritis. There is severe right and moderate left facet joint osteoarthritis. There is mild right neural foraminal stenosis. There is mild central canal stenosis. C6-C7: There is no uncovertebral joint osteoarthritis. There is mild right and moderate left facet joint osteoarthritis. There is no neural foraminal stenosis. There is no central canal stenosis. C7-T1: There is no uncovertebral joint osteoarthritis. There is mild right and severe left facet joint osteoarthritis. There is mild left neural foraminal stenosis. There is no central canal stenosis. IMPRESSION: 1. No fracture. 2. Mild cervical spondylosis. Reviewed, dictated and finalized at location A. HOLOGICAL AIDE hip and pelvis x-ray: Radiologist's impression: EXAMINATION: XR hip LT 2V w AP pelvis DATE: 11/12/2024 10:12 INDICATION: Left hip pain. Injury. TECHNIQUE: An anteroposterior view of the pelvis and 2 views of left hip were obtained. COMPARISON: None. FINDINGS: There is lumbar dextrocurvature and severe spondylosis. No fracture. There is moderate osteoarthritis of the hips. IMPRESSION: 1. Moderate osteoarthritis of the hips. Reviewed, dictated and finalized at location A. HOLOGICAL AIDE Assessment and Plan Assessment and plan (1) Generalized weakness: Code(s): R53.1 - Weakness Status: Acute Assessment and Plan: * recent extended hospitalization secondary to pneumonia, AFib RVR * PT/ OT with swing bed (2) Pneumonia: Code(s): J18.9 - Pneumonia, unspecified organism Status: Acute Assessment and Plan: * continue Augmentin and doxycycline 5 day course * supplemental oxygen p.r.n. * nebulizers as needed * incentive spirometer (3) Essential hypertension: Code(s): I10 - Essential (primary) hypertension Status: Acute Assessment and Plan: * resume metoprolol and losartan * BP per unit protocol * BP reviewed and stable (4) Atrial fibrillation: Code(s): I48.91 - Unspecified atrial fibrillation Status: Acute Assessment and Plan: * resumed metoprolol, amiodarone, Eliquis (5) Hyperlipidemia: Code(s): E78.5 - Hyperlipidemia, unspecified Status: Acute Assessment and Plan: * Continue atorvastatin (6) GERD without esophagitis: Code(s): K21.9 - Gastro-esophageal reflux disease without esophagitis Status: Acute Assessment and Plan: * Will start Pepcid Plan Code status: DNR DVT prophylaxis: Eliquis Stress ulcer prophylaxis: Pepcid PT/OT notes: Swing bed Disposition: Patient admitted to [facility] for continued strength training and rehabilitation due to physically deconditioned state following an extended hospitalization at [facility] patient will continue with physical and occupational therapy to assist in progression back to patient's baseline and returned back to assisted living facility. Quality VTE Prophylaxis VTE prophylaxis: pharmacologic ordered -Patient's previous records reviewed on admission -ER notes reviewed in detail on admission -discussed all findings and current treatment plan with patient/Family/POA -Consultations reviewed for recommendations -Patient's disposition for safe discharge discussed with disease case manager rn Dictation performed by [employer] direct speech recognition software, therefore machinist mate variants and typographical errors may occur. Hospitalist MIPS Advance Care Plan I have confirmed that the patient's Advanced Care Plan is present, code status is documented, or surrogate decision maker is listed in patient medical record.: Yes Medication Reconciliation I have utilized all available resources to obtain, update and review the patients current medications (includes all prescriptions, OTC, herbals, cannabis, and nutritional supplements).: Yes The patient is not eligible for med reconciliation; the patient is in a emergent medical situation where delaying treatment would jeopardize the patients health.: No
[2024-11-21 16:00] VITALS: BP 117/55; PULSE 70; RESP 17; TEMP 36.4; O2SAT 90
[2024-11-21] MEDS: MIRTAZAPINE 15 MG TABLET PO (21:59)
[2024-11-21] MEDS: FAMOTIDINE 20 MG TABLET PO (21:59)
[2024-11-22] VITALS: BP 113/47; PULSE 73; RESP 15; TEMP 36.8; O2SAT 94
[2024-11-22] MEDS: HYDROcodone/acetaminophen (*CRX) 5-325 MG TABLET 1 TAB PO ×2 (04:06→20:58)
[2024-11-22 05:30] VITALS: O2SAT 94
[2024-11-22 08:00] VITALS: BP 120/55; PULSE 72; RESP 16; TEMP 36.3; O2SAT 94
[2024-11-22 08:46] VITALS: PULSE 72
[2024-11-22] MEDS: APIXABAN 2.5 MG TABLET 5 MG PO ×2 (08:46→20:59)
[2024-11-22] MEDS: AMIODARONE HCL 200 MG TABLET PO (08:46)
[2024-11-22] MEDS: METOPROLOL TARTRATE 25 MG TABLET PO ×2 (08:46→20:58)
[2024-11-22] MEDS: LOSARTAN POTASSIUM 50 MG TABLET 100 MG PO (08:46)
[2024-11-22] MEDS: AMOXICILLIN/CLAVULANATE K 875-125 MG TAB 1 TABLET PO ×2 (08:46→20:57)
[2024-11-22] MEDS: DOXYCYCLINE HYCLATE 100 MG TABLET PO ×2 (08:46→17:49)
[2024-11-22] MEDS: GABAPENTIN 100 MG CAPSULE 400 MG PO ×3 (08:46→17:49)
[2024-11-22] MEDS: ATORVASTATIN 40 MG TABLET PO (08:46)
[2024-11-22] MEDS: FAMOTIDINE 20 MG TABLET PO ×2 (08:46→20:58)
--- NOTE | 2024-11-22 11:23 | PC.NURSE ---
PV DESIGN ENGINEER made aware of Registered Dietitian recommendation.
[2024-11-22 16:00] VITALS: BP 138/70; PULSE 82; RESP 18; TEMP 36.7; O2SAT 93
[2024-11-22] MEDS: busPIRone HCL 10 MG TABLET PO (20:58)
[2024-11-22] MEDS: MIRTAZAPINE 15 MG TABLET PO (20:58)
[2024-11-23] VITALS (8 sets, daily range): BP systolic 102–124; BP diastolic 51–61; PULSE 74–78; RESP 18–20; TEMP 36.6–36.7; O2SAT 93–94
[2024-11-23] MEDS: HYDROcodone/acetaminophen (*CRX) 5-325 MG TABLET 1 TAB PO ×2 (08:52→17:00)
[2024-11-23] MEDS: FAMOTIDINE 20 MG TABLET PO ×2 (08:52→20:12)
[2024-11-23] MEDS: GABAPENTIN 100 MG CAPSULE 400 MG PO ×3 (08:52→17:00)
[2024-11-23] MEDS: AMIODARONE HCL 200 MG TABLET PO (08:52)
[2024-11-23] MEDS: APIXABAN 2.5 MG TABLET 5 MG PO ×2 (08:52→20:12)
[2024-11-23] MEDS: METOPROLOL TARTRATE 25 MG TABLET PO ×2 (08:53→20:12)
[2024-11-23] MEDS: ATORVASTATIN 40 MG TABLET PO (08:53)
[2024-11-23] MEDS: busPIRone HCL 10 MG TABLET PO ×3 (08:53→20:12)
[2024-11-23] MEDS: DOXYCYCLINE HYCLATE 100 MG TABLET PO ×2 (08:53→17:00)
[2024-11-23] MEDS: AMOXICILLIN/CLAVULANATE K 875-125 MG TAB 1 TABLET PO ×2 (08:53→20:11)
[2024-11-23] MEDS: LOSARTAN POTASSIUM 50 MG TABLET 100 MG PO (08:53)
[2024-11-23 16:24] LABS: Toxigenic C. Diff NEGATIVE (NEGATIVE)
[2024-11-23] MEDS: ONDANSETRON HCL ODT 4 MG TABLET PO (20:11)
[2024-11-23] MEDS: MIRTAZAPINE 15 MG TABLET PO (20:12)
[2024-11-23 20:16] LABS: Glucose Point of Care 137 mg/dl (65-105)
[2024-11-24] VITALS (8 sets, daily range): BP systolic 103–119; BP diastolic 47–72; PULSE 69–84; RESP 18–20; TEMP 36.5–36.6; O2SAT 88–97
[2024-11-24] MEDS: HYDROcodone/acetaminophen (*CRX) 5-325 MG TABLET 1 TAB PO ×2 (03:54→14:51)
[2024-11-24] MEDS: busPIRone HCL 10 MG TABLET PO ×3 (08:49→21:54)
[2024-11-24] MEDS: ATORVASTATIN 40 MG TABLET PO (08:49)
[2024-11-24] MEDS: AMIODARONE HCL 200 MG TABLET PO (08:49)
[2024-11-24] MEDS: GABAPENTIN 100 MG CAPSULE 400 MG PO ×3 (08:49→17:07)
[2024-11-24] MEDS: FAMOTIDINE 20 MG TABLET PO ×2 (08:49→21:54)
[2024-11-24] MEDS: LOSARTAN POTASSIUM 50 MG TABLET 100 MG PO (08:49)
[2024-11-24] MEDS: AMOXICILLIN/CLAVULANATE K 875-125 MG TAB 1 TABLET PO ×2 (08:50→21:45)
[2024-11-24] MEDS: APIXABAN 2.5 MG TABLET 5 MG PO ×2 (08:50→21:54)
[2024-11-24] MEDS: METOPROLOL TARTRATE 25 MG TABLET PO ×2 (08:50→21:46)
[2024-11-24] MEDS: DOXYCYCLINE HYCLATE 100 MG TABLET PO ×2 (08:50→17:07)
--- NOTE | 2024-11-24 14:04 | PC.NURSE ---
Nurse walking patient back from bathroom and patient's color went pale. Patient c/o chest pain. Vital signs taken and patient assisted to lying position and encouraged to take a few deep breaths. Patient stated that she thought it may be getting better, but wasn's sure. SOCIAL WORK LECTURER notified of c/o and given VS.
--- NOTE | 2024-11-24 14:05 | PC.NURSE ---
This Rn in w/ pt and ASSURANCE SENIOR Mahi pt reevaluated and stated she was trying to have BM. Noted no c/o pain at this time while at rest, BP 83/44 in Lt arm and 101/38 in Rt arm, orders received for IV, fluids and labs and EKG received.
--- NOTE | 2024-11-24 14:08 | ECG_ITS ---
Test Date: 2024-11-24 14:16:55 Measurements Intervals [place] Rate: 68 P: 28 GA: 175 QRS: -17 QRSD: 92 T: 33 QT: 448 QTc: 478 Interpretive Statements SINUS RHYTHM Compared to ECG 11/16/2024 05:23:18 No significant changes Electronically Signed On 11-26-2024 15:27:22 AUTO INSPECTOR by Mary Mcdonald M.D.
[2024-11-24] MEDS: SODIUM CHLORIDE 0.9% IV 500 ML IV CONT (14:28)
[2024-11-24 14:33] LABS: Hematocrit 36.4 % (35.0-42.0); Hemoglobin 11.2 g/dL (11.7-13.8); Mean Corpuscular HGB Conc 30.8 g/dL (32-36); Mean Corpuscular Hemoglobin 29.5 pg (27.0-31.0); Mean Corpuscular Volume 95.8 fL (78.0-102.0); Mean Platelet Volume 9.6 fl (9.2-11.8); Platelet Count Result 439 K/mm3 (150-420); Red Cell Distribution Width 14.7 % (11.6-14.4); White Blood Count 11.6 K/mm3 (4.8-10.8)
[2024-11-24 14:52] LABS: Alanine Aminotransferase 20 U/L (14-59); Albumin Level 2.3 g/dL (3.4-5.0); Alkaline Phosphatase 116 U/L (46-116); Anion Gap 6 mmol/L (4-12); Aspartate Amino Transferase 17 U/L (15-37); Bilirubin,Total 0.5 mg/dL (0.00-1.00); Blood Urea Nitrogen 22 mg/dL (7-18); Calcium 9.2 mg/dL (8.5-10.1); Carbon Dioxide 33 mmol/L (21-32); Chloride 105 mmol/L (98-108); Estimated CRCL calculation 32 ml/min; Estimated Glomerular Filt Rate 42; Glucose 108 mg/dL (70-99); Magnesium 1.8 mg/dL (1.8-2.4); Osmolality Calculated 302 mOsm/kg (285-295); Potassium 3.9 mmol/L (3.5-5.1); Sodium 144 mmol/L (136-145); Total Protein 7.4 g/dL (6.4-8.2); Troponin I 7.5 ng/L (0.00-60.4)
--- NOTE | 2024-11-24 14:54 | PC.NURSE ---
c/o of pain in r upper back. repositioned several times. warm pack to r side. prn pain med given. hob up. encouraged deep breathes and cough.
--- NOTE | 2024-11-24 15:15 | PC.NURSE ---
Pt becoming more confused and restless in bed and c/o severe back pain and unable to get comfortable. Pt was given her Buspar and a pain medication per [place] chargeback specialist. Pt repositioned in bed and trying multiple attempts to reorient to surroundings and attempting to reposition for comfort. Pt given reassurance and continuing to monitor, explained to pt why she is here and reasoning for need of O2 and Iv fluids that were given. Pt encouraged to rest and let medications given work. Call de la vega at pt side, alarms on.
--- NOTE | 2024-11-24 15:50 | PC.NURSE ---
Pt on her call de la vega numerous times wanting the IV taken out of her arm stating it is hurting. IV dc'd per pt request, explained to pt that another would need put back in if she needed anymore fluids or meds. Pt stated she still wants IV out. Pt still confused as to why she is here, reoriented again to POC and dx.
[2024-11-24] MEDS: BENZONATATE 100 MG CAPSULE 200 MG PO (21:45)
[2024-11-24] MEDS: guaiFENesin 12 HR 600 MG TABCR 1200 MG PO (21:46)
[2024-11-24] MEDS: MIRTAZAPINE 15 MG TABLET PO (21:55)
[2024-11-25] VITALS: BP 114/52; PULSE 71; RESP 16; TEMP 36.7; O2SAT 95
[2024-11-25 05:30] VITALS: O2SAT 95
[2024-11-25 08:00] VITALS: BP 109/43; PULSE 72; RESP 16; TEMP 36; O2SAT 94
[2024-11-25] MEDS: GABAPENTIN 100 MG CAPSULE 400 MG PO ×3 (08:51→17:10)
[2024-11-25 08:52] VITALS: PULSE 74
[2024-11-25] MEDS: busPIRone HCL 10 MG TABLET PO ×4 (08:52→21:39)
[2024-11-25] MEDS: DOXYCYCLINE HYCLATE 100 MG TABLET PO (08:52)
[2024-11-25] MEDS: AMOXICILLIN/CLAVULANATE K 875-125 MG TAB 1 TABLET PO ×2 (08:52→21:35)
[2024-11-25] MEDS: FAMOTIDINE 20 MG TABLET PO ×2 (08:52→21:39)
[2024-11-25] MEDS: METOPROLOL TARTRATE 25 MG TABLET PO ×2 (08:52→21:36)
[2024-11-25] MEDS: APIXABAN 2.5 MG TABLET 5 MG PO ×2 (08:52→21:36)
[2024-11-25] MEDS: HYDROcodone/acetaminophen (*CRX) 5-325 MG TABLET 1 TAB PO ×2 (08:52→17:10)
[2024-11-25] MEDS: guaiFENesin 12 HR 600 MG TABCR 1200 MG PO ×2 (08:52→21:39)
[2024-11-25] MEDS: LOSARTAN POTASSIUM 50 MG TABLET 100 MG PO (08:52)
[2024-11-25] MEDS: ATORVASTATIN 40 MG TABLET PO (08:52)
[2024-11-25] MEDS: AMIODARONE HCL 200 MG TABLET PO (08:52)
[2024-11-25 16:00] VITALS: BP 117/56; PULSE 76; RESP 18; TEMP 36.4; O2SAT 94
[2024-11-25 21:36] VITALS: PULSE 62
[2024-11-25] MEDS: MIRTAZAPINE 15 MG TABLET PO (21:39)
[2024-11-25] MEDS: BENZONATATE 100 MG CAPSULE 200 MG PO (21:39)
[2024-11-26] VITALS (9 sets, daily range): BP systolic 118–134; BP diastolic 50–60; PULSE 62–80; RESP 16–17; TEMP 36–36.3; O2SAT 89–96
[2024-11-26] MEDS: APIXABAN 2.5 MG TABLET 5 MG PO ×2 (08:45→21:13)
[2024-11-26] MEDS: ATORVASTATIN 40 MG TABLET PO (08:45)
[2024-11-26] MEDS: AMIODARONE HCL 200 MG TABLET PO (08:45)
[2024-11-26] MEDS: AMOXICILLIN/CLAVULANATE K 875-125 MG TAB 1 TABLET PO (08:45)
[2024-11-26] MEDS: GABAPENTIN 100 MG CAPSULE 400 MG PO ×3 (08:45→17:08)
[2024-11-26] MEDS: FAMOTIDINE 20 MG TABLET PO ×2 (08:46→21:07)
[2024-11-26] MEDS: LOSARTAN POTASSIUM 50 MG TABLET 100 MG PO (08:46)
[2024-11-26] MEDS: METOPROLOL TARTRATE 25 MG TABLET PO ×2 (08:46→21:07)
[2024-11-26] MEDS: guaiFENesin 12 HR 600 MG TABCR 1200 MG PO ×2 (08:46→21:13)
[2024-11-26] MEDS: busPIRone HCL 10 MG TABLET PO (21:07)
[2024-11-26] MEDS: BENZONATATE 100 MG CAPSULE 200 MG PO (21:07)
[2024-11-26] MEDS: MIRTAZAPINE 15 MG TABLET PO (21:13)
[2024-11-27] VITALS: BP 146/61; PULSE 80; RESP 18; TEMP 36.2; O2SAT 90
[2024-11-27] MEDS: HYDROcodone/acetaminophen (*CRX) 5-325 MG TABLET 1 TAB PO ×2 (01:20→20:35)
[2024-11-27 08:00] VITALS: BP 130/71; PULSE 80; RESP 16; TEMP 36.9; O2SAT 91
[2024-11-27] MEDS: GABAPENTIN 100 MG CAPSULE 400 MG PO ×3 (09:19→17:15)
[2024-11-27] MEDS: LOSARTAN POTASSIUM 50 MG TABLET 100 MG PO (09:19)
[2024-11-27] MEDS: ACETAMINOPHEN 325 MG TABLET 650 MG PO (09:19)
[2024-11-27] MEDS: guaiFENesin 12 HR 600 MG TABCR 1200 MG PO ×2 (09:19→20:34)
[2024-11-27 09:20] VITALS: PULSE 80; PULSE 84
[2024-11-27] MEDS: ATORVASTATIN 40 MG TABLET PO (09:20)
[2024-11-27] MEDS: METOPROLOL TARTRATE 25 MG TABLET PO ×2 (09:20→20:34)
[2024-11-27] MEDS: APIXABAN 2.5 MG TABLET 5 MG PO ×2 (09:20→20:37)
[2024-11-27] MEDS: AMIODARONE HCL 200 MG TABLET PO (09:20)
[2024-11-27] MEDS: FAMOTIDINE 20 MG TABLET PO ×2 (09:20→20:35)
[2024-11-27 16:00] VITALS: BP 129/55; PULSE 77; RESP 17; TEMP 36.3; O2SAT 91
[2024-11-27 20:34] VITALS: PULSE 80
[2024-11-27] MEDS: BENZONATATE 100 MG CAPSULE 200 MG PO (20:34)
[2024-11-27] MEDS: MIRTAZAPINE 15 MG TABLET PO (20:34)
[2024-11-27] MEDS: busPIRone HCL 10 MG TABLET PO (20:36)
[2024-11-28] VITALS: BP 139/58; PULSE 80; RESP 18; TEMP 36.7; O2SAT 92
[2024-11-28 08:00] VITALS: BP 121/61; PULSE 79; RESP 20; TEMP 36.6; O2SAT 92
[2024-11-28 08:37] VITALS: PULSE 75
[2024-11-28] MEDS: ATORVASTATIN 40 MG TABLET PO (08:37)
[2024-11-28] MEDS: AMIODARONE HCL 200 MG TABLET PO (08:37)
[2024-11-28] MEDS: APIXABAN 2.5 MG TABLET 5 MG PO ×2 (08:37→21:27)
[2024-11-28] MEDS: GABAPENTIN 100 MG CAPSULE 400 MG PO ×3 (08:37→17:05)
[2024-11-28 08:38] VITALS: PULSE 75
[2024-11-28] MEDS: busPIRone HCL 10 MG TABLET PO ×4 (08:38→21:28)
[2024-11-28] MEDS: ACETAMINOPHEN 325 MG TABLET 650 MG PO ×2 (08:38→17:06)
[2024-11-28] MEDS: guaiFENesin 12 HR 600 MG TABCR 1200 MG PO ×2 (08:38→21:27)
[2024-11-28] MEDS: METOPROLOL TARTRATE 25 MG TABLET PO ×2 (08:38→21:28)
[2024-11-28] MEDS: LOSARTAN POTASSIUM 50 MG TABLET 100 MG PO (08:38)
[2024-11-28] MEDS: FAMOTIDINE 20 MG TABLET PO ×2 (08:38→21:27)
[2024-11-28] MEDS: HYDROcodone/acetaminophen (*CRX) 5-325 MG TABLET 1 TAB PO ×2 (13:56→21:27)
[2024-11-28 16:00] VITALS: BP 105/72; PULSE 70; RESP 20; TEMP 36.2; O2SAT 94
[2024-11-28 21:28] VITALS: PULSE 67
[2024-11-28] MEDS: MIRTAZAPINE 15 MG TABLET PO (21:28)
[2024-11-29] VITALS: BP 105/90; PULSE 67; RESP 16; TEMP 36.9; O2SAT 94
[2024-11-29 05:40] LABS: Basophils Absolute Auto 0.12 K/mm3 (0.00-0.10); Basophils Percent Auto 1.7 % (0.0-1.0); Eosinophils Absolute Auto 0.16 K/mm3 (0.02-0.50); Eosinophils Percent Auto 2.2 % (1.0-6.0); Hematocrit 36.2 % (35.0-42.0); Hemoglobin 10.9 g/dL (11.7-13.8); Immature Granulocyte Absolute 0.03 K/mm3 (0.00-0.00); Immature Granulocyte Percent A 0.4 % (0.0-0.0); Lymphocytes Absolute Auto 2.65 K/mm3 (1.10-4.50); Lymphocytes Percent Auto 37.1 % (18.0-42.0); Mean Corpuscular HGB Conc 30.1 g/dL (32-36); Mean Corpuscular Hemoglobin 28.8 pg (27.0-31.0); Mean Corpuscular Volume 95.8 fL (78.0-102.0); Mean Platelet Volume 10.4 fl (9.2-11.8); Monocytes Absolute Auto 0.52 K/mm3 (0.10-0.90); Monocytes Percent Auto 7.3 % (2.0-11.0); Neutrophils Absolute Auto 3.67 K/mm3 (1.70-7.20); Neutrophils Percent Auto 51.3 % (50.0-70.0); Platelet Count Result 466 K/mm3 (150-420); Red Blood Count 3.78 M/mm3 (4.20-5.40); Red Cell Distribution Width 14.8 % (11.6-14.4); White Blood Count 7.2 K/mm3 (4.8-10.8)
[2024-11-29 05:51] LABS: Alanine Aminotransferase 12 U/L (14-59); Albumin Level 2.4 g/dL (3.4-5.0); Alkaline Phosphatase 131 U/L (46-116); Anion Gap 3 mmol/L (4-12); Aspartate Amino Transferase < 10 U/L (15-37); Bilirubin,Total 0.4 mg/dL (0.00-1.00); Blood Urea Nitrogen 17 mg/dL (7-18); Calcium 9.1 mg/dL (8.5-10.1); Carbon Dioxide 32 mmol/L (21-32); Chloride 109 mmol/L (98-108); Estimated CRCL calculation 37 ml/min; Estimated Glomerular Filt Rate 50; Glucose 96 mg/dL (70-99); Osmolality Calculated 299 mOsm/kg (285-295); Potassium 4.1 mmol/L (3.5-5.1); Sodium 144 mmol/L (136-145); Total Protein 7.1 g/dL (6.4-8.2)
[2024-11-29 07:30] VITALS: BP 125/58; PULSE 66; RESP 18; TEMP 36; O2SAT 91
[2024-11-29] MEDS: ATORVASTATIN 40 MG TABLET PO (08:58)
[2024-11-29] MEDS: FAMOTIDINE 20 MG TABLET PO (08:58)
[2024-11-29] MEDS: LOSARTAN POTASSIUM 50 MG TABLET 100 MG PO (08:58)
[2024-11-29 08:59] VITALS: PULSE 75
[2024-11-29] MEDS: AMIODARONE HCL 200 MG TABLET PO (08:59)
[2024-11-29 09:00] VITALS: PULSE 78
[2024-11-29] MEDS: METOPROLOL TARTRATE 25 MG TABLET PO (09:00)
[2024-11-29] MEDS: GABAPENTIN 100 MG CAPSULE 400 MG PO (09:03)
[2024-11-29] MEDS: APIXABAN 2.5 MG TABLET 5 MG PO (09:04)
[2024-11-29] MEDS: guaiFENesin 12 HR 600 MG TABCR 1200 MG PO (09:04)
[2024-11-29] MEDS: HYDROcodone/acetaminophen (*CRX) 5-325 MG TABLET 1 TAB PO (09:17)
--- NOTE | 2024-11-29 09:30 | PM.DS ---
DS: Admitting Diagnosis Discharge Date 11/29/24 Admitting Diagnosis Generalized weakness pneumonia hypertension atrial fibrillation hyperlipidemia GERD DS: Discharge Diagnosis Discharge Diagnosis (1) Generalized weakness: Code(s): R53.1 - Weakness Status: Acute (2) Pneumonia: Code(s): J18.9 - Pneumonia, unspecified organism Status: Acute (3) Essential hypertension: Code(s): I10 - Essential (primary) hypertension Status: Acute (4) Atrial fibrillation: Code(s): I48.91 - Unspecified atrial fibrillation Status: Acute (5) Hyperlipidemia: Code(s): E78.5 - Hyperlipidemia, unspecified Status: Acute (6) GERD without esophagitis: Code(s): K21.9 - Gastro-esophageal reflux disease without esophagitis Status: Acute DS: Summary Hospital Course Reason for hospitalization: Generalized weakness pneumonia hypertension atrial fibrillation hyperlipidemia GERD Hospital Course: This is an 84-year-old female who presented to [facility] for additional rehab. She has a significant past medical history AFib, hypertension, insomnia, hyperlipidemia, GERD, generalized anxiety disorder, dementia, chronic lower back pain. She was recently at [facility] and was treated for pneumonia, AFib RVR, and NSTEMI. During her stay At [facility], she was on an amiodarone drip and then transitioned over to oral amiodarone for rate control and started on Eliquis. she came back to [facility] for continued strengthening with PT and OT. She progressed well with therapy while here and is now stable for discharge back to her assisted living facility. Her lungs are course in BLL. She does have a productive cough. We will get her a Corent valve for Pep therapy to help bring up mucous. Labs today showed a normal white blood cell count of 7.2, hemoglobin 10.9, creatinine 1.05, EGFR 50. She is stable for discharge at this time. She will need to follow up with her primary care doctor in 1 week. Final Diagnosis: Physical deconditioning, Pneumonia Status at Discharge Cognitive/behavioral status at discharge: Alert and oriented x3 Functional status at discharge: uses cane/walker Overall status at discharge: patient is progressing back to baseline Time Spent with Patient Time attestation: Total time spent providing and/or coordinating discharge services: Time spent: Greater than 30 minutes Exam Narrative: General: In no acute distress, well nourished Head: atraumatic, no encephalopathy Eyes: PERRLA, sclera clear ENT: moist mucous membranes, nasal passages clear Neck: supple, no JVD, no adenopathy, trachea midline Cardiac: Normal S1 and S2. No murmur, gallops or friction rubs, peripheral pulses intact. Respiratory: severe kyphosis,Bilateral lower lobes coarse with productive cough, currently on room air, no adventitious lung sounds Gastrointestinal: soft, non-distended, non-tender, normoactive bowel sounds. : voiding without difficulty. Extremities: moves all extremities well, no edema Skin: clean, dry, intact. No wounds or lesions. Neuro: Alert and oriented x4, cranial nerves intact, no neuro deficits. Psych: normal mood, normal affect, interactive DS: Data Data Completed and Pending Completed studies during hospitalization: None Pending studies at discharge: None Labs on day of discharge: Labs from last 24 hours 11/29/24 05:21 WBC 7.2 RBC 3.78 L Hgb 10.9 L Hct 36.2 MCV 95.8 MCH 28.8 MCHC 30.1 L RDW 14.8 H Plt Count 466 H MPV 10.4 Immature Gran % (Auto) 0.4 H Neut % (Auto) 51.3 Lymph % (Auto) 37.1 [place] % (Auto) 7.3 Eos % (Auto) 2.2 Baso % (Auto) 1.7 H Lymph # (Auto) 2.65 [place] # (Auto) 0.52 Eos # (Auto) 0.16 Baso # (Auto) 0.12 H Abs Immat Gran (auto) 0.03 H Absolute Neuts (auto) 3.67 Absolute Nucleated RBC 0.00 Nucleated RBC % 0.0 Sodium 144 Potassium 4.1 Chloride 109 H Carbon Dioxide 32 Anion Gap 3 L BUN 17 Creatinine 1.05 H Estim Creat Clear Calc 37 Estimated GFR 50 L Glucose 96 Calculated Osmolality 299 H Calcium 9.1 Total Bilirubin 0.4 AST < 10 L ALT 12 L Alkaline Phosphatase 131 H Total Protein 7.1 Albumin 2.4 L Procedures/Treatments: None Discharge Plan Discharge Attending physician on discharge: [facility] Consulting providers: Tarah Scales Discharging Clinician: Rosalind Allen Anticipated Discharge Date/Time: 11/29/24 09:25 Patient Disposition: Home, Self-Care Activity: as tolerated Diet: as tolerated and heart healthy Discharge Instructions: Follow up with primary care doctor in 1 week Patient Instructions: Hydrocodone/Acetaminophen (By mouth), Fall Prevention for Older Adults (DC), Weakness (DC) Patient Language: Qatari Stand Alone Forms: General Discharge Information Follow-up/Referrals: Noah Perry DO [Primary Care Provider] - 1 week Discharge Medications: Continued buspirone 10 mg tablet 10 mg PO TID PRN (Reason: prn) hydrocodone-acetaminophen 5-325 mg tablet 1 tablet PO Q6H PRN (Reason: pain) Qty: 10 0RF Rx Instructions: please take only as needed. this medicine causes drowsiness/sedation. benzonatate 100 mg Capsule 200 mg PO TID PRN (Reason: cough) Qty: 30 0RF Eliquis 5 mg Tablet 5 mg PO Q12HR Qty: 30 0RF dextromethorphan-guaifenesin 10-100 mg/5 mL Syrup 10 ml PO Q4H PRN (Reason: Cough) Qty: 30 0RF metoprolol tartrate 25 mg Tablet 25 mg PO Q12HR Qty: 30 0RF amiodarone 200 mg tablet 200 mg PO DAILY Qty: 30 0RF mecobalamin (vitamin B12) 1,000 mcg tablet,disintegrating See Rx Instructions .ROUTE .COMPLEX Qty: 100 0RF Dose Instruction: PLACE 1 TABLET UNDER TONGUE AND ALLOW TO DISSOLVE FOR 30 SECONDS BEFORE SWALLOWING Rx Instructions: PLACE 1 TABLET UNDER TONGUE AND ALLOW TO DISSOLVE FOR 30 SECONDS BEFORE SWALLOWING acetaminophen 500 mg tablet See Rx Instructions .ROUTE .COMPLEX Qty: 100 5RF Dose Instruction: TAKE 1 TABLET BY MOUTH EVERY 8 HOURS Rx Instructions: TAKE 1 TABLET BY MOUTH EVERY 8 HOURS atorvastatin 40 mg tablet See Rx Instructions .ROUTE .COMPLEX Qty: 30 5RF Dose Instruction: TAKE 1 TABLET AT BEDTIME. Rx Instructions: TAKE 1 TABLET AT BEDTIME. ergocalciferol (vitamin D2) 1,250 mcg (50,000 unit) capsule See Rx Instructions .ROUTE .COMPLEX Qty: 4 5RF Dose Instruction: TAKE 1 CAPSULE WEEKLY ON MONDAY Rx Instructions: TAKE 1 CAPSULE WEEKLY ON MONDAY gabapentin 400 mg capsule See Rx Instructions .ROUTE .COMPLEX Qty: 90 5RF Dose Instruction: TAKE ONE CAPSULE BY MOUTH THREE TIMES A DAY Rx Instructions: TAKE ONE CAPSULE BY MOUTH THREE TIMES A DAY losartan 100 mg tablet See Rx Instructions .ROUTE .COMPLEX Qty: 30 5RF Dose Instruction: TAKE 1 TABLET BY MOUTH DAILY. Rx Instructions: TAKE 1 TABLET BY MOUTH DAILY. mirtazapine 15 mg tablet See Rx Instructions .ROUTE .COMPLEX Qty: 30 5RF Dose Instruction: TAKE ONE TABLET BY MOUTH DAILY Rx Instructions: TAKE ONE TABLET BY MOUTH DAILY spironolactone 50 mg tablet See Rx Instructions .ROUTE .COMPLEX Qty: 30 5RF Dose Instruction: TAKE 1 TABLET BY MOUTH DAILY. Rx Instructions: TAKE 1 TABLET BY MOUTH DAILY. Discontinued amoxicillin-pot clavulanate 875-125 mg tablet 1 tablet PO Q12H Qty: 10 0RF Patient Comments: For 5 days. Last dose after morning dose on 11/26/25 doxycycline hyclate 100 mg tablet 100 mg PO BID Qty: 10 0RF Date of admission: 11/20/24 17:11 Primary Care Provider: Noah Perry Admitting Provider: [facility] Attending physician on admission: Rosalind Allen Condition: Improved Quality VTE Prophylaxis VTE prophylaxis: pharmacologic ordered Hospitalist MIPS Heart Failure (Exclusion) Patient has history of Heart Transplant or Left Ventricular Assistive Device?: No IF YES, STOP HERE Heart Failure (Qualifier) Patient has current or prior documentation of LVEF less than or equal to 40%, or mod/servere depressed LVSF?: No IF NO, STOP HERE
--- NOTE | 2024-11-29 12:17 | PC.NURSE ---
Patients exits building via WC to family vehicle in route to [facility]. She was escorted by family. All discharge instructions, education and RX discussed with verbal understanding per 2 family members and patient. Pt left facility at 1055 today.
--- NOTE | 2024-12-02 09:25 | PC.NURSE ---
Discharge call back complete, states is feeling lousy, thinks her pneumonia is back, has a call in to her doctor to be seen, no questions re dc instructions
== END 2024-11-29 10:55 | disposition home or self-care (01) | DRG 947 ==
PROVIDERS: Nurse Practitioner Family; Admitting Provider Internal Medicine; PCP Family Medicine; Visit Provider Nurse Practitioner Acute Care
DX: R53.1 Weakness (principal); I21.A1 Myocardial infarction type 2; J18.9 Pneumonia, unspecified organism; I48.20 Chronic atrial fibrillation, unspecified; I10 Essential (primary) hypertension; E78.5 Hyperlipidemia, unspecified; K21.9 Gastro-esophageal reflux disease without esophagitis; F41.1 Generalized anxiety disorder; F03.90 Unspecified dementia, unspecified severity, without behavioral disturbance, psychotic disturbance, mood disturbance, and anxiety; M54.50 Low back pain, unspecified; G89.29 Other chronic pain; Z87.891 Personal history of nicotine dependence; Z79.01 Long term (current) use of anticoagulants
CPT/HCPCS: 36415; 80053; 82948; 83735; 84484; 85025; 85027; 87493; 93005; 97110; 97161; 97165; 97530; 97535; A9270; J7040

== ENCOUNTER 2024-12-06 09:11 | Outpatient (CLI) | payer OTHER, SELFPAY ==
--- OUTSIDE RECORDS SUMMARY | 2024-12-06 09:40 | XMS_ITS | Clinical Summary ---
Author Organization [facility] Address [address] [place] [id number] Care Team Providers Care Procedures Tech Name Role Phone Unavailable Primary Care Provider [...]
[2024-12-06 09:44] LABS: Hematocrit 38.1 % (35.0-42.0); Hemoglobin 11.5 g/dL (11.7-13.8); Mean Corpuscular HGB Conc 30.2 g/dL (32-36); Mean Corpuscular Volume 96.2 fL (78.0-102.0); Mean Platelet Volume 9.8 fl (9.2-11.8); Platelet Count Result 385 K/mm3 (150-420); Red Blood Count 3.96 M/mm3 (4.20-5.40); Red Cell Distribution Width 15.9 % (11.6-14.4); White Blood Count 11.4 K/mm3 (4.8-10.8)
[2024-12-06 10:02] LABS: Band Neutrophils Percent 0 % (0-6); Basophils Percent Manual 0 % (0-1); Eosinophils Percent Manual 0 % (1-6); Lymphocytes Absolute Manual 2.16 K/mm3 (1.1-4.5); Lymphocytes Percent Manual 19 % (18-44); Monocytes Absolute Manual 0.34 K/mm3 (0.1-0.90); Monocytes Percent Manual 3 % (3-9); Neutrophils Absolute Manual 8.89 K/mm3 (1.7-7.2); Neutrophils Percent Manual 78 % (46-73); Platelet Estimate Adequate (Adequate); Total Cells Counted 100
[2024-12-06 10:16] LABS: Alanine Aminotransferase 17 U/L (14-59); Alkaline Phosphatase 139 U/L (46-116); Anion Gap 8 mmol/L (4-12); Aspartate Amino Transferase 12 U/L (15-37); Bilirubin,Total 0.4 mg/dL (0.00-1.00); Blood Urea Nitrogen 21 mg/dL (7-18); Calcium 9.8 mg/dL (8.5-10.1); Carbon Dioxide 29 mmol/L (21-32); Chloride 107 mmol/L (98-108); Estimated Glomerular Filt Rate 39; Glucose 116 mg/dL (70-99); NT Pro B Type Natriuretic Pept 773 pg/mL (0-450); Osmolality Calculated 302 mOsm/kg (285-295); Potassium 5.1 mmol/L (3.5-5.1); Sodium 144 mmol/L (136-145); Total Protein 7.2 g/dL (6.4-8.2)
== END 2024-12-06 09:12 | disposition home or self-care (01) ==
PROVIDERS: PCP Nurse Practitioner Family; Visit Provider Nurse Practitioner Family
DX: I10 Essential (primary) hypertension (principal); N17.9 Acute kidney failure, unspecified; I50.9 Heart failure, unspecified
CPT/HCPCS: 36415; 80053; 83880; 85025

== ENCOUNTER 2024-12-12 16:33 | Outpatient (CLI) | payer OTHER, SELFPAY ==
--- OUTSIDE RECORDS SUMMARY | 2024-12-12 16:36 | XMS_ITS | Clinical Summary ---
Author Organization [facility] Address [address] [place] [address] Care Team Providers Care School Leader Name Role Phone Unavailable Primary Care Provider [...]
[2024-12-12 16:42] LABS: Add Urine Microscopic? NO; Appearance Urine Clear (Clear); Bilirubin Urine Negative (Negative); Blood Urine Negative (Negative); Color Urine Light Yellow (Yellow); Glucose Urine UA Negative (Negative); Ketones Urine Negative (Negative); Leukocyte Esterase Ur Negative LEU/UL (Negative); Nitrate Urine Negative (Negative); Protein Urine Negative (Negative); Urobilinogen Urine 0.2 mg/dL (0.2-1.0)
== END 2024-12-12 16:34 | disposition home or self-care (01) ==
PROVIDERS: PCP Nurse Practitioner Family; Visit Provider Nurse Practitioner Family
DX: Z87.898 Personal history of other specified conditions (principal)
CPT/HCPCS: 81003

== ENCOUNTER 2025-01-17 07:22 | Outpatient (CLI) | payer OTHER, SELFPAY ==
--- NOTE | ~2025-01-17 | US_ITS ---
Renal-Bladder ultrasound Clinical History: Abnormal blood chemistry findings Technique: Real-time sonographic imaging of the kidneys and urinary bladder was performed. Findings: The right kidney measures 10.2 cm in length and the left kidney measures 11.2 cm. There is no hydronephrosis or renal calculus identified. Renal cortical echogenicity is within normal limits. Small right renal cyst present. The urinary bladder is moderately distended at the time of this exam. No intraluminal echoes are iden tified. No abnormal wall thickening is seen. Impression: Unremarkable ultrasound of the kidneys and urinary bladder. Reviewed, dictated and finalized at location M. Impression: Unremarkable ultrasound of the kidneys and urinary bladder.
--- OUTSIDE RECORDS SUMMARY | 2025-01-17 07:28 | XMS_ITS | Clinical Summary ---
Author Organization [facility] Address [address] [place] [id number] Care Team Providers Care Electric Tool Repairer Name Role Phone Unavailable Primary Care Provider [...] Td Vaccines ( 1 - Tdap) 1959 Pneumococcal Vaccine: 50+ Ye ars (1 of 1 - PCV) 1990 Zoster Vaccines (1 of 2) 1990 Annual Medicare Wellness Visit 2005 Dexa Scan (General) 2005 RSV Immunization or 60+ Years (1 - 1-dose 75+ series) 2015 COVID-19 Vaccine ( - 2023-2 5 season) 2024 Meningococcal B Vaccine Aged Out No l onger eligible based on patient's age to complete this topic Meningococcal Vaccine Aged Out No donna jayde eligible based on patient's age to complete this topic RSV Immunizations Under 20 Months Aged Out No longer eligible based on patient's age to complete this topic Insurance MEDICARE
[2025-01-17 08:24] LABS: Albumin Level 3.2 g/dL (3.4-5.0); Anion Gap 6 mmol/L (4-12); Blood Urea Nitrogen 24 mg/dL (7-18); Calcium 8.9 mg/dL (8.5-10.1); Carbon Dioxide 30 mmol/L (21-32); Chloride 102 mmol/L (98-108); Estimated Glomerular Filt Rate 36; Glucose 99 mg/dL (70-99); Osmolality Calculated 290 mOsm/kg (285-295); Phosphorus 3.2 mg/dL (2.6-4.7); Potassium 4.8 mmol/L (3.5-5.1); Sodium 138 mmol/L (136-145)
[2025-01-17 09:48] LABS: Add Urine Microscopic? NO; Appearance Urine Clear (Clear); Bilirubin Urine Negative (Negative); Blood Urine Negative (Negative); Color Urine Light Yellow (Yellow); Glucose Urine UA Negative (Negative); Ketones Urine Negative (Negative); Leukocyte Esterase Ur Negative (Negative); Nitrate Urine Negative (Negative); Protein Urine Negative (Negative); Urobilinogen Urine 0.2 mg/dL (0.2-1.0)
[2025-01-17 10:04] LABS: Creatinine Urine 85.93 mg/dL (40-278); Ur Ttl Prot Creatinine Ratio 0.13 mg/mg (0-0.20)
[2025-01-18 09:08] LABS: Creatinine, Random Urine 89 mg/dL (20-275); Total Prot/Creat ratio mg/mg 0.067 (0.024-0.184); Total Protein/Creatinine Ratio 67 mg/g creat (24-184)
[2025-01-19 03:03] LABS: Protein, Total 6.6 g/dL (6.1-8.1)
[2025-01-20 12:59] LABS: Complement C3 185 mg/dL
== END 2025-01-17 07:23 | disposition home or self-care (01) ==
LOC: CHSIMG 07:25
PROVIDERS: PCP Nurse Practitioner Family; Visit Provider Internal Medicine Nephrology
DX: R79.89 Other specified abnormal findings of blood chemistry (principal); I10 Essential (primary) hypertension; R60.0 Localized edema
CPT/HCPCS: 36415; 76775; 80069; 81003; 82570; 83520; 84155; 84156; 84165; 84166; 86036; 86038; 86160; 86225

== ENCOUNTER 2025-05-01 12:19 | Emergency (ER) | payer OTHER, SELFPAY ==
[2025-05-01] VITALS (11 sets, daily range): BP systolic 120–144; BP diastolic 53–61; PULSE 58; RESP 16; TEMP 35.8; O2SAT 94–100
--- NOTE | ~2025-05-01 | CT_ITS ---
EXAMINATION: CT thoracic spine wo con DATE: 05/01/2025 13:19 INDICATION: Status post fall. Back pain. TECHNIQUE: Computed tomography (CT) of the thoracic spine was performed without intravenous contrast. The dose-length product was 1291.13 mGy-cm. Automated exposure control and iterative reconstruction technique were employed. COMPARISON: None FINDINGS: There is accentuated thoracic kyphosis. There is moderate spondylosis. There is dextroscoli osis. Lung bases unremarkable. No paraspinal soft tissue abnormality. There is atherosclerosis of the aorta and coronary arteries. IMPRESSION: 1. No acute abnormality of the thoracic spine. 2: Moderate thoracic spondylosis with accentuated kyphosis and dextroscoliosis. Reviewed, dictated and finalized at location A. IMPRESSION: 1. No acute abnormality of the thoracic spine. 2: Moderate thoracic spondylosis with accentuated kyphosis and dextroscoliosis .
--- OUTSIDE RECORDS SUMMARY | 2025-05-01 12:21 | XMS_ITS | Clinical Summary ---
Author Organization [facility] Address [address] [place] [id number] Care Team Providers Care Blockers Skiver Name Role Phone Unavailable Primary Care Provider [...]
--- NOTE | 2025-05-01 12:37 | ED.GENADULT ---
HPI - General Adult General Chief complaint: Urogenital-Female Stated complaint: Fall/UTI Time Seen by Provider: 05/01/25 12:37 Source: patient and family Limitations: no limitations History of Present Illness HPI narrative: 84 years old white female came from assisting [employer] in with her daughter carmen telling me that she had a fall 10 days ago. Patient got up in the middle of the night to go to the bathroom, lost her balance and fell backward, complaining of mid thoracic back pain since. She denied head injury, neck pain, loss of consciousness, headache, nausea, vomiting, diarrhea, constipation or urinary symptoms. Her daughter requested blood test to make sure that the patient is not dehydrated. She is telling me that patient sit in a warm environment and does not like to drink. . Patient is asymptomatic except mid thoracic pain after the fall. Related Data Allergies Allergy/AdvReac Type Severity Reaction Status Date / Time FRANCO Inhibitors Allergy Unknown unknown Verified 05/01/25 12:41 Review of Systems Review of Systems: All systems reviewed & are unremarkable except as noted in HPI and below PMFSH Past Medical History Medical History (Updated 05/01/25 @ 14:07 by Tahir Hodgson MD) Obesity, Class I, BMI 30-34.9 Olecranon bursitis of right elbow Essential hypertension Insomnia Hyperlipidemia Headache GERD without esophagitis LEAH (generalized anxiety disorder) Dementia Chronic low back pain Altered mental status Surgical History Surgical History History of hysterectomy History of cholecystectomy Family History Family History Father Family history of coronary artery disease Social History Social History Smoking status: Former smoker Smoking end date: 09/25/69 Alcohol intake: never Substance use: never Substance use type: does not use Do You Feel Safe in your Home?: Yes Lack of Transportation: No Lack of Food: Never True Current Housing: I Have Housing Concerned About Future Housing: No Difficulty Paying Gas/Electric Bills: No Difficulty Paying for Meds: No Currently Unemployed: No Education: Grade School Difficulty w/ Childcare or Family Care: No Living arrangements: assisted living Additional living arrangements comments: [facility] Occupation/Education: retired Gender identity (if verbalized by the patient): Female Spiritual care concerns: No Exam Narrative: General appearance: Well-developed, well-nourished Skin: Normal color Head: Normocephalic, nontraumatic Eyes: Clear conjunctiva ENT: Oropharynx normal, ears normal, nose normal Neck: Supple, nontender Chest and respiratory: Airway patent, no respiratory distress, no accessory muscle use Heart: Regular rate/rhythm Abdomen: Soft, nontender, no organomegaly, quiet bowel sounds Vascular: Normal peripheral pulses, normal capillary refill. Musculoskeletal: Midthoracic spine bruises with different stages of healing and colors, severe kyphosis Neurologic: Alert and oriented ?3, TEST DESK TROUBLE LOCATOR is normal as tested, no gross motor deficit Course Vital Signs Vital signs: Vital Signs Temperature 35.8 C L 05/01/25 12:23 Pulse Rate 58 L 05/01/25 12:23 Respiratory Rate 16 05/01/25 12:23 Blood Pressure 142/61 H 05/01/25 12:23 Pulse Oximetry 95 05/01/25 12:23 Oxygen Delivery Room Air 05/01/25 12:23 Temperature 35.8 C L 05/01/25 12:23 Pulse Rate 58 L 05/01/25 12:23 Respiratory Rate 16 05/01/25 12:23 Blood Pressure 132/54 L 05/01/25 13:31 Pulse Oximetry 97 05/01/25 13:31 Oxygen Delivery Room Air 05/01/25 12:23 Medical Decision Making MDM Narrative Medical decision making narrative: differential diagnosis include thoracic contusion versus fracture. CT thoracic spine showed no acute osseous abnormality Urinalysis showed no significant evidence of infection Differential Diagnosis Differential Diagnosis: Thoracic contusion versus fracture Vital Signs Vital Signs: Vital Signs Temperature 35.8 C L 05/01/25 12:23 Pulse Rate 58 L 05/01/25 12:23 Respiratory Rate 16 05/01/25 12:23 Blood Pressure 142/61 H 05/01/25 12:23 Pulse Oximetry 95 05/01/25 12:23 Oxygen Delivery Room Air 05/01/25 12:23 Temperature 35.8 C L 05/01/25 12:23 Pulse Rate 58 L 05/01/25 12:23 Respiratory Rate 16 05/01/25 12:23 Blood Pressure 132/54 L 05/01/25 13:31 Pulse Oximetry 97 05/01/25 13:31 Oxygen Delivery Room Air 05/01/25 12:23 Lab Data 05/01/25 12:53 Labs: Lab Results 05/01/25 05/01/25 Range/Units 12:37 12:53 Sodium 135 L (137-145) mmol/L Potassium 4.8 (3.4-5.0) mmol/L Chloride 99 (98-107) mmol/L Carbon Dioxide 29 (22-30) mmol/L Anion Gap 7 (4-12) mmol/L BUN 15 D (7-17) mg/dL Creatinine 1.27 H (0.7-1.0) mg/dL Estim Creat Clear Calc 28 ml/min Estimated GFR 40 L (59 - ) Glucose 107 (65-110) mg/dL Calculated Osmolality 280 L (285-295) mOsm/kg Calcium 10.1 (8.4-10.2) mg/dL Urine Color Light yellow (Yellow) Urine Appearance Clear (Clear) Urine pH 6.0 (5.0-8.0) Ur Specific [place] <= 1.005 L (1.010-1.020) Urine Protein Negative (Negative) Urine Glucose (UA) Negative (Negative) Urine Ketones Negative (Negative) Ur Blood (Man) Negative (Negative) Urine Nitrate Negative (Negative) Urine Bilirubin Negative (Negative) Urine Urobilinogen 0.2 (0.2-1.0) mg/dL Leukocyte Esterase Rfl Negative (Negative) CLARI/UL Imaging Data Radiologist's impression: Impressions Thoracic Spine CT 05/01/25 13:50 IMPRESSION: 1. No acute abnormality of the thoracic spine. 2: Moderate thoracic spondylosis with accentuated kyphosis and dextroscoliosis. Critical Care Time Critical Care Time Critical Care Time: No Discharge Plan Discharge Clinical Impression: Back pain Patient Disposition: NH [facility]/Asst Living Condition: Stable Instructions: Back Pain (ED) Additional Instructions: Return if symptoms are worsening , call your family physician for appointment, take Tylenol as as needed for aches and pain, continue home medications. Patient Language: Citizen Of [place] Prescriptions: No Action mecobalamin (vitamin B12) 1,000 mcg tablet,disintegrating See Rx Instructions .ROUTE .COMPLEX Qty: 100 0RF Dose Instruction: PLACE 1 TABLET UNDER TONGUE AND ALLOW TO DISSOLVE FOR 30 SECONDS BEFORE SWALLOWING Rx Instructions: PLACE 1 TABLET UNDER TONGUE AND ALLOW TO DISSOLVE FOR 30 SECONDS BEFORE SWALLOWING acetaminophen 500 mg tablet See Rx Instructions .ROUTE .COMPLEX Qty: 100 5RF Dose Instruction: TAKE 1 TABLET BY MOUTH EVERY 8 HOURS Rx Instructions: TAKE 1 TABLET BY MOUTH EVERY 8 HOURS furosemide 20 mg tablet See Rx Instructions .ROUTE .COMPLEX Qty: 90 2RF Dose Instruction: TAKE ONE TABLET BY MOUTH EVERY MORNING NEEDED FOR EDEMA Rx Instructions: TAKE ONE TABLET BY MOUTH EVERY MORNING NEEDED FOR EDEMA atorvastatin 40 mg tablet See Rx Instructions .ROUTE .COMPLEX Qty: 30 5RF Dose Instruction: TAKE 1 TABLET AT BEDTIME. Rx Instructions: TAKE 1 TABLET AT BEDTIME. mirtazapine 15 mg tablet See Rx Instructions .ROUTE .COMPLEX Qty: 30 5RF Dose Instruction: TAKE ONE TABLET BY MOUTH DAILY Rx Instructions: TAKE ONE TABLET BY MOUTH DAILY losartan 100 mg tablet See Rx Instructions .ROUTE .COMPLEX Qty: 30 5RF Dose Instruction: TAKE 1 TABLET BY MOUTH DAILY. Rx Instructions: TAKE 1 TABLET BY MOUTH DAILY. hydrocodone-acetaminophen 5-325 mg tablet 1 tablet PO Q6H PRN (Reason: pain) Qty: 30 0RF Rx Instructions: please take only as needed. this medicine causes drowsiness/sedation. gabapentin 400 mg capsule See Rx Instructions .ROUTE .COMPLEX Qty: 270 2RF Dose Instruction: 1 CAP BY MOUTH 3 TIMES A DAY Rx Instructions: 1 CAP BY MOUTH 3 TIMES A DAY spironolactone 50 mg tablet See Rx Instructions .ROUTE .COMPLEX Qty: 90 2RF Dose Instruction: 1 TAB BY MOUTH DAILY Rx Instructions: 1 TAB BY MOUTH DAILY ergocalciferol (vitamin D2) 1,250 mcg (50,000 unit) capsule See Rx Instructions .ROUTE .COMPLEX Qty: 12 1RF Dose Instruction: 1 CAP BY MOUTH WEEKLY ON MONDAY Rx Instructions: 1 CAP BY MOUTH WEEKLY ON MONDAY Follow-up/Referrals: Shanna Lawton NP [Primary Care Provider] -
[2025-05-01 12:45] LABS: Add Urine Microscopic? NO; Appearance Urine Clear (Clear); Glucose Urine UA Negative (Negative); Leukocyte Esterase Ur Negative LEU/UL (Negative); Nitrate Urine Negative (Negative); Specific Grav Ur <= 1.005 (1.010-1.020)
--- OUTSIDE RECORDS SUMMARY | 2025-05-01 12:51 | XMS_ITS | Clinical Summary ---
Author Organization [facility] Address [address] [place] [address] Care Team Providers Care Environmental Engineer Scientist Name Role Phone Unavailable Primary Care Provider [...]
[2025-05-01 13:08] LABS: Anion Gap 7 mmol/L (4-12); Blood Urea Nitrogen 15 mg/dL (7-17); Calcium 10.1 mg/dL (8.4-10.2); Carbon Dioxide 29 mmol/L (22-30); Chloride 99 mmol/L (98-107); Estimated CRCL calculation 28 ml/min; Estimated Glomerular Filt Rate 40; Glucose 107 mg/dL (65-110); Osmolality Calculated 280 mOsm/kg (285-295); Potassium 4.8 mmol/L (3.4-5.0); Sodium 135 mmol/L (137-145)
== END 2025-05-01 14:22 ==
PROVIDERS: Emergency Provider Emergency Medicine; PCP Nurse Practitioner Family
DX: M54.6 Pain in thoracic spine (principal); I10 Essential (primary) hypertension; E78.5 Hyperlipidemia, unspecified; Z87.891 Personal history of nicotine dependence
CPT/HCPCS: 36415; 72128; 80048; 81003; 99284

== ENCOUNTER 2025-05-22 14:50 | Outpatient (NON) | payer OTHER, SELFPAY ==
--- OUTSIDE RECORDS SUMMARY | 2025-05-22 14:56 | XMS_ITS | Clinical Summary ---
Author Organization [facility] Address [address] [place] [address] Care Team Providers Care Industrial Controller Name Role Phone Unavailable Primary Care Provider [...]
[2025-05-22 15:32] LABS: Add Urine Microscopic? NO; Appearance Urine Clear (Clear); Glucose Urine UA Negative (Negative); Leukocyte Esterase Ur Negative LEU/UL (Negative); Nitrate Urine Negative (Negative); Specific Grav Ur 1.010 (1.010-1.020)
== END 2025-05-22 14:51 | disposition home or self-care (01) ==
LOC: CHSLAB 14:52
PROVIDERS: Visit Provider Nurse Practitioner Family
DX: Z87.898 Personal history of other specified conditions (principal)
CPT/HCPCS: 81003

== ENCOUNTER 2025-05-22 22:47 | Inpatient (IN) | payer OTHER, SELFPAY ==
--- NOTE | ~2025-05-22 | CT_ITS ---
EXAMINATION: CT diagnostic chest wo con DATE: 05/22/2025 23:20 INDICATION: Chest congestion. Right rib pain. TECHNIQUE: Computed tomography (CT) of the chest was performed without intravenous contrast. The dose-length product was 660.51 mGy-cm. Automated exposure control and iterative reconstruction technique were employed. COMPARISON: CT dated 11/13/2024 FINDINGS: Heart size is normal. No significant pleural or pericardial effusion. There is atherosclerosis of the aorta. Status post cholecystectomy. No evidence for aortic aneurysm. There are left upper lobe consistent and, right middle and right lower lobe infiltrates/consolidation with areas of nodularity, most likely infectious/inflammatory. There are a few areas of tree-in-bud configuration, most likely infectious. No endobronchial lesions. No pneumothorax. 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 Accentuated thoracic kyphosis. IMPRESSION: 1. Patchy bilateral mixed interstitial and airspace disease with some areas of nodularity, most likely infectious/inflammatory. Recommend follow-up CT in 1-2 months to assess for resolution to exclude underlying mass. Reviewed, dictated and finalized at location O.
--- NOTE | ~2025-05-22 | CT_ITS ---
EXAMINATION: CT cervical spine wo con DATE: 05/22/2025 23:21 INDICATION: Head and neck injury TECHNIQUE: Computed tomography (CT) of the cervical spine was performed without intravenous contrast. The dose-length product was 523 mGy-cm. Automated exposure control and iterative reconstruction technique were employed. COMPARISON: None FINDINGS: Accentuated cervical lordosis. Odontoid process is normal. Craniovertebral junction is normal. Mild cervical spondylosis characterized by mild disc narrowing at C6-7 with multilevel uncinate and facet hypertrophy. Lung apices are unremarkable. No evidence for perched facet. Craniovertebral junction is normal. 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 IMPRESSION: 1. No acute abnormality of the cervical spine. Reviewed, dictated and finalized at location O.
--- NOTE | ~2025-05-22 | CT_ITS ---
EXAMINATION: CT brain wo con DATE: 05/22/2025 23:21 INDICATION: Head injury. Neck pain. TECHNIQUE: Computed tomography (CT) of the head was performed without intravenous contrast. The dose-length product was 832.33 mGy-cm. Automated exposure control and iterative reconstruction technique were employed. COMPARISON: CT dated 11/15/2024 FINDINGS: Chronic right cerebellar infarction. Generalized atrophy. There are scattered mild periventricular and subcortical white matter changes, most likely related to small vessel ischemic disease (microangiopathy). No ventriculomegaly or midline shift. Basilar cisterns are patent. There is intracranial atherosclerosis. Paranasal sinuses and mastoids are pneumatized. No depressed skull fractures. Midline sagittal images are unremarkable. IMPRESSION: 1. No acute intracranial abnormality. 2: Chronic right cerebellar infarction. Reviewed, dictated and finalized at location O.
--- NOTE | ~2025-05-22 | XR_ITS ---
EXAMINATION: XR elbow RT min 3V DATE: 05/26/2025 10:24 INDICATION: Right elbow swelling and bruising post multiple recent falls TECHNIQUE: Anteroposterior, oblique and lateral views of the right elbow were obtained. COMPARISON: None. FINDINGS: Alignment is normal. No fracture or joint effusion. Joint spaces are normal. Tiny olecranon spur. Mild soft tissue swelling posterior to the proximal ulna. IMPRESSION: 1. No right elbow joint effusion or acute osseous abnormality. Reviewed, dictated and finalized at location A.
[2025-05-22 22:47] VITALS: BP 121/86; PULSE 87; RESP 18; TEMP 37.3; O2SAT 96
--- NOTE | 2025-05-22 23:00 | PC.NURSE ---
PATIENT TRANSPORTED TO CT VIA STRETCHER
--- NOTE | 2025-05-22 23:10 | ECG_ITS ---
Test Date: 2025-05-22 23:28:29 Measurements Intervals [place] Rate: 84 P: 53 NM: 197 QRS: 21 QRSD: 97 T: 56 QT: 393 QTc: 467 Interpretive Statements SINUS RHYTHM INCOMPLETE RIGHT BUNDLE BRANCH BLOCK BASELINE ARTIFACT- AVL, V2 BORDERLINE ECG Compared to ECG 11/24/2024 14:16:55 No significant changes Electronically Signed On 05-23-2025 06:45:29 CDT by Javier Jones D.O.
[2025-05-22] MEDS: SODIUM CHLORIDE 0.9% IV 1,000 ML 999 ML IV CONT (23:17)
[2025-05-22] MEDS: MORPHINE SULFATE (*CRX) 2 MG/ML INJ IV PUSH (23:17)
[2025-05-22 23:27] LABS: Hematocrit 35.3 % (35.0-42.0); Hemoglobin 11.1 g/dL (11.7-13.8); Immature Granulocyte Percent A 1.0 % (0.0-0.0); Lymphocytes Absolute Auto 1.34 K/mm3 (1.10-4.50); Mean Corpuscular HGB Conc 31.4 g/dL (32-36); Mean Corpuscular Hemoglobin 30.7 pg (27.0-31.0); Mean Corpuscular Volume 97.8 fL (78.0-102.0); Nucleated Red Blood Cells Absolute Auto 0.00 K/mm3 (0.00-0.00); Nucleated Red Blood Cells Perc 0.0 % (0-0.0); Platelet Count Result 298 K/mm3 (150-420); Red Blood Count 3.61 M/mm3 (4.20-5.40); White Blood Count 18.7 K/mm3 (4.8-10.8)
--- NOTE | 2025-05-22 23:32 | PC.NURSE ---
EKG IN PROGRESS. FAMILY MEMBERS AT THE BEDSIDE. UPDATED FAMILY ON PLAN OF CARE. PLACED BACK ON PMO ANALYST. CALL LIGHT IN REACH. PATIENT WANTS C COLLAR OFF. INFORMED PATIENT THAT CT RESULTS NEED TO POST BEFORE REMOVING COLLAR. PATIENT VERBALIZED UNDERSTANDING
[2025-05-22 23:39] LABS: Alanine Aminotransferase 27 U/L (6-35); Albumin Level 4.0 g/dL (3.5-5.1); Alkaline Phosphatase 114 U/L (38-126); Anion Gap 7 mmol/L (4-12); Aspartate Amino Transferase 30 U/L (14-36); Bilirubin,Total 1.0 mg/dL (0.2-1.3); Blood Urea Nitrogen 28 mg/dL (7-17); Calcium 9.8 mg/dL (8.4-10.2); Carbon Dioxide 30 mmol/L (22-30); Chloride 100 mmol/L (98-107); Estimated CRCL calculation 24 ml/min; Estimated Glomerular Filt Rate 31; Glucose 135 mg/dL (65-110); Osmolality Calculated 291 mOsm/kg (285-295); Potassium 4.9 mmol/L (3.4-5.0); Sodium 137 mmol/L (137-145); Total Protein 7.4 g/dL (6.3-8.2)
[2025-05-22 23:41] LABS: INR 1.0; Partial Thromboplastin Time 40.3 Sec (23.9-30.70); Prothrombin Time 11.4 Seconds (9.50-12.1)
[2025-05-22 23:42] VITALS: BP 135/72; PULSE 86; RESP 18; O2SAT 91
--- NOTE | 2025-05-22 23:42 | PC.NURSE ---
PATIENT IS RESTING ON STRETCHER. TRUCK SALES REPRESENTATIVE IN PLACE. REQUESTING COLLAR BE TAKEN OFF. FAMILY REMINDED PATIENT WHY COLLAR IS ON. PATIENT VERBALIZED UNDERSTANDING. CALL LIGHT IN REACH. PATIENT IS AWARE THAT A URINE SAMPLE IS NEEDED.
[2025-05-22 23:46] VITALS: BP 131/74; PULSE 87; RESP 20; O2SAT 91
[2025-05-22 23:50] LABS: Troponin I < 0.012 ng/mL (0.000-0.034)
[2025-05-23] VITALS (18 sets, daily range): BP systolic 98–122; BP diastolic 41–59; PULSE 63–89; RESP 16–20; TEMP 36.3–37.8; O2SAT 91–100; BMI 31.8
[2025-05-23 00:03] LABS: Influenza A QL RT-PCR Negative (Negative); Influenza B QL RT-PCR Negative (Negative); RSV RNA, RT-PCR Negative (Negative); SARS-CoV-2 RNA PCR Negative (Negative)
--- NOTE | 2025-05-23 00:04 | PC.NURSE ---
DR WILLAMS WAS NOTIFIED OF CT HEAD AND CT C SPINE RESULTS. OK TO REMOVED C COLLAR AT THIS TIME. DONE.
--- NOTE | 2025-05-23 00:19 | PC.NURSE ---
ASSISTED PATIENT UP TO BEDSIDE COMMODE FOR URINE SAMPLE
--- NOTE | 2025-05-23 00:36 | PC.NURSE ---
PATIENT CONTINUES TO SIT ON BEDSIDE COMMODE. PATIENT HAS SEVERAL BRUISES TO HER LOWER EXTREMITIES. STATES THAT HAPPENED THE LAST TIME SHE FELL DOWN. FAMILY IS AT HER SIDE.
--- NOTE | 2025-05-23 00:46 | PC.NURSE ---
CHECKED ON PATIENT. STATES SHE STILL HAS NOT GONE. INFORMED PATIENT THAT A STRAIGHT CATH COULD BE DONE TO COLLECT URINE SAMPLE. PATIENT WANTS TO CONTINUE TO TRY AND USE BEDSIDE COMMODE
--- NOTE | 2025-05-23 01:29 | ED_ITS ---
HPI - Fall General Chief Complaint: Fall Stated Complaint: Fall Time Seen by Provider: 05/22/25 22:54 Source: patient, family and EMS Mode of arrival: EMS Limitations: physical limitation History of Present Illness HPI Narrative: this is an 84-year-old retirement patient presents via EMS from [facility] with frequent falls over the last 2 to 3 days has been having cough and congestion and weakness and had a fall earlier this afternoon uncertain if she hit her head but was brought in by EMS with a cervical collar. The patient with no fever chills has a history of dementia, hyperlipidemia and hypertension. There is no nausea or vomiting no abdominal pain no chest pain no dysuria or hematuria. complaint: fall Onset (ago): day(s) Fall from: standing Fall witnessed: yes, by living facility staff Place fall occurred: other Loss of consciousness: none Prolonged down time: no Related Data Allergies Allergy/AdvReac Type Severity Reaction Status Date / Time FRANCO Inhibitors Allergy Unknown unknown Verified 05/22/25 23:05 Review of Systems 2 Review of Systems: All systems reviewed & are unremarkable except as noted in HPI and below PMFSH Past Medical History Medical History (Updated 05/23/25 @ 01:34 by Christian Fletcher MD) Obesity, Class I, BMI 30-34.9 Olecranon bursitis of right elbow Essential hypertension Insomnia Hyperlipidemia Headache GERD without esophagitis LEAH (generalized anxiety disorder) Dementia Chronic low back pain Altered mental status Surgical History Surgical History History of hysterectomy History of cholecystectomy Family History Family History Father Family history of coronary artery disease Social History Social History Smoking status: Former smoker Smoking end date: 09/25/69 Alcohol intake: never Substance use: never Substance use type: does not use Do You Feel Safe in your Home?: Yes Lack of Transportation: No Lack of Food: Never True Current Housing: I Have Housing Concerned About Future Housing: No Difficulty Paying Gas/Electric Bills: No Difficulty Paying for Meds: No Currently Unemployed: No Education: Grade School Difficulty w/ Childcare or Family Care: No Living arrangements: assisted living Additional living arrangements comments: [place] Occupation/Education: retired Gender identity (if verbalized by the patient): Female Spiritual care concerns: No Exam 2 Const: General: healthy appearing and no acute distress Nutritional Appearance: well nourished Orientation/consciousness: patient oriented x3 Limitations: no limitations Eyes: Conjunctivae: conjunctivae normal Pupils: Equal, round and reactive pupils present Neck: Neck: normal visual inspection Chest: Chest palpation & inspection: normal inspection of the chest Resp: Effort & Inspection: normal respiratory effort Auscultation: rhonchi and diminished lung sounds Cardio: Rate: regular rate Rhythm: regular rhythm GI: GI Palp: Yes Soft to palpation Auscultation: normal bowel sounds : General: Yes bladder normal to palpation Urinary Catheter: Urinary Catheter: patent and draining Back/Spine/Pelvis: Back: no CVA tenderness Skin: General skin exam: normal color Rashes: no rashes Wounds: no wounds Neuro: General: patient oriented x3 and moves all extremities Extrem: General: normal to inspection Course Course Emergency Course: Patient had a urinalysis performed earlier this afternoon which shows no acute urinary tract infections. The patient does have a coarse breath [place] [id number] scan of the head and cervical spine without any acute abnormalities chest CT showed no acute fractures does suggest that there is no pneumonia but given the patient's symptomatology will admit for pneumonia and will start ceftriaxone and azithromycin. White count is 18.7 negative COVID lactic acid was within normal range. Vital Signs Vital signs: Vital Signs Temperature 37.3 C 05/22/25 22:47 Pulse Rate 87 05/22/25 22:47 Respiratory Rate 18 05/22/25 22:47 Blood Pressure 121/86 05/22/25 22:47 Pulse Oximetry 96 05/22/25 22:47 Oxygen Delivery Room Air 05/22/25 22:47 Temperature 37.3 C 05/22/25 22:47 Pulse Rate 85 05/23/25 00:16 Respiratory Rate 19 05/23/25 00:16 Blood Pressure 107/50 L 05/23/25 00:16 Pulse Oximetry 91 05/23/25 00:16 Oxygen Delivery Room Air 05/23/25 00:16 MDM - Fall Lab Data 05/22/25 23:24 05/22/25 23:24 Labs: Lab Results 05/22/25 Range/Units 23:24 WBC 18.7 H (4.8-10.8) K/mm3 RBC 3.61 L (4.20-5.40) M/mm3 Hgb 11.1 L (11.7-13.8) g/dL Hct 35.3 (35.0-42.0) % MCV 97.8 (78.0-102.0) fL MCH 30.7 (27.0-31.0) pg MCHC 31.4 L (32-36) g/dL RDW 14.8 H (11.6-14.4) % Plt Count 298 (150-420) K/mm3 MPV 9.8 (9.2-11.8) fl Immature Gran % (Auto) 1.0 H (0.0-0.0) % Neut % (Auto) 82.5 H (50.0-70.0) % Lymph % (Auto) 7.2 L (18.0-42.0) % [place] % (Auto) 8.6 (2.0-11.0) % Eos % (Auto) 0.2 L (1.0-6.0) % Baso % (Auto) 0.5 (0.0-1.0) % Lymph # (Auto) 1.34 (1.10-4.50) K/mm3 [place] # (Auto) 1.60 H (0.10-0.90) K/mm3 Eos # (Auto) 0.03 (0.02-0.50) K/mm3 Baso # (Auto) 0.09 (0.00-0.10) K/mm3 Abs Immat Gran (auto) 0.18 H (0.00-0.00) K/mm3 Absolute Neuts (auto) 15.47 H (1.70-7.20) K/mm3 Absolute Nucleated RBC 0.00 (0.00-0.00) K/mm3 Nucleated RBC % 0.0 (0-0.0) % PT 11.4 (9.50-12.1) Seconds INR 1.0 APTT 40.3 H (23.9-30.70) Sec Sodium 137 (137-145) mmol/L Potassium 4.9 (3.4-5.0) mmol/L Chloride 100 (98-107) mmol/L Carbon Dioxide 30 (22-30) mmol/L Anion Gap 7 (4-12) mmol/L BUN 28 H D (7-17) mg/dL Creatinine 1.57 H (0.7-1.0) mg/dL Estim Creat Clear Calc 24 ml/min Estimated GFR 31 L (59 - ) Glucose 135 H (65-110) mg/dL Calculated Osmolality 291 (285-295) mOsm/kg Lactic Acid 0.9 (0.4-2.0) mmol/L Calcium 9.8 (8.4-10.2) mg/dL Total Bilirubin 1.0 (0.2-1.3) mg/dL AST 30 (14-36) U/L ALT 27 (6-35) U/L Alkaline Phosphatase 114 (38-126) U/L Troponin I < 0.012 (0.000-0.034) ng/mL Total Protein 7.4 (6.3-8.2) g/dL Albumin 4.0 (3.5-5.1) g/dL Influenza A (RT-PCR) Negative (Negative) Influenza B (RT-PCR) Negative (Negative) RSV (RT-PCR) Negative (Negative) SARS-CoV-2 RNA (RT-PCR) Negative (Negative) Critical Care Time Critical Care Time Critical Care Time: No Discharge Plan Discharge Clinical Impression: Falls frequently Pneumonia Qualifiers: Pneumonia type: due to unspecified organism Laterality: right Lung location: l ower lobe of lung Qualified Code(s): J18.9 - Pneumonia, unspecified organism Patient Disposition: Acute Care Hospital Condition: Guarded Prognosis Patient Language: Malay Prescriptions: No Action mecobalamin (vitamin B12) 1,000 mcg tablet,disintegrating See Rx Instructions .ROUTE .COMPLEX Qty: 100 0RF Dose Instruction: PLACE 1 TABLET UNDER TONGUE AND ALLOW TO DISSOLVE FOR 30 SECONDS BEFORE SWALLOWING Rx Instructions: PLACE 1 TABLET UNDER TONGUE AND ALLOW TO DISSOLVE FOR 30 SECONDS BEFORE SWALLOWING acetaminophen 500 mg tablet See Rx Instructions .ROUTE .COMPLEX Qty: 100 5RF Dose Instruction: TAKE 1 TABLET BY MOUTH EVERY 8 HOURS Rx Instructions: TAKE 1 TABLET BY MOUTH EVERY 8 HOURS furosemide 20 mg tablet See Rx Instructions .ROUTE .COMPLEX Qty: 90 2RF Dose Instruction: TAKE ONE TABLET BY MOUTH EVERY MORNING NEEDED FOR EDEMA Rx Instructions: TAKE ONE TABLET BY MOUTH EVERY MORNING NEEDED FOR EDEMA atorvastatin 40 mg tablet See Rx Instructions .ROUTE .COMPLEX Qty: 30 5RF Dose Instruction: TAKE 1 TABLET AT BEDTIME. Rx Instructions: TAKE 1 TABLET AT BEDTIME. mirtazapine 15 mg tablet See Rx Instructions .ROUTE .COMPLEX Qty: 30 5RF Dose Instruction: TAKE ONE TABLET BY MOUTH DAILY Rx Instructions: TAKE ONE TABLET BY MOUTH DAILY losartan 100 mg tablet See Rx Instructions .ROUTE .COMPLEX Qty: 30 5RF Dose Instruction: TAKE 1 TABLET BY MOUTH DAILY. Rx Instructions: TAKE 1 TABLET BY MOUTH DAILY. gabapentin 400 mg capsule See Rx Instructions .ROUTE .COMPLEX Qty: 270 2RF Dose Instruction: 1 CAP BY MOUTH 3 TIMES A DAY Rx Instructions: 1 CAP BY MOUTH 3 TIMES A DAY spironolactone 50 mg tablet See Rx Instructions .ROUTE .COMPLEX Qty: 90 2RF Dose Instruction: 1 TAB BY MOUTH DAILY Rx Instructions: 1 TAB BY MOUTH DAILY ergocalciferol (vitamin D2) 1,250 mcg (50,000 unit) capsule See Rx Instructions .ROUTE .COMPLEX Qty: 12 1RF Dose Instruction: 1 CAP BY MOUTH WEEKLY ON MONDAY Rx Instructions: 1 CAP BY MOUTH WEEKLY ON MONDAY hydrocodone-acetaminophen 5-325 mg tablet 1 tablet PO Q6H PRN (Reason: pain) Qty: 30 0RF Rx Instructions: please take only as needed. this medicine causes drowsiness/sedation. prednisone 20 mg tablet 40 mg PO DAILY Qty: 10 0RF Rx Instructions: Take in AM Follow-up/Referrals: Shanna Lawton NP [Primary Care Provider, Family Practice] Time of Disposition: 01:34
[2025-05-23] MEDS: cefTRIAXone 1 GM in SODIUM CHLORIDE 0.9% IV 50 ML 100 ML IVPB ×2 (01:38→10:46)
[2025-05-23] MEDS: ACETAMINOPHEN 325 MG TABLET 650 MG PO (02:15)
--- NOTE | 2025-05-23 02:35 | PC.NURSE ---
Pt admitted as a 23 observation for pneumonia and frequent falls. Pt is alert and oriented x3 and comes from the [facility]. Oriented to room, call [place] and the bed. Side rails up x2 and call [place] within reach.
[2025-05-23] MEDS: AZITHROMYCIN IV 500 MG in SODIUM CHLORIDE 0.9% IV 250 ML IVPB (02:49)
[2025-05-23] MEDS: SODIUM CHLORIDE 0.9% IV 1,000 ML 100 ML IV CONT ×2 (03:00→15:30)
--- NOTE | 2025-05-23 04:05 | PC.NURSE ---
Pt asleep and no signs of discomfort noted.
--- NOTE | 2025-05-23 05:30 | PC.NURSE ---
Pt up to the commode with the gait belt, walker and assist of two. Pt was unable to void and was returned back to bed with the gait belt, walker and assist of two.
[2025-05-23 05:34] LABS: Hematocrit 33.4 % (35.0-42.0); Hemoglobin 10.5 g/dL (11.7-13.8); Immature Granulocyte Percent A 0.9 % (0.0-0.0); Lymphocytes Absolute Auto 2.52 K/mm3 (1.10-4.50); Mean Corpuscular HGB Conc 31.4 g/dL (32-36); Mean Corpuscular Hemoglobin 30.9 pg (27.0-31.0); Mean Corpuscular Volume 98.2 fL (78.0-102.0); Nucleated Red Blood Cells Absolute Auto 0.00 K/mm3 (0.00-0.00); Nucleated Red Blood Cells Perc 0.0 % (0-0.0); Platelet Count Result 298 K/mm3 (150-420); Red Blood Count 3.40 M/mm3 (4.20-5.40); White Blood Count 18.9 K/mm3 (4.8-10.8)
[2025-05-23 05:47] LABS: Alanine Aminotransferase 25 U/L (6-35); Albumin Level 3.7 g/dL (3.5-5.1); Alkaline Phosphatase 107 U/L (38-126); Anion Gap 8 mmol/L (4-12); Aspartate Amino Transferase 25 U/L (14-36); Bilirubin,Total 1.0 mg/dL (0.2-1.3); Blood Urea Nitrogen 24 mg/dL (7-17); Calcium 9.3 mg/dL (8.4-10.2); Carbon Dioxide 27 mmol/L (22-30); Chloride 104 mmol/L (98-107); Estimated CRCL calculation 29 ml/min; Estimated Glomerular Filt Rate 38; Glucose 121 mg/dL (65-110); Osmolality Calculated 293 mOsm/kg (285-295); Potassium 4.5 mmol/L (3.4-5.0); Sodium 139 mmol/L (137-145); Total Protein 7.0 g/dL (6.3-8.2)
[2025-05-23 05:55] LABS: NT Pro B Type Natriuretic Pept 1090 pg/mL (19.9-100)
[2025-05-23 09:23] LABS: Procalcitonin 0.2 ng/mL
--- NOTE | 2025-05-23 10:10 | PC.NURSE ---
Post void bladder scan is 389ml. G[employer] notified.
--- NOTE | 2025-05-23 10:35 | P.HP_ITS ---
H&P: HPI History of Present Illness Date/Time: 05/23/25 10:35 Chief Complaint: Generalized weakness/productive cough/SOB Narrative: Patient is an 84 female Presented to the emergency department from her [facility] living facility after multiple falls at home. Patient reports she has fallen at least 4-5 times in the last 5 days this last time she had fallen was unable to get up did not lose consciousness and denied any dizziness but did strike her head and is currently on Eliquis. patient presented to the emergency department for evaluation also reported she has had a productive cough for the last 4-5 days and some increased shortness a breath. Patient denied any chest pain, nausea, vomiting, sinus pressure, , fever chills but overall stated she just was not feeling well with increasing weakness. patient states the last time she fell she was attempting to ambulate with her walker to the restroom at which time she felt her legs just buckle and give out on her. In the ED: patient was found to have leukocytosis of 18.7, CR at 1.58 and elevated BNP of 1090. trauma workup was negative for any acute findings CT chest showed patchy bilateral mixed interstitial airspace disease with some areas of nodularity was likely infectious versus inflammatory. in the emergency department patient was given dose of IV Rocephin azithromycin and admitted to the medical unit for further evaluation and treatment of possible underlying pneumonia. UA was negative. I followed up with patient the following morning still with mildly productive cough shortness breaths diagnostic studies reviewed white count still around 18.9 however patient was receiving steroids outpatient 40 mg daily I did order a procalcitonin which was within normal limits likely upper respiratory infection but will continue to treat for possible underlying pneumonia. Patient has remained on room air with oxygen saturations greater than 92%. Patient did have a soft BP this a.m. also over orthostatics BP for contributing factors to her frequent falls. Review of Systems Review of Systems: All systems reviewed & are unremarkable except as noted in HPI and below PMFSH Past Medical History Medical History (Updated 05/23/25 @ 11:07 by Tarah Scales, SAUL) Obesity, Class I, BMI 30-34.9 Olecranon bursitis of right elbow Essential hypertension Insomnia Hyperlipidemia Headache GERD without esophagitis LEAH (generalized anxiety disorder) Dementia Chronic low back pain Altered mental status Surgical History Surgical History History of hysterectomy History of cholecystectomy Family History Family History Father Family history of coronary artery disease Social History Social History Smoking status: Never smoker Smoking end date: 09/25/69 Alcohol intake: never Substance use: never Substance use type: does not use Do You Feel Safe in your Home?: Yes Lack of Transportation: No Lack of Food: Never True Current Housing: I Have Housing Concerned About Future Housing: No Difficulty Paying Gas/Electric Bills: No Difficulty Paying for Meds: No Currently Unemployed: No Education: Grade School Difficulty w/ Childcare or Family Care: No Living arrangements: assisted living Additional living arrangements comments: [facility] Occupation/Education: retired Gender identity (if verbalized by the patient): Female Spiritual care concerns: No Meds Home Medications and Allergies Home Medications ?Medication ?Instructions ?Recorded ?Confirmed ?Type mecobalamin (vitamin B12) 1,000 See Rx Instructions .R oute 01/25/24 05/23/25 Rx mcg disintegrating .COMPLEX #100 tabs tablet,sublingual acetaminophen 500 mg tablet See Rx Instructions .Route 10/30/24 05/23/25 Rx .COMPLEX #100 tabs furosemide 20 mg tablet See Rx Instructions .Route 0 01/13/25 05/23/25 Rx .COMPLEX #90 tabs atorvastatin 40 mg tablet See Rx Instructions .Route 0 01/24/25 05/23/25 Rx .COMPLEX #30 tabs losartan 100 mg tablet See Rx Instructions .Route 0 01/24/25 05/23/25 Rx .COMPLEX #30 tabs mirtazapine 15 mg tablet See Rx Instructions .Route 0 01/24/25 05/23/25 Rx .COMPLEX #30 tabs ergocalciferol (vitamin D2) 1,250 See Rx Instructions .Route 04/15/25 05/23/25 Rx mcg (50,000 unit) capsule .COMPLEX #12 caps gabapentin 400 mg capsule See Rx Instructions .Route 0 04/15/25 05/23/25 Rx .COMPLEX #270 caps spironolactone 50 mg tablet See Rx Instructions .Route 04/15/25 05/23/25 Rx .COMPLEX #90 tabs hydrocodone 5 mg-acetaminophen 325 1 tablet PO Q6H PRN pain #30 tabs 05/05/25 05/23/25 Rx mg tablet prednisone 20 mg tablet 40 mg (2 x 20 mg) PO DAILY # 10 tabs 05/05/25 05/23/25 Rx amiodarone 200 mg tablet 200 mg PO Q24H 05/23/2504/26 History apixaban 5 mg tablet (Eliquis) 5 mg PO Q12H 05/23/25 0 05/23/25 History metoprolol tartrate 25 mg tablet 25 mg PO Q12H 5 05/23/25 History Allergies Allergy/AdvReac Type Severity Reaction Status Date / Time FRANCO Inhibitors Allergy Unknown unknown Verified 05/23/25 09:39 Vital Signs Vital Signs - 24 hr 05/22/25 22:47 05/22/25 23:42 05/22/25 23:46 Temperature 99.2 F Pulse Rate 87 86 87 Respiratory Rate 18 18 20 Blood Pressure 121/86 135/72 131/74 Pulse Oximetry 96 91 91 Oxygen Delivery Room Air Room Air Room Air Oxygen Flow Rate 05/23/25 00:01 05/23/25 00:16 05/23/25 02:15 Temperature 100.1 F H Pulse Rate 87 85 Respiratory Rate 19 19 Blood Pressure 122/59 L 107/50 L Pulse Oximetry 91 91 Oxygen Delivery Room Air Room Air Oxygen Flow Rate 05/23/25 02:22 05/23/25 03:00 05/23/25 04:15 Temperature 100.1 F H 98.5 F Pulse Rate 82 Respiratory Rate 18 Blood Pressure 118/42 L Pulse Oximetry 91 91 Oxygen Delivery Room Air Room Air Oxygen Flow Rate 05/23/25 06:00 Temperature 98.1 F Pulse Rate 80 Respiratory Rate 20 Blood Pressure 98/41 L Pulse Oximetry 92 Oxygen Delivery Nasal Cannula Oxygen Flow Rate 3 Exam Narrative: General: In no acute distress, well nourished appears stated age Head: atraumatic, no encephalopathy Eyes: PERRLA, sclera clear ENT: moist mucous membranes, nasal passages clear Neck: supple, no JVD, no adenopathy, trachea midline Cardiac: Normal S1 and S2. Respiratory: scant wheezing and rhonchi throughout with productive cough Gastrointestinal: soft, non-distended, non-tender, normoactive bowel sounds. Extremities: moves all extremities well, BLE 1+ pitting edema Skin: clean, dry, intact. No wounds or lesions. Neuro: Alert and oriented x3, with intermittent confusion/forgetfulness patient with history of dementia cranial nerves intact, no neuro deficits. Psych: normal mood, normal affect, interactive H&P: Results Labs Labs: Short CBC 05/22/25 05/23/25 Range/Units 23:24 05:29 WBC 18.7 H 18.9 H (4.8-10.8) K/mm3 Hgb 11.1 L 10.5 L (11.7-13.8) g/dL Hct 35.3 33.4 L (35.0-42.0) % Plt Count 298 298 (150-420) K/mm3 BMP 05/22/25 05/23/25 23:24 05:29 Sodium 137 139 Potassium 4.9 4.5 Chloride 100 104 Carbon Dioxide 30 27 BUN 28 H D 24 H Creatinine 1.57 H 1.33 H Glucose 135 H 121 H Calcium 9.8 9.3 Cardiac Enzymes 05/22/25 Range/Units 23:24 Troponin I < 0.012 (0.000-0.034) ng/mL Liver Function 05/22/25 05/23/25 Range/Units 23:24 05:29 Total Bilirubin 1.0 1.0 (0.2-1.3) mg/dL AST 30 25 (14-36) U/L ALT 27 25 (6-35) U/L Alkaline Phosphatase 114 107 (38-126) U/L Albumin 4.0 3.7 (3.5-5.1) g/dL Imaging CT scan - chest: Radiologist's impression: EXAMINATION: CT diagnostic chest wo con DATE: 05/22/2025 23:20 INDICATION: Chest congestion. Right rib pain. TECHNIQUE: Computed tomography (CT) of the chest was performed without intravenous contrast. The dose-length product was 660.51 mGy-cm. Automated exposure control and iterative reconstruction technique were employed. COMPARISON: CT dated 11/13/2024 FINDINGS: Heart size is normal. No significant pleural or pericardial effusion. There is atherosclerosis of the aorta. Status post cholecystectomy. No evidence for aortic aneurysm. There are left upper lobe consistent and, right middle and right lower lobe infiltrates/consolidation with areas of nodularity, most likely infectious/inflammatory. There are a few areas of tree-in-bud configuration, most likely infectious. No endobronchial lesions. No pneumothorax. 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 Accentuated thoracic kyphosis. IMPRESSION: 1. Patchy bilateral mixed interstitial and airspace disease with some areas of nodularity, most likely infectious/inflammatory. Recommend follow-up CT in 1-2 months to assess for resolution to exclude underlying mass. EXAMINATION: CT brain wo con DATE: 05/22/2025 23:21 INDICATION: Head injury. Neck pain. TECHNIQUE: Computed tomography (CT) of the head was performed without intravenous contrast. The dose-length product was 832.33 mGy-cm. Automated exposure control and iterative reconstruction technique were employed. COMPARISON: CT dated 11/15/2024 FINDINGS: Chronic right cerebellar infarction. Generalized atrophy. There are scattered mild periventricular and subcortical white matter changes, most likely related to small vessel ischemic disease (microangiopathy). No ventriculomegaly or midline shift. Basilar cisterns are patent. There is intracranial atherosclerosis. Paranasal sinuses and mastoids are pneumatized. No depressed skull fractures. Midline sagittal images are unremarkable. IMPRESSION: 1. No acute intracranial abnormality. 2: Chronic right cerebellar infarction. EXAMINATION: CT cervical spine wo con DATE: 05/22/2025 23:21 INDICATION: Head and neck injury TECHNIQUE: Computed tomography (CT) of the cervical spine was performed without intravenous contrast. The dose-length product was 523 mGy-cm. Automated exposure control and iterative reconstruction technique were employed. COMPARISON: None FINDINGS: Accentuated cervical lordosis. Odontoid process is normal. Craniovertebral junction is normal. Mild cervical spondylosis characterized by mild disc narrowing at C6-7 with multilevel uncinate and facet hypertrophy. Lung apices are unremarkable. No evidence for perched facet. Craniovertebral junction is normal. There is diffuse idiopathic skeletal hyperostosis (DISH) of the th oracic spine. IMPRESSION: 1. No acute abnormality of the cervical spine. Assessment and Plan Assessment and plan (1) Pneumonia: Code(s): J18.9 - Pneumonia, unspecified organism Status: Acute Assessment and Plan: patient admitted with shortness of breath some suspicion for possible pneumonia versus upper respiratory infection white count was elevated at 18 however patient has been on daily 40 mg of prednisone she did however have a fever overnight peaked at 100.1. procalcitonin was ordered and was in and normal limits leading me to more suspicion viral infection but will treat for underlying bacterial. patient received IV Rocephin and azithromycin in the emergency department. COVID/influenza/ RSV negative. CT Chest showing Patchy bilateral mixed interstitial and airspace disease with some areas of nodularity, most likely infectious/inflammatory. Recommend follow-up CT in 1-2 months to assess for resolution to exclude underlying mass * continued IV Rocephin however switch to oral doxycycline due to patient's QTC will avoid prolonging agents * supplemental oxygen p.r.n. * duo nebulizer * guaifenesin * incentive spirometer * blood cultures pending NGTD Q 24 hours (2) URI (upper respiratory infection): Code(s): J06.9 - Acute upper respiratory infection, unspecified Status: Acute Assessment and Plan: See Above #1 (3) Generalized weakness: Code(s): R53.1 - Weakness Status: Acute Assessment and Plan: patient has had frequent falls at her assisted living in the last week likely will need rehab prior to returning back to assisted living could be secondary to infection * PT/ OT plan for swing bed (4) Essential hypertension: Code(s): I10 - Essential (primary) hypertension Status: Acute Assessment and Plan: BP was soft this today 98/41 * will hold her Lasix and spironolactone resume as BP tolerates * Orthostatic BP ordered * compression stockings * resume metoprolol and losartan * BP per unit protocol * BP reviewed and stable (5) Atrial fibrillation: Code(s): I48.91 - Unspecified atrial fibrillation Status: Acute Assessment and Plan: * resumed metoprolol, amiodarone, Eliquis (6) Hyperlipidemia: Code(s): E78.5 - Hyperlipidemia, unspecified Status: Acute Assessment and Plan: * Continue atorvastatin (7) GERD without esophagitis: Code(s): K21.9 - Gastro-esophageal reflux disease without esophagitis Status: Acute Assessment and Plan: * Will start Pepcid (8) Stage 3b chronic kidney disease: Code(s): N18.32 - Chronic kidney disease, stage 3b Status: Acute Assessment and Plan: patient with acute on chronic kidney disease patient stage III patient's creatinine usually ranges between 1.2-1.4/ 1.57 POA. patient follows with Dr. Dunbar outpatient * gentle IV fluids monitor for overload renal function improving * Avoid nephrotoxic drugs. * Avoid NSAIDs. * Routine CMP monitoring GFR. * Monitor electrolytes especially potassium. * Routine follow-up with Nephrology as an outpatient (9) Urinary frequency: Code(s): R35.0 - Frequency of micturition Status: Acute Assessment and Plan: patient with urinary frequency but with poor urinary output likely overactive bladder, with straight catheterization in the emergency department and postvoid bladder scan 340 * UA negative * started patient on oxybutynin 5 mg t.i.d. * will continue to post void bladder scan if patient continues to retain over 350 [address] Wallace catheter Plan Code status: DNR DVT prophylaxis: Fatuma Stress ulcer prophylaxis: MARIELOS PT/OT notes: PT/OT plan for swing bed placement Disposition: patient was admitted to the medical unit for further evaluation of generalized weakness, frequent falls with shortness a breath with possible pneumonia versus URI. PT OT evaluation pending plan is to transition patient to swing bed for continued rehab prior to returning back to her assisted living facility. Quality VTE Prophylaxis VTE prophylaxis: pharmacologic ordered -Patient's previous records reviewed on admission -ER notes reviewed in detail on admission -discussed all findings and current treatment plan with patient/Family/POA -Consultations reviewed for recommendations -Patient's disposition for safe discharge discussed with director case management Dictation performed by [employer] direct speech recognition software, therefore search specialist variants and typographical errors may occur. Hospitalist MIPS Advance Care Plan I have confirmed that the patient's Advanced Care Plan is present, code status is documented, or surrogate decision maker is listed in patient medical record.: Yes Medication Reconciliation I have utilized all available resources to obtain, update and review the patients current medications (includes all prescriptions, OTC, herbals, cannabis, and nutritional supplements).: Yes The patient is not eligible for med reconciliation; the patient is in a emergent medical situation where delaying treatment would jeopardize the patients health.: No
[2025-05-23 10:40] LABS: MRSA (PCR) NOT DETECTED (NOT DETECTE)
[2025-05-23] MEDS: LOSARTAN POTASSIUM 50 MG TABLET 100 MG PO (10:44)
[2025-05-23] MEDS: APIXABAN 2.5 MG TABLET 5 MG BY MOUTH ×2 (10:44→21:46)
[2025-05-23] MEDS: MIRTAZAPINE 15 MG TABLET BY MOUTH (10:45)
[2025-05-23] MEDS: METOPROLOL TARTRATE 25 MG TABLET PO ×2 (10:45→21:46)
[2025-05-23] MEDS: AMIODARONE HCL 200 MG TABLET PO (10:45)
[2025-05-23] MEDS: DOXYCYCLINE HYCLATE 100 MG TABLET PO ×2 (10:45→21:46)
[2025-05-23 10:51] LABS: CRP > 9.0 mg/dL (<1.0)
[2025-05-23] MEDS: IPRATROPIUM 0.5 MG/ALBUTEROL SULFATE 2.5 MG AMPUL.NEB 3 ML INHALATION ×3 (11:06→22:46)
--- NOTE | 2025-05-23 11:50 | PC.NURSE ---
Repeat bladder scan is 451 ml. Received order form Gely [facility] to [facility].
[2025-05-23] MEDS: guaiFENesin 12 HR 600 MG TABCR 1200 MG PO (21:46)
[2025-05-23] MEDS: ATORVASTATIN 40 MG TABLET BY MOUTH (21:46)
[2025-05-24] VITALS (8 sets, daily range): BP systolic 100–121; BP diastolic 50–56; PULSE 76–93; RESP 16–18; TEMP 36.5–37.3; O2SAT 93–97
[2025-05-24] MEDS: BENZOCAINE/MENTHOL (*BKC) LOZENGE 1 LOZENGE PO ×3 (00:52→22:14)
[2025-05-24 05:53] LABS: Hematocrit 28.1 % (35.0-42.0); Hemoglobin 8.7 g/dL (11.7-13.8); Immature Granulocyte Percent A 0.6 % (0.0-0.0); Lymphocytes Absolute Auto 1.53 K/mm3 (1.10-4.50); Mean Corpuscular HGB Conc 31.0 g/dL (32-36); Mean Corpuscular Hemoglobin 30.2 pg (27.0-31.0); Mean Corpuscular Volume 97.6 fL (78.0-102.0); Nucleated Red Blood Cells Absolute Auto 0.00 K/mm3 (0.00-0.00); Nucleated Red Blood Cells Perc 0.0 % (0-0.0); Platelet Count Result 254 K/mm3 (150-420); Red Blood Count 2.88 M/mm3 (4.20-5.40); White Blood Count 12.7 K/mm3 (4.8-10.8)
[2025-05-24] MEDS: IPRATROPIUM 0.5 MG/ALBUTEROL SULFATE 2.5 MG AMPUL.NEB 3 ML INHALATION ×3 (05:53→17:40)
[2025-05-24 06:01] LABS: Alanine Aminotransferase 21 U/L (6-35); Albumin Level 3.1 g/dL (3.5-5.1); Alkaline Phosphatase 93 U/L (38-126); Anion Gap 7 mmol/L (4-12); Aspartate Amino Transferase 26 U/L (14-36); Bilirubin,Total 0.7 mg/dL (0.2-1.3); Blood Urea Nitrogen 14 mg/dL (7-17); Calcium 9.0 mg/dL (8.4-10.2); Carbon Dioxide 24 mmol/L (22-30); Chloride 108 mmol/L (98-107); Estimated CRCL calculation 37 ml/min; Estimated Glomerular Filt Rate 52; Glucose 127 mg/dL (65-110); Magnesium 2.1 mg/dL (1.6-2.3); Osmolality Calculated 290 mOsm/kg (285-295); Potassium 4.3 mmol/L (3.4-5.0); Sodium 139 mmol/L (137-145); Total Protein 6.0 g/dL (6.3-8.2)
[2025-05-24] MEDS: SODIUM CHLORIDE 0.9% IV 1,000 ML 100 ML IV CONT (06:07)
[2025-05-24] MEDS: ACETAMINOPHEN 325 MG TABLET 650 MG PO ×2 (06:34→21:36)
[2025-05-24] MEDS: cefTRIAXone 1 GM in SODIUM CHLORIDE 0.9% IV 50 ML 100 ML IVPB (09:57)
[2025-05-24] MEDS: guaiFENesin 12 HR 600 MG TABCR 1200 MG PO ×2 (09:57→21:02)
[2025-05-24] MEDS: LOSARTAN POTASSIUM 50 MG TABLET 100 MG PO (09:58)
[2025-05-24] MEDS: DOXYCYCLINE HYCLATE 100 MG TABLET PO ×2 (09:58→21:03)
[2025-05-24] MEDS: FUROSEMIDE 20 MG TABLET BY MOUTH (09:58)
[2025-05-24] MEDS: APIXABAN 2.5 MG TABLET 5 MG BY MOUTH ×2 (09:58→21:01)
[2025-05-24] MEDS: AMIODARONE HCL 200 MG TABLET PO (09:59)
[2025-05-24] MEDS: MIRTAZAPINE 15 MG TABLET BY MOUTH (09:59)
[2025-05-24] MEDS: METOPROLOL TARTRATE 25 MG TABLET PO ×2 (09:59→21:02)
[2025-05-24] MEDS: HYDROcodone/acetaminophen (*CRX) 5-325 MG TABLET 1 TAB PO ×2 (09:59→17:39)
--- NOTE | 2025-05-24 09:59 | P.PNIM_ITS ---
Progress Note: A&P Assessment and Plan (1) Pneumonia: Code(s): J18.9 - Pneumonia, unspecified organism Status: Acute Assessment and Plan: patient admitted with shortness of breath some suspicion for possible pneumonia versus upper respiratory infection white count was elevated at 18 however patient has been on daily 40 mg of prednisone she did however have a fever overnight peaked at 100.1. procalcitonin was ordered and was in and normal limits leading me to more suspicion viral infection but will treat for underlying bacterial. patient received IV Rocephin and azithromycin in the emergency department. COVID/influenza/ RSV negative. CT Chest showing Patchy bilateral mixed interstitial and airspace disease with some areas of nodularity, most likely infectious/inflammatory. Recommend follow-up CT in 1-2 months to assess for resolution to exclude underlying mass * continued IV Rocephin however switch to oral doxycycline due to patient's QTC will avoid prolonging agents * supplemental oxygen p.r.n. * duo nebulizer * guaifenesin * incentive spirometer * blood cultures pending NGTD Q 48 hours (2) URI (upper respiratory infection): Code(s): J06.9 - Acute upper respiratory infection, unspecified Status: Acute Assessment and Plan: See Above #1 (3) Generalized weakness: Code(s): R53.1 - Weakness Status: Acute Assessment and Plan: patient has had frequent falls at her assisted living in the last week likely will need rehab prior to returning back to assisted living could be secondary to infection * PT/ OT plan for swing bed (4) Essential hypertension: Code(s): I10 - Essential (primary) hypertension Status: Acute Assessment and Plan: BP was soft POA stable today * resumed Lasix and spironolactone * Orthostatic BP ordered * compression stockings * resume metoprolol and losartan * BP per unit protocol * BP reviewed and stable (5) Atrial fibrillation: Code(s): I48.91 - Unspecified atrial fibrillation Status: Acute Assessment and Plan: * resumed metoprolol, amiodarone, Eliquis (6) Hyperlipidemia: Code(s): E78.5 - Hyperlipidemia, unspecified Status: Acute Assessment and Plan: * Continue atorvastatin (7) GERD without esophagitis: Code(s): K21.9 - Gastro-esophageal reflux disease without esophagitis Status: Acute Assessment and Plan: * Will start Pepcid (8) Stage 3b chronic kidney disease: Code(s): N18.32 - Chronic kidney disease, stage 3b Status: Acute Assessment and Plan: patient with acute on chronic kidney disease patient stage III patient's creatinine usually ranges between 1.2-1.4/ 1.57 POA. patient follows with Dr. Dunbar outpatient * Cr at baseline D/C fluids * encourage oral hydration * Avoid nephrotoxic drugs. * Avoid NSAIDs. * Routine CMP monitoring GFR. * Monitor electrolytes especially potassium. * Routine follow-up with Nephrology as an outpatient (9) Urinary frequency: Code(s): R35.0 - Frequency of micturition Status: Acute Assessment and Plan: patient with urinary frequency but with poor urinary output likely overactive bladder, with straight catheterization in the emergency department and postvoid bladder scan 340 * UA negative * started patient on oxybutynin 5 mg t.i.d. * Wallace catheter placed plan a voiding trial in a few days Plan Code status: DNR DVT prophylaxis: Fatuma Stress ulcer prophylaxis: MARIELOS PT/OT notes: PT/OT plan for swing bed placement Disposition: patient was admitted to the medical unit for further evaluation of generalized weakness, frequent falls with shortness a breath with possible pneumonia versus URI. PT OT evaluation pending plan is to transition patient to swing bed for continued rehab prior to returning back to her assisted living facility. Time Spent With Patient Time with patient: 15 - 25 minutes Subjective Date/time seen: 05/24/25 09:59 Interval history: Patient is an 84-year-old female admitted for further evaluation and treatment of frequent falls trauma workup was negative currently being treated for pneumonia and urinary retention plan to discharge to swing bed. 05/24/2025 No acute events overnight. During evaluation this morning patient is in no acute distress. Patient denies chest pain, shortness of breath, and abdominal pain. Patient tolerating oral intake. Patient got up to the chair with the assistance of physical therapy this morning. Patient states that she is willing to continue with physical therapy so that she is able to get strong enough to return to assisted living. Patient complaints of low back pain and feeling the need to void but had urinary retention yesterday with Wallace catheter placed and oxybutynin initiated. Review of Systems Review of Systems: All systems reviewed & are unremarkable except as noted in HPI and below Exam Narrative: General: In no acute distress, well nourished appears stated age Head: atraumatic, no encephalopathy Eyes: PERRLA, sclera clear ENT: moist mucous membranes, nasal passages clear Neck: supple, no JVD, no adenopathy, trachea midline Cardiac: Normal S1 and S2. Respiratory: scant wheezing and rhonchi throughout with productive cough Gastrointestinal: soft, non-distended, non-tender, normoactive bowel sounds. Extremities: moves all extremities well, BLE 1+ pitting edema Skin: clean, dry, intact. No wounds or lesions. Neuro: Alert and oriented x3, with intermittent confusion/forgetfulness patient with history of dementia cranial nerves intact, no neuro deficits. Psych: normal mood, normal affect, interactive Objective Data Vital Signs Vital Signs: Vital Signs - 24 hr 05/23/25 10:45 05/23/25 10:45 05/23/25 11:06 Temperature Pulse Rate 89 89 63 Respiratory Rate 20 Blood Pressure Pulse Oximetry 93 Oxygen Delivery Oxygen Flow Rate 0 05/23/25 11:31 05/23/25 13:30 05/23/25 16:00 Temperature 97.4 F L 98 F Pulse Rate 63 75 78 Respiratory Rate 20 19 16 Blood Pressure 102/51 L 110/55 L Pulse Oximetry 100 93 96 Oxygen Delivery Room Air Room Air Oxygen Flow Rate 0 05/23/25 17:08 05/23/25 17:10 05/23/25 21:46 Temperature Pulse Rate 83 74 84 Respiratory Rate 16 16 Blood Pressure Pulse Oximetry 91 95 Oxygen Delivery Oxygen Flow Rate 0 0 05/23/25 22:49 05/23/25 23:21 05/24/25 00:00 Temperature 97.7 F Pulse Rate 84 82 82 Respiratory Rate 16 16 16 Blood Pressure 114/56 L Pulse Oximetry 92 97 97 Oxygen Delivery Room Air Oxygen Flow Rate 0 0 05/24/25 05:50 05/24/25 06:12 Temperature Pulse Rate 82 82 Respiratory Rate 16 16 Blood Pressure Pulse Oximetry 95 97 Oxygen Delivery Oxygen Flow Rate 0 0 Intake/Output Intake/Output: Intake & Output 05/21/25 05/22/25 05/23/25 05/24/25 23:59 23:59 23:59 23:59 Intake Total 2950 1200 Output Total 1025 350 Balance 1925 850 Meds/Results Medications: Active Medications Generic Name Dose Route Start Last Admin Trade Name Freq PRN Reason Stop Dose Admin Acetaminophen 650 mg 05/23/25 01:34 05/24/25 06:34 Acetaminophen 325 Mg Tablet PO 650 mg Q4H PRN Administration Mild Pain (1-3) or Fever Hydrocodone Bitart/Acetaminophen 1 tab 05/24/25 09:08 Hydrocodone/Acetaminophen (*Crx) 5-325 Mg Tablet PO Q6H PRN Pain 4-10 Albuterol/Ipratropium 3 ml 05/23/25 12:30 05/24/25 05:53 Ipratropium 0.5 Mg/Albuterol Sulfate 2.5 Mg Ampul.Neb 3 Ml INHALATION 3 ml Q6HRT ELLEN Administration Amiodarone HCl 200 mg 05/23/25 09:00 05/23/25 10:45 Amiodarone Hcl 200 Mg Tablet PO 200 mg Q24H ELLEN Administration Apixaban 5 mg 05/23/25 09:00 05/23/25 21:46 Apixaban 2.5 Mg Tablet BY MOUTH 5 mg Q12HR ELLEN Administration Atorvastatin Calcium 40 mg 05/23/25 21:00 05/23/25 21:46 Atorvastatin 40 Mg Tablet BY MOUTH 40 mg QHS ELLEN Administration Benzocaine 1 lozenge 05/23/25 10:35 05/24/25 06:34 Benzocaine/Menthol (*Bkc) Lozenge PO 1 lozenge PRN PRN Administration Sore Throat Bisacodyl 5 mg 05/23/25 01:34 Bisacodyl 5 Mg Tablet Ec PO DAILY PRN Constipation Doxycycline Hyclate 100 mg 05/23/25 09:00 05/23/25 21:46 Doxycycline Hyclate 100 Mg Tablet PO 100 mg Q12HR [facility] Administration Ergocalciferol 1,250 mcg 05/27/25 09:00 Ergocalciferol (Vitamin D2) 1,250 Mcg (50,000 Units) Capsule BY MOUTH WEEKLY [facility] Furosemide 20 mg 05/24/25 09:00 Furosemide 20 Mg [facility] [place] Guaifenesin 1,200 mg 05/23/25 21:00 05/23/25 21:46 Guaifenesin 12 Hr 600 Mg Tabcr PO 1,200 mg Q12HR [facility] Administration Ceftriaxone Sodium 1 gm/ 50 mls @ 100 mls/hr 05/23/25 09:00 05/23/25 11:16 Sodium Chloride IVPB Infused Q24H [facility] Infusion Lidocaine 1 patch 05/25/25 09:00 Lidocaine 5% Patch TRANSDERM DAILY [facility] Losartan Potassium 100 mg 05/23/25 09:00 05/23/25 10:44 Losartan Potassium 50 Mg Tablet PO [facility] [place] Administration Metoprolol Tartrate 25 mg 05/23/25 09:00 05/23/25 21:46 Metoprolol Tartrate 25 Mg Tablet PO 25 mg Q12HR [facility] Administration Mirtazapine 15 mg 05/23/25 09:00 05/23/25 10:45 Mirtazapine 15 Mg Tablet BY MOUTH 15 mg DAILY [facility] Administration Oxybutynin Chloride 5 mg 05/23/25 11:05 05/23/25 17:19 Oxybutynin Chloride 5 Mg Tablet PO 5 mg TID [facility] Administration Spironolactone 50 mg 05/23/25 09:00 05/23/25 12:28 Spironolactone 25 Mg Tablet PO Not Given On Hold: 05/23/25 09:17 [facility] [place] Radiology Results: ITS Impressions Chest CT 05/23/25 05:41 IMPRESSION: 1. Patchy bilateral mixed interstitial and airspace disease with some areas of nodularity, most likely infectious/inflammatory. Recommend follow-up CT in 1-2 months to assess for resolution to exclude underlying mass. Cervical Spine CT 05/23/25 05:49 IMPRESSION: 1. No acute abnormality of the cervical spine. Head CT 05/23/25 06:00 IMPRESSION: 1. No acute intracranial abnormality. 2: Chronic right cerebellar infarction. Labs Labs: Laboratory Results - last 24 hr 05/23/25 05/23/25 05/24/25 09:15 09:22 05:33 WBC 12.7 H RBC 2.88 L Hgb 8.7 L Hct 28.1 L MCV 97.6 MCH 30.2 MCHC 31.0 L RDW 15.1 H Plt Count 254 MPV 9.8 Immature Gran % (Auto) 0.6 H Neut % (Auto) 77.3 H Lymph % (Auto) 12.0 L [place] % (Auto) 9.0 Eos % (Auto) 0.6 L Baso % (Auto) 0.5 Lymph # (Auto) 1.53 [place] # (Auto) 1.15 H Eos # (Auto) 0.07 Baso # (Auto) 0.06 Abs Immat Gran (auto) 0.07 H Absolute Neuts (auto) 9.84 H Absolute Nucleated RBC 0.00 Nucleated RBC % 0.0 Sodium Potassium Chloride Carbon Dioxide Anion Gap BUN Creatinine Estim Creat Clear Calc Estimated GFR Glucose Calculated Osmolality Calcium Magnesium Total Bilirubin AST ALT Alkaline Phosphatase C-Reactive Protein > 9.0 H Total Protein Albumin Nasal MRSA (PCR) Not detected 05/24/25 05:34 WBC RBC Hgb Hct MCV MCH MCHC RDW Plt Count MPV Immature Gran % (Auto) Neut % (Auto) Lymph % (Auto) [place] % (Auto) Eos % (Auto) Baso % (Auto) Lymph # (Auto) [place] # (Auto) Eos # (Auto) Baso # (Auto) Abs Immat Gran (auto) Absolute Neuts (auto) Absolute Nucleated RBC Nucleated RBC % Sodium 139 Potassium 4.3 Chloride 108 H Carbon Dioxide 24 Anion Gap 7 BUN 14 D Creatinine 1.02 H Estim Creat Clear Calc 37 Estimated GFR 52 L Glucose 127 H Calculated Osmolality 290 Calcium 9.0 Magnesium 2.1 Total Bilirubin 0.7 AST 26 ALT 21 Alkaline Phosphatase 93 C-Reactive Protein Total Protein 6.0 L Albumin 3.1 L Nasal MRSA (PCR) Quality VTE Prophylaxis VTE prophylaxis: pharmacologic ordered -Patient's previous records reviewed on admission -ER notes reviewed in detail on admission -discussed all findings and current treatment plan with patient/Family/POA -Consultations reviewed for recommendations -Patient's disposition for safe discharge discussed with case loader operator Dictation performed by [employer] direct speech recognition software, therefore stock checkerer variants and typographical errors may occur. Hospitalist MIPS Advance Care Plan I have confirmed that the patient's Advanced Care Plan is present, code status is documented, or surrogate decision maker is listed in patient medical record.: Yes Medication Reconciliation I have utilized all available resources to obtain, update and review the patients current medications (includes all prescriptions, OTC, herbals, cannabis, and nutritional supplements).: Yes The patient is not eligible for med reconciliation; the patient is in a emergent medical situation where delaying treatment would jeopardize the patients health.: No
[2025-05-24] MEDS: LIDOCAINE 5% PATCH 1 PATCH TRANSDERM (10:37)
[2025-05-24] MEDS: MIRTAZAPINE 15 MG TABLET 30 MG BY MOUTH (21:02)
[2025-05-24] MEDS: ATORVASTATIN 40 MG TABLET BY MOUTH (21:02)
[2025-05-25] VITALS (8 sets, daily range): BP systolic 108–124; BP diastolic 52–60; PULSE 68–94; RESP 18–20; TEMP 36.6–37.3; O2SAT 93–100
[2025-05-25] MEDS: BENZOCAINE/MENTHOL (*BKC) LOZENGE 1 LOZENGE PO ×2 (04:14→09:35)
[2025-05-25] MEDS: HYDROcodone/acetaminophen (*CRX) 5-325 MG TABLET 1 TAB PO ×3 (05:07→19:52)
[2025-05-25 06:18] LABS: Hematocrit 29.4 % (35.0-42.0); Hemoglobin 9.4 g/dL (11.7-13.8); Immature Granulocyte Percent A 0.8 % (0.0-0.0); Lymphocytes Absolute Auto 1.30 K/mm3 (1.10-4.50); Mean Corpuscular HGB Conc 32.0 g/dL (32-36); Mean Corpuscular Hemoglobin 30.9 pg (27.0-31.0); Mean Corpuscular Volume 96.7 fL (78.0-102.0); Nucleated Red Blood Cells Absolute Auto 0.00 K/mm3 (0.00-0.00); Nucleated Red Blood Cells Perc 0.0 % (0-0.0); Platelet Count Result 312 K/mm3 (150-420); Red Blood Count 3.04 M/mm3 (4.20-5.40); White Blood Count 11.7 K/mm3 (4.8-10.8)
[2025-05-25 06:30] LABS: Alanine Aminotransferase 34 U/L (6-35); Albumin Level 3.4 g/dL (3.5-5.1); Alkaline Phosphatase 115 U/L (38-126); Anion Gap 8 mmol/L (4-12); Aspartate Amino Transferase 35 U/L (14-36); Bilirubin,Total 0.7 mg/dL (0.2-1.3); Blood Urea Nitrogen 11 mg/dL (7-17); Calcium 9.5 mg/dL (8.4-10.2); Carbon Dioxide 25 mmol/L (22-30); Chloride 106 mmol/L (98-107); Estimated CRCL calculation 40 ml/min; Estimated Glomerular Filt Rate 57; Glucose 139 mg/dL (65-110); Magnesium 1.9 mg/dL (1.6-2.3); Osmolality Calculated 289 mOsm/kg (285-295); Potassium 4.4 mmol/L (3.4-5.0); Sodium 139 mmol/L (137-145); Total Protein 6.6 g/dL (6.3-8.2)
[2025-05-25] MEDS: IPRATROPIUM 0.5 MG/ALBUTEROL SULFATE 2.5 MG AMPUL.NEB 3 ML INHALATION (06:36)
[2025-05-25] MEDS: guaiFENesin 12 HR 600 MG TABCR 1200 MG PO ×2 (08:46→19:51)
[2025-05-25] MEDS: LIDOCAINE 5% PATCH 1 PATCH TRANSDERM (08:46)
[2025-05-25] MEDS: APIXABAN 2.5 MG TABLET 5 MG BY MOUTH ×2 (08:46→19:51)
[2025-05-25] MEDS: DOXYCYCLINE HYCLATE 100 MG TABLET PO ×2 (08:47→19:51)
[2025-05-25] MEDS: METOPROLOL TARTRATE 25 MG TABLET PO ×2 (08:47→19:52)
[2025-05-25] MEDS: cefTRIAXone 1 GM in SODIUM CHLORIDE 0.9% IV 50 ML 100 ML IVPB (08:47)
[2025-05-25] MEDS: LOSARTAN POTASSIUM 50 MG TABLET 100 MG PO (08:47)
[2025-05-25] MEDS: FUROSEMIDE 20 MG TABLET BY MOUTH (08:47)
[2025-05-25] MEDS: AMIODARONE HCL 200 MG TABLET PO (08:47)
--- NOTE | 2025-05-25 09:54 | P.PNIM_ITS ---
Progress Note: A&P Assessment and Plan (1) Pneumonia: Code(s): J18.9 - Pneumonia, unspecified organism Status: Acute Assessment and Plan: patient admitted with shortness of breath some suspicion for possible pneumonia versus upper respiratory infection white count was elevated at 18 however patient has been on daily 40 mg of prednisone she did however have a fever overnight peaked at 100.1. procalcitonin was ordered and was in and normal limits leading me to more suspicion viral infection but will treat for underlying bacterial. patient received IV Rocephin and azithromycin in the emergency department. COVID/influenza/ RSV negative. CT Chest showing Patchy bilateral mixed interstitial and airspace disease with some areas of nodularity, most likely infectious/inflammatory. Recommend follow-up CT in 1-2 months to assess for resolution to exclude underlying mass. WBC continues to had a downtrend * continued IV Rocephin however switch to oral doxycycline due to patient's QTC will avoid prolonging agents * supplemental oxygen p.r.n. * duo nebulizer switched to Levalbuterol due to feeling jitter * guaifenesin * incentive spirometer * blood cultures pending NGTD (2) URI (upper respiratory infection): Code(s): J06.9 - Acute upper respiratory infection, unspecified Status: Acute Assessment and Plan: See Above #1 (3) Generalized weakness: Code(s): R53.1 - Weakness Status: Acute Assessment and Plan: patient has had frequent falls at her assisted living in the last week likely will need rehab prior to returning back to assisted living could be secondary to infection * PT/ OT plan for swing bed (4) Essential hypertension: Code(s): I10 - Essential (primary) hypertension Status: Acute Assessment and Plan: BP was soft POA stable today * resumed Lasix and spironolactone * Orthostatic BP ordered * compression stockings * resume metoprolol and losartan * BP per unit protocol * BP reviewed and stable (5) Atrial fibrillation: Code(s): I48.91 - Unspecified atrial fibrillation Status: Acute Assessment and Plan: * resumed metoprolol, amiodarone, Eliquis (6) Hyperlipidemia: Code(s): E78.5 - Hyperlipidemia, unspecified Status: Acute Assessment and Plan: * Continue atorvastatin (7) GERD without esophagitis: Code(s): K21.9 - Gastro-esophageal reflux disease without esophagitis Status: Acute Assessment and Plan: * Will start Pepcid (8) Stage 3b chronic kidney disease: Code(s): N18.32 - Chronic kidney disease, stage 3b Status: Acute Assessment and Plan: patient with acute on chronic kidney disease patient stage III patient's creatinine usually ranges between 1.2-1.4/ 1.57 POA. patient follows with Dr. Dunbar outpatient * Cr at baseline D/C fluids * encourage oral hydration * Avoid nephrotoxic drugs. * Avoid NSAIDs. * Routine CMP monitoring GFR. * Monitor electrolytes especially potassium. * Routine follow-up with Nephrology as an outpatient (9) Urinary frequency: Code(s): R35.0 - Frequency of micturition Status: Acute Assessment and Plan: patient with urinary frequency but with poor urinary output likely overactive bladder, with straight catheterization in the emergency department and postvoid bladder scan 340 * UA negative * started patient on oxybutynin 5 mg t.i.d. * Wallace catheter placed plan a voiding trial in a few days Plan Code status: DNR DVT prophylaxis: Eliquis Stress ulcer prophylaxis: NA PT/OT notes: PT/OT plan for swing bed placement Disposition: patient was admitted to the medical unit for further evaluation of generalized weakness, frequent falls with shortness a breath with possible pneumonia versus URI. PT OT evaluation pending plan is to transition patient to swing bed for continued rehab prior to returning back to her assisted living facility. Time Spent With Patient Time with patient: 15 - 25 minutes Subjective Date/time seen: 05/25/25 09:54 Interval history: Patient is an 84-year-old female admitted for further evaluation and treatment of frequent falls trauma workup was negative currently being treated for pneumonia and urinary retention plan to discharge to swing bed. : Patient up in chair reports cough has improved and she is feeling better wanting to return to assisted living but still moderately weak and unsteady. Patient also feeling jittery this am will Will switch her DuoNebs. Review of Systems Review of Systems: All systems reviewed & are unremarkable except as noted in HPI and below Exam Narrative: General: In no acute distress, well nourished appears stated age Head: atraumatic, no encephalopathy Eyes: PERRLA, sclera clear ENT: moist mucous membranes, nasal passages clear Neck: supple, no JVD, no adenopathy, trachea midline Cardiac: Normal S1 and S2. Respiratory: scant wheezing and rhonchi throughout with productive cough Gastrointestinal: soft, non-distended, non-tender, normoactive bowel sounds. Extremities: moves all extremities well, BLE 1+ pitting edema Skin: clean, dry, intact. No wounds or lesions. Neuro: Alert and oriented x3, with intermittent confusion/forgetfulness patient with history of dementia cranial nerves intact, no neuro deficits. Psych: normal mood, normal affect, interactive Objective Data Vital Signs Vital Signs: Vital Signs - 24 hr 05/24/25 09:59 05/24/25 09:59 05/24/25 16:00 Temperature 99.1 F Pulse Rate 76 90 76 Respiratory Rate 18 Blood Pressure 100/50 L Pulse Oximetry 95 Oxygen Delivery Room Air Oxygen Flow Rate 05/24/25 20:00 05/24/25 21:02 05/25/25 00:00 Temperature 98.7 F Pulse Rate 93 93 92 Respiratory Rate 18 18 Blood Pressure 108/52 L Pulse Oximetry 94 97 Oxygen Delivery Room Air Room Air Oxygen Flow Rate 05/25/25 06:35 05/25/25 07:00 05/25/25 08:47 Temperature Pulse Rate 80 85 90 Respiratory Rate 18 18 Blood Pressure Pulse Oximetry 93 95 Oxygen Delivery Oxygen Flow Rate 0 0 08/31/25 08:47 Temperature Pulse Rate 90 Respiratory Rate Blood Pressure Pulse Oximetry Oxygen Delivery Oxygen Flow Rate Intake/Output Intake/Output: Intake & Output 05/22/25 05/23/25 05/24/25 05/25/25 23:59 23:59 23:59 23:59 Intake Total 2950 2740 250 Output Total 1025 1400 600 Balance 1925 1340 -350 Meds/Results Medications: Active Medications Generic Name Dose Route Start Last Admin Trade Name Freq PRN Reason Stop Dose Admin Acetaminophen 650 mg 05/23/25 01:34 05/24/25 21:36 Acetaminophen 325 Mg Tablet PO 650 mg Q4H PRN Administration Mild Pain (1-3) or Fever Hydrocodone Bitart/Acetaminophen 1 tab 05/24/25 09:08 05/25/25 05:07 Hydrocodone/Acetaminophen (*Crx) 5-325 Mg Tablet PO 1 tab Q6H PRN Administration Pain 4-10 Amiodarone HCl 200 mg 05/23/25 09:00 05/25/25 08:47 Amiodarone Hcl 200 Mg Tablet PO 200 mg Q24H ELLEN Administration Apixaban 5 mg 05/23/25 09:00 05/25/25 08:46 Apixaban 2.5 Mg Tablet BY MOUTH 5 mg Q12HR ELLEN Administration Atorvastatin Calcium 40 mg 05/23/25 21:00 05/24/25 21:02 Atorvastatin 40 Mg Tablet BY MOUTH 40 mg QHS ELLEN Administration Benzocaine 1 lozenge 05/23/25 10:35 05/25/25 09:35 Benzocaine/Menthol (*Bkc) Lozenge PO 1 lozenge PRN PRN Administration Sore Throat Bisacodyl 5 mg 05/23/25 01:34 Bisacodyl 5 Mg Tablet Ec PO DAILY PRN Constipation Doxycycline Hyclate 100 mg 05/23/25 09:00 05/25/25 08:47 Doxycycline Hyclate 100 Mg Tablet PO 100 mg Q12HR ELLEN Administration Ergocalciferol 1,250 mcg 05/27/25 09:00 Ergocalciferol (Vitamin D2) 1,250 Mcg (50,000 Units) Capsule BY MOUTH WEEKLY ELLEN Furosemide 20 mg 05/24/25 09:00 05/25/25 08:47 Furosemide 20 Mg Tablet BY MOUTH 20 mg QAM ELLEN Administration Guaifenesin 1,200 mg 05/23/25 21:00 05/25/25 08:46 Guaifenesin 12 Hr 600 Mg Tabcr PO 1,200 mg Q12HR ELLEN Administration Ceftriaxone Sodium 1 gm/ 50 mls @ 100 mls/hr 05/23/25 09:00 05/25/25 08:47 Sodium Chloride IVPB 100 mls/hr Q24H ELLEN Administration Lidocaine 1 patch 05/24/25 10:05 05/25/25 08:46 Lidocaine 5% Patch TRANSDERM 1 patch DAILY ELLEN Administration Losartan Potassium 100 mg 05/23/25 09:00 05/25/25 08:47 Losartan Potassium 50 Mg Tablet PO 100 mg QAM [facility] Administration Metoprolol Tartrate 25 mg 05/23/25 09:00 05/25/25 08:47 Metoprolol Tartrate 25 Mg Tablet PO 25 mg Q12HR ELLEN Administration Mirtazapine 30 mg 05/24/25 21:00 05/24/25 21:02 Mirtazapine 15 Mg Tablet BY MOUTH 30 mg HS [facility] Administration Oxybutynin Chloride 5 mg 05/23/25 11:05 05/25/25 08:47 Oxybutynin Chloride 5 Mg Tablet PO 5 mg TID ELLEN Administration Spironolactone 50 mg 05/23/25 09:00 05/23/25 12:28 Spironolactone 25 Mg Tablet PO Not Given On Hold: 05/23/25 09:17 QAM [facility] Radiology Results: ITS Impressions Chest CT 05/23/25 05:41 IMPRESSION: 1. Patchy bilateral mixed interstitial and airspace disease with some areas of nodularity, most likely infectious/inflammatory. Recommend follow-up CT in 1-2 months to assess for resolution to exclude underlying mass. Cervical Spine CT 05/23/25 05:49 IMPRESSION: 1. No acute abnormality of the cervical spine. Head CT 05/23/25 06:00 IMPRESSION: 1. No acute intracranial abnormality. 2: Chronic right cerebellar infarction. Labs Labs: Laboratory Results - last 24 hr 05/25/25 05:51 WBC 11.7 H RBC 3.04 L Hgb 9.4 L Hct 29.4 L MCV 96.7 MCH 30.9 MCHC 32.0 RDW 15.1 H Plt Count 312 MPV 9.9 Immature Gran % (Auto) 0.8 H Neut % (Auto) 78.4 H Lymph % (Auto) 11.1 L [place] % (Auto) 7.8 Eos % (Auto) 1.2 Baso % (Auto) 0.7 Lymph # (Auto) 1.30 [place] # (Auto) 0.92 H Eos # (Auto) 0.14 Baso # (Auto) 0.08 Abs Immat Gran (auto) 0.09 H Absolute Neuts (auto) 9.20 H Absolute Nucleated RBC 0.00 Nucleated RBC % 0.0 Sodium 139 Potassium 4.4 Chloride 106 Carbon Dioxide 25 Anion Gap 8 BUN 11 Creatinine 0.94 Estim Creat Clear Calc 40 Estimated GFR 57 L Glucose 139 H Calculated Osmolality 289 Calcium 9.5 Magnesium 1.9 Total Bilirubin 0.7 AST 35 ALT 34 Alkaline Phosphatase 115 Total Protein 6.6 Albumin 3.4 L Quality VTE Prophylaxis VTE prophylaxis: pharmacologic ordered -Patient's previous records reviewed on admission -ER notes reviewed in detail on admission -discussed all findings and current treatment plan with patient/Family/POA -Consultations reviewed for recommendations -Patient's disposition for safe discharge discussed with case management social worker Dictation performed by [employer] direct speech recognition software, therefore testing coordinator variants and typographical errors may occur. Hospitalist MIPS Advance Care Plan I have confirmed that the patient's Advanced Care Plan is present, code status is documented, or surrogate decision maker is listed in patient medical record.: Yes Medication Reconciliation I have utilized all available resources to obtain, update and review the patients current medications (includes all prescriptions, OTC, herbals, cannabis, and nutritional supplements).: Yes The patient is not eligible for med reconciliation; the patient is in a emergent medical situation where delaying treatment would jeopardize the patients health.: No
--- NOTE | 2025-05-25 14:09 | PC.NURSE ---
change status to ip
[2025-05-25] MEDS: ACETAMINOPHEN 325 MG TABLET 650 MG PO (15:38)
[2025-05-25] MEDS: ATORVASTATIN 40 MG TABLET BY MOUTH (19:51)
[2025-05-25] MEDS: MIRTAZAPINE 15 MG TABLET 30 MG BY MOUTH (19:52)
--- NOTE | 2025-05-25 19:55 | PC.NURSE ---
Patient called nurse's station, is wanting us to contact Denise Asif for her stating she wants to go home. Denise contacted and states she was just here, asking if staff can give patient something to help her sleep. HS meds given early and PRN Elrod given, patient aware staff spoke with her contact and states understanding, however, patient seems to not be retaining any new info as evidenced by staff having the same conversation with her twice within 10min.
[2025-05-26] VITALS (8 sets, daily range): BP systolic 125–149; BP diastolic 57–76; PULSE 75–91; RESP 16–20; TEMP 36.8–37.1; O2SAT 94–97
[2025-05-26] MEDS: HYDROcodone/acetaminophen (*CRX) 5-325 MG TABLET 1 TAB PO ×3 (02:31→18:49)
[2025-05-26] MEDS: BISACODYL 5 MG TABLET EC PO (04:28)
[2025-05-26 06:55] LABS: Hematocrit 30.8 % (35.0-42.0); Hemoglobin 9.7 g/dL (11.7-13.8); Immature Granulocyte Percent A 0.9 % (0.0-0.0); Lymphocytes Absolute Auto 1.93 K/mm3 (1.10-4.50); Mean Corpuscular HGB Conc 31.5 g/dL (32-36); Mean Corpuscular Hemoglobin 30.1 pg (27.0-31.0); Mean Corpuscular Volume 95.7 fL (78.0-102.0); Nucleated Red Blood Cells Absolute Auto 0.00 K/mm3 (0.00-0.00); Nucleated Red Blood Cells Perc 0.0 % (0-0.0); Platelet Count Result 343 K/mm3 (150-420); Red Blood Count 3.22 M/mm3 (4.20-5.40); White Blood Count 11.1 K/mm3 (4.8-10.8)
[2025-05-26 07:06] LABS: Alanine Aminotransferase 38 U/L (6-35); Albumin Level 3.4 g/dL (3.5-5.1); Alkaline Phosphatase 115 U/L (38-126); Anion Gap 9 mmol/L (4-12); Aspartate Amino Transferase 35 U/L (14-36); Bilirubin,Total 0.7 mg/dL (0.2-1.3); Blood Urea Nitrogen 10 mg/dL (7-17); Calcium 9.7 mg/dL (8.4-10.2); Carbon Dioxide 25 mmol/L (22-30); Chloride 104 mmol/L (98-107); Estimated CRCL calculation 40 ml/min; Estimated Glomerular Filt Rate 58; Glucose 117 mg/dL (65-110); Magnesium 1.9 mg/dL (1.6-2.3); Osmolality Calculated 286 mOsm/kg (285-295); Potassium 4.3 mmol/L (3.4-5.0); Sodium 138 mmol/L (137-145); Total Protein 6.6 g/dL (6.3-8.2)
[2025-05-26] MEDS: DOXYCYCLINE HYCLATE 100 MG TABLET PO ×2 (08:53→20:59)
[2025-05-26] MEDS: METOPROLOL TARTRATE 25 MG TABLET PO ×2 (08:53→20:59)
[2025-05-26] MEDS: cefTRIAXone 1 GM in SODIUM CHLORIDE 0.9% IV 50 ML 100 ML IVPB (08:53)
[2025-05-26] MEDS: LOSARTAN POTASSIUM 50 MG TABLET 100 MG PO (08:54)
[2025-05-26] MEDS: AMIODARONE HCL 200 MG TABLET PO (08:54)
[2025-05-26] MEDS: FUROSEMIDE 20 MG TABLET BY MOUTH (08:54)
[2025-05-26] MEDS: LIDOCAINE 5% PATCH 1 PATCH TRANSDERM (08:54)
[2025-05-26] MEDS: guaiFENesin 12 HR 600 MG TABCR 1200 MG PO ×2 (08:54→20:58)
[2025-05-26] MEDS: APIXABAN 2.5 MG TABLET 5 MG BY MOUTH ×2 (08:54→20:58)
--- NOTE | 2025-05-26 12:26 | P.PNIM_ITS ---
Progress Note: A&P Assessment and Plan (1) Pneumonia: Code(s): J18.9 - Pneumonia, unspecified organism Status: Acute Assessment and Plan: patient admitted with shortness of breath some suspicion for possible pneumonia versus upper respiratory infection white count was elevated at 18 however patient has been on daily 40 mg of prednisone she did however have a fever overnight peaked at 100.1. procalcitonin was ordered and was in and normal limits leading me to more suspicion viral infection but will treat for underlying bacterial. patient received IV Rocephin and azithromycin in the emergency department. COVID/influenza/ RSV negative. CT Chest showing Patchy bilateral mixed interstitial and airspace disease with some areas of nodularity, most likely infectious/inflammatory. Recommend follow-up CT in 1-2 months to assess for resolution to exclude underlying mass. WBC continues to had a downtrend * Switched IV Rocephin to Augmentin and oral doxycycline continued due to patient's QTC will avoid prolonging agents * supplemental oxygen p.r.n. * duo nebulizer switched to Levalbuterol due to feeling jitter * guaifenesin * incentive spirometer * blood cultures pending NGTD (2) URI (upper respiratory infection): Code(s): J06.9 - Acute upper respiratory infection, unspecified Status: Acute Assessment and Plan: See Above #1 (3) Generalized weakness: Code(s): R53.1 - Weakness Status: Acute Assessment and Plan: patient has had frequent falls at her assisted living in the last week likely will need rehab prior to returning back to assisted living could be secondary to infection * PT/ OT plan for swing bed * Elbow pain from fall X-ray with no fracture mild edema (4) Essential hypertension: Code(s): I10 - Essential (primary) hypertension Status: Acute Assessment and Plan: BP was soft POA stable today * resumed Lasix and spironolactone * Orthostatic BP ordered * compression stockings * resume metoprolol and losartan * BP per unit protocol * BP reviewed and stable (5) Atrial fibrillation: Code(s): I48.91 - Unspecified atrial fibrillation Status: Acute Assessment and Plan: * resumed metoprolol, amiodarone, Eliquis (6) Hyperlipidemia: Code(s): E78.5 - Hyperlipidemia, unspecified Status: Acute Assessment and Plan: * Continue atorvastatin (7) GERD without esophagitis: Code(s): K21.9 - Gastro-esophageal reflux disease without esophagitis Status: Acute Assessment and Plan: * Will start Pepcid (8) Stage 3b chronic kidney disease: Code(s): N18.32 - Chronic kidney disease, stage 3b Status: Acute Assessment and Plan: patient with acute on chronic kidney disease patient stage III patient's creatinine usually ranges between 1.2-1.4/ 1.57 POA. patient follows with Dr. Dunbar outpatient * Cr at baseline D/C fluids * encourage oral hydration * Avoid nephrotoxic drugs. * Avoid NSAIDs. * Routine CMP monitoring GFR. * Monitor electrolytes especially potassium. * Routine follow-up with Nephrology as an outpatient (9) Urinary frequency: Code(s): R35.0 - Frequency of micturition Status: Acute Assessment and Plan: patient with urinary frequency but with poor urinary output likely overactive bladder, with straight catheterization in the emergency department and postvoid bladder scan 340 * UA negative * started patient on oxybutynin 5 mg t.i.d. * Attempt voiding trial Plan Code status: DNR DVT prophylaxis: Eliquis Stress ulcer prophylaxis: MARIELOS PT/OT notes: PT/OT plan for swing bed placement Disposition: patient was admitted to the medical unit for further evaluation of generalized weakness, frequent falls with shortness a breath with possible pneumonia versus URI. PT OT evaluation pending plan is to transition patient to swing bed for continued rehab prior to returning back to her assisted living facility. Time Spent With Patient Time with patient: 15 - 25 minutes Subjective Date/time seen: 05/26/25 12:26 Interval history: Patient is an 84-year-old female admitted for further evaluation and treatment of frequent falls trauma workup was negative currently being treated for pneumonia and urinary retention plan to discharge to swing bed. : Patient feeling well still with intermittent forgetfulness wanting to go back to her assisted living updated that she will need rehab prior to returning. She did have complaints of continued back pain and rt elbow pain were she feel X-ray ordered Review of Systems Review of Systems: All systems reviewed & are unremarkable except as noted in HPI and below Exam Narrative: General: In no acute distress, well nourished appears stated age Head: atraumatic, no encephalopathy Eyes: PERRLA, sclera clear ENT: moist mucous membranes, nasal passages clear Neck: supple, no JVD, no adenopathy, trachea midline Cardiac: Normal S1 and S2. Respiratory: scant wheezing and rhonchi throughout with productive cough Gastrointestinal: soft, non-distended, non-tender, normoactive bowel sounds. Extremities: moves all extremities well, BLE 1+ pitting edema Skin: clean, dry, intact. No wounds or lesions. Neuro: Alert and oriented x3, with intermittent confusion/forgetfulness patient with history of dementia cranial nerves intact, no neuro deficits. Psych: normal mood, normal affect, interactive Objective Data Vital Signs Vital Signs: Vital Signs - 24 hr 05/25/25 16:00 05/25/25 19:52 05/25/25 20:00 Temperature 99.2 F Pulse Rate 94 68 68 Respiratory Rate 20 20 Blood Pressure 124/60 Pulse Oximetry 97 97 Oxygen Delivery Room Air Room Air Oxygen Flow Rate 05/26/25 00:00 05/26/25 00:33 05/26/25 01:02 Temperature 98.2 F Pulse Rate 91 86 89 Respiratory Rate 18 18 18 Blood Pressure 125/60 Pulse Oximetry 96 94 97 Oxygen Delivery Room Air Oxygen Flow Rate 0 0 05/26/25 08:00 05/26/25 08:53 05/26/25 08:54 Temperature 98.8 F Pulse Rate 90 90 90 Respiratory Rate 20 Blood Pressure 149/76 H Pulse Oximetry 94 Oxygen Delivery Room Air Oxygen Flow Rate Intake/Output Intake/Output: Intake & Output 05/23/25 05/24/25 05/25/25 05/26/25 23:59 23:59 23:59 23:59 Intake Total 2950 2740 1050 490 Output Total 1025 1400 1850 350 Balance 1925 1340 -800 140 Meds/Results Medications: Active Medications Generic Name Dose Route Start Last Admin Trade Name Freq PRN Reason Stop Dose Admin Acetaminophen 650 mg 05/23/25 01:34 05/25/25 15:38 Acetaminophen 325 Mg Tablet PO 650 mg Q4H PRN Administration Mild Pain (1-3) or Fever Hydrocodone Bitart/Acetaminophen 1 tab 05/24/25 09:08 05/26/25 08:55 Hydrocodone/Acetaminophen (*Crx) 5-325 Mg Tablet PO 1 tab Q6H PRN Administration Pain 4-10 Alprazolam 0.5 mg 05/26/25 09:10 Alprazolam (*Crx) 0.5 Mg Tablet PO BID PRN Anxiety Amiodarone HCl 200 mg 05/23/25 09:00 05/26/25 08:54 Amiodarone Hcl 200 Mg Tablet PO 200 mg Q24H ELLEN Administration Amoxicillin/Clavulanate Potassium 1 tablet 05/27/25 09:00 Amoxicillin/Clavulanate K 875-125 Mg Tab PO 05/27/25 21:01 Q12HR ELLEN Apixaban 5 mg 05/23/25 09:00 05/26/25 08:54 Apixaban 2.5 Mg Tablet BY MOUTH 5 mg Q12HR ELLEN Administration Atorvastatin Calcium 40 mg 05/23/25 21:00 05/25/25 19:51 Atorvastatin 40 Mg Tablet BY MOUTH 40 mg QHS ELLEN Administration Benzocaine 1 lozenge 05/23/25 10:35 05/25/25 09:35 Benzocaine/Menthol (*Bkc) Lozenge PO 1 lozenge PRN PRN Administration Sore Throat Bisacodyl 5 mg 05/23/25 01:34 05/26/25 04:28 Bisacodyl 5 Mg Tablet Ec PO 5 mg DAILY PRN Administration Constipation Doxycycline Hyclate 100 mg 05/23/25 09:00 05/26/25 08:53 Doxycycline Hyclate 100 Mg Tablet PO 05/27/25 21:01 100 mg Q12HR ELLEN Administration Ergocalciferol 1,250 mcg 05/27/25 09:00 Ergocalciferol (Vitamin D2) 1,250 Mcg (50,000 Units) Capsule BY MOUTH WEEKLY [facility] Furosemide 20 mg 05/24/25 09:00 05/26/25 08:54 Furosemide 20 Mg Tablet BY MOUTH 20 mg QAM [facility] Administration Guaifenesin 1,200 mg 05/23/25 21:00 05/26/25 08:54 Guaifenesin 12 Hr 600 Mg Tabcr PO 1,200 mg Q12HR ELLEN Administration Levalbuterol HCl 0.63 mg 05/25/25 12:30 05/26/25 06:55 Levalbuterol Neb 0.63 Mg/3 Ml INHALATION 0.63 mg Q6HRT ELLEN Administration Lidocaine 1 patch 05/24/25 10:05 05/26/25 08:54 Lidocaine 5% Patch TRANSDERM 1 patch DAILY ELLEN Administration Losartan Potassium 100 mg 05/23/25 09:00 05/26/25 08:54 Losartan Potassium 50 Mg Tablet PO 100 mg QAM [facility] Administration Metoprolol Tartrate 25 mg 05/23/25 09:00 05/26/25 08:53 Metoprolol Tartrate 25 Mg Tablet PO 25 mg Q12HR ELLEN Administration Mirtazapine 30 mg 05/24/25 21:00 05/25/25 19:52 Mirtazapine 15 Mg Tablet BY MOUTH 30 mg HS [facility] Administration Oxybutynin Chloride 5 mg 05/23/25 11:05 05/26/25 08:54 Oxybutynin Chloride 5 Mg Tablet PO 5 mg TID ELLEN Administration Spironolactone 50 mg 05/23/25 09:00 05/23/25 12:28 Spironolactone 25 Mg Tablet PO Not Given On Hold: 05/23/25 09[facility] Impressions Chest CT 05/23/25 05:41 IMPRESSION: 1. Patchy bilateral mixed interstitial and airspace disease with some areas of nodularity, most likely infectious/inflammatory. Recommend follow-up CT in 1-2 months to assess for resolution to exclude underlying mass. Cervical Spine CT 05/23/25 05:49 IMPRESSION: 1. No acute abnormality of the cervical spine. Head CT 05/23/25 06:00 IMPRESSION: 1. No acute intracranial abnormality. 2: Chronic right cerebellar infarction. Elbow X-Ray 05/26/25 11:36 IMPRESSION: 1. No right elbow joint effusion or acute osseous abnormality. Labs Labs: Laboratory Results - last 24 hr 05/26/25 06:47 WBC 11.1 H RBC 3.22 L Hgb 9.7 L Hct 30.8 L MCV 95.7 MCH 30.1 MCHC 31.5 L RDW 14.7 H Plt Count 343 MPV 9.3 Immature Gran % (Auto) 0.9 H Neut % (Auto) 71.0 H Lymph % (Auto) 17.3 L [place] % (Auto) 8.6 Eos % (Auto) 1.5 Baso % (Auto) 0.7 Lymph # (Auto) 1.93 [place] # (Auto) 0.96 H Eos # (Auto) 0.17 Baso # (Auto) 0.08 Abs Immat Gran (auto) 0.10 H Absolute Neuts (auto) 7.89 H Absolute Nucleated RBC 0.00 Nucleated RBC % 0.0 Sodium 138 Potassium 4.3 Chloride 104 Carbon Dioxide 25 Anion Gap 9 BUN 10 Creatinine 0.92 Estim Creat Clear Calc 40 Estimated GFR 58 L Glucose 117 H Calculated Osmolality 286 Calcium 9.7 Magnesium 1.9 Total Bilirubin 0.7 AST 35 ALT 38 H Alkaline Phosphatase 115 Total Protein 6.6 Albumin 3.4 L Quality VTE Prophylaxis VTE prophylaxis: pharmacologic ordered -Patient's previous records reviewed on admission -ER notes reviewed in detail on admission -discussed all findings and current treatment plan with patient/Family/POA -Consultations reviewed for recommendations -Patient's disposition for safe discharge discussed with case assembler Dictation performed by [employer] direct speech recognition software, therefore agency owner variants and typographical errors may occur. Hospitalist MIPS Advance Care Plan I have confirmed that the patient's Advanced Care Plan is present, code status is documented, or surrogate decision maker is listed in patient medical record.: Yes Medication Reconciliation I have utilized all available resources to obtain, update and review the patients current medications (includes all prescriptions, OTC, herbals, cannabis, and nutritional supplements).: Yes The patient is not eligible for med reconciliation; the patient is in a emergent medical situation where delaying treatment would jeopardize the patients health.: No
[2025-05-26] MEDS: ACETAMINOPHEN 325 MG TABLET 650 MG PO ×2 (13:20→20:57)
[2025-05-26] MEDS: ALPRAZolam (*CRX) 0.5 MG TABLET PO (18:49)
[2025-05-26] MEDS: ATORVASTATIN 40 MG TABLET BY MOUTH (20:58)
[2025-05-26] MEDS: MELATONIN 5 MG TABLET PO (20:59)
[2025-05-26] MEDS: MIRTAZAPINE 15 MG TABLET 30 MG BY MOUTH (20:59)
[2025-05-27] VITALS (7 sets, daily range): BP systolic 128–134; BP diastolic 58–61; PULSE 70–87; RESP 16–18; TEMP 36.6–36.9; O2SAT 93–95
[2025-05-27] MEDS: HYDROcodone/acetaminophen (*CRX) 5-325 MG TABLET 1 TAB PO ×3 (03:30→19:10)
[2025-05-27] MEDS: ALPRAZolam (*CRX) 0.5 MG TABLET PO ×3 (03:59→21:48)
[2025-05-27 05:28] LABS: Hematocrit 28.2 % (35.0-42.0); Hemoglobin 8.9 g/dL (11.7-13.8); Immature Granulocyte Percent A 1.9 % (0.0-0.0); Lymphocytes Absolute Auto 1.74 K/mm3 (1.10-4.50); Mean Corpuscular HGB Conc 31.6 g/dL (32-36); Mean Corpuscular Hemoglobin 30.2 pg (27.0-31.0); Mean Corpuscular Volume 95.6 fL (78.0-102.0); Nucleated Red Blood Cells Absolute Auto 0.00 K/mm3 (0.00-0.00); Nucleated Red Blood Cells Perc 0.0 % (0-0.0); Platelet Count Result 347 K/mm3 (150-420); Red Blood Count 2.95 M/mm3 (4.20-5.40); White Blood Count 11.5 K/mm3 (4.8-10.8)
[2025-05-27 05:40] LABS: Alanine Aminotransferase 29 U/L (6-35); Albumin Level 3.1 g/dL (3.5-5.1); Alkaline Phosphatase 104 U/L (38-126); Anion Gap 7 mmol/L (4-12); Aspartate Amino Transferase 26 U/L (14-36); Bilirubin,Total 0.6 mg/dL (0.2-1.3); Blood Urea Nitrogen 10 mg/dL (7-17); Calcium 9.5 mg/dL (8.4-10.2); Carbon Dioxide 28 mmol/L (22-30); Chloride 101 mmol/L (98-107); Estimated CRCL calculation 38 ml/min; Estimated Glomerular Filt Rate 53; Glucose 119 mg/dL (65-110); Magnesium 1.8 mg/dL (1.6-2.3); Osmolality Calculated 282 mOsm/kg (285-295); Potassium 4.0 mmol/L (3.4-5.0); Sodium 136 mmol/L (137-145); Total Protein 6.0 g/dL (6.3-8.2)
--- OUTSIDE RECORDS SUMMARY | 2025-05-27 07:41 | XMS_ITS | Clinical Summary ---
Author Organization [facility] Address [address] [place] [id number] Care Team Providers Care [employer] System Administrator Name Role Phone Unavailable Primary Care Provider [...]
[2025-05-27] MEDS: LIDOCAINE 5% PATCH 1 PATCH TRANSDERM (08:41)
[2025-05-27] MEDS: ERGOCALCIFEROL (VITAMIN D2) 1,250 MCG (50,000 UNITS) CAPSULE 1250 MCG BY MOUTH (08:42)
[2025-05-27] MEDS: guaiFENesin 12 HR 600 MG TABCR 1200 MG PO ×2 (08:42→21:47)
[2025-05-27] MEDS: LOSARTAN POTASSIUM 50 MG TABLET 100 MG PO (08:42)
[2025-05-27] MEDS: AMIODARONE HCL 200 MG TABLET PO (08:42)
[2025-05-27] MEDS: FUROSEMIDE 20 MG TABLET BY MOUTH (08:43)
[2025-05-27] MEDS: ACETAMINOPHEN 325 MG TABLET 650 MG PO ×2 (08:43→15:42)
[2025-05-27] MEDS: APIXABAN 2.5 MG TABLET 5 MG BY MOUTH ×2 (08:43→21:47)
[2025-05-27] MEDS: METOPROLOL TARTRATE 25 MG TABLET PO ×2 (08:44→21:48)
[2025-05-27] MEDS: DOXYCYCLINE HYCLATE 100 MG TABLET PO ×2 (08:50→21:48)
[2025-05-27] MEDS: diazePAM INJ (*CRX) 10 MG/2 ML SYRINGE 2.5 MG IV PUSH (09:22)
[2025-05-27] MEDS: CYCLOBENZAPRINE HCL 10 MG TABLET PO ×3 (09:23→21:48)
--- NOTE | 2025-05-27 09:30 | P.PNIM_ITS ---
Progress Note: A&P Assessment and Plan (1) Pneumonia: Code(s): J18.9 - Pneumonia, unspecified organism Status: Acute Assessment and Plan: patient admitted with shortness of breath some suspicion for possible pneumonia versus upper respiratory infection white count was elevated at 18 however patient has been on daily 40 mg of prednisone she did however have a fever overnight peaked at 100.1. procalcitonin was ordered and was in and normal limits leading me to more suspicion viral infection but will treat for underlying bacterial. patient received IV Rocephin and azithromycin in the emergency department. COVID/influenza/ RSV negative. CT Chest showing Patchy bilateral mixed interstitial and airspace disease with some areas of nodularity, most likely infectious/inflammatory. Recommend follow-up CT in 1-2 months to assess for resolution to exclude underlying mass. WBC continues to had a downtrend * Switched IV Rocephin to Augmentin and oral doxycycline continued due to patient's QTC will avoid prolonging agents * supplemental oxygen p.r.n. * duo nebulizer switched to Levalbuterol due to feeling jitter * guaifenesin * incentive spirometer * blood cultures pending NGTD (2) URI (upper respiratory infection): Code(s): J06.9 - Acute upper respiratory infection, unspecified Status: Acute Assessment and Plan: See Above #1 (3) Generalized weakness: Code(s): R53.1 - Weakness Status: Acute Assessment and Plan: patient has had frequent falls at her assisted living in the last week likely will need rehab prior to returning back to assisted living could be secondary to infection * PT/ OT plan for swing bed * Elbow pain from fall X-ray with no fracture mild edema (4) Essential hypertension: Code(s): I10 - Essential (primary) hypertension Status: Acute Assessment and Plan: BP was soft POA stable today * resumed Lasix and spironolactone * Orthostatic BP ordered * compression stockings * resume metoprolol and losartan * BP per unit protocol * BP reviewed and stable (5) Atrial fibrillation: Code(s): I48.91 - Unspecified atrial fibrillation Status: Acute Assessment and Plan: * resumed metoprolol, amiodarone, Eliquis (6) Hyperlipidemia: Code(s): E78.5 - Hyperlipidemia, unspecified Status: Acute Assessment and Plan: * Continue atorvastatin (7) GERD without esophagitis: Code(s): K21.9 - Gastro-esophageal reflux disease without esophagitis Status: Acute Assessment and Plan: * Will start Pepcid (8) Stage 3b chronic kidney disease: Code(s): N18.32 - Chronic kidney disease, stage 3b Status: Acute Assessment and Plan: patient with acute on chronic kidney disease patient stage III patient's creatinine usually ranges between 1.2-1.4/ 1.57 POA. patient follows with Dr. Dunbar outpatient * Cr at baseline D/C fluids * encourage oral hydration * Avoid nephrotoxic drugs. * Avoid NSAIDs. * Routine CMP monitoring GFR. * Monitor electrolytes especially potassium. * Routine follow-up with Nephrology as an outpatient (9) Urinary frequency: Code(s): R35.0 - Frequency of micturition Status: Acute Assessment and Plan: patient with urinary frequency but with poor urinary output likely overactive bladder, with straight catheterization in the emergency department and postvoid bladder scan 340 * UA negative * started patient on oxybutynin 5 mg t.i.d. * Attempt voiding trial (10) Chronic neck pain: Code(s): M54.2 - Cervicalgia; G89.29 - Other chronic pain Status: Acute Assessment and Plan: Severe spondylosis and DISH * resumed patient gabapentin however decreased from 100 mg to 400 mg * case single dose now Valium 2.5 for muscle spasm * will start patient on Flexeril Q8hr * lidocaine patch to right lower back * PT Plan Code status: DNR DVT prophylaxis: Eliqubárbara Stress ulcer prophylaxis: NA PT/OT notes: PT/OT plan for swing bed placement Disposition: patient was admitted to the medical unit for further evaluation of generalized weakness, frequent falls with shortness a breath with possible pneumonia versus URI. PT OT evaluation pending plan is to transition patient to swing bed for continued rehab prior to returning back to her assisted living facility. Time Spent With Patient Time with patient: 15 - 25 minutes Subjective Date/time seen: 05/27/25 09:30 Interval history: Patient is an 84-year-old female admitted for further evaluation and treatment of frequent falls trauma workup was negative currently being treated for pneumonia and urinary retention plan to discharge to swing bed. : Patient with severe back pain having difficulty with activity will start some muscle relaxers and resume her Gabapentin but at a lower dose. Patient only other complaint was her RT elbow pain XRAY no acute fracture. Review of Systems Review of Systems: All systems reviewed & are unremarkable except as noted in HPI and below Exam Narrative: General: In no acute distress, well nourished appears stated age Head: atraumatic, no encephalopathy Eyes: PERRLA, sclera clear ENT: moist mucous membranes, nasal passages clear Neck: supple, no JVD, no adenopathy, trachea midline Cardiac: Normal S1 and S2. Respiratory: scant wheezing and rhonchi throughout with productive cough Gastrointestinal: soft, non-distended, non-tender, normoactive bowel sounds. Extremities: moves all extremities well, BLE 1+ pitting edema, RT elbow mild edema and bruising Skin: clean, dry, intact. No wounds or lesions. Neuro: Alert and oriented x3, with intermittent confusion/forgetfulness patient with history of dementia cranial nerves intact, no neuro deficits. Objective Data Vital Signs Vital Signs: Vital Signs - 24 hr 05/26/25 16:00 05/26/25 20:59 05/27/25 00:00 Temperature 98.5 F 97.9 F Pulse Rate 83 75 87 Respiratory Rate 16 16 Blood Pressure 127/57 L 128/61 Pulse Oximetry 97 94 Oxygen Delivery Room Air Room Air 05/27/25 05:54 05/27/25 06:04 05/27/25 08:00 Temperature 98.4 F Pulse Rate 72 70 77 Respiratory Rate 16 16 18 Blood Pressure 134/58 L Pulse Oximetry 93 95 93 Oxygen Delivery Room Air 05/27/25 08:44 Temperature Pulse Rate 77 Respiratory Rate Blood Pressure Pulse Oximetry Oxygen Delivery Intake/Output Intake/Output: Intake & Output 05/24/25 05/25/25 05/26/25 05/27/25 23:59 23:59 23:59 23:59 Intake Total 2740 1050 1270 250 Output Total 1400 1850 1350 600 Balance 1340 -800 -80 -350 Meds/Results Medications: Active Medications Generic Name Dose Route Start Last Admin Trade Name Freq PRN Reason Stop Dose Admin Acetaminophen 650 mg 05/23/25 01:34 05/27/25 08:43 Acetaminophen 325 Mg Tablet PO 650 mg Q4H PRN Administration Mild Pain (1-3) or Fever Hydrocodone Bitart/Acetaminophen 1 tab 05/24/25 09:08 05/27/25 03:30 Hydrocodone/Acetaminophen (*Crx) 5-325 Mg Tablet PO 1 tab Q6H PRN Administration Pain 4-10 Alprazolam 0.5 mg 05/26/25 09:10 05/27/25 03:59 Alprazolam (*Crx) 0.5 Mg Tablet PO 0.5 mg BID PRN Administration Anxiety Amiodarone HCl 200 mg 05/23/25 09:00 05/27/25 08:42 Amiodarone Hcl 200 Mg Tablet PO 200 mg Q24H ELLEN Administration Amoxicillin/Clavulanate Potassium 1 tablet 05/27/25 09:00 05/27/25 08:42 Amoxicillin/Clavulanate K 875-125 Mg Tab PO 05/27/25 21:01 1 tablet Q12HR ELLEN Administration Apixaban 5 mg 05/23/25 09:00 05/27/25 08:43 Apixaban 2.5 Mg Tablet BY MOUTH 5 mg Q12HR ELLEN Administration Atorvastatin Calcium 40 mg 05/23/25 21:00 05/26/25 20:58 Atorvastatin 40 Mg Tablet BY MOUTH 40 mg QHS ELLEN Administration Benzocaine 1 lozenge 05/23/25 10:35 05/25/25 09:35 Benzocaine/Menthol (*Bkc) Lozenge PO 1 lozenge PRN PRN Administration Sore Throat Bisacodyl 5 mg 05/23/25 01:34 05/26/25 04:28 Bisacodyl 5 Mg Tablet Ec PO 5 mg DAILY PRN Administration Constipation Cyclobenzaprine HCl 10 mg 05/27/25 09:00 05/27/25 09:23 Cyclobenzaprine Hcl 10 Mg Tablet PO 10 mg Q8HR ELLEN Administration Doxycycline Hyclate 100 mg 05/23/25 09:00 05/27/25 08:50 Doxycycline Hyclate 100 Mg Tablet PO 05/27/25 21:01 100 mg Q12HR ELLEN Administration Ergocalciferol 1,250 mcg 05/27/25 09:00 05/27/25 08:42 Ergocalciferol (Vitamin D2) 1,250 Mcg (50,000 Units) Capsule BY MOUTH 1,250 mcg WEEKLY ELLEN Administration Furosemide 20 mg 05/24/25 09:00 05/27/25 08:43 Furosemide 20 Mg Tablet BY MOUTH 20 mg QAM ELLEN Administration Gabapentin 100 mg 05/27/25 13:00 Gabapentin 100 Mg Capsule PO TID ELLEN Guaifenesin 1,200 mg 05/23/25 21:00 05/27/25 08:42 Guaifenesin 12 Hr 600 Mg Tabcr PO 1,200 mg Q12HR ELLEN Administration Levalbuterol HCl 0.63 mg 05/25/25 12:30 05/27/25 05:54 Levalbuterol Neb 0.63 Mg/3 Ml INHALATION 0.63 mg Q6HRT ELLEN Administration Lidocaine 1 patch 05/24/25 10:05 05/27/25 08:41 Lidocaine 5% Patch TRANSDERM 1 patch DAILY ELLEN Administration Losartan Potassium 100 mg 05/23/25 09:00 05/27/25 08:42 Losartan Potassium 50 Mg Tablet PO 100 mg QAM ELLEN Administration Melatonin 5 mg 05/26/25 21:00 05/26/25 20:59 Melatonin 5 Mg Tablet PO 5 mg HS ELLEN Administration Metoprolol Tartrate 25 mg 05/23/25 09:00 05/27/25 08:44 Metoprolol Tartrate 25 Mg Tablet PO 25 mg Q12HR [facility] Administration Mirtazapine 30 mg 05/24/25 21:00 05/26/25 20:59 Mirtazapine 15 Mg Tablet BY MOUTH 30 mg HS ELLEN Administration Oxybutynin Chloride 5 mg 05/23/25 11:05 05/27/25 08:44 Oxybutynin Chloride 5 Mg Tablet PO 5 mg TID ELLEN Administration Spironolactone 50 mg 05/23/25 09:00 05/23/25 12:28 Spironolactone 25 Mg Tablet PO Not Given On Hold: 05/23/25 09:17 [facility] Radiology Results: ITS Impressions Chest CT 05/23/25 05:41 IMPRESSION: 1. Patchy bilateral mixed interstitial and airspace disease with some areas of nodularity, most likely infectious/inflammatory. Recommend follow-up CT in 1-2 months to assess for resolution to exclude underlying mass. Cervical Spine CT 05/23/25 05:49 IMPRESSION: 1. No acute abnormality of the cervical spine. Head CT 05/23/25 06:00 IMPRESSION: 1. No acute intracranial abnormality. 2: Chronic right cerebellar infarction. Elbow X-Ray 05/26/25 11:36 IMPRESSION: 1. No right elbow joint effusion or acute osseous abnormality. Labs Labs: Laboratory Results - last 24 hr 05/27/25 05:15 WBC 11.5 H RBC 2.95 L Hgb 8.9 L Hct 28.2 L MCV 95.6 MCH 30.2 MCHC 31.6 L RDW 14.8 H Plt Count 347 MPV 9.3 Immature Gran % (Auto) 1.9 H Neut % (Auto) 71.5 H Lymph % (Auto) 15.1 L [place] % (Auto) 8.6 Eos % (Auto) 2.3 Baso % (Auto) 0.6 Lymph # (Auto) 1.74 [place] # (Auto) 0.99 H Eos # (Auto) 0.26 Baso # (Auto) 0.07 Abs Immat Gran (auto) 0.22 H Absolute Neuts (auto) 8.25 H Absolute Nucleated RBC 0.00 Nucleated RBC % 0.0 Sodium 136 L Potassium 4.0 Chloride 101 Carbon Dioxide 28 Anion Gap 7 BUN 10 Creatinine 0.99 Estim Creat Clear Calc 38 Estimated GFR 53 L Glucose 119 H Calculated Osmolality 282 L Calcium 9.5 Magnesium 1.8 Total Bilirubin 0.6 AST 26 ALT 29 Alkaline Phosphatase 104 Total Protein 6.0 L Albumin 3.1 L Quality VTE Prophylaxis VTE prophylaxis: pharmacologic ordered -Patient's previous records reviewed on admission -ER notes reviewed in detail on admission -discussed all findings and current treatment plan with patient/Family/POA -Consultations reviewed for recommendations -Patient's disposition for safe discharge discussed with lining caser Dictation performed by [employer] direct speech recognition software, therefore loading supervisor variants and typographical errors may occur. Hospitalist MIPS Advance Care Plan I have confirmed that the patient's Advanced Care Plan is present, code status is documented, or surrogate decision maker is listed in patient medical record.: Yes Medication Reconciliation I have utilized all available resources to obtain, update and review the patients current medications (includes all prescriptions, OTC, herbals, cannabis, and nutritional supplements).: Yes The patient is not eligible for med reconciliation; the patient is in a emergent medical situation where delaying treatment would jeopardize the patients [facility].: No
--- NOTE | 2025-05-27 09:44 | PC.NURSE ---
New orders recieved for pain to left back, administered, patient now in bed with family at side, patient laying with eyes closed, aware of surroundings, appears relaxed and able to talk to family at this time.
[2025-05-27] MEDS: ONDANSETRON INJ 4 MG/2 ML VIAL IV PUSH (10:14)
[2025-05-27] MEDS: GABAPENTIN 100 MG CAPSULE PO ×2 (13:50→16:31)
[2025-05-27] MEDS: PROMETHAZINE HCL 25 MG/ML AMPUL 12.5 MG IV PUSH ×2 (15:52→21:48)
[2025-05-27] MEDS: DICLOFENAC SODIUM 1% 100 GM GEL (*BKC) 1 APPLIC TOPICAL (16:40)
[2025-05-27] MEDS: MIRTAZAPINE 15 MG TABLET 30 MG BY MOUTH (21:47)
[2025-05-27] MEDS: MELATONIN 5 MG TABLET PO (21:47)
[2025-05-27] MEDS: ATORVASTATIN 40 MG TABLET BY MOUTH (21:48)
[2025-05-28] VITALS (7 sets, daily range): BP systolic 93–121; BP diastolic 47–59; PULSE 65–80; RESP 16–18; TEMP 35.9–36.8; O2SAT 92–94
[2025-05-28] MEDS: HYDROcodone/acetaminophen (*CRX) 5-325 MG TABLET 1 TAB PO ×4 (01:37→22:06)
[2025-05-28 05:27] LABS: Hematocrit 30.5 % (35.0-42.0); Hemoglobin 9.7 g/dL (11.7-13.8); Immature Granulocyte Percent A 1.2 % (0.0-0.0); Lymphocytes Absolute Auto 1.77 K/mm3 (1.10-4.50); Mean Corpuscular HGB Conc 31.8 g/dL (32-36); Mean Corpuscular Hemoglobin 30.9 pg (27.0-31.0); Mean Corpuscular Volume 97.1 fL (78.0-102.0); Nucleated Red Blood Cells Absolute Auto 0.00 K/mm3 (0.00-0.00); Nucleated Red Blood Cells Perc 0.0 % (0-0.0); Platelet Count Result 378 K/mm3 (150-420); Red Blood Count 3.14 M/mm3 (4.20-5.40); White Blood Count 10.4 K/mm3 (4.8-10.8)
[2025-05-28 05:45] LABS: Alanine Aminotransferase 24 U/L (6-35); Albumin Level 2.9 g/dL (3.5-5.1); Alkaline Phosphatase 104 U/L (38-126); Anion Gap 7 mmol/L (4-12); Aspartate Amino Transferase 22 U/L (14-36); Bilirubin,Total 0.6 mg/dL (0.2-1.3); Blood Urea Nitrogen 10 mg/dL (7-17); Calcium 9.2 mg/dL (8.4-10.2); Carbon Dioxide 27 mmol/L (22-30); Chloride 102 mmol/L (98-107); Estimated CRCL calculation 41 ml/min; Estimated Glomerular Filt Rate 60; Glucose 93 mg/dL (65-110); Magnesium 1.8 mg/dL (1.6-2.3); Osmolality Calculated 281 mOsm/kg (285-295); Potassium 4.0 mmol/L (3.4-5.0); Sodium 136 mmol/L (137-145); Total Protein 5.7 g/dL (6.3-8.2)
[2025-05-28] MEDS: CYCLOBENZAPRINE HCL 10 MG TABLET PO ×3 (06:50→22:07)
[2025-05-28] MEDS: LOSARTAN POTASSIUM 50 MG TABLET 100 MG PO (08:35)
[2025-05-28] MEDS: GABAPENTIN 100 MG CAPSULE PO ×3 (08:35→16:23)
[2025-05-28] MEDS: guaiFENesin 12 HR 600 MG TABCR 1200 MG PO ×2 (08:35→22:00)
[2025-05-28] MEDS: AMIODARONE HCL 200 MG TABLET PO (08:35)
[2025-05-28] MEDS: METOPROLOL TARTRATE 25 MG TABLET PO ×2 (08:35→22:06)
[2025-05-28] MEDS: APIXABAN 2.5 MG TABLET 5 MG BY MOUTH ×2 (08:37→22:00)
[2025-05-28] MEDS: DICLOFENAC SODIUM 1% 100 GM GEL (*BKC) 1 APPLIC TOPICAL (08:38)
[2025-05-28] MEDS: FUROSEMIDE 20 MG TABLET BY MOUTH (08:38)
[2025-05-28] MEDS: BISACODYL 5 MG TABLET EC PO (08:38)
--- NOTE | 2025-05-28 08:51 | P.PNIM_ITS ---
Progress Note: A&P Assessment and Plan (1) Generalized weakness: Code(s): R53.1 - Weakness Status: Acute Assessment and Plan: patient has had frequent falls at her assisted living in the last week likely will need rehab prior to returning back to assisted living could be secondary to infection * PT/ OT plan for swing bed * Elbow pain from fall X-ray with no fracture mild edema (2) Essential hypertension: Code(s): I10 - Essential (primary) hypertension Status: Acute Assessment and Plan: BP was soft POA stable today * resumed Lasix and spironolactone * Orthostatic BP ordered * compression stockings * resume metoprolol and losartan * BP per unit protocol * BP reviewed and stable (3) Atrial fibrillation: Code(s): I48.91 - Unspecified atrial fibrillation Status: Acute Assessment and Plan: * resumed metoprolol, amiodarone, Eliquis (4) Hyperlipidemia: Code(s): E78.5 - Hyperlipidemia, unspecified Status: Acute Assessment and Plan: * Continue atorvastatin (5) GERD without esophagitis: Code(s): K21.9 - Gastro-esophageal reflux disease without esophagitis Status: Acute Assessment and Plan: * Will start Pepcid (6) Stage 3b chronic kidney disease: Code(s): N18.32 - Chronic kidney disease, stage 3b Status: Acute Assessment and Plan: patient with acute on chronic kidney disease patient stage III patient's creatinine usually ranges between 1.2-1.4/ 1.57 POA. patient follows with Dr. Dunbar outpatient * Cr at baseline D/C fluids * encourage oral hydration * Avoid nephrotoxic drugs. * Avoid NSAIDs. * Routine CMP monitoring GFR. * Monitor electrolytes especially potassium. * Routine follow-up with Nephrology as an outpatient (7) Urinary frequency: Code(s): R35.0 - Frequency of micturition Status: Acute Assessment and Plan: patient with urinary frequency but with poor urinary output likely overactive bladder, with straight catheterization in the emergency department and postvoid bladder scan 340 * UA negative * started patient on oxybutynin 5 mg t.i.d. * voiding trial (8) Chronic neck pain: Code(s): M54.2 - Cervicalgia; G89.29 - Other chronic pain Status: Acute Assessment and Plan: Severe spondylosis and DISH * resumed patient gabapentin however decreased from 100 mg to 400 mg * case single dose now Valium 2.5 for muscle spasm * will start patient on Flexeril Q8hr * lidocaine patch to right lower back * PT (9) Pneumonia: Code(s): J18.9 - Pneumonia, unspecified organism Status: Acute Assessment and Plan: patient admitted with shortness of breath some suspicion for possible pneumonia versus upper respiratory infection white count was elevated at 18 however patient has been on daily 40 mg of prednisone she did however have a fever overnight peaked at 100.1. procalcitonin was ordered and was in and normal limits leading me to more suspicion viral infection but will treat for underlying bacterial. patient received IV Rocephin and azithromycin in the emergency department. COVID/influenza/ RSV negative. CT Chest showing Patchy bilateral mixed interstitial and airspace disease with some areas of nodularity, most likely infectious/inflammatory. Recommend follow-up CT in 1-2 months to assess for resolution to exclude underlying mass. WBC continues to had a downtrend * ABX therapy completed inpatient * supplemental oxygen p.r.n. * duo nebulizer switched to Levalbuterol due to feeling jitter * guaifenesin * incentive spirometer * blood cultures NGTD RESOLVED (10) URI (upper respiratory infection): Code(s): J06.9 - Acute upper respiratory infection, unspecified Status: Resolved Assessment and Plan: See Above #1 RESOLVED Plan Code status: DNR DVT prophylaxis: Jenniferqubárbara Stress ulcer prophylaxis: NA PT/OT notes: PT/OT plan for swing bed placement Disposition: patient was admitted to the medical unit for further evaluation of generalized weakness, frequent falls with shortness a breath with possible pneumonia versus URI. PT OT evaluation pending plan is to transition patient to swing bed for continued rehab prior to returning back to her assisted living facility. Time Spent With Patient Time with patient: 15 - 25 minutes Subjective Date/time seen: 05/28/25 08:51 Interval history: Patient is an 84-year-old female admitted for further evaluation and treatment of frequent falls trauma workup was negative currently being treated for pneumonia and urinary retention plan to discharge to swing bed. : Patient reported mild improvement to back pain with new medications overall still weak and unsteady gait. Denied any CP, SOB, did have episode of N/V after receiving the Valium yesterday but resolved with antiemetic. Review of Systems Review of Systems: All systems reviewed & are unremarkable except as noted in HPI and below Exam Narrative: General: In no acute distress, well nourished appears stated age Head: atraumatic, no encephalopathy Eyes: PERRLA, sclera clear ENT: moist mucous membranes, nasal passages clear Neck: supple, no JVD, no adenopathy, trachea midline Cardiac: Normal S1 and S2. Respiratory: scant wheezing and rhonchi throughout with productive cough Gastrointestinal: soft, non-distended, non-tender, normoactive bowel sounds. Extremities: moves all extremities well, BLE 1+ pitting edema, RT elbow mild edema and bruising Skin: clean, dry, intact. No wounds or lesions. Neuro: Alert and oriented x3, with intermittent confusion/forgetfulness patient with history of dementia cranial nerves intact, no neuro deficits. Objective Data Vital Signs Vital Signs: Vital Signs - 24 hr 05/27/25 16:00 05/27/25 21:48 05/28/25 00:00 Temperature 98 F 98.3 F Pulse Rate 78 72 80 Respiratory Rate 17 16 Blood Pressure 128/60 121/59 L Pulse Oximetry 94 92 Oxygen Delivery Room Air Room Air 05/28/25 08:00 05/28/25 08:34 05/28/25 08:35 Temperature 98.0 F Pulse Rate 68 74 74 Respiratory Rate 16 Blood Pressure 101/49 L 117/56 L Pulse Oximetry 92 Oxygen Delivery Room Air 05/28/25 08:35 Temperature Pulse Rate 74 Respiratory Rate Blood Pressure Pulse Oximetry Oxygen Delivery Intake/Output Intake/Output: Intake & Output 05/25/25 05/26/25 05/27/25 05/28/25 23:59 23:59 23:59 23:59 Intake Total 1050 1270 1225 Output Total 1850 1350 1525 675 Balance -800 -80 -300 -675 Meds/Results Medications: Active Medications Generic Name Dose Route Start Last Admin Trade Name Freq PRN Reason Stop Dose Admin Acetaminophen 650 mg 05/23/25 01:34 05/27/25 15:42 Acetaminophen 325 Mg Tablet PO 650 mg Q4H PRN Administration Mild Pain (1-3) or Fever Hydrocodone Bitart/Acetaminophen 1 tab 05/24/25 09:08 05/28/25 08:37 Hydrocodone/Acetaminophen (*Crx) 5-325 Mg Tablet PO 1 tab Q6H PRN Administration Pain 4-10 Alprazolam 0.5 mg 05/26/25 09:10 05/27/25 21:48 Alprazolam (*Crx) 0.5 Mg Tablet PO 0.5 mg BID PRN Administration Anxiety Amiodarone HCl 200 mg 05/23/25 09:00 05/28/25 08:35 Amiodarone Hcl 200 Mg Tablet PO 200 mg Q24H ELLEN Administration Apixaban 5 mg 05/23/25 09:00 05/28/25 08:37 Apixaban 2.5 Mg Tablet BY MOUTH 5 mg Q12HR ELLEN Administration Atorvastatin Calcium 40 mg 05/23/25 21:00 05/27/25 21:48 Atorvastatin 40 Mg Tablet BY MOUTH 40 mg QHS ELLEN Administration Benzocaine 1 lozenge 05/23/25 10:35 05/25/25 09:35 Benzocaine/Menthol (*Bkc) Lozenge PO 1 lozenge PRN PRN Administration Sore Throat Bisacodyl 5 mg 05/23/25 01:34 05/28/25 08:38 Bisacodyl 5 Mg Tablet Ec PO 5 mg DAILY PRN Administration Constipation Cyclobenzaprine HCl 10 mg 05/27/25 09:00 05/28/25 06:50 Cyclobenzaprine Hcl 10 Mg Tablet PO 10 mg Q8HR ELLEN Administration Diclofenac Sodium 1 applic 05/27/25 16:12 05/28/25 08:38 Diclofenac Sodium 1% 100 Gm Gel (*Bkc) TOPICAL 1 applic QID PRN Administration Joint Pain Ergocalciferol 1,250 mcg 05/27/25 09:00 05/27/25 08:42 Ergocalciferol (Vitamin D2) 1,250 Mcg (50,000 Units) Capsule BY MOUTH 1,250 mcg WEEKLY ELLEN Administration Furosemide 20 mg 05/24/25 09:00 05/28/25 08:38 Furosemide 20 Mg Tablet BY MOUTH 20 mg QAM ELLEN Administration Gabapentin 100 mg 05/27/25 13:00 05/28/25 08:35 Gabapentin 100 Mg Capsule PO 100 mg TID ELLEN Administration Guaifenesin 1,200 mg 05/23/25 21:00 05/28/25 08:35 Guaifenesin 12 Hr 600 Mg Tabcr PO 1,200 mg Q12HR ELLEN Administration Levalbuterol HCl 0.63 mg 05/25/25 12:30 05/28/25 06:47 Levalbuterol Neb 0.63 Mg/3 Ml INHALATION Not Given Q6HRT ELLEN Losartan Potassium 100 mg 05/23/25 09:00 05/28/25 08:35 Losartan Potassium 50 Mg Tablet PO 100 mg QAM ELLEN Administration Melatonin 5 mg 05/26/25 21:00 05/27/25 21:47 Melatonin 5 Mg Tablet PO 5 mg HS ELLEN Administration Metoprolol Tartrate 25 mg 05/23/25 09:00 05/28/25 08:35 Metoprolol Tartrate 25 Mg Tablet PO 25 mg Q12HR ELLEN Administration Mirtazapine 30 mg 05/24/25 21:00 05/27/25 21:47 Mirtazapine 15 Mg Tablet BY MOUTH 30 mg HS ELLEN Administration Oxybutynin Chloride 5 mg 05/23/25 11:05 05/28/25 08:38 Oxybutynin Chloride 5 Mg Tablet PO 5 mg TID [facility] Administration Promethazine HCl 12.5 mg 05/27/25 11:14 05/27/25 21:48 Promethazine Hcl 25 Mg/Ml Ampul IV PUSH 12.5 mg Q4H PRN Administration Nausea And Vomiting Spironolactone 50 mg 05/23/25 09:00 05/23/25 12:28 Spironolactone 25 Mg Tablet PO Not Given On Hold: 05/23/25 09:17 [facility] Radiology Results: ITS Impressions Chest CT 05/23/25 05:41 IMPRESSION: 1. Patchy bilateral mixed interstitial and airspace disease with some areas of nodularity, most likely infectious/inflammatory. Recommend follow-up CT in 1-2 months to assess for resolution to exclude underlying mass. Cervical Spine CT 05/23/25 05:49 IMPRESSION: 1. No acute abnormality of the cervical spine. Head CT 05/23/25 06:00 IMPRESSION: 1. No acute intracranial abnormality. 2: Chronic right cerebellar infarction. Elbow X-Ray 05/26/25 11:36 IMPRESSION: 1. No right elbow joint effusion or acute osseous abnormality. Labs Labs: Laboratory Results - last 24 hr 05/28/25 05:19 WBC 10.4 RBC 3.14 L Hgb 9.7 L Hct 30.5 L MCV 97.1 MCH 30.9 MCHC 31.8 L RDW 14.6 H Plt Count 378 MPV 9.1 L Immature Gran % (Auto) 1.2 H Neut % (Auto) 69.5 Lymph % (Auto) 17.0 L Fisher % (Auto) 8.0 Eos % (Auto) 3.4 Baso % (Auto) 0.9 Lymph # (Auto) 1.77 Fisher # (Auto) 0.83 Eos # (Auto) 0.35 Baso # (Auto) 0.09 Abs Immat Gran (auto) 0.12 H Absolute Neuts (auto) 7.23 H Absolute Nucleated RBC 0.00 Nucleated RBC % 0.0 Sodium 136 L Potassium 4.0 Chloride 102 Carbon Dioxide 27 Anion Gap 7 BUN 10 Creatinine 0.90 Estim Creat Clear Calc 41 Estimated GFR 60 Glucose 93 Calculated Osmolality 281 L Calcium 9.2 Magnesium 1.8 Total Bilirubin 0.6 AST 22 ALT 24 Alkaline Phosphatase 104 Total Protein 5.7 L Albumin 2.9 L Quality VTE Prophylaxis VTE prophylaxis: pharmacologic ordered -Patient's previous records reviewed on admission -ER notes reviewed in detail on admission -discussed all findings and current treatment plan with patient/Family/POA -Consultations reviewed for recommendations -Patient's disposition for safe discharge discussed with upper caser Dictation performed by [email or web address] direct speech recognition software, therefore glassware selector variants and typographical errors may occur. Hospitalist MIPS Advance Care Plan I have confirmed that the patient's Advanced Care Plan is present, code status is documented, or surrogate decision maker is listed in patient medical record.: Yes Medication Reconciliation I have utilized all available resources to obtain, update and review the patients current medications (includes all prescriptions, OTC, herbals, cannabis, and nutritional supplements).: Yes The patient is not eligible for med reconciliation; the patient is in a emergent medical situation where delaying treatment would jeopardize the patients health.: No
--- NOTE | 2025-05-28 14:37 | PC.NURSE ---
Patient refuses therapy today at 1430.
[2025-05-28] MEDS: MIRTAZAPINE 15 MG TABLET 30 MG BY MOUTH (22:00)
[2025-05-28] MEDS: ATORVASTATIN 40 MG TABLET BY MOUTH (22:06)
[2025-05-28] MEDS: MELATONIN 5 MG TABLET PO (22:06)
[2025-05-28] MEDS: ALPRAZolam (*CRX) 0.5 MG TABLET PO (22:06)
[2025-05-29] VITALS: BP 120/58; PULSE 77; RESP 16; TEMP 36.5; O2SAT 97
[2025-05-29] MEDS: ACETAMINOPHEN 325 MG TABLET 650 MG PO ×2 (03:44→07:39)
[2025-05-29] MEDS: CYCLOBENZAPRINE HCL 10 MG TABLET PO ×2 (05:11→13:05)
[2025-05-29] MEDS: HYDROcodone/acetaminophen (*CRX) 5-325 MG TABLET 1 TAB PO ×2 (05:11→12:34)
[2025-05-29 05:24] LABS: Hematocrit 33.0 % (35.0-42.0); Hemoglobin 10.3 g/dL (11.7-13.8); Immature Granulocyte Percent A 1.4 % (0.0-0.0); Lymphocytes Absolute Auto 1.99 K/mm3 (1.10-4.50); Mean Corpuscular HGB Conc 31.2 g/dL (32-36); Mean Corpuscular Hemoglobin 30.2 pg (27.0-31.0); Mean Corpuscular Volume 96.8 fL (78.0-102.0); Nucleated Red Blood Cells Absolute Auto 0.00 K/mm3 (0.00-0.00); Nucleated Red Blood Cells Perc 0.0 % (0-0.0); Platelet Count Result 455 K/mm3 (150-420); Red Blood Count 3.41 M/mm3 (4.20-5.40); White Blood Count 12.8 K/mm3 (4.8-10.8)
[2025-05-29 05:49] LABS: Alanine Aminotransferase 24 U/L (6-35); Albumin Level 3.2 g/dL (3.5-5.1); Alkaline Phosphatase 112 U/L (38-126); Anion Gap 8 mmol/L (4-12); Aspartate Amino Transferase 22 U/L (14-36); Bilirubin,Total 0.5 mg/dL (0.2-1.3); Blood Urea Nitrogen 13 mg/dL (7-17); Calcium 9.4 mg/dL (8.4-10.2); Carbon Dioxide 30 mmol/L (22-30); Chloride 100 mmol/L (98-107); Estimated CRCL calculation 36 ml/min; Estimated Glomerular Filt Rate 51; Glucose 103 mg/dL (65-110); Magnesium 1.9 mg/dL (1.6-2.3); Osmolality Calculated 286 mOsm/kg (285-295); Potassium 4.2 mmol/L (3.4-5.0); Sodium 138 mmol/L (137-145); Total Protein 6.0 g/dL (6.3-8.2)
[2025-05-29 08:00] VITALS: BP 112/70; PULSE 72; RESP 18; TEMP 36.7; O2SAT 93
--- NOTE | 2025-05-29 08:33 | P.PNIM_ITS ---
Progress Note: A&P Assessment and Plan (1) Generalized weakness: Code(s): R53.1 - Weakness Status: Acute Assessment and Plan: patient has had frequent falls at her assisted living in the last week likely will need rehab prior to returning back to assisted living could be secondary to infection * PT/ OT plan for swing bed * Elbow pain from fall X-ray with no fracture mild edema (2) Essential hypertension: Code(s): I10 - Essential (primary) hypertension Status: Acute Assessment and Plan: BP was soft POA stable today * resumed Lasix and spironolactone * Orthostatic BP ordered * compression stockings * resume metoprolol and losartan * BP per unit protocol * BP reviewed and stable (3) Atrial fibrillation: Code(s): I48.91 - Unspecified atrial fibrillation Status: Acute Assessment and Plan: * resumed metoprolol, amiodarone, Eliquis (4) Hyperlipidemia: Code(s): E78.5 - Hyperlipidemia, unspecified Status: Acute Assessment and Plan: * Continue atorvastatin (5) GERD without esophagitis: Code(s): K21.9 - Gastro-esophageal reflux disease without esophagitis Status: Acute Assessment and Plan: * Will start Pepcid (6) Stage 3b chronic kidney disease: Code(s): N18.32 - Chronic kidney disease, stage 3b Status: Acute Assessment and Plan: patient with acute on chronic kidney disease patient stage III patient's creatinine usually ranges between 1.2-1.4/ 1.57 POA. patient follows with Dr. Dunbar outpatient * Cr at baseline D/C fluids * encourage oral hydration * Avoid nephrotoxic drugs. * Avoid NSAIDs. * Routine CMP monitoring GFR. * Monitor electrolytes especially potassium. * Routine follow-up with Nephrology as an outpatient (7) Urinary frequency: Code(s): R35.0 - Frequency of micturition Status: Acute Assessment and Plan: patient with urinary frequency but with poor urinary output likely overactive bladder, with straight catheterization in the emergency department and postvoid bladder scan 340 * UA negative * started patient on oxybutynin 5 mg t.i.d. * voiding trial (8) Chronic neck pain: Code(s): M54.2 - Cervicalgia; G89.29 - Other chronic pain Status: Acute Assessment and Plan: Severe spondylosis and DISH * resumed patient gabapentin however decreased from 100 mg to 400 mg * case single dose now Valium 2.5 for muscle spasm * will start patient on Flexeril Q8hr * lidocaine patch to right lower back * PT (9) Pneumonia: Code(s): J18.9 - Pneumonia, unspecified organism Status: Acute Assessment and Plan: patient admitted with shortness of breath some suspicion for possible pneumonia versus upper respiratory infection white count was elevated at 18 however patient has been on daily 40 mg of prednisone she did however have a fever overnight peaked at 100.1. procalcitonin was ordered and was in and normal limits leading me to more suspicion viral infection but will treat for underlying bacterial. patient received IV Rocephin and azithromycin in the emergency department. COVID/influenza/ RSV negative. CT Chest showing Patchy bilateral mixed interstitial and airspace disease with some areas of nodularity, most likely infectious/inflammatory. Recommend follow-up CT in 1-2 months to assess for resolution to exclude underlying mass. WBC continues to had a downtrend * ABX therapy completed inpatient * supplemental oxygen p.r.n. * duo nebulizer switched to Levalbuterol due to feeling jitter * guaifenesin * incentive spirometer * blood cultures NGTD RESOLVED (10) URI (upper respiratory infection): Code(s): J06.9 - Acute upper respiratory infection, unspecified Status: Resolved Assessment and Plan: See Above #1 RESOLVED Plan Code status: DNR DVT prophylaxis: Jenniferqubárbara Stress ulcer prophylaxis: NA PT/OT notes: PT/OT plan for swing bed placement Disposition: patient was admitted to the medical unit for further evaluation of generalized weakness, frequent falls with shortness a breath with possible pneumonia versus URI. PT OT evaluation pending plan is to transition patient to swing bed for continued rehab prior to returning back to her assisted living facility. Subjective Date/time seen: 05/29/25 08:33 Interval history: Patient is an 84-year-old female admitted for further evaluation and treatment of frequent falls trauma workup was negative currently being treated for pneumonia and urinary retention plan to discharge to swing bed. 05/29/2025: Patient feeling well today, denies SOB, CP and also endorsing improvement to her back pain. Will attempt a bladder trial today. Just waiting on insurance auth to transition to a swing bed Review of Systems Review of Systems: All systems reviewed & are unremarkable except as noted in HPI and below Exam Narrative: General: In no acute distress, well nourished appears stated age Head: atraumatic, no encephalopathy Eyes: PERRLA, sclera clear ENT: moist mucous membranes, nasal passages clear Neck: supple, no JVD, no adenopathy, trachea midline Cardiac: Normal S1 and S2. Respiratory: scant wheezing and rhonchi throughout with productive cough Gastrointestinal: soft, non-distended, non-tender, normoactive bowel sounds. Extremities: moves all extremities well, BLE 1+ pitting edema, RT elbow mild edema and bruising Skin: clean, dry, intact. No wounds or lesions. Neuro: Alert and oriented x3, with intermittent confusion/forgetfulness patient with history of dementia cranial nerves intact, no neuro deficits. Objective Data Vital Signs Vital Signs: Vital Signs - 24 hr 05/28/25 08:34 05/28/25 08:35 05/28/25 08:35 Temperature Pulse Rate 74 74 74 Respiratory Rate Blood Pressure 117/56 L Pulse Oximetry Oxygen Delivery 05/28/25 16:00 05/28/25 20:00 05/28/25 22:06 Temperature 96.6 F L Pulse Rate 65 65 65 Respiratory Rate 18 18 Blood Pressure 93/47 L Pulse Oximetry 94 94 Oxygen Delivery Room Air Room Air 05/29/25 00:00 Temperature 97.7 F Pulse Rate 77 Respiratory Rate 16 Blood Pressure 120/58 L Pulse Oximetry 97 Oxygen Delivery Room Air Intake/Output Intake/Output: Intake & Output 05/26/25 05/27/25 05/28/25 05/29/25 23:59 23:59 23:59 23:59 Intake Total 1270 1225 1040 250 Output Total 1350 1525 1925 500 Balance -80 -300 -885 -250 Meds/Results Medications: Active Medications Generic Name Dose Route Start Last Admin Trade Name Freq PRN Reason Stop Dose Admin Acetaminophen 650 mg 05/23/25 01:34 05/29/25 07:39 Acetaminophen 325 Mg Tablet PO 650 mg Q4H PRN Administration Mild Pain (1-3) or Fever Hydrocodone Bitart/Acetaminophen 1 tab 05/24/25 09:08 05/29/25 05:11 Hydrocodone/Acetaminophen (*Crx) 5-325 Mg Tablet PO 1 tab Q6H PRN Administration Pain 4-10 Alprazolam 0.5 mg 05/26/25 09:10 05/28/25 22:06 Alprazolam (*Crx) 0.5 Mg Tablet PO 0.5 mg BID PRN Administration Anxiety Amiodarone HCl 200 mg 05/23/25 09:00 05/28/25 08:35 Amiodarone Hcl 200 Mg Tablet PO 200 mg Q24H ELLEN Administration Apixaban 5 mg 05/23/25 09:00 05/28/25 22:00 Apixaban 2.5 Mg Tablet BY MOUTH 5 mg Q12HR ELLEN Administration Atorvastatin Calcium 40 mg 05/23/25 21:00 05/28/25 22:06 Atorvastatin 40 Mg Tablet BY MOUTH 40 mg QHS ELLEN Administration Benzocaine 1 lozenge 05/23/25 10:35 05/25/25 09:35 Benzocaine/Menthol (*Bkc) Lozenge PO 1 lozenge PRN PRN Administration Sore Throat Bisacodyl 5 mg 05/23/25 01:34 05/28/25 08:38 Bisacodyl 5 Mg Tablet Ec PO 5 mg DAILY PRN Administration Constipation Cyclobenzaprine HCl 10 mg 05/27/25 09:00 05/29/25 05:11 Cyclobenzaprine Hcl 10 Mg Tablet PO 10 mg Q8HR ELLEN Administration Diclofenac Sodium 1 applic 05/27/25 16:12 05/28/25 08:38 Diclofenac Sodium 1% 100 Gm Gel (*Bkc) TOPICAL 1 applic QID PRN Administration Joint Pain Ergocalciferol 1,250 mcg 05/27/25 09:00 05/27/25 08:42 Ergocalciferol (Vitamin D2) 1,250 Mcg (50,000 Units) Capsule BY MOUTH 1,250 mcg WEEKLY ELLEN Administration Furosemide 20 mg 05/24/25 09:00 05/28/25 08:38 Furosemide 20 Mg Tablet BY MOUTH 20 mg QAM ELLEN Administration Gabapentin 100 mg 05/27/25 13:00 05/28/25 16:23 Gabapentin 100 Mg Capsule PO 100 mg TID ELLEN Administration Guaifenesin 1,200 mg 05/23/25 21:00 05/28/25 22:00 Guaifenesin 12 Hr 600 Mg Tabcr PO 1,200 mg Q12HR ELLEN Administration Levalbuterol HCl 0.63 mg 05/28/25 08:53 Levalbuterol Neb 0.63 Mg/3 Ml INHALATION Q6HRT PRN wheezing Losartan Potassium 100 mg 05/23/25 09:00 05/28/25 08:35 Losartan Potassium 50 Mg Tablet PO 100 mg QAM ELLEN Administration Melatonin 5 mg 05/26/25 21:00 05/28/25 22:06 Melatonin 5 Mg Tablet PO 5 mg HS ELLEN Administration Metoprolol Tartrate 25 mg 05/23/25 09:00 05/28/25 22:06 Metoprolol Tartrate 25 Mg Tablet PO 25 mg Q12HR ELLEN Administration Mirtazapine 30 mg 05/24/25 21:00 05/28/25 22:00 Mirtazapine 15 Mg Tablet BY MOUTH 30 mg HS ELLEN Administration Oxybutynin Chloride 5 mg 05/23/25 11:05 05/28/25 16:23 Oxybutynin Chloride 5 Mg Tablet PO 5 mg TID ELLEN Administration Promethazine HCl 12.5 mg 05/27/25 11:14 05/27/25 21:48 Promethazine Hcl 25 Mg/Ml Ampul IV PUSH 12.5 mg Q4H PRN Administration Nausea And Vomiting Spironolactone 50 mg 05/23/25 09:00 05/23/25 12:28 Spironolactone 25 Mg Tablet PO Not Given On Hold: 05/23/25 09:17 [facility] Radiology Results: ITS Impressions Chest CT 05/23/25 05:41 IMPRESSION: 1. Patchy bilateral mixed interstitial and airspace disease with some areas of nodularity, most likely infectious/inflammatory. Recommend follow-up CT in 1-2 months to assess for resolution to exclude underlying mass. Cervical Spine CT 05/23/25 05:49 IMPRESSION: 1. No acute abnormality of the cervical spine. Head CT 05/23/25 06:00 IMPRESSION: 1. No acute intracranial abnormality. 2: Chronic right cerebellar infarction. Elbow X-Ray 05/26/25 11:36 IMPRESSION: 1. No right elbow joint effusion or acute osseous abnormality. Labs Labs: Laboratory Results - last 24 hr 05/29/25 05:18 WBC 12.8 H RBC 3.41 L Hgb 10.3 L Hct 33.0 L MCV 96.8 MCH 30.2 MCHC 31.2 L RDW 14.6 H Plt Count 455 H MPV 8.8 L Immature Gran % (Auto) 1.4 H Neut % (Auto) 73.4 H Lymph % (Auto) 15.5 L Ceiba % (Auto) 6.3 Eos % (Auto) 2.9 Baso % (Auto) 0.5 Lymph # (Auto) 1.99 Ceiba # (Auto) 0.80 Eos # (Auto) 0.37 Baso # (Auto) 0.07 Abs Immat Gran (auto) 0.18 H Absolute Neuts (auto) 9.39 H Absolute Nucleated RBC 0.00 Nucleated RBC % 0.0 Sodium 138 Potassium 4.2 Chloride 100 Carbon Dioxide 30 Anion Gap 8 BUN 13 Creatinine 1.03 H Estim Creat Clear Calc 36 Estimated GFR 51 L Glucose 103 Calculated Osmolality 286 Calcium 9.4 Magnesium 1.9 Total Bilirubin 0.5 AST 22 ALT 24 Alkaline Phosphatase 112 Total Protein 6.0 L Albumin 3.2 L Quality VTE Prophylaxis VTE prophylaxis: pharmacologic ordered -Patient's previous records reviewed on admission -ER notes reviewed in detail on admission -discussed all findings and current treatment plan with patient/Family/POA -Consultations reviewed for recommendations -Patient's disposition for safe discharge discussed with bilingual case manager Dictation performed by [employer] direct speech recognition software, therefore ballistics teacher variants and typographical errors may occur. Hospitalist MIPS Advance Care Plan I have confirmed that the patient's Advanced Care Plan is present, code status is documented, or surrogate decision maker is listed in patient medical record.: Yes Medication Reconciliation I have utilized all available resources to obtain, update and review the patients current medications (includes all prescriptions, OTC, herbals, cannabis, and nutritional supplements).: Yes The patient is not eligible for med reconciliation; the patient is in a emergent medical situation where delaying treatment would jeopardize the patients health.: No
[2025-05-29 08:43] VITALS: PULSE 72
[2025-05-29] MEDS: GABAPENTIN 100 MG CAPSULE PO ×2 (08:43→12:12)
[2025-05-29] MEDS: LOSARTAN POTASSIUM 50 MG TABLET 100 MG PO (08:43)
[2025-05-29] MEDS: guaiFENesin 12 HR 600 MG TABCR 1200 MG PO (08:43)
[2025-05-29] MEDS: METOPROLOL TARTRATE 25 MG TABLET PO (08:43)
[2025-05-29] MEDS: APIXABAN 2.5 MG TABLET 5 MG BY MOUTH (08:44)
[2025-05-29] MEDS: FUROSEMIDE 20 MG TABLET BY MOUTH (08:44)
[2025-05-29 08:45] VITALS: PULSE 72
[2025-05-29] MEDS: AMIODARONE HCL 200 MG TABLET PO (08:45)
[2025-05-29] MEDS: BISACODYL 5 MG TABLET EC PO (12:12)
[2025-05-29] MEDS: DICLOFENAC SODIUM 1% 100 GM GEL (*BKC) 1 APPLIC TOPICAL (13:05)
--- NOTE | 2025-05-29 15:32 | P.DS_ITS ---
DS: Admitting Diagnosis Discharge Date 05/29/2025 Admitting Diagnosis Pneumonia/Weakness DS: Discharge Diagnosis Discharge Diagnosis (1) Generalized weakness: Code(s): R53.1 - Weakness Status: Acute (2) Essential hypertension: Code(s): I10 - Essential (primary) hypertension Status: Acute (3) Atrial fibrillation: Code(s): I48.91 - Unspecified atrial fibrillation Status: Acute (4) Hyperlipidemia: Code(s): E78.5 - Hyperlipidemia, unspecified Status: Acute (5) GERD without esophagitis: Code(s): K21.9 - Gastro-esophageal reflux disease without esophagitis Status: Acute (6) Stage 3b chronic kidney disease: Code(s): N18.32 - Chronic kidney disease, stage 3b Status: Acute (7) Urinary frequency: Code(s): R35.0 - Frequency of micturition Status: Acute (8) Chronic neck pain: Code(s): M54.2 - Cervicalgia; G89.29 - Other chronic pain Status: Acute (9) Pneumonia: Code(s): J18.9 - Pneumonia, unspecified organism Status: Acute (10) URI (upper respiratory infection): Code(s): J06.9 - Acute upper respiratory infection, unspecified Status: Resolved Assessment and Plan: See Above #1 RESOLVED DS: Summary Hospital Course Reason for hospitalization: Pneumonia/Weakness Hospital Course: Admission: Patient was a 84 female Presented to the emergency department from her assisted living facility after multiple falls at home. Patient reports she has fallen at least 4-5 times in the last 5 days this last time she had fallen was unable to get up did not lose consciousness and denied any dizziness but did strike her head and is currently on Eliquis. patient presented to the emergency department for evaluation also reported she has had a productive cough for the last 4-5 days and some increased shortness a breath. Patient denied any chest pain, nausea, vomiting, sinus pressure, , fever chills but overall stated she just was not feeling well with increasing weakness. patient states the last time she fell she was attempting to ambulate with her walker to the restroom at which time she felt her legs just buckle and give out on her. In the ED: patient was found to have leukocytosis of 18.7, CR at 1.58 and elevated BNP of 1090. trauma workup was negative for any acute findings CT chest showed patchy bilateral mixed interstitial airspace disease with some areas of nodularity was likely infectious versus inflammatory. in the emergency department patient was given dose of IV Rocephin azithromycin and admitted to the medical unit for further evaluation and treatment of possible underlying pneumonia. UA was negative. Hospital Course: Patient was admitted to the medical unit and treated for pneumonia vs URI and generalized weakness with multiple falls. Patient with mildly productive cough shortness breaths diagnostic studies reviewed white count still around 18.9 however patient was receiving steroids outpatient 40 mg daily I did order a procalcitonin which was within normal limits likely upper respiratory infection but continued to treat for possible underlying pneumonia. Patient treated with ceftriaxone and doxycycline then transitioned to oral Augmentin. She received Dunebs, mucinex and instructed to use her incentive spirometer. Patient remained on room air with oxygen saturations greater than 92%. Patient did have a soft BP which could be a contributing factors to her frequent falls. I did hold her gabapentin of 400mg TID but did resume at a lower dose of 100mg TID due to patient chronic back pain HX of spondylosis. Patient continued to have complaints of back pain making it difficult for her to participate with PT so I did start her on Flexeril and resumed her [place] and NSAIDS with slow improvement. Patient did have urinary retention with increased frequency with inability to empty bladder completely and post void scan was completed at which time we placed a alexander catheter and I started her on Oxybutynin for bladder spasms. Completed a voiding trial and was able to void. She was educated on the need for close monitoring for urinary retention and will need bladder scan PRN if concerns for retention while she is in rehab. PT/OT had recommend swing due to slow progression secondary to chronic back pain. Patient is from a assisted living and will need re-evaluation prior to returning. Patient overall with medical improvement but continued to need physical and occupational therapy at which time patient was discharged to [facility] bed for continued therapy. Status at Discharge Functional status at discharge: uses cane/walker Overall status at discharge: patient is progressing back to baseline Time Spent with Patient Time attestation: Total time spent providing and/or coordinating discharge services: Time spent: Greater than 30 minutes Exam Narrative: General: In no acute distress, well nourished appears stated age Head: atraumatic, no encephalopathy Eyes: PERRLA, sclera clear ENT: moist mucous membranes, nasal passages clear Neck: supple, no JVD, no adenopathy, trachea midline Cardiac: Normal S1 and S2. Respiratory: scant wheezing and rhonchi throughout with productive cough Gastrointestinal: soft, non-distended, non-tender, normoactive bowel sounds. Extremities: moves all extremities well, BLE 1+ pitting edema, RT elbow mild edema and bruising Skin: clean, dry, intact. No wounds or lesions. Neuro: Alert and oriented x3, with intermittent confusion/forgetfulness patient with history of dementia cranial nerves intact, no neuro deficits. DS: Data Data Completed and Pending Labs on day of discharge: Labs from last 24 hours 05/29/25 05:18 WBC 12.8 H RBC 3.41 L Hgb 10.3 L Hct 33.0 L MCV 96.8 MCH 30.2 MCHC 31.2 L RDW 14.6 H Plt Count 455 H MPV 8.8 L Immature Gran % (Auto) 1.4 H Neut % (Auto) 73.4 H Lymph % (Auto) 15.5 L [place] % (Auto) 6.3 Eos % (Auto) 2.9 Baso % (Auto) 0.5 Lymph # (Auto) 1.99 [place] # (Auto) 0.80 Eos # (Auto) 0.37 Baso # (Auto) 0.07 Abs Immat Gran (auto) 0.18 H Absolute Neuts (auto) 9.39 H Absolute Nucleated RBC 0.00 Nucleated RBC % 0.0 Sodium 138 Potassium 4.2 Chloride 100 Carbon Dioxide 30 Anion Gap 8 BUN 13 Creatinine 1.03 H Estim Creat Clear Calc 36 Estimated GFR 51 L Glucose 103 Calculated Osmolality 286 Calcium 9.4 Magnesium 1.9 Total Bilirubin 0.5 AST 22 ALT 24 Alkaline Phosphatase 112 Total Protein 6.0 L Albumin 3.2 L Imaging Radiologist's impression: ITS Impressions Chest CT 05/23/25 05:41 IMPRESSION: 1. Patchy bilateral mixed interstitial and airspace disease with some areas of nodularity, most likely infectious/inflammatory. Recommend follow-up CT in 1-2 months to assess for resolution to exclude underlying mass. Cervical Spine CT 05/23/25 05:49 IMPRESSION: 1. No acute abnormality of the cervical spine. Head CT 05/23/25 06:00 IMPRESSION: 1. No acute intracranial abnormality. 2: Chronic right cerebellar infarction. Elbow X-Ray 05/26/25 11:36 IMPRESSION: 1. No right elbow joint effusion or acute osseous abnormality. Discharge Plan Discharge Attending physician on discharge: [facility] Consulting providers: Tarah Scales Discharging Clinician: Tarah Scales Anticipated Discharge Date/Time: 05/29/25 15:33 Patient Disposition: Hospital Swing Bed Activity: may shower and as tolerated Diet: heart healthy Patient Instructions: Antibiotic Form Patient Language: Frisian Stand Alone Forms: General Discharge Information Follow-up/Referrals: Shanna Lawton NP [Primary Care Provider, [facility]] - 3 Weeks Discharge Medications: New cyclobenzaprine 10 mg Tablet 10 mg PO Q8HR Qty: 1 0RF mirtazapine [Remeron] 15 mg Tablet 30 mg BYMOUTH HS Qty: 1 0RF gabapentin 100 mg Capsule 100 mg PO TID Qty: 1 0RF oxybutynin chloride 5 mg Tablet 5 mg PO TID Qty: 1 0RF melatonin 5 mg Tablet 5 mg PO HS Qty: 1 0RF Continued amiodarone 200 mg tablet 200 mg PO Q24H Patient Comments: [id number] Rx Instructions: [id number] metoprolol tartrate 25 mg tablet 25 mg PO Q12H Eliquis 5 mg tablet 5 mg PO Q12H mecobalamin (vitamin B12) 1,000 mcg tablet,disintegrating See Rx Instructions .ROUTE .COMPLEX Qty: 100 0RF Dose Instruction: PLACE 1 TABLET UNDER TONGUE AND ALLOW TO DISSOLVE FOR 30 SECONDS BEFORE SWALLOWING Rx Instructions: PLACE 1 TABLET UNDER TONGUE AND ALLOW TO DISSOLVE FOR 30 SECONDS BEFORE SWALLOWING acetaminophen 500 mg tablet See Rx Instructions .ROUTE .COMPLEX Qty: 100 5RF Dose Instruction: TAKE 1 TABLET BY MOUTH EVERY 8 HOURS Rx Instructions: TAKE 1 TABLET BY MOUTH EVERY 8 HOURS furosemide 20 mg tablet See Rx Instructions .ROUTE .COMPLEX Qty: 90 2RF Dose Instruction: TAKE ONE TABLET BY MOUTH EVERY MORNING NEEDED FOR EDEMA Rx Instructions: TAKE ONE TABLET BY MOUTH EVERY MORNING NEEDED FOR EDEMA atorvastatin 40 mg tablet See Rx Instructions .ROUTE .COMPLEX Qty: 30 5RF Dose Instruction: TAKE 1 TABLET AT BEDTIME. Rx Instructions: TAKE 1 TABLET AT BEDTIME. losartan 100 mg tablet See Rx Instructions .ROUTE .COMPLEX Qty: 30 5RF Dose Instruction: TAKE 1 TABLET BY MOUTH DAILY. Rx Instructions: TAKE 1 TABLET BY MOUTH DAILY. spironolactone 50 mg tablet See Rx Instructions .ROUTE .COMPLEX Qty: 90 2RF Dose Instruction: 1 TAB BY MOUTH DAILY Rx Instructions: 1 TAB BY MOUTH DAILY ergocalciferol (vitamin D2) 1,250 mcg (50,000 unit) capsule See Rx Instructions .ROUTE .COMPLEX Qty: 12 1RF Dose Instruction: 1 CAP BY MOUTH WEEKLY ON MONDAY Rx Instructions: 1 CAP BY MOUTH WEEKLY ON MONDAY hydrocodone-acetaminophen 5-325 mg tablet 1 tablet PO Q6H PRN (Reason: pain) Qty: 30 0RF Rx Instructions: please take only as needed. this medicine causes drowsiness/sedation. Discontinued mirtazapine 15 mg tablet See Rx Instructions .ROUTE .COMPLEX Qty: 30 5RF Dose Instruction: TAKE ONE TABLET BY MOUTH DAILY Rx Instructions: TAKE ONE TABLET BY MOUTH DAILY gabapentin 400 mg capsule See Rx Instructions .ROUTE .COMPLEX Qty: 270 2RF Dose Instruction: 1 CAP BY MOUTH 3 TIMES A DAY Rx Instructions: 1 CAP BY MOUTH 3 TIMES A DAY prednisone 20 mg tablet 40 mg PO DAILY Qty: 10 0RF Rx Instructions: Take in AM Date of admission: 05/25/25 14:04 Primary Care Provider: Shanna Lawton Admitting Provider: Star Craft Attending physician on admission: Star Craft Condition: Improved Quality VTE Prophylaxis VTE prophylaxis: pharmacologic ordered -Patient's previous records reviewed on admission -ER notes reviewed in detail on admission -discussed all findings and current treatment plan with patient/Family/POA -Consultations reviewed for recommendations -Patient's disposition for safe discharge discussed with case supervisor Dictation performed by [employer] direct speech recognition software, therefore pre certification specialist variants and typographical errors may occur. Hospitalist MIPS Heart Failure (Exclusion) Patient has history of Heart Transplant or Left Ventricular Assistive Device?: No IF YES, STOP HERE Heart Failure (Qualifier) Patient has current or prior documentation of LVEF less than or equal to 40%, or mod/servere depressed LVSF?: No IF NO, STOP HERE
--- NOTE | 2025-05-29 15:54 | PC.NURSE ---
1534 dc from acute services and admit to [facility].
== END 2025-05-29 15:34 | disposition swing bed (61) | DRG 195 ==
LOC: CHSED 05-23 01:34 → CHS2ND 05-23 06:30
PROVIDERS: Nurse Practitioner Family; Admitting Provider Internal Medicine; Emergency Provider Emergency Medicine; PCP Nurse Practitioner Family; Visit Provider Internal Medicine
DX: J18.9 Pneumonia, unspecified organism (principal); J06.9 Acute upper respiratory infection, unspecified; R53.1 Weakness; R29.6 Repeated falls; E78.5 Hyperlipidemia, unspecified; G89.29 Other chronic pain; I12.9 Hypertensive chronic kidney disease with stage 1 through stage 4 chronic kidney disease, or unspecified chronic kidney disease; I48.91 Unspecified atrial fibrillation; K21.9 Gastro-esophageal reflux disease without esophagitis; M54.2 Cervicalgia; M25.521 Pain in right elbow; N18.32 Chronic kidney disease, stage 3b; R35.0 Frequency of micturition; R33.9 Retention of urine, unspecified; Z66 Do not resuscitate; Z20.822 Contact with and (suspected) exposure to COVID-19
CPT/HCPCS: 36415; 70450; 71250; 72125; 73080; 80053; 81003; 83605; 83735; 83880; 84145; 84484; 85025; 85610; 85730; 86140; 87040; 87637; 87641; 93005; 94640; 96361; 96365; 96366; 96367; 96375; 97110; 97161; 97165; 97530; 97535; 99285; A9270; G0378; J0456; J0696; J2270; J2405; J2550; J3360; J7030; J7050; L0150

== ENCOUNTER 2025-05-29 15:35 | Inpatient (IN) | payer OTHER, SELFPAY ==
--- NOTE | ~2025-05-29 | CT_ITS ---
EXAMINATION: CT abdomen pelvis wo con DATE: 06/04/2025 19:03 INDICATION: Hematuria TECHNIQUE: Computed tomography (CT) of the abdomen and pelvis was performed without intravenous contrast. The dose-length product was 903.96 mGy-cm. Automated exposure control and iterative reconstruction technique were employed. COMPARISON: CT dated 01/08/2018. FINDINGS: Elevated left diaphragm. There is lower lobe atelectasis. The liver, spleen, adrenal glands are unremarkable. There are pancreatic calcifications, consistent with chronic pancreatitis. The kidneys are atrophic. Status post cholecystectomy. No renal stone or hydronephrosis. Nonobstructive bowel pattern. Colonic diverticulosis without evidence for diverticulitis. Moderate lumbar spondylosis with scoliosis. IMPRESSION: 1. No acute abdominal abnormality. No findings to account for hematuria. Reviewed, dictated and finalized at location O.
--- NOTE | ~2025-05-29 | US_ITS ---
EXAMINATION: US renal BI DATE: 06/03/2025 11:34 INDICATION: Bloody urine TECHNIQUE: Multiple ultrasound grayscale images of the kidneys were obtained. COMPARISON: None. FINDINGS: The right kidney measures 9.3 x 3.2 x 3.8 cm. The left kidney measures 8.7 x 4.0 x 4.8 cm. The kidneys demonstrate normal echogenicity. There is no hydronephrosis in either kidney. No stones identified. The bladder is is not clearly visualized likely decompressed around a Wallace catheter. IMPRESSION: 1. Normal kidneys without hydronephrosis. Reviewed, dictated and finalized at location A.
--- NOTE | ~2025-05-29 | US_ITS ---
EXAMINATION: US pelvic limited, 06/04/2025 8:15 CDT HISTORY: bladder visualization Comparison: None Technique: Abreu-scale and color Doppler images were obtained. Findings: There is no thickening of the bladder wall however there is debris noted within the bladder. Wallace catheter within the bladder. Bilateral ureteral jets were not observed. IMPRESSION: Debris versus hemorrhage within the bladder. Correlation with CT recommended Reviewed, dictated and finalized at location A. IMPRESSION: Debris versus hemorrhage within the bladder. Correlation with CT re commended
--- OUTSIDE RECORDS SUMMARY | 2025-05-29 16:16 | XMS_ITS | Clinical Summary ---
Author Organization [facility] Address [address] [place] [id number] Care Team Providers Care Admission Nurse Name Role Phone Unavailable Primary Care [...]
--- OUTSIDE RECORDS SUMMARY | 2025-05-29 16:17 | XMS_ITS ---
Author Organization [facility] Care Team Providers Care Business Process Coordinator Name Role Phone Gaston Trevino Unavailable Unavailable Allergies and adverse reactions No Known Allergies Care Team Name Role Address Phone Organization [facility] Gaston Trevino PCP [address] [place], [address], [place] (Office): : : [facility] 06/03/2018 - 06/15/2018 Immunizations Immunization Status Vaccine Details Vaccine Code CodeSystem Mansoor e Notes TB 2 Step Mantoux Skin Test completed tuberculin skin test; unspecified formulation lotNumber: [id number] expiry: 06/27/2020 Given Left Forearm Step 1 of Multi-step with next step required 98 CVX created date: 06/04/2018 consent date: 06/03/2018 administered date: 06/03/2018 Mental Status Section Date Assessment Total Score Description 06/15/2018 BIMS 14 cognitively int act CAM 0 No delirium ind icated PHQ-9 01 minimal depress ion Problems Problem # Description Date of onset Resolved Date Code CodeSystem Concern Status 1 CONSTIPATION, UNSPECIFIED 06/03/[address] active 2 ESSENTIAL (PRIMARY) HYPERTENSION 06/03/[address] active 3 GENERALIZED ANXIETY DISORDER 06/03/[address] active 4 MAJOR DEPRESSIVE DISORDER, SINGLE EPISODE, UNSPECIFIED 06/03/[address] active 5 POSTHERPETIC TRIGEMINAL NEURALGIA 06/03/[address] active 6 UNSPECIFIED DEMENTIA, UNSPECIFIED SEVERITY, WITHOUT BEHAVIORAL DISTURBANCE, PSYCHOTIC DISTURBANCE, MOOD DISTURBANCE, AND ANXIETY 06/03/[address] active Reason for Referral No Reasons for Referral Entered Social History Social History Observation Description Start Date End Date Code Code System Current Smoking Status Tobacco smoking consumption unknown 771072459 SNOMED CT Sex Assigned At Female 1940 [address]6719-1 [facility] Gender Identity Vital Signs Code Code System Vitals Name Values and Units Timing Information 51474-6 [facility] Pain Level Value=7.0 06/15/2018 8462-4 [facility] Blood Pressure-Diastolic Value=84 Un its=mmHg 06/14/2018 8480-6 [facility] Blood Pressure-Systolic Wjvzf=748 Un its=mmHg 06/14/2018 9279-1 [facility] Respiratory Rate Value=20.0 Units=/m in 06/07/2018 8310-5 [facility] Body Temperature Value=97.3 Units= F 06/07/2018 8867-4 [facility] Heart rate Value=95.0 Units=/min 21797-5 [facility] Weight Mdvqu=588.0 Units=Lbs 08/2018 8302-2 [facility] Height Value=64.0 Units=Inches 06/03/2018 09137-8 [facility] O2 % BldC Oximetry Value=97.0 Units= % 06/03/2018
[2025-05-29 16:34] VITALS: BP 128/74; PULSE 78; RESP 20; TEMP 37.2; O2SAT 96; BMI 31.1
--- NOTE | 2025-05-29 17:00 | ADMGEN ---
8484 This patient, Nydia Walker, was admitted to 2nd Floor Room 205-1 for rehab. Patient/family oriented to hospital policies and general routines including ID bracelet, bed and alarms, visiting hours, pain management, procedures, bathroom and other care routines, personal items, smoking policy, room service/diet, and visiting hours. Information on how to activate the Rapid Response Team has been discussed. Patient/Family are encouraged to report perceived risks to care and to ask questions if they do not understand what they are told or what they should do.
[2025-05-29 18:18] VITALS: O2SAT 95
--- NOTE | 2025-05-29 18:29 | PC.NURSE ---
c/o upper plate of dentures bothers her. inspected no open areas or rednessto upper plate in mouth. daughter in law inspected too. agreed not inflammation noted. plate taken out after eating and rinsed mouth and plate. left out at this time.
[2025-05-29 20:24] VITALS: PULSE 76
[2025-05-29] MEDS: METOPROLOL TARTRATE 25 MG TABLET PO (20:24)
[2025-05-29] MEDS: MIRTAZAPINE 15 MG TABLET 30 MG BY MOUTH (20:24)
[2025-05-29] MEDS: APIXABAN 2.5 MG TABLET 5 MG BY MOUTH (20:24)
[2025-05-29] MEDS: HYDROcodone/acetaminophen (*CRX) 5-325 MG TABLET 1 TAB PO (20:24)
[2025-05-29] MEDS: ALPRAZolam (*CRX) 0.5 MG TABLET PO (20:24)
[2025-05-29] MEDS: TAMSULOSIN HCL 0.4 MG CAPSULE PO (20:24)
[2025-05-29] MEDS: CYCLOBENZAPRINE HCL 10 MG TABLET PO (20:24)
[2025-05-29] MEDS: MELATONIN 5 MG TABLET PO (20:25)
[2025-05-29] MEDS: ATORVASTATIN 40 MG TABLET PO (20:25)
[2025-05-29] MEDS: ACETAMINOPHEN 325 MG TABLET 650 MG PO (22:27)
[2025-05-30] VITALS: BP 127/66; PULSE 76; RESP 16; TEMP 36.6; O2SAT 94
[2025-05-30] MEDS: HYDROcodone/acetaminophen (*CRX) 5-325 MG TABLET 1 TAB PO ×3 (01:37→20:19)
[2025-05-30] MEDS: CYCLOBENZAPRINE HCL 10 MG TABLET PO ×3 (06:28→20:18)
--- OUTSIDE RECORDS SUMMARY | 2025-05-30 07:16 | XMS_ITS ---
Author Organization [facility] Care Team Providers Care State Epidemiologist Name Role Phone Gaston Trevino Unavailable Unavailable Allergies and adverse reactions No Known Allergies Care Team Name Role Address Phone Organization [facility] Gaston Trevino PCP [address] [place], [address], [place] (Office): : : [facility] 06/03/2018 - 06/15/2018 Immunizations Immunization Status Vaccine Details Vaccine Code CodeSystem Mansoor e Notes TB 2 Step Mantoux Skin Test completed tuberculin skin test; unspecified formulation lotNumber: [id number] expiry: 06/27/2020 Given Left Forearm Step 1 [...] CodeSystem Concern Status 1 CONSTIPATION, UNSPECIFIED 06/03/[address] active 2 ESSENTIAL (PRIMARY) HYPERTENSION 06/03/[address] active 3 GENERALIZED ANXIETY DISORDER 06/03/[address] active 4 MAJOR DEPRESSIVE DISORDER, SINGLE EPISODE, UNSPECIFIED 06/03/[address] active 5 POSTHERPETIC TRIGEMINAL NEURALGIA 06/03/[address] active 6 UNSPECIFIED DEMENTIA, UNSPECIFIED SEVERITY, WITHOUT BEHAVIORAL DISTURBANCE, PSYCHOTIC DISTURBANCE, MOOD DISTURBANCE, AND ANXIETY 06/03/[address] active Reason for Referral No Reasons for Referral Entered Social History Social History Observation Description Start Date End Date Code Code System Current Smoking Status Tobacco smoking consumption unknown 131336923 SNOMED CT Sex Assigned At Female 1940 43848-9 [facility] Gender Identity Vital Signs Code Code System Vitals Name Values and Units Timing Information 94463-9 [facility] Pain Level Value=7.0 06/15/2018 8462-4 [facility] Blood Pressure-Diastolic Value=84 Un its=mmHg 06/14/2018 8480-6 [facility] Blood Pressure-Systolic Ptiub=167 Un its=mmHg 06/14/2018 9279-1 [facility] Respiratory Rate Value=20.0 Units=/m in 06/07/2018 8310-5 [facility] Body Temperature Value=97.3 Units= F 06/07/2018 8867-4 [facility] Heart rate Value=95.0 Units=/min 66379-8 [facility] Weight Xuuoh=789.0 Units=Lbs 08/2018 8302-2 [facility] Height Value=64.0 Units=Inches 06/03/2018 06695-6 [facility] O2 % BldC Oximetry Value=97.0 Units= % 06/03/2018
[2025-05-30 07:35] VITALS: BP 116/51; PULSE 69; RESP 18; TEMP 36.1; O2SAT 93
[2025-05-30] MEDS: LOSARTAN POTASSIUM 50 MG TABLET 100 MG PO (08:23)
[2025-05-30] MEDS: APIXABAN 2.5 MG TABLET 5 MG BY MOUTH ×2 (08:24→20:19)
[2025-05-30] MEDS: SPIRONOLACTONE 25 MG TABLET 50 MG PO (08:24)
[2025-05-30] MEDS: FUROSEMIDE 40 MG TABLET PO (08:24)
[2025-05-30 08:25] VITALS: PULSE 69
[2025-05-30] MEDS: GABAPENTIN 100 MG CAPSULE PO ×3 (08:25→16:23)
[2025-05-30] MEDS: METOPROLOL TARTRATE 25 MG TABLET PO ×2 (08:25→20:19)
[2025-05-30] MEDS: AMIODARONE HCL 200 MG TABLET PO (08:25)
--- NOTE | 2025-05-30 08:56 | P.HP_ITS ---
H&P: HPI History of Present Illness Date/Time: 05/30/25 08:56 Chief Complaint: Generalized weakness Narrative: 84yo female with pAFib on Eliquis, HTN, CKD and recent hospitalization for PNA admitted to [facility] for rehab for generalized weakness. Patient presented to the ED on 05/23 after ground level fall and was also having cough and congestion. She had low grade fever but no hypoxia. EKG showing sinus mechanism, with incomplete Rt BBB and QTc 467 but no change from prior. WBC was 19K but she was on steroids prior to admission for unclear reasons. Patient is awake, alert and mostly oriented but is unaware of why she was on steroids or other parts of her medical hx. Steroids were stopped during her hospital course. Hgb 11 but drifted down to 9-10 range and remained stable. She had acute kidney injury with Cr 1.57 on admission. She also had urine retention that may have contributed to RAQUEL. Urinary catheter was placed. Cr did improve to 1.03. UA was clear. MRSA nasal swab was negative. Thoracic spine CT and cervical spine CT showing no acute findings. 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 Chest CT showing patchy bilateral mixed interstitial and airspace disease with some nodularity. Follow-up CT in 1- 2 months was recommended. She was started Rocephin and Azithromycin. Abx changed to Augmentin and Doxycycline and completed a 5 day course. She worked with therapy but skilled placement was recommended. Patient was accepted to [facility] and transferred on 05/29/25. She was discharged on Augmentin to finish an abx course. She feels well today. She has no complaints. Complete ROS was negative except for some chronic back pain. Her cough is better. Appetite is good. She complains of left midback pain that is chronic. Worse with left arm movement but terri is not pleuritic. She has been up walking in the room. No shooting pain. No lower extremity weakness, numbness. She resides as [facility] assisted living. She has a kitchette but takes her meals in the facility dining room. She has family visit frequently (at least 3x/week) and has a warehouse operations associate who also does her laundry 1x/week. Review of Systems Review of Systems: All systems reviewed & are unremarkable except as noted in HPI and below PMFSH Past Medical History Medical History (Updated 05/30/25 @ 09:32 by Star Craft MD) Generalized weakness CAD (coronary artery disease) NSTEMI in Oct 2024 Atrial fibrillation CVA (cerebrovascular accident) Rt cerebellar noted by CT brain Apr 2025 Obesity, Class I, BMI 30-34.9 Olecranon bursitis of right elbow Essential hypertension Insomnia Hyperlipidemia Headache GERD without esophagitis LEAH (generalized anxiety disorder) Dementia Chronic low back pain Altered mental status Surgical History Surgical History History of hysterectomy History of cholecystectomy Family History Family History Father Family history of coronary artery disease Social History Social History (Updated 05/30/25 @ 09:25 by Star Craft MD) Social History: Lives at assisted living. Family close by. No alcohol, tobacco or dry use. Code status - DNR Surrogate decision maker - Denise, [id number] Smoking status: Never smoker Alcohol intake: never Substance use: never Substance use type: does not use Do You Feel Safe in your Home?: Yes Lack of Transportation: No Lack of Food: Never True Current Housing: I Have Housing Concerned About Future Housing: No Difficulty Paying Gas/Electric Bills: No Difficulty Paying for Meds: No Currently Unemployed: No Education: Grade School Difficulty w/ Childcare or Family Care: No Living arrangements: assisted living Additional living arrangements comments: [facility] Occupation/Education: retired Gender identity (if verbalized by the patient): Female Spiritual care concerns: No Meds Home Medications and Allergies Home Medications ?Medication ?Instructions ?Recorded ?Confirmed ?Type mecobalamin (vitamin B12) 1,000 See Rx Instructions .R oute 01/25/24 05/29/25 Rx mcg disintegrating .COMPLEX #100 tabs tablet,sublingual acetaminophen 500 mg tablet See Rx Instructions .Route 10/30/24 05/29/25 Rx .COMPLEX #100 tabs furosemide 20 mg tablet See Rx Instructions .Route 0 01/13/25 05/29/25 Rx .COMPLEX #90 tabs atorvastatin 40 mg tablet See Rx Instructions .Route 0 01/24/25 05/29/25 Rx .COMPLEX #30 tabs losartan 100 mg tablet See Rx Instructions .Route 0 01/24/25 05/29/25 Rx .COMPLEX #30 tabs ergocalciferol (vitamin D2) 1,250 See Rx Instructions .Route 04/15/25 05/29/25 Rx mcg (50,000 unit) capsule .COMPLEX #12 caps spironolactone 50 mg tablet See Rx Instructions .Route 04/15/25 05/29/25 Rx .COMPLEX #90 tabs hydrocodone 5 mg-acetaminophen 325 1 tablet PO Q6H PRN pain #30 tabs 05/05/25 05/29/25 Rx mg tablet amiodarone 200 mg tablet 200 mg PO Q24H 05/23/25 09/01/17 History apixaban 5 mg tablet (Eliquis) 5 mg PO Q12H 05/23/25 0 05/29/25 History metoprolol tartrate 25 mg tablet 25 mg PO Q12H 5 05/29/25 History cyclobenzaprine 10 mg tablet 10 mg PO Q8HR #1 tablet 0 05/29/25 05/29/25 Rx gabapentin 100 mg capsule 100 mg PO TID #1 cap 5 05/29/25 Rx melatonin 5 mg tablet 5 mg PO HS #1 tablet 5 05/29/25 Rx mirtazapine 15 mg tablet (Remeron) 30 mg (2 x 15 mg) [facility] HS #1 05/29/25 05/29/25 Rx tablet oxybutynin chloride 5 mg tablet 5 mg PO TID #1 tablet 05/29/25 05/29/25 Rx Allergies Allergy/AdvReac Type Severity Reaction Status Date / Time FRANCO Inhibitors Allergy Unknown unknown Verified 05/23/25 09:39 Vital Signs Vital Signs - 24 hr 05/29/25 16:34 05/29/25 18:18 05/29/25 20:24 Temperature 98.9 F Pulse Rate 78 76 Respiratory Rate 20 Blood Pressure 128/74 Pulse Oximetry 96 95 Oxygen Delivery Room Air Room Air 05/30/25 00:00 05/30/25 07:35 05/30/25 08:25 Temperature 97.9 F 97.0 F L Pulse Rate 76 69 69 Respiratory Rate 16 18 Blood Pressure 127/66 116/51 L Pulse Oximetry 94 93 Oxygen Delivery Room Air Room Air 05/30/25 08:25 Temperature Pulse Rate 69 Respiratory Rate Blood Pressure Pulse Oximetry Oxygen Delivery Exam Narrative: AF 97.0 116/51 69 18 93% ra Gen - well appearing elderly female in no acute respiratory distress who is nontoxic-appearing lying semi recumbent in bed HEENT - normocephalic. Atraumatic. Pupils equal round and reactive. Extraocular motions intact. Sclera clear and anicteric. Nares patent. Oropharynx was poorly visualized. No oral lesions. Moist mucous membranes. Tongue was midline. Palate alexandru symmetrically. No facial asymmetry. Neck - neck was supple. No dominant adenopathy or masses. chronic neck flexion Chest -Bibasilar inspiratory crackles o/w distant BS. Nml RR. Breast exam was deferred. CV - heart was regular rate and rhythm. S1-S2. No murmurs gallops or rubs. Abd - abdomen was soft. Nontender. Nondistended. Positive bowel sounds. No organomegaly or masses. Back - tenderness to left lateral mid back region with tenderness to touch (teres minor?) - Urinary catheter secured draining blood tinged katherine urine. Ext - no clubbing, cyanosis or edema. 2+ DP pulses bilaterally. Resolving right elbow edema and ecchymosis. Neuro - patient is alert and oriented x3. Strength is 5-/5 in both upper and lower extremities. Cranial nerves 2-12 are intact. Speech is clear. Psych - normal mood and affect. Patient is pleasant and cooperative. Skin - warm and dry. No rashes noted. Old ecchymosis noted left garcía and right elbow. Assessment and Plan Assessment and plan (1) Generalized weakness: Code(s): R53.1 - Weakness Status: Acute Assessment and Plan: Patient is admitted to [facility] for generalized weakness after being hospitalized for pneumonia. PT and OT have been ordered. She has [place] and [place] ordered which can contribute to falls. Also noted she is on scheduled Flexeril and on a higher dose of Remeron. Stop alprazolam. Wean off narcotic as her back pain allows and only use if pain is severe. Change Flexeril to prn. Monitor mental status on higher dose of Remeron. (2) Pneumonia: Code(s): J18.9 - Pneumonia, unspecified organism Status: Acute Assessment and Plan: CT of the chest showed patchy bilateral mixed interstitial and airspace disease with some areas of nodularity most likely infectious /inflammatory. Patient will need a follow-up CT of the chest in 1-2 months to assess for resolution. Patient completed a 5 day course of azithromycin/doxycycline. She also completed a 5 day course of Rocephin /Augmentin. Last dose of antibiotics was 05/27/2025. White count normalized but was higher yesterday at 12.8K. No fevers. No hypoxia. Continue to monitor. (3) Urine retention: Code(s): R33.9 - Retention of urine, unspecified Status: Acute Assessment and Plan: Patient with evidence of urine retention during her hospital course. urinary catheter secured. Small amount of hematuria noted probably related to catheter trauma. This should clear on its own. Continue to monitor for worsening hematuria. Plan voiding trial next week after patient is more ambulatory. Stop Ditropan given the anti-cholinergic side effects that includes urinary retention Bladder scan prn once catheter removed (4) Falls frequently: Code(s): R29.6 - Repeated falls Status: Acute Assessment and Plan: Patient has been having frequent falls at home. Family does check on her regularly. She does have a helper once a week. Patient is on Eliquis. We will see how she does with therapy here. If she appears to have chronic gait instability possibly from her old CVA, will discuss with family about changing her Eliquis to aspirin. (5) Essential hypertension: Code(s): I10 - Essential (primary) hypertension Status: Acute Assessment and Plan: Patient's blood pressure has remained well controlled during her hospitalization. Continue Lopressor and Cozaar. (6) Atrial fibrillation: Code(s): I48.91 - Unspecified atrial fibrillation Status: Acute Assessment and Plan: Patient with a history of AFib. EKG here showing sinus mechanism. [id number] 7 She is on metoprolol and amiodarone for rate maintenance. Eliquis for stroke prophylaxis. (7) Stage 3b chronic kidney disease: Code(s): N18.32 - Chronic kidney disease, stage 3b Status: Acute Assessment and Plan: RAQUEL during her hospitalization felt related to PNA and/or urinary retention. Cr back to baseline. Follow closely since on lasix and spironolactone. Plan DVT prophylaxis - Eliquis Code status - DNR
[2025-05-30] MEDS: ACETAMINOPHEN 325 MG TABLET 650 MG PO (16:23)
[2025-05-30 16:45] VITALS: BP 96/49; PULSE 72; RESP 14; TEMP 36.5
--- NOTE | 2025-05-30 19:06 | PC.NURSE ---
Patient alert and oriented. C/O shouder pain, prn medication given per MD order. Wallace cath patent and draining clear dark katherine urine. Amb to/from bathroom using gait belt and walker with standby assist. Patient sitting up in bed with call light and belongings within reach.
[2025-05-30 20:00] VITALS: PULSE 79; RESP 14; O2SAT 93
[2025-05-30] MEDS: ATORVASTATIN 40 MG TABLET PO (20:18)
[2025-05-30] MEDS: TAMSULOSIN HCL 0.4 MG CAPSULE PO (20:18)
[2025-05-30 20:19] VITALS: PULSE 79
[2025-05-30] MEDS: MELATONIN 5 MG TABLET PO (20:19)
[2025-05-30] MEDS: MIRTAZAPINE 15 MG TABLET 30 MG BY MOUTH (20:20)
[2025-05-31] VITALS (8 sets, daily range): BP systolic 106–148; BP diastolic 50–70; PULSE 75–85; RESP 16–18; TEMP 36.3–36.6; O2SAT 92–94
[2025-05-31] MEDS: HYDROcodone/acetaminophen (*CRX) 5-325 MG TABLET 1 TAB PO ×2 (03:00→20:44)
[2025-05-31] MEDS: ACETAMINOPHEN 325 MG TABLET 650 MG PO ×3 (06:15→17:15)
[2025-05-31 07:20] LABS: Thyroid Stimulating Hormone Reflex 0.900 uIU/mL (0.465-4.68)
[2025-05-31] MEDS: AMIODARONE HCL 200 MG TABLET PO (10:11)
[2025-05-31] MEDS: LOSARTAN POTASSIUM 50 MG TABLET 100 MG PO (10:11)
[2025-05-31] MEDS: APIXABAN 2.5 MG TABLET 5 MG BY MOUTH ×2 (10:13→20:43)
[2025-05-31] MEDS: METOPROLOL TARTRATE 25 MG TABLET PO ×2 (10:13→20:44)
[2025-05-31] MEDS: GABAPENTIN 100 MG CAPSULE PO ×3 (10:13→17:18)
[2025-05-31] MEDS: SPIRONOLACTONE 25 MG TABLET 50 MG PO (10:13)
[2025-05-31] MEDS: FUROSEMIDE 40 MG TABLET PO (10:13)
--- NOTE | 2025-05-31 19:29 | PC.NURSE ---
This RN assumed care of pt at this time. RN in room to introduce self to pt. Pt currently A&Ox4. Pt repositions in bed with minimal assistance. Pt denies any current pain or complaints. VS updated. Respirations even and unlabored. Hospital bed remains in low locked position, bed alarm on, and call light within pt's reach.
[2025-05-31] MEDS: TAMSULOSIN HCL 0.4 MG CAPSULE PO (20:43)
[2025-05-31] MEDS: MELATONIN 5 MG TABLET PO (20:44)
[2025-05-31] MEDS: ATORVASTATIN 40 MG TABLET PO (20:44)
[2025-05-31] MEDS: CYCLOBENZAPRINE HCL 10 MG TABLET PO (20:44)
[2025-05-31] MEDS: MIRTAZAPINE 15 MG TABLET 30 MG BY MOUTH (20:44)
[2025-06-01 00:18] VITALS: BP 103/51; PULSE 80; RESP 16; TEMP 36.6; O2SAT 93
[2025-06-01] MEDS: ACETAMINOPHEN 325 MG TABLET 650 MG PO ×3 (03:17→16:19)
[2025-06-01 08:00] VITALS: BP 108/71; PULSE 81; RESP 17; TEMP 36.8; O2SAT 96
[2025-06-01 08:56] VITALS: PULSE 81
[2025-06-01] MEDS: FUROSEMIDE 40 MG TABLET PO (08:56)
[2025-06-01] MEDS: APIXABAN 2.5 MG TABLET 5 MG BY MOUTH ×2 (08:56→20:18)
[2025-06-01] MEDS: METOPROLOL TARTRATE 25 MG TABLET PO ×2 (08:56→20:19)
[2025-06-01] MEDS: SPIRONOLACTONE 25 MG TABLET 50 MG PO (08:56)
[2025-06-01 08:57] VITALS: PULSE 81
[2025-06-01] MEDS: AMIODARONE HCL 200 MG TABLET PO (08:57)
[2025-06-01] MEDS: LOSARTAN POTASSIUM 50 MG TABLET 100 MG PO (08:57)
[2025-06-01] MEDS: GABAPENTIN 100 MG CAPSULE PO ×3 (08:58→16:19)
[2025-06-01] MEDS: CYCLOBENZAPRINE HCL 10 MG TABLET PO (13:49)
[2025-06-01 16:00] VITALS: BP 106/53; PULSE 76; RESP 16; TEMP 36.6; O2SAT 93
[2025-06-01] MEDS: MELATONIN 5 MG TABLET PO (20:18)
[2025-06-01] MEDS: HYDROcodone/acetaminophen (*CRX) 5-325 MG TABLET 1 TAB PO (20:18)
[2025-06-01 20:19] VITALS: PULSE 78
[2025-06-01] MEDS: ATORVASTATIN 40 MG TABLET PO (20:19)
[2025-06-01] MEDS: MIRTAZAPINE 15 MG TABLET 30 MG BY MOUTH (20:19)
[2025-06-01] MEDS: TAMSULOSIN HCL 0.4 MG CAPSULE PO (20:19)
[2025-06-02] VITALS: BP 114/54; PULSE 78; RESP 18; TEMP 36.9; O2SAT 92
[2025-06-02] MEDS: ACETAMINOPHEN 325 MG TABLET 650 MG PO ×4 (00:54→23:48)
[2025-06-02 06:22] LABS: Hematocrit 34.0 % (35.0-42.0); Hemoglobin 10.9 g/dL (11.7-13.8); Immature Granulocyte Percent A 1.0 % (0.0-0.0); Immature Platelet Fraction Pct 1.5 % (1.0-7.0); Lymphocytes Absolute Auto 2.35 K/mm3 (1.10-4.50); Mean Corpuscular HGB Conc 32.1 g/dL (32-36); Mean Corpuscular Hemoglobin 30.4 pg (27.0-31.0); Mean Corpuscular Volume 94.7 fL (78.0-102.0); Nucleated Red Blood Cells Absolute Auto 0.00 K/mm3 (0.00-0.00); Nucleated Red Blood Cells Perc 0.0 % (0-0.0); Platelet Count Result 543 K/mm3 (150-420); Red Blood Count 3.59 M/mm3 (4.20-5.40); White Blood Count 10.3 K/mm3 (4.8-10.8)
[2025-06-02 06:46] LABS: Alanine Aminotransferase 17 U/L (6-35); Albumin Level 3.6 g/dL (3.5-5.1); Alkaline Phosphatase 123 U/L (38-126); Anion Gap 7 mmol/L (4-12); Aspartate Amino Transferase 25 U/L (14-36); Bilirubin,Total 0.4 mg/dL (0.2-1.3); Blood Urea Nitrogen 19 mg/dL (7-17); Calcium 9.8 mg/dL (8.4-10.2); Carbon Dioxide 33 mmol/L (22-30); Chloride 97 mmol/L (98-107); Estimated CRCL calculation 27 ml/min; Estimated Glomerular Filt Rate 37; Glucose 108 mg/dL (65-110); Magnesium 2.1 mg/dL (1.6-2.3); Osmolality Calculated 287 mOsm/kg (285-295); Potassium 3.8 mmol/L (3.4-5.0); Sodium 137 mmol/L (137-145); Total Protein 7.2 g/dL (6.3-8.2)
[2025-06-02] MEDS: HYDROcodone/acetaminophen (*CRX) 5-325 MG TABLET 1 TAB PO ×2 (07:38→20:36)
[2025-06-02 07:49] LABS: Vitamin B12 > 1000.0 pg/mL (239-931)
[2025-06-02 08:38] VITALS: BP 96/81; PULSE 85; RESP 18; TEMP 36.5; O2SAT 98
[2025-06-02] MEDS: APIXABAN 2.5 MG TABLET 5 MG BY MOUTH ×2 (09:27→20:36)
[2025-06-02] MEDS: SPIRONOLACTONE 25 MG TABLET 50 MG PO (09:27)
[2025-06-02 09:28] VITALS: PULSE 87
[2025-06-02] MEDS: FUROSEMIDE 40 MG TABLET PO (09:28)
[2025-06-02] MEDS: AMIODARONE HCL 200 MG TABLET PO (09:28)
[2025-06-02] MEDS: METOPROLOL TARTRATE 25 MG TABLET PO ×2 (09:28→20:37)
[2025-06-02] MEDS: GABAPENTIN 100 MG CAPSULE PO ×3 (09:28→16:32)
[2025-06-02] MEDS: DICLOFENAC SODIUM 1% 100 GM GEL (*BKC) 1 APPLIC TOPICAL (09:29)
--- NOTE | 2025-06-02 10:04 | PC.NURSE ---
Patient refused Therapy this AM.
[2025-06-02 12:08] LABS: Add Urine Microscopic? YES; Appearance Urine Turbid (Clear); Glucose Urine UA Negative (Negative); Leukocyte Esterase Ur Negative LEU/UL (Negative); Nitrate Urine Negative (Negative); Specific Grav Ur 1.010 (1.010-1.020)
--- NOTE | 2025-06-02 13:01 | PC.NURSE ---
Patient asked for socks to be removed, complaints of pain in right heel, socks removed, heel noted to be red and elevated on pillows, advised to keep heels off bed.
[2025-06-02 16:00] VITALS: BP 116/53; PULSE 73; RESP 16; TEMP 36.4; O2SAT 92
[2025-06-02 20:00] VITALS: PULSE 73; RESP 16; O2SAT 92
[2025-06-02] MEDS: MELATONIN 5 MG TABLET PO (20:36)
[2025-06-02 20:37] VITALS: PULSE 73
[2025-06-02] MEDS: TAMSULOSIN HCL 0.4 MG CAPSULE PO (20:37)
[2025-06-02] MEDS: ALPRAZolam (*CRX) 0.25 MG TABLET PO (20:37)
[2025-06-02] MEDS: MIRTAZAPINE 15 MG TABLET 30 MG BY MOUTH (20:37)
[2025-06-02] MEDS: ATORVASTATIN 40 MG TABLET PO (20:40)
[2025-06-03] VITALS (7 sets, daily range): BP systolic 105–119; BP diastolic 49–63; PULSE 66–85; RESP 16; TEMP 36.3–36.6; O2SAT 92–95
[2025-06-03] MEDS: AMIODARONE HCL 200 MG TABLET PO (08:44)
[2025-06-03] MEDS: HYDROcodone/acetaminophen (*CRX) 5-325 MG TABLET 1 TAB PO (08:44)
[2025-06-03] MEDS: FUROSEMIDE 40 MG TABLET PO (08:44)
[2025-06-03] MEDS: APIXABAN 2.5 MG TABLET 5 MG BY MOUTH ×2 (08:44→20:53)
[2025-06-03] MEDS: GABAPENTIN 100 MG CAPSULE PO ×3 (08:44→17:07)
[2025-06-03] MEDS: SPIRONOLACTONE 25 MG TABLET 50 MG PO (08:45)
[2025-06-03] MEDS: ERGOCALCIFEROL (VITAMIN D2) 1,250 MCG (50,000 UNITS) CAPSULE 1250 MCG PO (08:45)
[2025-06-03] MEDS: METOPROLOL TARTRATE 25 MG TABLET PO ×2 (08:46→20:53)
--- NOTE | 2025-06-03 10:18 | PM.EVENT ---
Event Note Event Note Event Note: Orderd a lidocaine patch for pateint due to back pain reviewed labs and vitals and she remains stable at this time , Cr slight elevated from previous labs we will continue to monitor and avoid nephrotoxic medication
[2025-06-03] MEDS: LIDOCAINE 5% PATCH 1 PATCH TRANSDERM (10:36)
[2025-06-03 11:11] LABS: Hematocrit 37.2 % (35.0-42.0); Hemoglobin 11.8 g/dL (11.7-13.8); Immature Platelet Fraction Pct 1.6 % (1.0-7.0); Mean Corpuscular HGB Conc 31.7 g/dL (32-36); Mean Corpuscular Hemoglobin 30.2 pg (27.0-31.0); Mean Corpuscular Volume 95.1 fL (78.0-102.0); Platelet Count Result 628 K/mm3 (150-420); Red Blood Count 3.91 M/mm3 (4.20-5.40); White Blood Count 10.9 K/mm3 (4.8-10.8)
[2025-06-03 11:21] LABS: Anion Gap 8 mmol/L (4-12); Blood Urea Nitrogen 21 mg/dL (7-17); Calcium 10.4 mg/dL (8.4-10.2); Carbon Dioxide 35 mmol/L (22-30); Chloride 95 mmol/L (98-107); Estimated CRCL calculation 26 ml/min; Estimated Glomerular Filt Rate 35; Glucose 122 mg/dL (65-110); Osmolality Calculated 290 mOsm/kg (285-295); Potassium 4.4 mmol/L (3.4-5.0); Sodium 138 mmol/L (137-145)
--- NOTE | 2025-06-03 11:53 | WPDPN ---
Progress Note: A&P Assessment and Plan (1) Generalized weakness: Code(s): R53.1 - Weakness Status: Acute Assessment and Plan: Patient is admitted to [facility] bed for generalized weakness after being hospitalized for pneumonia. PT and OT have been ordered. She has [place] and Benzo ordered which can contribute to falls. Also noted she is on scheduled Flexeril and on a higher dose of Remeron. Stop alprazolam. Wean off narcotic as her back pain allows and only use if pain is severe. Change Flexeril to prn. Monitor mental status on higher dose of Remeron. (2) Pneumonia: Code(s): J18.9 - Pneumonia, unspecified organism Status: Acute Assessment and Plan: CT of the chest showed patchy bilateral mixed interstitial and airspace disease with some areas of nodularity most likely infectious /inflammatory. Patient will need a follow-up CT of the chest in 1-2 months to assess for resolution. Patient completed a 5 day course of azithromycin/doxycycline. She also completed a 5 day course of Rocephin /Augmentin. Last dose of antibiotics was 05/27/2025. White count normalized but was higher yesterday at 12.8K. No fevers. No hypoxia. Continue to monitor. (3) Urine retention: Code(s): R33.9 - Retention of urine, unspecified Status: Acute Assessment and Plan: Patient with evidence of urine retention during her hospital course. urinary catheter secured. Small amount of hematuria noted probably related to catheter trauma. This should clear on its own. Continue to monitor for worsening hematuria. Plan voiding trial next week after patient is more ambulatory. Stop Ditropan given the anti-cholinergic side effects that includes urinary retention Bladder scan prn once catheter removed HH is normal and we will plan for the ultrasound in the am if she has no clot in bladder . She may benefit from CT scan will continue to monitor. She will definitely need a consult with urology or nephrology as a outpatient upon discharge (4) Falls frequently: Code(s): R29.6 - Repeated falls Status: Acute Assessment and Plan: Patient has been having frequent falls at home. Family does check on her regularly. She does have a helper once a week. Patient is on Eliquis. We will see how she does with therapy here. If she appears to have chronic gait instability possibly from her old CVA, will discuss with family about changing her Eliquis to aspirin. (5) Essential hypertension: Code(s): I10 - Essential (primary) hypertension Status: Acute Assessment and Plan: Patient's blood pressure has remained well controlled during her hospitalization. Continue Lopressor and Cozaar. (6) Atrial fibrillation: Code(s): I48.91 - Unspecified atrial fibrillation Status: Acute Assessment and Plan: Patient with a history of AFib. EKG here showing sinus mechanism. [id number] 7 She is on metoprolol and amiodarone for rate maintenance. Eliquis for stroke prophylaxis. (7) Stage 3b chronic kidney disease: Code(s): N18.32 - Chronic kidney disease, stage 3b Status: Acute Assessment and Plan: RAQUEL during her hospitalization felt related to PNA and/or urinary retention. Cr back to baseline. Follow closely since on lasix and spironolactone. Plan DVT prophylaxis - Eliquis Code status - DNR Subjective Date/time seen: 06/03/25 11:53 Interval history: Patient is having bloody urine in alexander had a urine culture ordered as it was a urine analysis ordered but not culture. Kidney ultrasound they were not able to visual the bladder as the bladder was not full. They will attempt again in the morning we will clamp alexander at 0730 in the mornign. Objective Data Vital Signs Vital Signs: Vital Signs - 24 hr 06/02/25 16:00 06/02/25 20:00 06/02/25 20:37 Temperature 97.5 F L Pulse Rate 73 73 73 Respiratory Rate 16 16 Blood Pressure 116/53 L Pulse Oximetry 92 92 Oxygen Delivery Room Air Room Air 06/03/25 00:00 06/03/25 08:00 06/03/25 08:44 Temperature 97.9 F 97.9 F Pulse Rate 76 85 85 Respiratory Rate 16 16 Blood Pressure 119/52 L 105/49 L Pulse Oximetry 93 92 Oxygen Delivery Room Air Room Air 06/03/25 08:46 Temperature Pulse Rate 85 Respiratory Rate Blood Pressure Pulse Oximetry Oxygen Delivery Intake/Output Intake/Output: Intake & Output 05/31/25 06/01/25 06/02/25 06/03/25 23:59 23:59 23:59 23:59 Intake Total 1300 1800 1410 585 Output Total 1999 900 800 250 Balance -700 900 610 335 Meds/Results Medications: Active Medications Generic Name Dose Route Start Last Admin Trade Name Freq PRN Reason Stop Dose Admin Acetaminophen 650 mg 05/29/25 22:20 06/02/25 23:48 Acetaminophen 325 Mg Tablet PO 650 mg Q4H PRN Administration Pain Rated 1-6 Hydrocodone Bitart/Acetaminophen 1 tab 05/29/25 18:14 06/03/25 08:44 Hydrocodone/Acetaminophen (*Crx) 5-325 Mg Tablet PO 1 tab Q6H PRN Administration Pain Rated 7-10 Albuterol/Ipratropium 3 ml 05/29/25 18:30 Ipratropium 0.5 Mg/Albuterol Sulfate 2.5 Mg Ampul.Neb 3 Ml INHALATION Q6HRT PRN Wheezing Alprazolam 0.25 mg 06/02/25 10:54 06/02/25 20:37 Alprazolam (*Crx) 0.25 Mg Tablet PO 0.25 mg BID PRN Administration Anxiety Amiodarone HCl 200 mg 05/30/25 09:00 06/03/25 08:44 Amiodarone Hcl 200 Mg Tablet PO 200 mg Q24H ELLEN Administration Apixaban 5 mg 05/29/25 21:00 06/03/25 08:44 Apixaban 2.5 Mg Tablet BY MOUTH 5 mg Q12H ELLEN Administration Atorvastatin Calcium 40 mg 05/29/25 21:00 06/02/25 20:40 Atorvastatin 40 Mg Tablet PO 40 mg HS ELLEN Administration Cyclobenzaprine HCl 10 mg 05/30/25 09:54 06/01/25 13:49 Cyclobenzaprine Hcl 10 Mg Tablet PO 10 mg Q8HR PRN Administration Muscle Spasm Diclofenac Sodium 1 applic 06/01/25 08:59 06/02/25 09:29 Diclofenac Sodium 1% 100 Gm Gel (*Bkc) TOPICAL 1 applic QID PRN Administration Pain Ergocalciferol 1,250 mcg 06/03/25 09:00 06/03/25 08:45 Ergocalciferol (Vitamin D2) 1,250 Mcg (50,000 Units) Capsule PO 1,250 mcg Tu@0900 ELLEN Administration Furosemide 40 mg 05/30/25 09:00 06/03/25 08:44 Furosemide 40 Mg Tablet PO 40 mg DAILY ELLEN Administration Gabapentin 100 mg 05/30/25 09:00 06/03/25 08:44 Gabapentin 100 Mg Capsule PO 100 mg TID ELLEN Administration Lidocaine 1 patch 06/03/25 10:00 06/03/25 10:36 Lidocaine 5% Patch TRANSDERM 1 patch DAILY ELLEN Administration Losartan Potassium 100 mg 05/30/25 09:00 06/03/25 08:46 Losartan Potassium 50 Mg Tablet PO Not Given DAILY ELLEN Melatonin 5 mg 05/29/25 21:00 06/02/25 20:36 Melatonin 5 Mg Tablet PO 5 mg HS ELLEN Administration Metoprolol Tartrate 25 mg 05/29/25 21:00 06/03/25 08:46 Metoprolol Tartrate 25 Mg Tablet PO 25 mg Q12HR ELLEN Administration Mirtazapine 30 mg 05/29/25 21:00 06/02/25 20:37 Mirtazapine 15 Mg Tablet BY MOUTH 30 mg HS ELLEN Administration Polyethylene Glycol 17 gm 05/29/25 18:18 Polyethylene Glycol 3350 17 Gm Powd.Pack PO QAM PRN Constipation Spironolactone 50 mg 05/30/25 09:00 06/03/25 08:45 Spironolactone 25 Mg Tablet PO 50 mg QAM ELLEN Administration Tamsulosin HCl 0.4 mg 05/29/25 21:00 06/02/25 20:37 Tamsulosin Hcl 0.4 Mg Capsule PO 0.4 mg BEDTIME ELLEN Administration Radiology Results: ITS Impressions Renal Ultrasound 06/03/25 11:46 IMPRESSION: 1. Normal kidneys without hydronephrosis. Labs Labs: Laboratory Results - last 24 hr 06/02/25 06/03/25 11:07 11:05 WBC 10.9 H RBC 3.91 L Hgb 11.8 Hct 37.2 MCV 95.1 MCH 30.2 MCHC 31.7 L RDW 14.7 H Plt Count 628 H MPV 9.0 L % Immature Plt Fraction 1.6 Sodium 138 Potassium 4.4 Chloride 95 L Carbon Dioxide 35 H Anion Gap 8 BUN 21 H Creatinine 1.43 H Estim Creat Clear Calc 26 Estimated GFR 35 L Glucose 122 H Calculated Osmolality 290 Calcium 10.4 H Urine Color Red A Urine Appearance Turbid A Urine pH 7.0 Ur Specific [place] 1.010 Urine Protein 1+ H Urine Glucose (UA) Negative Urine Ketones Negative Ur Blood (Man) 3+ H Urine Nitrate Negative Urine Bilirubin Negative Urine Urobilinogen 0.2 Leukocyte Esterase Rfl Negative Urine RBC >100 H Urine WBC None seen Ur Squamous Epith Cells Rare Urine Bacteria 1+ H
[2025-06-03] MEDS: ACETAMINOPHEN 325 MG TABLET 650 MG PO (12:37)
[2025-06-03] MEDS: ALPRAZolam (*CRX) 0.25 MG TABLET PO (12:38)
--- NOTE | 2025-06-03 12:42 | PC.NURSE ---
Asiya Sun speaking with Dr Johnson in consult regarding blood in urine. Continues to get darker and needing recommendations.
--- NOTE | 2025-06-03 13:14 | PC.NURSE ---
Bladder irrigation completed. 100ml of sterile water with gravity return of 75mls pink tinged urine. No clots noted.
[2025-06-03] MEDS: MAGNESIUM HYDROXIDE SUSP 30 ML UDC PO (14:40)
--- NOTE | 2025-06-03 17:57 | PC.NURSE ---
Wallace irrigated with 100ml sterile water, return of clear irrigation totalling 100 ml, light pink drge in tubing post irrigation. Will continue to monitor
[2025-06-03] MEDS: ATORVASTATIN 40 MG TABLET PO (20:53)
[2025-06-03] MEDS: MIRTAZAPINE 15 MG TABLET 30 MG BY MOUTH (20:53)
[2025-06-03] MEDS: MELATONIN 5 MG TABLET PO (20:53)
[2025-06-03] MEDS: TAMSULOSIN HCL 0.4 MG CAPSULE PO (20:53)
[2025-06-04] MEDS: HYDROcodone/acetaminophen (*CRX) 5-325 MG TABLET 1 TAB PO ×3 (00:28→16:58)
[2025-06-04] MEDS: ALPRAZolam (*CRX) 0.25 MG TABLET PO ×3 (00:29→21:00)
[2025-06-04 05:39] LABS: Hematocrit 35.2 % (35.0-42.0); Hemoglobin 11.4 g/dL (11.7-13.8); Immature Platelet Fraction Pct 2.0 % (1.0-7.0); Mean Corpuscular HGB Conc 32.4 g/dL (32-36); Mean Corpuscular Hemoglobin 30.4 pg (27.0-31.0); Mean Corpuscular Volume 93.9 fL (78.0-102.0); Platelet Count Result 595 K/mm3 (150-420); Red Blood Count 3.75 M/mm3 (4.20-5.40); White Blood Count 11.3 K/mm3 (4.8-10.8)
[2025-06-04 05:49] LABS: Anion Gap 11 mmol/L (4-12); Blood Urea Nitrogen 21 mg/dL (7-17); Calcium 9.8 mg/dL (8.4-10.2); Carbon Dioxide 30 mmol/L (22-30); Chloride 94 mmol/L (98-107); Estimated CRCL calculation 31 ml/min; Estimated Glomerular Filt Rate 44; Glucose 106 mg/dL (65-110); Osmolality Calculated 283 mOsm/kg (285-295); Potassium 4.0 mmol/L (3.4-5.0); Sodium 135 mmol/L (137-145)
[2025-06-04 08:00] VITALS: BP 121/57; PULSE 73; RESP 18; TEMP 36.6; O2SAT 94
[2025-06-04 09:19] VITALS: PULSE 73
[2025-06-04] MEDS: LOSARTAN POTASSIUM 50 MG TABLET 100 MG PO (09:19)
[2025-06-04] MEDS: AMIODARONE HCL 200 MG TABLET PO (09:19)
[2025-06-04 09:20] VITALS: PULSE 73
[2025-06-04] MEDS: METOPROLOL TARTRATE 25 MG TABLET PO ×2 (09:20→20:59)
[2025-06-04] MEDS: SPIRONOLACTONE 25 MG TABLET 50 MG PO (09:20)
[2025-06-04] MEDS: APIXABAN 2.5 MG TABLET 5 MG BY MOUTH (09:20)
[2025-06-04] MEDS: ACETAMINOPHEN 325 MG TABLET 650 MG PO ×2 (09:21→14:51)
[2025-06-04] MEDS: FUROSEMIDE 40 MG TABLET PO (09:21)
[2025-06-04] MEDS: LIDOCAINE 5% PATCH 1 PATCH TRANSDERM (09:22)
[2025-06-04] MEDS: GABAPENTIN 100 MG CAPSULE PO ×3 (09:22→16:58)
[2025-06-04] MEDS: MAGNESIUM HYDROXIDE SUSP 30 ML UDC PO (09:22)
--- NOTE | 2025-06-04 10:08 | PC.NURSE ---
Pain only with movement of arms at this time.
[2025-06-04 16:00] VITALS: BP 97/52; PULSE 68; RESP 20; TEMP 36.5; O2SAT 95
[2025-06-04 20:00] VITALS: PULSE 64; RESP 20; O2SAT 94
[2025-06-04 20:59] VITALS: PULSE 64
[2025-06-04] MEDS: MELATONIN 5 MG TABLET PO (20:59)
[2025-06-04] MEDS: TAMSULOSIN HCL 0.4 MG CAPSULE PO (21:00)
[2025-06-04] MEDS: CYCLOBENZAPRINE HCL 10 MG TABLET PO (21:00)
[2025-06-04] MEDS: MIRTAZAPINE 15 MG TABLET 30 MG BY MOUTH (21:00)
[2025-06-04] MEDS: ATORVASTATIN 40 MG TABLET PO (21:01)
[2025-06-04] MEDS: DICLOFENAC SODIUM 1% 100 GM GEL (*BKC) 1 APPLIC TOPICAL (21:03)
--- NOTE | 2025-06-04 21:30 | PC.NURSE ---
[address] alexander cath placed per sterile technique. 600 ml of clear yellow urine noted upon immediate return. Patient tolerated procedure well.
[2025-06-05] VITALS (7 sets, daily range): BP systolic 87–100; BP diastolic 47–51; PULSE 51–75; RESP 16–18; TEMP 36.2–36.6; O2SAT 93–95
[2025-06-05] MEDS: HYDROcodone/acetaminophen (*CRX) 5-325 MG TABLET 1 TAB PO ×3 (02:03→21:08)
[2025-06-05 05:24] LABS: Hematocrit 31.7 % (35.0-42.0); Hemoglobin 10.2 g/dL (11.7-13.8); Mean Corpuscular HGB Conc 32.2 g/dL (32-36); Mean Corpuscular Hemoglobin 30.3 pg (27.0-31.0); Mean Corpuscular Volume 94.1 fL (78.0-102.0); Platelet Count Result 475 K/mm3 (150-420); Red Blood Count 3.37 M/mm3 (4.20-5.40); White Blood Count 9.2 K/mm3 (4.8-10.8)
[2025-06-05 05:38] LABS: Alanine Aminotransferase 13 U/L (6-35); Albumin Level 3.1 g/dL (3.5-5.1); Alkaline Phosphatase 113 U/L (38-126); Anion Gap 8 mmol/L (4-12); Aspartate Amino Transferase 18 U/L (14-36); Bilirubin,Total 0.3 mg/dL (0.2-1.3); Blood Urea Nitrogen 24 mg/dL (7-17); Calcium 9.3 mg/dL (8.4-10.2); Carbon Dioxide 33 mmol/L (22-30); Chloride 91 mmol/L (98-107); Estimated CRCL calculation 24 ml/min; Estimated Glomerular Filt Rate 33; Glucose 109 mg/dL (65-110); Osmolality Calculated 279 mOsm/kg (285-295); Potassium 3.8 mmol/L (3.4-5.0); Sodium 132 mmol/L (137-145); Total Protein 5.8 g/dL (6.3-8.2)
[2025-06-05] MEDS: MAGNESIUM HYDROXIDE SUSP 30 ML UDC PO (09:21)
[2025-06-05] MEDS: SPIRONOLACTONE 25 MG TABLET 50 MG PO (09:21)
[2025-06-05] MEDS: GABAPENTIN 100 MG CAPSULE PO ×3 (09:21→17:41)
[2025-06-05] MEDS: FUROSEMIDE 40 MG TABLET PO (09:22)
[2025-06-05] MEDS: AMIODARONE HCL 200 MG TABLET PO (09:22)
[2025-06-05] MEDS: LIDOCAINE 5% PATCH 1 PATCH TRANSDERM (09:22)
[2025-06-05] MEDS: METOPROLOL TARTRATE 25 MG TABLET PO ×2 (09:23→21:08)
--- NOTE | 2025-06-05 09:51 | P.PNIM_ITS ---
Progress Note: A&P Assessment and Plan (1) Generalized weakness: Code(s): R53.1 - Weakness Status: Acute Assessment and Plan: Patient is admitted to [facility] bed for generalized weakness after being hospitalized for pneumonia. * PT and OT have been ordered. * She has [place] and Benzo ordered which can contribute to falls. Also noted she is on scheduled Flexeril and on a higher dose of Remeron. * Stop alprazolam. Wean off narcotic as her back pain allows and only use if pain is severe. * Change Flexeril to prn. Monitor mental status on higher dose of Remeron. (2) Pneumonia: Code(s): J18.9 - Pneumonia, unspecified organism Status: Resolved Assessment and Plan: CT of the chest showed patchy bilateral mixed interstitial and airspace disease with some areas of nodularity most likely infectious /inflammatory. Patient will need a follow-up CT of the chest in 1-2 months to assess for resolution. Patient completed a 5 day course of azithromycin/doxycycline. She also completed a 5 day course of Rocephin /Augmentin. Last dose of antibiotics was 05/27/2025. White count normalized but was higher yesterday at 12.8K. No fevers. No hypoxia. Continue to monitor. (3) Urine retention: Code(s): R33.9 - Retention of urine, unspecified Status: Acute Assessment and Plan: Patient with evidence of urine retention during her hospital course. urinary catheter secured. * Continue to monitor for worsening hematuria. Plan voiding trial next week after patient is more ambulatory. * Stop Ditropan given the anti-cholinergic side effects that includes urinary retention * Bladder post void trial failed. Greater than 700mL urine retained. Wallace catheter replaced. * Pelvic ultrasound showed debris versus hemorrhage. Follow-up CT with no acute findings. * Plan to discharge with Wallace catheter and follow up with Urology outpatient. (4) Falls frequently: Code(s): R29.6 - Repeated falls Status: Acute Assessment and Plan: Discussed with patient and family risks of continuing Eliquis with frequent falls. * continue PT OT * Compression stockings with ambulation (5) Essential hypertension: Code(s): I10 - Essential (primary) hypertension Status: Acute Assessment and Plan: Patient's blood pressure has remained well controlled during her hospitalization. * Continue Lopressor and Cozaar. * Losartan held today due to low blood pressure (6) Atrial fibrillation: Code(s): I48.91 - Unspecified atrial fibrillation Status: Acute Assessment and Plan: Patient with a history of AFib. EKG here showing sinus mechanism. [id number] * She is on metoprolol and amiodarone for rate maintenance. * Eliquis for stroke prophylaxis. (7) Stage 3b chronic kidney disease: Code(s): N18.32 - Chronic kidney disease, stage 3b Status: Acute Assessment and Plan: RAQUEL during her hospitalization felt related to PNA and/or urinary retention. * creatinine slightly increased this morning likely secondary to urinary retention after voiding trial * hold Lasix pending repeat labs tomorrow * Monitor I&Os * Wallace catheter replaced * Follow closely since on lasix and spironolactone. * follow with Neurology outpatient Plan DVT prophylaxis - Eliquis Code status - DNR Time Spent With Patient Time with patient: 25 - 35 minutes Subjective Date/time seen: 06/05/25 09:51 Review of Systems Review of Systems: All systems reviewed & are unremarkable except as noted in HPI and below Constitutional: Constitutional: Reports no additional constitutional complaints Eyes: Eyes: Reports no additional eye complaints ENT: Reports system reviewed and no additional complaints, except as documented Cardiovascular: Cardiovascular: Reports no additional cardiovascular complaints Respiratory: Respiratory: Reports no additional respiratory complaints Gastrointestinal: Gastrointestinal: Reports no additional gastrointestinal complaints Genitourinary: Genitourinary: Reports no additional female genitourinary complaints Musculoskeletal: Musculoskeletal: Reports no additional musculoskeletal complaints Integumentary/Breasts: Skin/Breast: Reports system reviewed and no additional complaints, except as docu Neurologic: Reports system reviewed and no additional complaints, except as documented Psychiatric: Psychiatric: Reports no additional psychiatric complaints Exam 2 Const: General: comfortable and no acute distress HENMT: Ears: TM's normal bilaterally Face/Nose/Sinus: Normal nares present Mouth: Yes moist mucous membranes Eyes: General: appearance normal, both eyes and all related structures Pupils: Equal, round and reactive pupils present EOM: EOMs intact bilaterally Neck: Neck: supple and no JVD Resp: Effort & Inspection: normal respiratory effort Cardio: Rate: regular rate Rhythm: regular rhythm GI: GI Palp: Yes Soft to palpation Auscultation: normal bowel sounds : Bimanual exam- vagina & uterus: bladder normal to palpation Urinary Catheter: Urinary Catheter: patent and draining and urine clear Skin: General skin exam: normal color Wounds: no wounds Neuro: General: gait normal Speech: normal speech Motor exam (neuro): 5/5 motor strength present throughout Extrem: General: normal to inspection Psych: Mental Status: mental status grossly normal Objective Data Vital Signs Vital Signs: Vital Signs - 24 hr 06/04/25 16:00 06/04/25 20:00 06/04/25 20:59 Temperature 97.7 F Pulse Rate 68 64 64 Respiratory Rate 20 20 Blood Pressure 97/52 L Pulse Oximetry 95 94 Oxygen Delivery Room Air Room Air 06/05/25 00:00 06/05/25 09:22 06/05/25 09:23 Temperature 97.7 F Pulse Rate 64 51 L 51 L Respiratory Rate 16 Blood Pressure 100/47 L Pulse Oximetry 94 Oxygen Delivery Room Air Intake/Output Intake/Output: Intake & Output 06/02/25 06/03/25 06/04/25 06/05/25 23:59 23:59 23:59 23:59 Intake Total 1410 1315 960 300 Output Total 800 1050 450 250 Balance 610 265 510 50 Meds/Results Medications: Active Medications Generic Name Dose Route Start Last Admin Trade Name Freq PRN Reason Stop Dose Admin Acetaminophen 650 mg 05/29/25 22:20 06/04/25 14:51 Acetaminophen 325 Mg Tablet PO 650 mg Q4H PRN Administration Pain Rated 1-6 Hydrocodone Bitart/Acetaminophen 1 tab 05/29/25 18:14 06/05/25 09:23 Hydrocodone/Acetaminophen (*Crx) 5-325 Mg Tablet PO 1 tab Q6H PRN Administration Pain Rated 7-10 Albuterol/Ipratropium 3 ml 05/29/25 18:30 Ipratropium 0.5 Mg/Albuterol Sulfate 2.5 Mg Ampul.Neb 3 Ml INHALATION Q6HRT PRN Wheezing Alprazolam 0.25 mg 06/02/25 10:54 06/04/25 21:00 Alprazolam (*Crx) 0.25 Mg Tablet PO 0.25 mg BID PRN Administration Anxiety Amiodarone HCl 200 mg 05/30/25 09:00 06/05/25 09:22 Amiodarone Hcl 200 Mg Tablet PO 200 mg Q24H ELLEN Administration Apixaban 5 mg 05/29/25 21:00 06/04/25 09:20 Apixaban 2.5 Mg Tablet BY MOUTH 5 mg On Hold: 06/04/25 18:28 Q12H ELLEN Administration Atorvastatin Calcium 40 mg 05/29/25 21:00 06/04/25 21:01 Atorvastatin 40 Mg Tablet PO 40 mg HS ELLEN Administration Cyclobenzaprine HCl 10 mg 05/30/25 09:54 06/04/25 21:00 Cyclobenzaprine Hcl 10 Mg Tablet PO 10 mg Q8HR PRN Administration Muscle Spasm Diclofenac Sodium 1 applic 06/01/25 08:59 06/04/25 21:03 Diclofenac Sodium 1% 100 Gm Gel (*Bkc) TOPICAL 1 applic QID PRN Administration Pain Ergocalciferol 1,250 mcg 06/03/25 09:00 06/03/25 08:45 Ergocalciferol (Vitamin D2) 1,250 Mcg (50,000 Units) Capsule PO 1,250 mcg Tu@0900 ELLEN Administration Furosemide 40 mg 05/30/25 09:00 06/05/25 09:22 Furosemide 40 Mg Tablet PO 40 mg DAILY ELLEN Administration Gabapentin 100 mg 05/30/25 09:00 06/05/25 09:21 Gabapentin 100 Mg Capsule PO 100 mg TID ELLEN Administration Lactulose 20 gm 06/05/25 12:00 Lactulose 20 Gm/30 Ml Udc PO Q6HR ELLEN Lidocaine 1 patch 06/03/25 10:00 06/05/25 09:22 Lidocaine 5% Patch TRANSDERM 1 patch DAILY ELLEN Administration Losartan Potassium 100 mg 05/30/25 09:00 06/05/25 09:29 Losartan Potassium 50 Mg Tablet PO Not Given DAILY ELLEN Magnesium Hydroxide 30 ml 06/04/25 09:00 06/05/25 09:21 Magnesium Hydroxide Susp 30 Ml Udc PO 30 ml QAM ELLEN Administration Melatonin 5 mg 05/29/25 21:00 06/04/25 20:59 Melatonin 5 Mg Tablet PO 5 mg HS ELLEN Administration Metoprolol Tartrate 25 mg 05/29/25 21:00 06/05/25 09:23 Metoprolol Tartrate 25 Mg Tablet PO 25 mg Q12HR ELLEN Administration Mirtazapine 30 mg 05/29/25 21:00 06/04/25 21:00 Mirtazapine 15 Mg Tablet BY MOUTH 30 mg HS ELLEN Administration Polyethylene Glycol 17 gm 05/29/25 18:18 Polyethylene Glycol 3350 17 Gm Powd.Pack PO QAM PRN Constipation Spironolactone 50 mg 05/30/25 09:00 06/05/25 09:21 Spironolactone 25 Mg Tablet PO 50 mg QAM ELLEN Administration Tamsulosin HCl 0.4 mg 05/29/25 21:00 06/04/25 21:00 Tamsulosin Hcl 0.4 Mg Capsule PO 0.4 mg BEDTIME ELLEN Administration Radiology Results: ITS Impressions Renal Ultrasound 06/03/25 11:46 IMPRESSION: 1. Normal kidneys without hydronephrosis. Pelvis Ultrasound 06/04/25 08:53 IMPRESSION: Debris versus hemorrhage within the bladder. Correlation with CT recommended Abdomen/Pelvis CT 06/04/25 19:18 IMPRESSION: 1. No acute abdominal abnormality. No findings to account for hematuria. Labs Labs: Laboratory Results - last 24 hr 06/05/25 05:09 WBC 9.2 RBC 3.37 L Hgb 10.2 L Hct 31.7 L MCV 94.1 MCH 30.3 MCHC 32.2 RDW 14.8 H Plt Count 475 H MPV 9.4 Sodium 132 L Potassium 3.8 Chloride 91 L Carbon Dioxide 33 H Anion Gap 8 BUN 24 H Creatinine 1.50 H Estim Creat Clear Calc 24 Estimated GFR 33 L Glucose 109 Calculated Osmolality 279 L Calcium 9.3 Total Bilirubin 0.3 AST 18 ALT 13 Alkaline Phosphatase 113 Total Protein 5.8 L Albumin 3.1 L Quality VTE Prophylaxis VTE prophylaxis: pharmacologic ordered -Patient's previous records reviewed on admission -ER notes reviewed in detail on admission -discussed all findings and current treatment plan with patient/Family/POA -Consultations reviewed for recommendations -Patient's disposition for safe discharge discussed with case coordinator Dictation performed by [employer] direct speech recognition software, therefore cable braider variants and typographical errors may occur. Hospitalist MIPS Advance Care Plan I have confirmed that the patient's Advanced Care Plan is present, code status is documented, or surrogate decision maker is listed in patient medical record.: Yes Medication Reconciliation I have utilized all available resources to obtain, update and review the patients current medications (includes all prescriptions, OTC, herbals, cannabis, and nutritional supplements).: Yes The patient is not eligible for med reconciliation; the patient is in a emergent medical situation where delaying treatment would jeopardize the patients health.: No
[2025-06-05] MEDS: LACTULOSE 20 GM/30 ML UDC PO ×2 (12:22→17:41)
[2025-06-05] MEDS: TAMSULOSIN HCL 0.4 MG CAPSULE PO (21:08)
[2025-06-05] MEDS: MELATONIN 5 MG TABLET PO (21:08)
[2025-06-05] MEDS: MIRTAZAPINE 15 MG TABLET 30 MG BY MOUTH (21:08)
[2025-06-05] MEDS: ALPRAZolam (*CRX) 0.25 MG TABLET PO (21:08)
[2025-06-05] MEDS: ATORVASTATIN 40 MG TABLET PO (21:09)
[2025-06-05] MEDS: APIXABAN 2.5 MG TABLET 5 MG BY MOUTH (21:09)
[2025-06-05] MEDS: CYCLOBENZAPRINE HCL 10 MG TABLET PO (21:09)
[2025-06-05] MEDS: DICLOFENAC SODIUM 1% 100 GM GEL (*BKC) 1 APPLIC TOPICAL (21:09)
[2025-06-06] VITALS: BP 108/85; PULSE 69; RESP 16; TEMP 36.7; O2SAT 94
[2025-06-06 05:44] LABS: Hematocrit 33.8 % (35.0-42.0); Hemoglobin 10.8 g/dL (11.7-13.8); Immature Granulocyte Percent A 0.4 % (0.0-0.0); Lymphocytes Absolute Auto 2.35 K/mm3 (1.10-4.50); Mean Corpuscular HGB Conc 32.0 g/dL (32-36); Mean Corpuscular Hemoglobin 30.5 pg (27.0-31.0); Mean Corpuscular Volume 95.5 fL (78.0-102.0); Nucleated Red Blood Cells Absolute Auto 0.00 K/mm3 (0.00-0.00); Nucleated Red Blood Cells Perc 0.0 % (0-0.0); Platelet Count Result 448 K/mm3 (150-420); Red Blood Count 3.54 M/mm3 (4.20-5.40); White Blood Count 7.8 K/mm3 (4.8-10.8)
[2025-06-06 05:58] LABS: Alanine Aminotransferase 15 U/L (6-35); Albumin Level 3.5 g/dL (3.5-5.1); Alkaline Phosphatase 104 U/L (38-126); Anion Gap 8 mmol/L (4-12); Aspartate Amino Transferase 22 U/L (14-36); Bilirubin,Total 0.3 mg/dL (0.2-1.3); Blood Urea Nitrogen 25 mg/dL (7-17); Calcium 9.2 mg/dL (8.4-10.2); Carbon Dioxide 33 mmol/L (22-30); Chloride 93 mmol/L (98-107); Estimated CRCL calculation 20 ml/min; Estimated Glomerular Filt Rate 26; Glucose 111 mg/dL (65-110); Osmolality Calculated 283 mOsm/kg (285-295); Potassium 4.1 mmol/L (3.4-5.0); Sodium 134 mmol/L (137-145); Total Protein 6.4 g/dL (6.3-8.2)
[2025-06-06 08:00] VITALS: BP 105/50; PULSE 68; RESP 16; TEMP 36.6; O2SAT 94
[2025-06-06] MEDS: SPIRONOLACTONE 25 MG TABLET 50 MG PO (08:55)
[2025-06-06] MEDS: APIXABAN 2.5 MG TABLET 5 MG BY MOUTH (08:55)
[2025-06-06] MEDS: GABAPENTIN 100 MG CAPSULE PO ×3 (08:55→17:40)
[2025-06-06 08:56] VITALS: PULSE 68
[2025-06-06] MEDS: METOPROLOL TARTRATE 25 MG TABLET PO ×2 (08:56→20:37)
[2025-06-06] MEDS: AMIODARONE HCL 200 MG TABLET PO (08:56)
[2025-06-06] MEDS: LIDOCAINE 5% PATCH 1 PATCH TRANSDERM (08:56)
--- NOTE | 2025-06-06 14:03 | PM.EVENT ---
Event Note Event Note Event Note: Spoke with patient's family at bedside as well as patient regarding risks and benefits of her continuing Eliquis at this time due to frequent falls which time they have requested for patient only continue on aspirin 81 mg daily. I also did discuss discharge planning and need for follow-up Urology after discharge a acknowledges agreed with discharge plan.
[2025-06-06 16:35] VITALS: BP 87/56; PULSE 76; RESP 16; TEMP 36.6; O2SAT 93
[2025-06-06] MEDS: ACETAMINOPHEN 325 MG TABLET 650 MG PO (17:40)
[2025-06-06] MEDS: HYDROcodone/acetaminophen (*CRX) 5-325 MG TABLET 1 TAB PO (20:36)
[2025-06-06] MEDS: TAMSULOSIN HCL 0.4 MG CAPSULE PO (20:36)
[2025-06-06] MEDS: MIRTAZAPINE 15 MG TABLET 30 MG BY MOUTH (20:36)
[2025-06-06 20:37] VITALS: PULSE 686
[2025-06-06] MEDS: ALPRAZolam (*CRX) 0.25 MG TABLET PO (20:37)
[2025-06-06] MEDS: MELATONIN 5 MG TABLET PO (20:37)
[2025-06-06] MEDS: DICLOFENAC SODIUM 1% 100 GM GEL (*BKC) 1 APPLIC TOPICAL (20:37)
[2025-06-06] MEDS: ATORVASTATIN 40 MG TABLET PO (20:37)
[2025-06-06] MEDS: CYCLOBENZAPRINE HCL 10 MG TABLET PO (20:37)
[2025-06-07] VITALS: BP 98/48; PULSE 68; RESP 18; TEMP 36.3; O2SAT 92
[2025-06-07] MEDS: HYDROcodone/acetaminophen (*CRX) 5-325 MG TABLET 1 TAB PO ×2 (05:48→13:17)
[2025-06-07] MEDS: CYCLOBENZAPRINE HCL 10 MG TABLET PO ×2 (05:49→15:01)
--- NOTE | 2025-06-07 05:58 | PC.NURSE ---
PAtient given 100mcg and 25 mcg synthroid to make correct dose, pharmacy changed order now to 10o and a 25 mcg
[2025-06-07 08:00] VITALS: BP 114/51; PULSE 69; RESP 18; TEMP 36.4; O2SAT 93
[2025-06-07] MEDS: LIDOCAINE 5% PATCH 1 PATCH TRANSDERM (09:28)
[2025-06-07] MEDS: DICLOFENAC SODIUM 1% 100 GM GEL (*BKC) 1 APPLIC TOPICAL ×2 (09:29→19:55)
[2025-06-07 09:30] VITALS: PULSE 63
[2025-06-07] MEDS: LOSARTAN POTASSIUM 50 MG TABLET 100 MG PO (09:30)
[2025-06-07] MEDS: ASPIRIN 81 MG ENTERIC TABLET PO (09:30)
[2025-06-07] MEDS: SPIRONOLACTONE 25 MG TABLET 50 MG PO (09:30)
[2025-06-07] MEDS: METOPROLOL TARTRATE 25 MG TABLET PO ×2 (09:30→20:58)
[2025-06-07] MEDS: GABAPENTIN 100 MG CAPSULE PO ×3 (09:30→17:05)
[2025-06-07] MEDS: AMIODARONE HCL 200 MG TABLET PO (09:30)
[2025-06-07] MEDS: ALPRAZolam (*CRX) 0.25 MG TABLET PO ×2 (15:01→19:46)
[2025-06-07 16:00] VITALS: BP 97/44; PULSE 68; RESP 18; TEMP 36.6; O2SAT 97
[2025-06-07] MEDS: oxyCODONE/ACETAMINOPHEN (*CRX) 5-325 MG TABLET 1 TABLET PO (18:47)
[2025-06-07] MEDS: ACETAMINOPHEN 325 MG TABLET 650 MG PO (19:45)
[2025-06-07 20:00] VITALS: PULSE 68; RESP 18; O2SAT 97
[2025-06-07 20:58] VITALS: PULSE 65
[2025-06-07] MEDS: TAMSULOSIN HCL 0.4 MG CAPSULE PO (20:58)
[2025-06-07] MEDS: MELATONIN 5 MG TABLET PO (20:58)
[2025-06-07] MEDS: ATORVASTATIN 40 MG TABLET PO (21:02)
[2025-06-07] MEDS: MIRTAZAPINE 15 MG TABLET 30 MG BY MOUTH (21:02)
[2025-06-08] VITALS: BP 102/52; PULSE 64; RESP 16; TEMP 36.9; O2SAT 94
[2025-06-08] MEDS: CYCLOBENZAPRINE HCL 10 MG TABLET PO ×3 (01:06→17:03)
[2025-06-08] MEDS: oxyCODONE/ACETAMINOPHEN (*CRX) 5-325 MG TABLET 1 TABLET PO ×4 (01:06→21:12)
[2025-06-08 08:00] VITALS: BP 107/42; PULSE 66; RESP 16; TEMP 36.8; O2SAT 93
[2025-06-08] MEDS: LIDOCAINE 5% PATCH 1 PATCH TRANSDERM (09:05)
[2025-06-08] MEDS: DICLOFENAC SODIUM 1% 100 GM GEL (*BKC) 1 APPLIC TOPICAL ×2 (09:05→21:14)
[2025-06-08 09:08] VITALS: PULSE 66
[2025-06-08] MEDS: AMIODARONE HCL 200 MG TABLET PO (09:08)
[2025-06-08] MEDS: SPIRONOLACTONE 25 MG TABLET 50 MG PO (09:08)
[2025-06-08] MEDS: METOPROLOL TARTRATE 25 MG TABLET PO ×2 (09:08→21:12)
[2025-06-08] MEDS: GABAPENTIN 100 MG CAPSULE 200 MG PO ×3 (09:08→17:03)
[2025-06-08] MEDS: ASPIRIN 81 MG ENTERIC TABLET PO (09:09)
[2025-06-08 16:00] VITALS: BP 97/50; PULSE 65; RESP 18; TEMP 36.4; O2SAT 95
[2025-06-08 21:12] VITALS: PULSE 65
[2025-06-08] MEDS: TAMSULOSIN HCL 0.4 MG CAPSULE PO (21:12)
[2025-06-08] MEDS: MIRTAZAPINE 15 MG TABLET 30 MG BY MOUTH (21:12)
[2025-06-08] MEDS: ATORVASTATIN 40 MG TABLET PO (21:13)
[2025-06-08] MEDS: MELATONIN 5 MG TABLET PO (21:13)
[2025-06-09] VITALS: BP 105/49; PULSE 64; RESP 18; TEMP 36.3; O2SAT 93
[2025-06-09 08:00] VITALS: BP 103/48; PULSE 69; RESP 20; TEMP 36.8; O2SAT 92
[2025-06-09 08:28] VITALS: PULSE 69
[2025-06-09] MEDS: METOPROLOL TARTRATE 25 MG TABLET PO (08:28)
[2025-06-09] MEDS: GABAPENTIN 100 MG CAPSULE 200 MG PO (08:28)
[2025-06-09] MEDS: SPIRONOLACTONE 25 MG TABLET 50 MG PO (08:28)
[2025-06-09] MEDS: DICLOFENAC SODIUM 1% 100 GM GEL (*BKC) 1 APPLIC TOPICAL (08:28)
[2025-06-09] MEDS: ASPIRIN 81 MG ENTERIC TABLET PO (08:28)
[2025-06-09] MEDS: LIDOCAINE 5% PATCH 1 PATCH TRANSDERM (08:28)
[2025-06-09] MEDS: CYCLOBENZAPRINE HCL 10 MG TABLET PO (08:28)
[2025-06-09 08:29] VITALS: PULSE 69
[2025-06-09] MEDS: oxyCODONE/ACETAMINOPHEN (*CRX) 5-325 MG TABLET 1 TABLET PO (08:29)
[2025-06-09] MEDS: AMIODARONE HCL 200 MG TABLET PO (08:29)
--- NOTE | 2025-06-09 10:20 | P.DS_ITS ---
DS: Admitting Diagnosis Discharge Date 06/09/2025 Admitting Diagnosis Rehab after hospitalization for pneumonia DS: Discharge Diagnosis Discharge Diagnosis (1) Generalized weakness: Code(s): R53.1 - Weakness Status: Acute (2) Pneumonia: Code(s): J18.9 - Pneumonia, unspecified organism Status: Resolved (3) Urine retention: Code(s): R33.9 - Retention of urine, unspecified Status: Acute (4) Falls frequently: Code(s): R29.6 - Repeated falls Status: Acute (5) Essential hypertension: Code(s): I10 - Essential (primary) hypertension Status: Acute (6) Atrial fibrillation: Code(s): I48.91 - Unspecified atrial fibrillation Status: Acute (7) Stage 3b chronic kidney disease: Code(s): N18.32 - Chronic kidney disease, stage 3b Status: Acute (8) LEAH (generalized anxiety disorder): Code(s): F41.1 - Generalized anxiety disorder Status: Acute (9) Chronic low back pain: Code(s): M54.5 - Low back pain; G89.29 - Other chronic pain Status: Acute (10) Kyphosis associated with other condition: Code(s): M40.10 - Other secondary kyphosis, site unspecified Status: Acute DS: Summary Hospital Course Reason for hospitalization: rehab Hospital Course: Admission: Patient was a 84yo female with pAFib on Eliquis, HTN, CKD and recent hospitalization for PNA admitted to [facility] for rehab for generalized weakness. Patient presented to the ED on 05/23 after ground level fall and was also having cough and congestion. She had low grade fever but no hypoxia. EKG showing sinus mechanism, with incomplete Rt BBB and QTc 467 but no change from prior. WBC was 19K but she was on steroids prior to admission for unclear reasons. Patient is awake, alert and mostly oriented but is unaware of why she was on steroids or other parts of her medical hx. Steroids were stopped during her hospital course. Hgb 11 but drifted down to 9-10 range and remained stable. She had acute kidney injury with Cr 1.57 on admission. She also had urine retention that may have contributed to RAQUEL. Urinary catheter was placed. Cr did improve to 1.03. UA was clear. MRSA nasal swab was negative. Thoracic spine CT and cervical spine CT showing no acute findings. 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 Chest CT showing patchy bilateral mixed interstitial and airspace disease with some nodularity. Follow-up CT in 1-2 months was recommended. She was started Rocephin and Azithromycin. Abx changed to Augmentin and Doxycycline and completed a 5 day course. She worked with therapy but skilled placement was recommended. Patient was accepted to [facility] and transferred on 05/29/25. She was discharged on Augmentin to finish an abx course. She feels well today. She has no complaints. Complete ROS was negative except for some chronic back pain. Her cough is better. Appetite is good. She complains of left midback pain that is chronic. Worse with left arm movement but terri is not pleuritic. She has been up walking in the room. No shooting pain. No lower extremity weakness, numbness. She resides as [facility] living. She has a kitchette but takes her meals in the facility dining room. She has family visit frequently (at least 3x/week) and has a data warehouse administrator who also does her laundry 1x/week. Hospital course: patient continued to progress with physical and occupational therapy but still had moderate to severe back pain secondary to her spondylosis I initially started patient at her gabapentin 100 mg and increase to 200 mg as well as transition her from Pierre to Percocet and adding Flexeril p.r.n. which seemed to control patient's back pain much better. during her rehab she continued to have urinary retention with Wallace catheter in place attempted voiding trials x2 after initiating Flomax but unsuccessful. Urology over at [facility] was contacted getting patient's urinary retention which they recommended to continue Wallace catheter outpatient and they will follow-up in a few weeks in their office to attempt a voiding trial then and possibly schedule a cystoscopy. due to patient requiring continued urinary Wallace catheter she was unable to return to her assisted living at this time family and patient agreed she was discharged to a senior living facility until follow-up with Urology. patient is seen and assessed a discharge in no acute distress and reported back pain had improved. overall patient improve close back to her baseline other than with current Wallace catheter. Status at Discharge Functional status at discharge: uses cane/walker Overall status at discharge: patient is progressing back to baseline Time Spent with Patient Time attestation: Total time spent providing and/or coordinating discharge services: Time spent: Greater than 30 minutes Exam Const: General: comfortable and no acute distress HENMT: Ears: TM's normal bilaterally Face/Nose/Sinus: Normal nares present Mouth: Yes moist mucous membranes Eyes: General: appearance normal, both eyes and all related structures Pupils: Equal, round and reactive pupils present EOM: EOMs intact bilaterally Neck: Neck: supple and no JVD Resp: Effort & Inspection: normal respiratory effort Cardio: Rate: regular rate Rhythm: regular rhythm GI: Auscultation: normal bowel sounds : General: Yes bladder normal to palpation Bimanual exam- vagina & uterus: bladder normal to palpation Urinary Catheter: Urinary Catheter: patent and draining and urine clear Skin: General skin exam: normal color Wounds: no wounds Neuro: General: gait normal Cranial nerves: Yes Equal, round and reactive pupils present Speech: normal speech Motor exam (neuro): 5/5 motor strength present throughout Extrem: General: normal to inspection Psych: Mental Status: mental status grossly normal Discharge Plan Discharge Attending physician on discharge: Star Craft Consulting providers: Chani Anglin; Tarah Scales Discharging Clinician: Tarah Scales Anticipated Discharge Date/Time: 06/09/25 10:25 Patient Disposition: SNF Activity: as tolerated Diet: heart healthy Discharge Instructions: 1). Weakness/ chronic back pain * may continue to take gabapentin at 200 mg t.i.d., I have also prescribed Percocet p.r.n. and discontinued your Pierre as well as p.r.n. Flexeril for muscle spasms. * continue with PT/OT * recommend compression stockings with ambulation 2). hypertension * your blood pressures remained on the lower side during your hospitalization I discontinued her losartan 3). urinary retention * continue with Wallace catheter plan for follow-up with Urology outpatient for further voiding trials and possible cystoscopy * continue with your Flomax daily * I have attached Wallace catheter care instructions How can you care for yourself at home? ? Keep track of any new symptoms or changes in your symptoms. ? Rest until you feel better. ? Be safe with medicines. Take your medicines exactly as prescribed. Call your doctor if you think you are having a problem with your medicine. ? Do not drive after taking a prescription pain medicine. ? Ensure to follow-up with primary care physician as indicated and provide updated medication list provided to you at discharge. When should you call for help? Call 911 anytime you think you may need emergency care. For example, call if: ? You passed out (lost consciousness). Call your doctor now or seek immediate medical care if: ? You have new symptoms like fever, difficulty breathing, Chest pain, vomiting, or rash. ? You have new or different pain. ? You are confused and are having trouble thinking clearly. ? Your symptoms are getting worse. Watch closely for changes in your health, and be sure to contact your doctor if: ? You do not get better as expected. Patient Instructions: Heart Failure (ED), Wallace Catheter Placement and Care (DC), Acute Urinary Retention in Women (GEN), Chronic Urinary Retention in Women (DC) Patient Language: Mohawk Stand Alone Forms: General Discharge Information, Group Home Discharge Follow-up/Referrals: Shanna Lawton NP [Primary Care Provider, Family Practice] - 2 weeks Iban Johnson MD [Physician, Urology] - Call for Appointment Discharge Medications: New alprazolam 0.25 mg Tablet 0.25 mg PO BID PRN (Reason: Anxiety) Qty: 10 0RF oxycodone-acetaminophen 5-325 mg Tablet 1 tablet PO Q6H PRN (Reason: Pain Rated 7-10) Qty: 10 0RF polyethylene glycol 3350 [Miralax] 17 gram Powder In Packet 17 g PO QAM PRN (Reason: Constipation) Qty: 1 0RF lidocaine [Lidoderm] 5 % Adhesive Patch,Medicated 1 patch transdermal DAILY Qty: 15 0RF aspirin 81 mg Tablet,Delayed Release (Dr/Ec) 81 mg PO QAM Qty: 1 0RF gabapentin 100 mg Capsule 200 mg PO TID Qty: 3 0RF spironolactone 25 mg Tablet 50 mg PO QAM Qty: 1 0RF tamsulosin 0.4 mg Capsule 0.4 mg PO BEDTIME Qty: 1 0RF sennosides-docusate sodium [Senna with Docusate Sodium] 8.6-50 mg tablet 1 tab-cap PO HS Qty: 1 0RF Continued amiodarone 200 mg tablet 200 mg PO Q24H Patient Comments: [id number] Rx Instructions: 32907 metoprolol tartrate 25 mg tablet 25 mg PO Q12H mirtazapine [Remeron] 15 mg Tablet 30 mg BYMOUTH HS Qty: 1 0RF melatonin 5 mg Tablet 5 mg PO HS Qty: 1 0RF mecobalamin (vitamin B12) 1,000 mcg tablet,disintegrating See Rx Instructions .ROUTE .COMPLEX Qty: 100 0RF Dose Instruction: PLACE 1 TABLET UNDER TONGUE AND ALLOW TO DISSOLVE FOR 30 SECONDS BEFORE SWALLOWING Rx Instructions: PLACE 1 TABLET UNDER TONGUE AND ALLOW TO DISSOLVE FOR 30 SECONDS BEFORE SWALLOWING acetaminophen 500 mg tablet See Rx Instructions .ROUTE .COMPLEX Qty: 100 5RF Dose Instruction: TAKE 1 TABLET BY MOUTH EVERY 8 HOURS Rx Instructions: TAKE 1 TABLET BY MOUTH EVERY 8 HOURS furosemide 20 mg tablet See Rx Instructions .ROUTE .COMPLEX Qty: 90 2RF Dose Instruction: TAKE ONE TABLET BY MOUTH EVERY MORNING NEEDED FOR EDEMA Rx Instructions: TAKE ONE TABLET BY MOUTH EVERY MORNING NEEDED FOR EDEMA atorvastatin 40 mg tablet See Rx Instructions .ROUTE .COMPLEX Qty: 30 5RF Dose Instruction: TAKE 1 TABLET AT BEDTIME. Rx Instructions: TAKE 1 TABLET AT BEDTIME. spironolactone 50 mg tablet See Rx Instructions .ROUTE .COMPLEX Qty: 90 2RF Dose Instruction: 1 TAB BY MOUTH DAILY Rx Instructions: 1 TAB BY MOUTH DAILY ergocalciferol (vitamin D2) 1,250 mcg (50,000 unit) capsule See Rx Instructions .ROUTE .COMPLEX Qty: 12 1RF Dose Instruction: 1 CAP BY MOUTH WEEKLY ON MONDAY Rx Instructions: 1 CAP BY MOUTH WEEKLY ON MONDAY cyclobenzaprine 10 mg Tablet 10 mg PO Q8HR Qty: 30 0RF Discontinued Eliquis 5 mg tablet 5 mg PO Q12H gabapentin 100 mg Capsule 100 mg PO TID Qty: 1 0RF oxybutynin chloride 5 mg Tablet 5 mg PO TID Qty: 1 0RF losartan 100 mg tablet See Rx Instructions .ROUTE .COMPLEX Qty: 30 5RF Dose Instruction: TAKE 1 TABLET BY MOUTH DAILY. Rx Instructions: TAKE 1 TABLET BY MOUTH DAILY. hydrocodone-acetaminophen 5-325 mg tablet 1 tablet PO Q6H PRN (Reason: pain) Qty: 30 0RF Rx Instructions: please take only as needed. this medicine causes drowsiness/sedation. Date of admission: 05/29/25 15:35 Primary Care Provider: Shanna Lawton Admitting Provider: Star Craft Attending physician on admission: Star Craft Condition: Improved Quality VTE Prophylaxis VTE prophylaxis: pharmacologic ordered -Patient's previous records reviewed on admission -ER notes reviewed in detail on admission -discussed all findings and current treatment plan with patient/Family/POA -Consultations reviewed for recommendations -Patient's disposition for safe discharge discussed with case repairer Dictation performed by [employer] direct speech recognition software, therefore salesperson children's shoes variants and typographical errors may occur. Hospitalist MIPS Heart Failure (Exclusion) Patient has history of Heart Transplant or Left Ventricular Assistive Device?: No IF YES, STOP HERE Heart Failure (Qualifier) Patient has current or prior documentation of LVEF less than or equal to 40%, or mod/servere depressed LVSF?: No IF NO, STOP HERE
--- NOTE | 2025-06-09 12:25 | PC.NURSE ---
Report called to Deisi at [facility]. [facility] staff brought wheelchair to transport patient. Assisted into wheelchair, patient taken off floor
--- NOTE | 2025-06-10 09:03 | PC.NURSE ---
Discharge call back, to halfway, no questions regarding dc medications.
== END 2025-06-09 12:25 | DRG 947 ==
PROVIDERS: Nurse Practitioner Adult Health; Nurse Practitioner Family; Admitting Provider Internal Medicine; PCP Nurse Practitioner Family; Visit Provider Internal Medicine
DX: R53.1 Weakness (principal); J18.9 Pneumonia, unspecified organism; N17.9 Acute kidney failure, unspecified; I48.0 Paroxysmal atrial fibrillation; R33.9 Retention of urine, unspecified; R31.9 Hematuria, unspecified; E78.5 Hyperlipidemia, unspecified; G89.29 Other chronic pain; I25.10 Atherosclerotic heart disease of native coronary artery without angina pectoris; I25.2 Old myocardial infarction; I12.9 Hypertensive chronic kidney disease with stage 1 through stage 4 chronic kidney disease, or unspecified chronic kidney disease; K21.9 Gastro-esophageal reflux disease without esophagitis; M54.9 Dorsalgia, unspecified; M40.10 Other secondary kyphosis, site unspecified; M47.9 Spondylosis, unspecified; N18.32 Chronic kidney disease, stage 3b; R29.6 Repeated falls; Z66 Do not resuscitate; Z79.01 Long term (current) use of anticoagulants; Z86.73 Personal history of transient ischemic attack (TIA), and cerebral infarction without residual deficits; Z90.49 Acquired absence of other specified parts of digestive tract; Z79.82 Long term (current) use of aspirin
CPT/HCPCS: 36415; 74176; 76770; 76857; 80048; 80053; 81001; 82607; 82746; 83735; 84443; 85025; 85027; 85055; 87086; 97110; 97161; 97165; 97530; 97535; A9270

== ENCOUNTER 2025-06-14 15:24 | Outpatient (NON) | payer OTHER, SELFPAY ==
--- OUTSIDE RECORDS SUMMARY | 2025-06-14 15:27 | XMS_ITS | Clinical Summary ---
Author Organization [facility] Address [address] [place] [id number] Care Team Providers Care Business Mail Entry Clerk Name Role Phone Unavailable Primary Care Provider [...] COVID-19 Vaccine ( - 2023-2 5 season) 2025 Meningococcal B Vaccine Aged Out No l onger eligible based on patient's age to complete this topic Meningococcal Vaccine Aged Out No donna jayde eligible based on patient's age to complete this topic RSV Immunizations Under 20 Months Aged Out No longer eligible based on patient's age to complete this topic Insurance MEDICARE
[2025-06-14 15:36] LABS: Add Urine Microscopic? NO; Appearance Urine Clear (Clear); Glucose Urine UA Negative (Negative); Leukocyte Esterase Ur Negative LEU/UL (Negative); Nitrate Urine Negative (Negative); Specific Grav Ur 1.010 (1.010-1.020)
== END 2025-06-14 15:25 | disposition home or self-care (01) ==
PROVIDERS: PCP Nurse Practitioner Family; Visit Provider Family Medicine
DX: R33.9 Retention of urine, unspecified (principal)
CPT/HCPCS: 81003

== ENCOUNTER 2025-06-23 07:19 | Outpatient (NON) | payer OTHER, SELFPAY ==
[2025-06-23 08:28] LABS: Add Urine Microscopic? YES; Appearance Urine Clear (Clear); Glucose Urine UA Negative (Negative); Leukocyte Esterase Ur Negative (Negative); Nitrate Urine Negative (Negative); Specific Grav Ur <= 1.005 (1.010-1.020)
== END 2025-06-23 07:20 | disposition home or self-care (01) ==
LOC: CHSLAB 07:21
PROVIDERS: Visit Provider Family Medicine
DX: N39.0 Urinary tract infection, site not specified (principal)
CPT/HCPCS: 81001; 87086; 87186

== ENCOUNTER 2025-08-08 07:43 | Outpatient (NON) | payer OTHER, SELFPAY ==
[2025-08-08 08:42] LABS: Alanine Aminotransferase 14 U/L (6-35); Aspartate Amino Transferase 18 U/L (14-36)
[2025-08-08 09:14] LABS: Thyroid Stimulating Hormone 1.560 uIU/mL (0.465-4.680)
== END 2025-08-08 07:44 | disposition home or self-care (01) ==
PROVIDERS: Visit Provider Family Medicine
DX: N17.9 Acute kidney failure, unspecified (principal); I69.30 Unspecified sequelae of cerebral infarction; N18.32 Chronic kidney disease, stage 3b; R53.1 Weakness; R79.89 Other specified abnormal findings of blood chemistry
CPT/HCPCS: 36415; 84443; 84450; 84460

== ENCOUNTER 2025-08-27 14:44 | Outpatient (CLI) | payer OTHER, SELFPAY ==
--- NOTE | ~2025-08-27 | XR_ITS ---
EXAMINATION: XR chest 2V, 08/27/2025 15:03 DULSER HISTORY: R09.89 - Other specified symptoms and signs involving the... COMPARISON: No comparisons available. Technique: 2 views obtained. Findings: The lungs are clear, no effusion. No pneumothorax. Heart is normal size. Mediastinal and hilar contours are within normal limits. Bony thorax no acute abnormality. Impression: No acute cardiopulmonary abnormality. Reviewed, dictated and finalized at location P. ER Impression: No acute cardiopulmonary abnormality.
[2025-08-27 15:09] LABS: Hematocrit 39.0 % (35.0-42.0); Hemoglobin 12.4 g/dL (11.7-13.8); Immature Granulocyte Percent A 0.3 % (0.0-0.0); Lymphocytes Absolute Auto 1.28 K/mm3 (1.10-4.50); Mean Corpuscular HGB Conc 31.8 g/dL (32-36); Mean Corpuscular Hemoglobin 30.8 pg (27.0-31.0); Mean Corpuscular Volume 97.0 fL (78.0-102.0); Nucleated Red Blood Cells Absolute Auto 0.00 K/mm3 (0.00-0.00); Nucleated Red Blood Cells Perc 0.0 % (0-0.0); Platelet Count Result 328 K/mm3 (150-420); Red Blood Count 4.02 M/mm3 (4.20-5.40); White Blood Count 11.9 K/mm3 (4.8-10.8)
[2025-08-27 15:25] LABS: Alanine Aminotransferase 34 U/L (6-35); Albumin Level 4.0 g/dL (3.5-5.1); Alkaline Phosphatase 113 U/L (38-126); Anion Gap 12 mmol/L (4-12); Aspartate Amino Transferase 42 U/L (14-36); Bilirubin,Total 0.5 mg/dL (0.2-1.3); Blood Urea Nitrogen 20 mg/dL (7-17); Calcium 9.3 mg/dL (8.4-10.2); Carbon Dioxide 24 mmol/L (22-30); Chloride 102 mmol/L (98-107); Estimated Glomerular Filt Rate 41; Glucose 102 mg/dL (65-110); Osmolality Calculated 288 mOsm/kg (285-295); Potassium 4.3 mmol/L (3.4-5.0); Sodium 138 mmol/L (137-145); Total Protein 6.8 g/dL (6.3-8.2)
--- OUTSIDE RECORDS SUMMARY | 2025-08-27 16:07 | XMS_ITS | Clinical Summary ---
Author Organization [facility] Address [address] [place] [id number] Care Team Providers Care Emissions Technician Name Role Phone Unavailable Primary Care [...] - 1-dose 75+ series) 2015 COVID-19 Vaccine (2024-2 6 season) 2025 Influenza Adult (#1) 2025 Hepatitis A Vaccines Aged Out No long er eligible based on patient's age to complete this topic Meningococcal B Vaccine Aged Out No l onger eligible based on patient's age to complete this topic Meningococcal Vaccine Aged Out No donna jayde eligible based on patient's age to complete this topic RSV Immunizations Under 20 Months Aged Out No longer eligible based on patient's age to complete this topic Insurance MEDICARE
== END 2025-08-27 14:45 | disposition home or self-care (01) ==
PROVIDERS: PCP Family Medicine; Visit Provider Family Medicine
DX: R53.83 Other fatigue (principal); R09.89 Other specified symptoms and signs involving the circulatory and respiratory systems; J18.9 Pneumonia, unspecified organism
CPT/HCPCS: 36415; 71046; 80053; 85025